=== PATIENT | female | born 1960 | race Caucasian/White ===

== ENCOUNTER 2024-04-30 15:45 | Inpatient (IN) | payer OTHER, SELFPAY ==
[2024-04-30] VITALS (11 sets, daily range): BP systolic 94–118; BP diastolic 60–82; BMI 15.2
[2024-04-30 11:56] LABS: % Basophils 0.5 % (0-2); % Eosinophils 1.1 % (0-6); % Immature Granulocytes 0.2 % (0-0.5); % Lymphocytes 10.7 % (20.5-51.1); % Monocytes 13.5 % (1.7-9.3); Absolute Eosinophils 0.1 10^3/uL (0-0.7); Absolute Lymphocytes 0.6 10^3/uL (1.2-3.4); Absolute Monocytes 0.8 10^3/uL (0.1-0.6); Absolute Neutrophils 4.2 10^3/uL (1.4-6.5); Hematocrit 24.6 % (37.0-47.0); Hemoglobin 8.5 g/dL (12.0-16.0); Mean Corp Hgb Conc. 34.6 g/dL (33.0-37.0); Mean Corpuscular Hgb 33.5 pg (27.0-31.0); Mean Corpuscular Volume 96.9 fL (81.0-99.0); Mean Platelet Volume 11.5 fL (7.4-10.4); Nucleated Red Blood Cells % 0 %; Platelet Count 184 10^3/uL (130-400); Red Blood Cell Count 2.54 10^6/uL (4.20-5.40); Red Cell Dist. Width 17.4 % (11.5-14.5); White Blood Cell Count 5.7 10^3/uL (4.8-10.8)
[2024-04-30 12:03] LABS: ALT (SGPT) 71 U/L (0-35); AST (SGOT) 61 U/L (14-36); Albumin 3.5 g/dl (3.5-5.0); Alkaline Phosphatase 292 U/L (38-126); Blood Urea Nitrogen 25 mg/dl (7-17); Calcium 7.4 mg/dl (8.4-10.2); Carbon Dioxide 10 mmol/L (22-30); Chloride 113 mmol/L (98-107); Glucose 97 mg/dl (70-99); Potassium 2.7 mmol/L (3.5-5.1); Sodium 137 mmol/L (135-145); Total Bilirubin 0.3 mg/dl (0.2-1.3); Total Protein 8.6 g/dl (6.3-8.2); eGFR 16.18
--- NOTE | 2024-04-30 14:40 | ED.GENMED ---
History of Present Illness
General
Chief Complaint: Failure to Thrive
Source: patient
Exam Limitations: none
Time Seen by Provider: 04/30/24 14:16
History of Present Illness
History of Present Illness:
63-year-old female presents with fatigue and decreased appetite. Sent in by family doctor for malnutrition. She smokes a half a pack a day. She states she has a history of abnormal lab values. She was admitted to [facility] 6 months ago
for similar symptoms. She admits to drinking alcohol approximately 3 beers a day but stopped this about a week and a half ago. She denies headache chest pain abdominal pain or shortness of breath. She has been moving her bowels and urinating.
Past History
Past History
ED Past Medical History: HTN and Other
ED Past Surgical History: None
Social History
Tobacco: Smoker
Alcohol: None
Drug: None
Personal:
Living: with family
Employment: Employed
Family History
Family History: Unable to obtain
Phy Exam
Physical Exam
Physical Exam:
General: Cachectic appearing female no acute respiratory distress
HEENT: Normocephalic mucosa dry neck is supple
Heart: Regular rate and rhythm
Lungs: Clear no wheeze
Abdomen is soft nontender nondistended
Skin: Dry patches of skin with overlying scabs over the forehead bilateral neck and arms
Extremities: No cyanosis or edema
Skin: Warm no rash
Neurologic exam: Alert and oriented no facial asymmetry no unilateral weakness
Course
Orders/Labs/Results
Orders:
Orders
04/30/24 11:42
CMP [Comprehensive Metabolic Panel] Urgent
Complete Blood Count/With Diff Urgent
04/30/24 14:31
Add On- LAB Urgent
Tests Added?: lipase, magnesium, B12, Folate
04/30/24 14:32
0.9% Sodium Chloride 1000 ml [Nss] 1,000 ml IV BOLUS
Potassium Chloride [KCl] 40 meq 0.9% Sodium Chloride 250 ml [Nss] 250 ml IV NOW
04/30/24 14:45
Lactic Acid Q4H
Comment: CANCEL 2nd LACTIC ACID IF 1st LACTIC ACID IS LESS THAN 2
04/30/24 18:45
Lactic Acid Q4H
Comment: CANCEL 2nd LACTIC ACID IF 1st LACTIC ACID IS LESS THAN 2
Abnormal Lab Results
04/30/24
11:42
RBC 2.54 L 10^6/uL
(4.20-5.40)
Hgb 8.5 L g/dL
(12.0-16.0)
Hct 24.6 L %
(37.0-47.0)
MCH 33.5 H pg
(27.0-31.0)
RDW 17.4 H %
(11.5-14.5)
MPV 11.5 H fL
(7.4-10.4)
Absolute Lymphs (auto) 0.6 L 10^3/uL
(1.2-3.4)
Absolute Monos (auto) 0.8 H 10^3/uL
(0.1-0.6)
Lymphocytes % 10.7 L %
(20.5-51.1)
Monocytes % 13.5 H %
(1.7-9.3)
Potassium 2.7 L* mmol/L
(3.5-5.1)
Chloride 113 H mmol/L
(98-107)
Carbon Dioxide 10 L* mmol/L
(22-30)
BUN 25 H mg/dl
(7-17)
Creatinine 3.1 H mg/dL
(0.6-1.0)
Calcium 7.4 L mg/dl
(8.4-10.2)
AST 61 H U/L
(14-36)
ALT 71 H U/L
(0-35)
Alkaline Phosphatase 292 H U/L
(38-126)
Total Protein 8.6 H g/dl
(6.3-8.2)
04/30/24 11:42
04/30/24 11:42
Vital Signs
Initial and Last Documented VS:
Initial Vital Signs
Temp Pulse Resp BP Pulse Ox
98.8 F 76 18 94/60 99
04/30/24 11:26 04/30/24 11:26 04/30/24 11:26 04/30/24 11:26 04/30/24 11:26
Last Documented Vital Signs
Temp Pulse Resp BP Pulse Ox
98.8 F 54 17 109/64 100
04/30/24 11:26 04/30/24 14:30 04/30/24 14:30 04/30/24 13:29 04/30/24 14:30
MDM/Problems Addressed
Differential Diagnosis Includes:
Fatigue. Sent in by family doctor for abnormal labs. Patient is cachectic appears malnourished. Potassium is 2.7 bicarb is 10 she has acute kidney injury with a creatinine of 3.1. Multiple lab abnormalities including anemia of 8.6. Looks very
dry. Will hydrate and administer IV potassium. Requires admission for further evaluation.
*Critical Care Note
Total Time (30-74mins, 75-104mins- exclusive of procedures): Not Applicable
ED Attending Note
-
Portions of this chart may have been created with voice recognition software.� Occasional wrong word or��sound alike� substitutions may have occurred due to the inherent limitations of voice recognition software.
Discharge Plan
Departure
Patient Disposition: Admit
Date of Disposition: 04/30/24
Time of Disposition: 14:51
Presentation/result/management discussed w/ accepting MD/DO: Hospitalist
Discharge Problem:
Metabolic acidosis, Acute hypokalemia, JOCELYN (acute kidney injury)
Prescriptions:
No Action
pyridoxine (vitamin B6) 25 mg Tablet
25 mg PO DAILY
cyanocobalamin (vitamin B-12) 1,000 mcg Tablet
1,000 mcg PO DAILY
potassium 99 mg Tablet
99 mg PO DAILY
folic acid 1 mg Tablet
1 mg PO DAILY
magnesium oxide 400 mg magnesium Tablet
400 mg PO DAILY
acetaminophen 325 MG tablet
650 mg PO Q4HPRN PRN (Reason: fever pain) Qty: 0 0RF
metoprolol succinate 12.5 MG tablet extended release 24 hr
12.5 mg PO DAILY Qty: 30 3RF
Referrals:
Dewey Manzo MD [Family Provider] -
Interventions
Interventions:
*Risk Screen - Suicide Last Done: 04/30/24 11:26
*General Assessment Last Done: 04/30/24 11:26
*Neglect/Abuse Screening Last Done: 04/30/24 14:32
ED- Fall Risk Assessment Last Done: 04/30/24 14:32
*ED COVID-19 Vaccine History Last Done: 04/30/24 11:26
Discharge Date and Time
Print Language: SYRIAC
[2024-04-30] MEDS: NSS 1000 IV (14:49)
--- NOTE | 2024-04-30 14:58 | HPS.HSE ---
Addendum entered and electronically signed by Prabhu Fermin MD 04/30/24 15:59:
63-year-old female with a past medical history of hypertension, anxiety, and cigarette nicotine dependency was sent in by her PCP for failure to thrive. Patient reports that she started having weight loss in 2022 with bereavement of her mom.
During the last year, she reports poor appetite, early satiety. She admits to low energy, low interest, eating less. States she is sleeping okay, she is able to focus fine. She used to be on medications for anxiety, but stopped due to cost.
Her creatinine is 3.1, CO2 is 10, potassium 2.7.
Last creatinine in August 2015 was 1.7. Suspect she has a component of stage 3 CKD.
She is getting normal saline and a K rider in the ER.
Will give sodium bicarb IV fluids, give oral potassium chloride, check renal bladder ultrasound, consult nephrology.
As far as her failure to thrive, her albumin is normal at 3.5.
Check prealbumin, TSH/free T4, B12, HIV, CRP, ESR, consult psychiatry.
Patient requesting something for anxiety, will start Ativan.
Await psychiatry input for possibly starting SSRI.
As far as her cigarette nicotine dependency, will order nicotine patch.
She is also complaining of reflux, will order Pepcid.
Patient also has a chronic rash on her right forehead, now developing on the neck.
She was seen by dermatology in the office, and had a biopsy.
She did not follow-up after the biopsy.
I have personally seen and examined the patient, and agree with the plan of care as documented by POONAM Toney.
Advance care planning discussed, patient is a limited DNR. She wants CPR, no intubation.
All other issues as outlined by the advanced care practitioner.
Total time spent to see the patient on the floor, examine the patient, review data and lab results, discuss treatment plan with patient, nursing staff around 76 minutes.
Original Note:
Family Physician
-
Family Physician: Dewey Manzo
Chief Complaint
-
poor appetite
History of Present Illness
63-year-old female past medical history for anxiety, hypertension presents with fatigue and decreased appetite for past few months. Patient was admitted to [place] in September with the same symptoms. Today she had a follow-up appointment with her
PCP. She was noted fatigue, weak and decreased appetite. she is been felling fatigue and weak since her mom passed in 2022. she used to weight 120's now she is only 77 lbs. Patient was also noted to have worsening rash on her neck and face.
Patient was evaluated once by dermatology. Biopsy was done at that time with unknown results. Patient was scheduled for an appointment with dermatology last Sunday. She was too weak to get to that appointment. Patient denies any headache, dizzy
or syncope. 2 days ago she tripped and fell, landed on her side. She is complaining of lower back pain. Denied fever, chills, chest pain, congestion, cough. Patient denied abdominal pain, nausea, vomiting, diarrhea. Patient denied dysuria
hematuria. She smokes a half a pack a day. She admits to drinking alcohol approximately 3 beers a day but stopped this about 2 weeks ago.
She was noted to have JOCELYN, abnormal electrolytes. Patient supplemented with IV KCl, fluids in ER. Admitting for further management
Medical History
Past Medical History
Past Medical History: Reports Other
Additional Past Medical History:
Hypertension, anxiety
Past Surgical History: Reports None
Social History
Tobacco: Smoker (0.5.)
Alcohol: Occasional
Drug: None
Personal:
Living: With Family
Family History
Family History: Not pertinent
Allergies / Home Medications
Allergies reflects when Allergies were last updated in [employer].
Home Medications with original date entered in [employer]
Allergy/Medication List:
Allergies
Allergy/AdvReac Type Severity Reaction Status Date / Time
No Known Allergies Allergy Verified 04/30/24 11:30
Home Medications
acetaminophen 325 mg tablet 650 mg (2 x 325 mg) PO Q4HPRN PRN fever pain ##0 10/16/14
metoprolol succinate 25 mg tablet,extended release 24 hr 12.5 mg (1/2 x 25 mg) PO DAILY ##30 10/16/14
cyanocobalamin (vitamin B-12) 1,000 mcg tablet 1,000 mcg PO DAILY 04/30/24
folic acid 1 mg tablet 1 mg PO DAILY 04/30/24
magnesium oxide 400 mg PO DAILY 04/30/24
potassium 99 mg tablet 99 mg PO DAILY 04/30/24
pyridoxine (vitamin B6) 25 mg tablet 25 mg PO DAILY 04/30/24
Review of Systems
-
Constitutional: Reports Weight Loss and Fatigue
EENT: Reports No Symptoms
Respiratory: Reports No Symptoms
Cardiac: Reports No Symptoms
Abdomen/GI: Reports No Symptoms
: Reports No Symptoms
Musculoskeletal: Reports No Symptoms
Skin: Reports Rash
Neurological: Reports No Symptoms and Weakness
Endocrine: Reports No Symptoms
Hematologic/Lymphatic: Reports No Symptoms
Psych: Reports No Symptoms
Physical Exam
Vital Signs
Vital Signs
Temp Pulse Resp BP Pulse Ox
98.8 F 44 15 113/77 100
04/30/24 11:26 04/30/24 14:49 04/30/24 14:49 04/30/24 14:49 04/30/24 14:49
Physical Exam
General: Well Developed, Well Nourished and No Apparent Distress
HEENT: NormoCephalic, Moist mucous membranes and Atraumatic
Respiratory: Clear
Cardiac: S1/S2 and Regular Rhythm; No Murmur or Rub
GI: Soft, Non Tender, Non Distended and Normal Bowel Sounds; No Organomegaly
Rectal: Deferred by Provider
Musculoskeletal: No Clubbing, No Cyanosis and No Edema
Skin: Rash
Neuro: AO x 3 and Nonfocal/grossly intact
Psych: Calm
Laboratory Results
-
04/30/24 11:42
04/30/24 11:42
Laboratory Results
Total Bilirubin 0.3 mg/dl (0.2-1.3) 04/30/24 11:42
AST 61 U/L (14-36) H 04/30/24 11:42
ALT 71 U/L (0-35) H 04/30/24 11:42
Alkaline Phosphatase 292 U/L (38-126) H 04/30/24 11:42
Data Reviewed
-
Lab Data: Labs Reviewed by me
Impression/Plan
-
# Failure to thrive
# Hypokalemia/metabolic acidosis/acute kidney injury on CKD stage IIIb hypercalcemia likely from dehydration
-K2.7, bicarb 10, creatinine 3.1
-Supplemented with KCl, fluids
-BMP in a.m.
-nephrology consulted
-obtain Renal US
-sodium bicarb continued
# Anemia of chronic disease
-Hemoglobin stable at 8.5
-No active bleeding
-Continue to monitor
# Transaminitis likely from dehydration
-AST 61, ALT 71, ALK 292
-Patient denied any abdominal pain
-Trend LFTs in a.m.
#essential HTN
-metoprolol continued
#DVT prophylaxis
-heparin sq
#CODE status
-DNR
[2024-04-30 15:38] LABS: Lactic Acid 0.8 mmol/L (0.7-2.0)
--- NOTE | 2024-04-30 15:42 | EDRN ---
this EDGE STITCHER obtained a verbal order from Dr Fermin present at the pts bedside to administer 250mls NSS IVF at the same time and at the same rate as the potassium infusion to dilute the potassium infusion for patient comfort.
--- NOTE | 2024-04-30 15:44 | W.CON.NEPH ---
Consultation
-
Date/Time Consultation Requested: 04/30/2024 3 PM
Date/Time Consultation Performed: 04/30/2024 4 PM
Requesting Provider: Dr. Fermin
Performing Provider: Dr. Mike
Reason for Consultation: JOCELYN, hypokalemia
Medical History
-
Chief Complaint: Failure to thrive
History of Present Illness:
This is a 63-year-old female with limited medical history. She has hypertension on metoprolol therapy. She had a history of intracranial hemorrhage about 10 years ago requiring craniectomy and ventriculostomy. Perhaps over the last year she has
begun losing weight progressively, losing weight appears to be 50 pounds. Her appetite has been poor and she eats perhaps 1 meal per day at most typically a waffle or yogurt not much more. She says that she drinks close to 64 ounces of fluid per
day. She is able to handle most of her activities herself but does not drive. Her does help her but she does not require assistance for going to the bathroom or showering or getting dressed. Recently she had developed some skin lesions
and had seen dermatology. She states that a biopsy was done on her legs and the pathology was unremarkable. She was then told by another doctor that she should go to the emergency room because of failure to thrive.. Here she was noted to have a
creatinine of 3.1, potassium 3.7, bicarbonate 10. We are asked to assist in management of the electrolyte and renal abnormalities
Past Medical History
Hypertension, intracranial bleed, craniotomy, ventriculostomy, GERD
Social History
Tobacco: Smoker
Alcohol: Daily (Drinking 4 beers per day quit about 2 weeks ago)
Family History
Family History: Not Pertinent
Allergies / Home Medications
Allergy/AdvReac Type Severity Reaction Status Date / Time
No Known Allergies Allergy Verified 04/30/24 11:30
�Medication �Instructions �Recorded �Confirmed �Type
acetaminophen 325 mg tablet 650 mg (2 x 325 mg) PO Q4HPRN PRN 10/16/14 04/30/24 Rx
fever pain ##0
metoprolol succinate 25 mg 12.5 mg (1/2 x 25 mg) PO DAILY ##30 10/16/14 04/30/24 Rx
tablet,extended release 24 hr
cyanocobalamin (vitamin B-12) 1,000 mcg PO DAILY 04/30/24 04/30/24 History
1,000 mcg tablet
folic acid 1 mg tablet 1 mg PO DAILY 04/30/24 04/30/24 History
magnesium oxide 400 mg PO DAILY 04/30/24 04/30/24 History
potassium 99 mg tablet 99 mg PO DAILY 04/30/24 04/30/24 History
pyridoxine (vitamin B6) 25 mg 25 mg PO DAILY 04/30/24 04/30/24 History
tablet
Review of Systems
-
No chest pain or shortness of breath. Denies any issues with urine output or diarrhea. generalized weakness
All other systems: Negative unless noted
Physical Exam
Vital Signs
Vital Signs
Temp Pulse Resp BP Pulse Ox
98.8 F 44 15 113/77 100
04/30/24 11:26 04/30/24 14:49 04/30/24 14:49 04/30/24 14:49 04/30/24 14:49
Lab Results
WBC 5.7 10^3/uL (4.8-10.8) 04/30/24 11:42
RBC 2.54 10^6/uL (4.20-5.40) L 04/30/24 11:42
Hgb 8.5 g/dL (12.0-16.0) L 04/30/24 11:42
Hct 24.6 % (37.0-47.0) L 04/30/24 11:42
Plt Count 184 10^3/uL (130-400) 04/30/24 11:42
Sodium 137 mmol/L (135-145) 04/30/24 11:42
Potassium 2.7 mmol/L (3.5-5.1) L* 04/30/24 11:42
Chloride 113 mmol/L (98-107) H 04/30/24 11:42
Carbon Dioxide 10 mmol/L (22-30) L* 04/30/24 11:42
BUN 25 mg/dl (7-17) H 04/30/24 11:42
Creatinine 3.1 mg/dL (0.6-1.0) H 04/30/24 11:42
eGFR 16.18 04/30/24 11:42
Glucose 97 mg/dl (70-99) 04/30/24 11:42
Calcium 7.4 mg/dl (8.4-10.2) L 04/30/24 11:42
Albumin 3.5 g/dl (3.5-5.0) 04/30/24 11:42
Physical Exam
Patient is awake alert oriented and in no distress. Mood and affect were pleasant, insight and judgment were good. Pronounced cachexia pupils are equal round and reactive to light, extraocular movements are intact, sclera were anicteric. Hearing
was normal, ears and nose are intact. Oropharynx was clear. Neck was supple with trachea midline and no thyromegaly. Heart was regular rate and rhythm without rubs. Lower extremities without edema. Lungs were clear to auscultation bilaterally and
with normal excursion. Abdomen was soft, nontender, with normal active bowel sounds, and no hepatosplenomegaly. Skin was with exfoliating rash on the forehead and with decreased turgor. Several excoriations noted on the neck. Several scattered
lipomas
Data Reviewed
-
Labs: Labs Reviewed by me
Old Records: Reviewed
Assessment/Plan
-
Assessment
Failure to thrive
Weight loss
JOCELYN
Hypokalemia
Metabolic acidosis
Hypocalcemia
Rash
Elevated LFTs
Plan
IV fluid bicarb based
replete potassium IV n.p.o.
Replete calcium
Check vitamin levels
Psych evaluation
recommend CT abdomen pelvis no IV contrast
Follow BMP
Check phosphate
[2024-04-30 15:50] LABS: Lipase 313 U/L (23-300)
[2024-04-30] MEDS: KCL 40 MEQ PO ×2 (16:02→22:20)
[2024-04-30 16:35] LABS: Total Thyroxine 1.93 ug/dl (5.5-11.0)
[2024-04-30] MEDS: NICODERM TRANSDERMAL 14 MG TRANSDERM (17:07)
[2024-04-30] MEDS: PEPCID 20 MG PO (17:07)
[2024-04-30 17:24] LABS: Folate 7.9 ng/ml (2.76-20); Vitamin B12 954 pg/ml (239-931)
[2024-04-30] MEDS: ATIVAN 0.5 MG PO ×2 (17:27→22:20)
[2024-04-30] MEDS: KCL 270 MEQ IV (17:29)
[2024-04-30] MEDS: NSS 250 IV (17:30)
[2024-04-30 17:45] LABS: Vitamin D, 25-OH*** 19.8 ng/mL (30-80)
[2024-04-30] MEDS: SODIUM BICARBONATE 1150 MEQ IV (17:48)
--- NOTE | 2024-04-30 18:16 | EDRN ---
the pt is refusing oral CT contrast that is ordered for CT abd/pelvis with oral contrast. the pt is stating there is no way she can drink it. the ordering doctor Dr Mike was notified of above. Per Dr Mike instruction, this [employer]RI[employer] told writer technical publications the pt is
to have the ordered CT scan without oral or IV contrast.
[2024-04-30 18:22] LABS: Phosphorus 3.1 mg/dl (2.5-4.5)
[2024-04-30] MEDS: TYLENOL 650 MG PO (22:20)
[2024-04-30] MEDS: HEPARIN SC ×2 (22:20→22:29)
--- NOTE | 2024-04-30 23:15 | PTCARENOTE ---
Pt arrived from ED via stretcher to room 318-2. Pt able to scoot into bed from stretcher with staff assistance. Pt AAOx3 able to make needs known, call cruz within reach, oriented to room. Will continue to monitor pt.
[2024-05-01 03:00] VITALS: BP 93/60
[2024-05-01] MEDS: TYLENOL 650 MG PO ×3 (06:39→22:43)
[2024-05-01 06:51] LABS: % Basophils 0.5 % (0-2); % Eosinophils 0.8 % (0-6); % Immature Granulocytes 0.3 % (0-0.5); % Lymphocytes 11.7 % (20.5-51.1); % Neutrophils 73.7 % (42.2-75.2); Absolute Eosinophils 0.1 10^3/uL (0-0.7); Absolute Lymphocytes 0.7 10^3/uL (1.2-3.4); Absolute Monocytes 0.8 10^3/uL (0.1-0.6); Absolute Neutrophils 4.4 10^3/uL (1.4-6.5); Hematocrit 23.4 % (37.0-47.0); Hemoglobin 7.8 g/dL (12.0-16.0); Mean Corp Hgb Conc. 33.3 g/dL (33.0-37.0); Mean Corpuscular Hgb 32.5 pg (27.0-31.0); Mean Corpuscular Volume 97.5 fL (81.0-99.0); Mean Platelet Volume 11.2 fL (7.4-10.4); Nucleated Red Blood Cells % 0 %; Platelet Count 163 10^3/uL (130-400); Red Cell Dist. Width 17.5 % (11.5-14.5)
[2024-05-01 07:18] LABS: ALT (SGPT) 55 U/L (0-35); AST (SGOT) 45 U/L (14-36); Albumin 2.7 g/dl (3.5-5.0); Alkaline Phosphatase 244 U/L (38-126); Blood Urea Nitrogen 19 mg/dl (7-17); Calcium 6.9 mg/dl (8.4-10.2); Carbon Dioxide 11 mmol/L (22-30); Chloride 120 mmol/L (98-107); Direct Bilirubin 0.2 mg/dl (0.0-0.4); Estimated Creatinine Clearance 13 ml/min; Glucose 86 mg/dl (70-99); Iron 55 ug/dl (37-170); Potassium 3.7 mmol/L (3.5-5.1); Prealbumin (Transthyretin) 13.1 mg/dl (17.6-36.0); Sodium 141 mmol/L (135-145); Total Bilirubin 0.4 mg/dl (0.2-1.3); Total Protein 7.5 g/dl (6.3-8.2)
[2024-05-01 07:19] VITALS: BP 93/58
[2024-05-01 07:20] LABS: Percent Saturation 31 % (20-50); Total Iron Binding Capacity 175 ug/dl (265-497)
[2024-05-01] MEDS: VITAMIN B-6 25 MG PO (07:39)
[2024-05-01] MEDS: MAG-TAB SR 84 MG PO (07:40)
[2024-05-01] MEDS: FOLVITE 1 MG PO (07:40)
[2024-05-01] MEDS: NICODERM TRANSDERMAL 14 MG TRANSDERM (07:40)
[2024-05-01] MEDS: TOPROL XL 12.5 MG PO (07:40)
[2024-05-01] MEDS: HEPARIN SC ×2 (07:40→20:34)
[2024-05-01] MEDS: VITAMIN B-12 1000 MCG PO (07:42)
--- NOTE | 2024-05-01 08:48 | W.PN.HOSP.TC ---
Today's Communication/Plan
-
see bold
Assessment / Plan
Assessment / Plan
#Non-anion gap metabolic acidosis
Nephrology following
Continue sodium bicarb IV fluids, start oral sodium bicarb, trend labs
#Acute kidney injury superimposed on stage III chronic kidney disease
Improving with IV fluids
Creatinine 2.4 today, down from 3.1, appears baseline is 1.7
#Hypokalemia
Repleted and resolved
#Severe hypothyroidism
Give Synthroid 25 mcg IV x 1
Start Synthroid 50 mcg daily
#Anxiety
Appreciate psychiatry input, patient would like to hold off on starting medications
Continue Ativan as needed
#Cachexia
#Severe protein calorie malnutrition
#Failure to thrive
Patient has had a 50-60 pound weight loss, with poor appetite and early satiety
HIV negative, chest x-ray and CT abdomen and pelvis negative for malignancy
Encourage oral intake, will offer protein supplement
#Worsening anemia of chronic kidney disease
Hemoglobin 7.8, transfuse for hemoglobin less than 7.0
#Hypocalcemia
#Vitamin D deficiency
Start vitamin D and calcium supplements
#Essential hypertension
#Nonsustained ventricular tachycardia
Continue Toprol XL, follow-up on echo
#Elevated LFTs
Improving, CT negative for liver pathology
Check hepatitis panel
#Dermatitis on face/neck/legs/hands
Triamcinolone ointment 3 times daily
Outpatient follow-up
#Gastroesophageal reflux disease
Continue Pepcid
#COPD on chest x-ray
Chest x-ray shows hyperinflated lungs, suggestive of COPD
Recommend outpatient PFTs
#Cigarette nicotine dependency
Cigarette cessation counseling has been provided
Continue nicotine patch
DVT prophylaxis�subcu heparin
Wants CPR, no intubation
Updated at bedside 05/01
Discussed with nephrology, endocrinology, psychiatry
Total time spent to see the patient on the floor, examine the patient, review data and lab results, discuss treatment plan with patient, nursing staff around 55 minutes.
Physical Exam
General: Cachectic, no acute distress
HEENT: Normocephalic, Atraumatic, EOMI, MMM
Respiratory: Clear to Auscultation bilaterally
Cardiac: Normal S1/S2, Regular Rate and Rhythm
GI: Soft, Nontender, Nondistended, Normal Bowel Sounds
Extremities: No Clubbing, Cyanosis, or Edema
Neuro: Nonfocal/Grossly Intact
Psych: Calm, Cooperative
Derm:
Scaly skin lesions on right forehead, hands, legs
Scaly skin lesions on neck with scabs
Anticipated Discharge: 24 - 48 hours
Subjective/Interval History
-
Date of Service: May 01, 2024
Patient reports her appetite is much improved. She ate most of her breakfast. She usually only eats 5% of her meals at home. She reports abdominal pain from her anxiety. No chest pain, no shortness of breath, no palpitations. No fever, no
vomiting.
Objective Data
-
Labs:
Laboratory Results
05/01/24
06:25
WBC 6.0
Hgb 7.8 L
Hct 23.4 L
Plt Count 163
Sodium 141
Potassium 3.7 D
Chloride 120 H
Carbon Dioxide 11 L*
BUN 19 H
Creatinine 2.4 H
Glucose 86
Calcium 6.9 L*
Total Bilirubin 0.4
AST 45 H
ALT 55 H
Alkaline Phosphatase 244 H
Vital Signs:
Vital Signs
Temp Pulse Resp BP Pulse Ox
98.8 F 67 16 93/58 100
05/01/24 07:19 05/01/24 07:40 05/01/24 07:19 05/01/24 07:40 05/01/24 07:19
I&O
04/30/24 05/01/24 05/02/24
06:59 06:59 06:59
Intake Total 620 / 620
Balance 620 / 620
[2024-05-01 09:10] LABS: Erythrocyte Sed Rate 136 mm/hour (0-20)
[2024-05-01] MEDS: VITAMIN D3 (cholecalciferol) 25 MCG PO (09:16)
[2024-05-01] MEDS: OSCAL 500 + D 500 MG PO ×3 (09:16→21:51)
[2024-05-01] MEDS: CALCIUM GLUCONATE 100 IV (09:17)
[2024-05-01] MEDS: SODIUM BICARBONATE 1950 MG PO (09:19)
--- NOTE | 2024-05-01 09:32 | W.PN.NEPH.PH ---
Today's Communication / Plan
-
IV fluids
Assessment/Plan
-
Assessment
Failure to thrive
Weight loss
JOCELYN
Hypokalemia
Metabolic acidosis
Hypocalcemia
Rash
Elevated LFTs
Plan
IV fluid bicarb based
P.o. bicarbonate
Replete calcium
Synthroid
Follow BMP
-
-
Date of Service: May 01, 2024
CC / HPI / ROS
-
Chief Complaint:
JOCELYN
History of Present Illness:
Hemoglobin lower at 7.8
JOCELYN/Cr lower at 2.4
Acidosis persists 11
Potassium better
Calcium low 6.9
TSH elevated
Review of Systems:
No chest pain or shortness of breath
Eating well
Labs
-
Labs:
WBC 6.0 10^3/uL (4.8-10.8) 05/01/24 06:25
RBC 2.40 10^6/uL (4.20-5.40) L 05/01/24 06:25
Hgb 7.8 g/dL (12.0-16.0) L 05/01/24 06:25
Hct 23.4 % (37.0-47.0) L 05/01/24 06:25
Plt Count 163 10^3/uL (130-400) 05/01/24 06:25
Sodium 141 mmol/L (135-145) 05/01/24 06:25
Potassium 3.7 mmol/L (3.5-5.1) D 05/01/24 06:25
Chloride 120 mmol/L (98-107) H 05/01/24 06:25
Carbon Dioxide 11 mmol/L (22-30) L* 05/01/24 06:25
BUN 19 mg/dl (7-17) H 05/01/24 06:25
Creatinine 2.4 mg/dL (0.6-1.0) H 05/01/24 06:25
eGFR 22.00 05/01/24 06:25
Glucose 86 mg/dl (70-99) 05/01/24 06:25
Calcium 6.9 mg/dl (8.4-10.2) L* 05/01/24 06:25
Phosphorus 3.1 mg/dl (2.5-4.5) 04/30/24 11:42
Albumin 2.7 g/dl (3.5-5.0) L 05/01/24 06:25
Physical Exam
-
Vital Signs:
Vital Signs
Temp Pulse Resp BP Pulse Ox
98.8 F 67 16 93/58 100
05/01/24 07:19 05/01/24 07:40 05/01/24 07:19 05/01/24 07:40 05/01/24 07:19
Cardiovascular:: Regular rate and rhythm
Respiratory:: Bilateral: Coarse
Lung Excursion:: Normal
Abdomen:: Nontender and Soft
Bowel Sounds:: Normal
Extremity Edema:: None: Bilateral:
[2024-05-01] MEDS: LEVOTHROID 25 MCG IV (09:36)
[2024-05-01] MEDS: SODIUM BICARBONATE 1150 MEQ IV (10:31)
[2024-05-01 10:42] VITALS: BP 92/52
--- NOTE | 2024-05-01 12:41 | CON.MD ---
Consultation - Medical
-
patient seen chart reviewed. discussed w dr mendoza. patient's h at bedside patient is a 63 year old woman admitted w FTT referred by her pcp. she had significant weight loss of 50 lbs . she c/o no energy and is inc withdrawan. she suffered the of
her mom in 2022. she had cared for her mom and when mom she felt her purpose in life w her although at this point her ten year old grandson lives with her. 'it's hard work'. she has no suicidal thoughts. she does admit she is 'somewhat
depressed'. there is nothing to suggest bipolar or psychosis she did take cymbalta years ago but found it sapped her energy and she stopped it. patient suffered a cva in 2014 and felt that there may be some mild cognitive sequelae eg she
cannot follow if there are several conversations going on at once. she did reasonably well w me today. see med hx below as there are a number of confounding medical issues that may play a role in what has been perceived as a mood disorder
past psych hx patient has some hx depression but has never been hospitalized. she has not recently seen a psychiatrist nor has she been in therapy.
medical hx patient suffered a left cerebellar hem in 2014 for which she underwent craniectomy and ventriculostomy. she was placed on keppra after as a precaution but has not taken it in years. noted tsh 68 w low t4 (her presentation not typical as
she has weight loss and loss of appetite although she does have cold intolerance dry skin brittle hair poor energy) low vit d nl b12 and golate liver enzymes elevated as well as lipase elevation. anemia w hgb 7.8 workup in progress. patient has hx
hypertension cig smoker and etoh use see substance abuse below facial rash which has been bx by derm no dx confirmed told it was not cancer renal issues w creatinine of 3 at admit now 2.4 K low at admit 2.7 now 3.7
substance abuse admits to a daily six pack stopped two weeks ago. denies hx wd sx or sz. smokes cigs
fh alcoholism
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
mse alert ox3 cooperative and pleasant. frail appearance. speech and thought process goal oriented no psychosis mood may be dysphoric or just very tired affect ok no si aver intelligence insight judgment appear adequate
dx r/o depression but presentation could be due to underlying medical issues see below
recommendations: many of patient's sx could be accounted for by medical issues and ingestion of etoh. hypothyroid, kidney issues, and severe anemia could be causing many of the sx she is describing and the of her mother may be a red
vegas. i did present patient w the option of zoloft which should not sedate her but she prefers to wait and see how the medical workup proceeds and how she feels after resolution of these issues which in my opinion may be the way to go. she is
NOT suicidal. there does not seem to be an emergent need to treat now. she was counseled that etoh is NOT helping her at this point and may be seriously impairing her. need to watch for etoh wd. she should also quit smoking.would treat vit d
deficiency. thyroid rx already in the works as is anemia workup. psych will sign off.
[2024-05-01 13:11] LABS: HIV Combo Negative (Negative)
[2024-05-01 15:12] VITALS: BP 114/57
[2024-05-01] MEDS: SODIUM BICARBONATE 1300 MG PO ×2 (15:12→21:51)
[2024-05-01] MEDS: TRIAMCINOLONE ACETONIDE 0.1% OINTMENT 1 APPLIC TOPICAL ×2 (15:51→21:51)
[2024-05-01] MEDS: KCL 20 MEQ PO (15:54)
[2024-05-01 15:57] VITALS: BMI 15.2
[2024-05-01 19:29] VITALS: BP 89/52
[2024-05-01 20:47] LABS: Hepatitis B Surface Antigen Negative (Negative)
[2024-05-01 21:04] LABS: Hepatitis B Surface Antibody Negative; Hepatitis C Antibody Negative (Negative)
[2024-05-01 23:30] VITALS: BP 102/65
[2024-05-02 03:48] VITALS: BP 95/68
[2024-05-02] MEDS: SYNTHROID 50 MCG PO (05:08)
[2024-05-02 07:19] LABS: Hematocrit 20.2 % (37.0-47.0); Hemoglobin 6.8 g/dL (12.0-16.0); Mean Corp Hgb Conc. 33.7 g/dL (33.0-37.0); Mean Corpuscular Hgb 32.5 pg (27.0-31.0); Mean Corpuscular Volume 96.7 fL (81.0-99.0); Mean Platelet Volume 11.4 fL (7.4-10.4); Platelet Count 156 10^3/uL (130-400); Red Blood Cell Count 2.09 10^6/uL (4.20-5.40); Red Cell Dist. Width 16.9 % (11.5-14.5); White Blood Cell Count 5.8 10^3/uL (4.8-10.8)
[2024-05-02 07:31] LABS: Blood Urea Nitrogen 17 mg/dl (7-17); Carbon Dioxide 20 mmol/L (22-30); Chloride 111 mmol/L (98-107); Estimated Creatinine Clearance 16 ml/min; Glucose 87 mg/dl (70-99); Potassium 2.6 mmol/L (3.5-5.1); Sodium 139 mmol/L (135-145); eGFR 27.38
[2024-05-02 07:50] VITALS: BP 102/59
--- NOTE | 2024-05-02 08:05 | W.PN.HOSP.TC ---
Today's Communication/Plan
-
see bold
Assessment / Plan
Assessment / Plan
#Non-anion gap metabolic acidosis
Nephrology following
Improving status post sodium bicarb IV fluids, continue oral sodium bicarb, trend labs
#Acute kidney injury superimposed on stage III chronic kidney disease
Improving with IV fluids
Creatinine 2.0 today, was 2.4, down from 3.1, appears baseline is 1.7
#Hypokalemia
#Hypomagnesemia
Replete prn
#Severe hypothyroidism
Give Synthroid 25 mcg IV x 1 on 05/01
Started Synthroid 50 mcg daily 05/02
#Anxiety/depression
Appreciate psychiatry input, patient would like to hold off on starting medications
Continue Ativan as needed, patient agreed to start Zoloft 25 mg daily 05/02
#Cachexia
#Severe protein calorie malnutrition
#Failure to thrive
Patient has had a 50-60 pound weight loss, with poor appetite and early satiety
HIV negative, chest x-ray and CT abdomen and pelvis negative for malignancy
Encourage oral intake, protein supplement
#Worsening anemia of chronic kidney disease
Hemoglobin 7.7, transfuse for hemoglobin less than 7.0
#Hypocalcemia
#Vitamin D deficiency
Started vitamin D and calcium supplements 05/01
Continue IV calcium gluconate as needed
#Essential hypertension
#Nonsustained ventricular tachycardia
Continue Toprol XL, echo unremarkable
#Elevated LFTs
Improving, CT negative for liver pathology
Hepatitis panel negative, monitor
#Dermatitis on face/neck/legs/hands
Triamcinolone ointment 3 times daily
Outpatient follow-up
#Gastroesophageal reflux disease
Continue Pepcid
#COPD on chest x-ray
Chest x-ray shows hyperinflated lungs, suggestive of COPD
Recommend outpatient PFTs
#Cigarette nicotine dependency
Cigarette cessation counseling has been provided
Continue nicotine patch
DVT prophylaxis�subcu heparin
Wants CPR, no intubation
Updated at bedside 05/01
Discussed with nephrology, endocrinology, psychiatry
Total time spent to see the patient on the floor, examine the patient, review data and lab results, discuss treatment plan with patient, nursing staff around 54 minutes.
Physical Exam
General: Cachectic, no acute distress
HEENT: Normocephalic, Atraumatic, EOMI, MMM
Respiratory: Clear to Auscultation bilaterally
Cardiac: Normal S1/S2, Regular Rate and Rhythm
GI: Soft, Nontender, Nondistended, Normal Bowel Sounds
Extremities: No Clubbing, Cyanosis, or Edema
Neuro: Nonfocal/Grossly Intact
Psych: Calm, Cooperative
Derm:
Scaly skin lesions on right forehead, hands, legs
Scaly skin lesions on neck with scabs
Anticipated Discharge: 24 - 48 hours
Subjective/Interval History
-
Date of Service: May 02, 2024
Patient reports feeling 'down in the dumps'. She had a bowel movement. Abdominal pain, nausea, resolved. No fever, no vomiting. No chest pain, no shortness of breath.
Objective Data
-
Labs:
Laboratory Results
05/02/24
06:18
WBC 5.8
Hgb 6.8 L*
Hct 20.2 L*
Plt Count 156
Sodium 139
Potassium 2.6 L* D
Chloride 111 H
Carbon Dioxide 20 L
BUN 17
Creatinine 2.0 H
Glucose 87
Calcium 6.0 L*
Vital Signs:
Vital Signs
Temp Pulse Resp BP Pulse Ox
98 F 87 16 102/59 96
05/02/24 07:50 05/02/24 07:50 05/02/24 07:50 05/02/24 07:50 05/02/24 07:50
I&O
05/01/24 05/02/24 05/03/24
06:59 06:59 06:59
Intake Total 620 / 620 480 / 480
Balance 620 / 620 480 / 480
[2024-05-02] MEDS: KCL 270 MEQ IV (08:15)
[2024-05-02] MEDS: SODIUM BICARBONATE 1300 MG PO ×3 (08:15→21:22)
[2024-05-02] MEDS: VITAMIN B-12 1000 MCG PO (08:16)
[2024-05-02] MEDS: TOPROL XL 12.5 MG PO (08:16)
[2024-05-02] MEDS: VITAMIN B-6 25 MG PO (08:16)
[2024-05-02] MEDS: TYLENOL 650 MG PO ×2 (08:16→17:47)
[2024-05-02] MEDS: OSCAL 500 + D 500 MG PO ×3 (08:17→21:22)
[2024-05-02] MEDS: FOLVITE 1 MG PO (08:17)
[2024-05-02] MEDS: MAG-TAB SR 84 MG PO (08:17)
[2024-05-02] MEDS: NICODERM TRANSDERMAL 14 MG TRANSDERM (08:17)
[2024-05-02] MEDS: VITAMIN D3 (cholecalciferol) 25 MCG PO (08:17)
[2024-05-02] MEDS: HEPARIN 5000 UNITS SC ×2 (08:21→21:22)
[2024-05-02] MEDS: TRIAMCINOLONE ACETONIDE 0.1% OINTMENT 1 APPLIC TOPICAL ×3 (08:22→21:21)
[2024-05-02 08:49] LABS: Magnesium 1.5 mg/dl (1.6-2.3)
[2024-05-02 09:37] LABS: Hemoglobin 7.7 g/dL (12.0-16.0)
[2024-05-02] MEDS: KCL 40 MEQ PO ×2 (10:04→16:02)
[2024-05-02 11:00] VITALS: BP 105/67
[2024-05-02] MEDS: ZOLOFT 25 MG PO (12:00)
[2024-05-02] MEDS: CALCIUM GLUCONATE 100 IV (13:34)
[2024-05-02] MEDS: LIDOCAINE 4% PATCH 1 PATCH TOPICAL (13:34)
--- NOTE | 2024-05-02 14:35 | W.PN.NEPH.PH ---
Today's Communication / Plan
-
replace k , mg
Assessment/Plan
-
Assessment
Failure to thrive
Weight loss
JOCELYN
Hypokalemia
Metabolic acidosis
Hypocalcemia
Rash
Elevated LFTs
Plan
JOCELYN improving cr down to 2
met acidosis is better with bicarb IVF , now off
maintain po bicarb
replace k, recheck later today
Replete calcium and mg , monitor for refeeding
Synthroid
replace vit D
Bp soft echo seem erik;
monitor h/h, prn transfusion
Follow BMP
-
-
Date of Service: May 02, 2024
CC / HPI / ROS
-
Chief Complaint:
JOCELYN
History of Present Illness:
Hemoglobin lower at 7.7
JOCELYN/Cr lower at 2
Acidosis betetr at 2
Potassium low 2.6
Calcium low 6, mg low 1.5
TSH elevated
Review of Systems:
No chest pain or shortness of breath
Eating well
Labs
-
Labs:
WBC 5.8 10^3/uL (4.8-10.8) 05/02/24 06:18
RBC 2.09 10^6/uL (4.20-5.40) L 05/02/24 06:18
Hgb 7.7 g/dL (12.0-16.0) L 05/02/24 09:28
Hct 20.2 % (37.0-47.0) L* 05/02/24 06:18
Plt Count 156 10^3/uL (130-400) 05/02/24 06:18
Sodium 139 mmol/L (135-145) 05/02/24 06:18
Potassium 2.6 mmol/L (3.5-5.1) L* D 01/31/25 06:18
Chloride 111 mmol/L (98-107) H 05/02/24 06:18
Carbon Dioxide 20 mmol/L (22-30) L 05/02/24 06:18
BUN 17 mg/dl (7-17) 05/02/24 06:18
Creatinine 2.0 mg/dL (0.6-1.0) H 05/02/24 06:18
eGFR 27.38 05/02/24 06:18
Glucose 87 mg/dl (70-99) 05/02/24 06:18
Calcium 6.0 mg/dl (8.4-10.2) L* 05/02/24 06:18
Phosphorus 3.1 mg/dl (2.5-4.5) 04/30/24 11:42
Albumin 2.7 g/dl (3.5-5.0) L 05/01/24 06:25
Physical Exam
-
Vital Signs:
Vital Signs
Temp Pulse Resp BP Pulse Ox
98.4 F 88 19 105/67 99
05/02/24 11:00 05/02/24 11:00 05/02/24 11:00 05/02/24 11:00 05/02/24 11:00
Cardiovascular:: Regular rate and rhythm
Respiratory:: Bilateral: CTA
Lung Excursion:: Normal
Abdomen:: Nontender and Soft
Extremity Edema:: None: Bilateral:
Lizarraga Catheter: No
[2024-05-02] MEDS: MAGNESIUM SULFATE 50 IV (15:01)
[2024-05-02 15:07] VITALS: BP 107/72
[2024-05-02] MEDS: PEPCID 20 MG PO (16:02)
[2024-05-02 19:27] VITALS: BP 111/71
[2024-05-02 21:15] LABS: Albumin 2.4 g/dl (3.5-5.0); Blood Urea Nitrogen 15 mg/dl (7-17); Calcium 6.8 mg/dl (8.4-10.2); Carbon Dioxide 16 mmol/L (22-30); Chloride 113 mmol/L (98-107); Estimated Creatinine Clearance 17 ml/min; Glucose 109 mg/dl (70-99); Phosphorus 1.1 mg/dl (2.5-4.5); Potassium 4.2 mmol/L (3.5-5.1); Sodium 137 mmol/L (135-145); eGFR 29.12
--- NOTE | 2024-05-02 22:09 | PTCARENOTE ---
Critical calcium level called, 6.8 this evening, was 6.0 this morning. Received IV repletion today.
Lab drawn late, ordered to be drawn 1700pm, not collected during dayshift. POONAM Kim notified of critical level. Awaiting response. Will monitor.
[2024-05-02 22:41] VITALS: BP 111/74
[2024-05-03] MEDS: TYLENOL 650 MG PO ×3 (00:21→23:42)
[2024-05-03] MEDS: CALCIUM GLUCONATE 100 IV ×3 (00:21→23:31)
--- NOTE | 2024-05-03 00:37 | PTCARENOTE ---
Addendum entered by Delmy Lopez RN 05/03/24 01:57:
Patient states that the Tylenol has helped significantly with the right hip pain at this time. Will continue to monitor.
Original Note:
Patient is c/o right hip pain -- lidocaine patch removed per orders this evening, see MAR. Patient states that the lidocaine patch was helping, but the pain to her right hip continues to worsen. Patient states she had a fall a few days prior to
admission and ever since she hasn't been able to walk on it well. PRN Tylenol provided to patient, see MAR. Patient is insisting to have lidocaine patch reapplied, or to have ointment ordered to assist. Notified POONAM Kim -- Bengay type cream to
be ordered for patient to be applied to right hip. Will monitor.
[2024-05-03 03:00] VITALS: BP 116/66
[2024-05-03] MEDS: SYNTHROID 50 MCG PO (05:49)
[2024-05-03 06:28] LABS: Hematocrit 22.6 % (37.0-47.0); Hemoglobin 7.7 g/dL (12.0-16.0); Mean Corp Hgb Conc. 34.1 g/dL (33.0-37.0); Mean Platelet Volume 11.3 fL (7.4-10.4); Platelet Count 166 10^3/uL (130-400); Red Blood Cell Count 2.33 10^6/uL (4.20-5.40); Red Cell Dist. Width 17.2 % (11.5-14.5); White Blood Cell Count 4.1 10^3/uL (4.8-10.8)
[2024-05-03 07:03] LABS: ALT (SGPT) 55 U/L (0-35); AST (SGOT) 62 U/L (14-36); Albumin 2.8 g/dl (3.5-5.0); Alkaline Phosphatase 220 U/L (38-126); Blood Urea Nitrogen 14 mg/dl (7-17); Calcium 7.3 mg/dl (8.4-10.2); Carbon Dioxide 13 mmol/L (22-30); Chloride 114 mmol/L (98-107); Direct Bilirubin 0.5 mg/dl (0.0-0.4); Estimated Creatinine Clearance 17 ml/min; Glucose 82 mg/dl (70-99); Potassium 4.9 mmol/L (3.5-5.1); Sodium 139 mmol/L (135-145); Total Bilirubin 0.6 mg/dl (0.2-1.3); Total Protein 7.6 g/dl (6.3-8.2); eGFR 29.12
[2024-05-03 08:13] VITALS: BP 110/76
--- NOTE | 2024-05-03 08:20 | W.PN.HOSP.TC ---
Today's Communication/Plan
-
see bold
Assessment / Plan
Assessment / Plan
#Non-anion gap metabolic acidosis
Nephrology following
Continue sodium bicarb IV fluids, continue oral sodium bicarb, trend labs
#Acute kidney injury superimposed on stage III chronic kidney disease
Improving with IV fluids
Creatinine 1.9, was 2.0, was 2.4, down from 3.1, appears baseline is 1.7
#Hypokalemia
#Hypomagnesemia
#Hypophosphatemia
Replete prn
#Severe hypothyroidism
Give Synthroid 25 mcg IV x 1 on 05/01
Started Synthroid 50 mcg daily 05/02
#Anxiety/depression
Appreciate psychiatry input, patient would like to hold off on starting medications
Continue Ativan as needed, patient agreed to start Zoloft 25 mg daily 05/02
#Cachexia
#Severe protein calorie malnutrition
#Failure to thrive
Patient has had a 50-60 pound weight loss, with poor appetite and early satiety
HIV negative, chest x-ray and CT abdomen and pelvis negative for malignancy
Encourage oral intake, protein supplement
#Worsening anemia of chronic kidney disease
Hemoglobin 7.7, transfuse for hemoglobin less than 7.0
#Hypocalcemia
#Vitamin D deficiency
Started vitamin D and calcium supplements 05/01
Continue IV calcium gluconate as needed
#Essential hypertension
#Nonsustained ventricular tachycardia
Continue Toprol XL, echo unremarkable
#Elevated LFTs
Improving, CT negative for liver pathology
Hepatitis panel negative, monitor
#Dermatitis on face/neck/legs/hands
Triamcinolone ointment 3 times daily
Outpatient follow-up
#Gastroesophageal reflux disease
Continue Pepcid
#COPD on chest x-ray
Chest x-ray shows hyperinflated lungs, suggestive of COPD
Recommend outpatient PFTs
#Cigarette nicotine dependency
Cigarette cessation counseling has been provided
Continue nicotine patch
DVT prophylaxis�subcu heparin
Wants CPR, no intubation
Updated at bedside 05/01
Discussed with nephrology, endocrinology, psychiatry
Total time spent to see the patient on the floor, examine the patient, review data and lab results, discuss treatment plan with patient, nursing staff around 51 minutes.
Physical Exam
General: Cachectic, no acute distress
HEENT: Normocephalic, Atraumatic, EOMI, MMM
Respiratory: Clear to Auscultation bilaterally
Cardiac: Normal S1/S2, Regular Rate and Rhythm
GI: Soft, Nontender, Nondistended, Normal Bowel Sounds
Extremities: No Clubbing, Cyanosis, or Edema
Neuro: Nonfocal/Grossly Intact
Psych: Calm, Cooperative
Derm:
Scaly skin lesions on right forehead, hands, legs
Scaly skin lesions on neck with scabs
Anticipated Discharge: 24 - 48 hours
Subjective/Interval History
-
Date of Service: May 03, 2024
Patient's energy and mood are improved today. No abdominal pain. No chest pain, no shortness of breath. No fever, no vomiting.
Objective Data
-
Labs:
Laboratory Results
05/02/24 05/03/24
20:43 06:00
WBC 4.1 L
Hgb 7.7 L
Hct 22.6 L
Plt Count 166
Sodium 137 139
Potassium 4.2 D 4.9
Chloride 113 H 114 H
Carbon Dioxide 16 L 13 L*
BUN 15 14
Creatinine 1.9 H 1.9 H
Glucose 109 H 82
Calcium 6.8 L* 7.3 L
Total Bilirubin 0.6
AST 62 H
ALT 55 H
Alkaline Phosphatase 220 H
Vital Signs:
Vital Signs
Temp Pulse Resp BP Pulse Ox
98.6 F 75 21 110/76 94
05/03/24 08:13 05/03/24 08:13 05/03/24 08:13 05/03/24 08:13 05/03/24 08:13
I&O
05/02/24 05/03/24 05/04/24
06:59 06:59 06:59
Intake Total 480 / 480 600 / 600 600 / 600
Balance 480 / 480 600 / 600 600 / 600
[2024-05-03] MEDS: POTASSIUM PHOSPHATE 259.0909 MEQ IV (09:22)
[2024-05-03] MEDS: SODIUM BICARBONATE 1150 MEQ IV (09:23)
[2024-05-03] MEDS: BenGay-Like 1 APPLIC TOPICAL ×2 (09:23→17:28)
[2024-05-03] MEDS: NICODERM TRANSDERMAL 14 MG TRANSDERM (09:23)
[2024-05-03] MEDS: LIDOCAINE 4% PATCH 1 PATCH TOPICAL (09:23)
[2024-05-03] MEDS: TOPROL XL 12.5 MG PO (09:24)
[2024-05-03] MEDS: MAG-TAB SR 84 MG PO (09:24)
[2024-05-03] MEDS: VITAMIN D3 (cholecalciferol) 25 MCG PO (09:24)
[2024-05-03] MEDS: HEPARIN 5000 UNITS SC ×2 (09:24→21:03)
[2024-05-03] MEDS: FOLVITE 1 MG PO (09:24)
[2024-05-03] MEDS: SODIUM BICARBONATE 1300 MG PO ×3 (09:25→21:03)
[2024-05-03] MEDS: OSCAL 500 + D 500 MG PO ×3 (09:25→21:03)
[2024-05-03] MEDS: VITAMIN B-12 1000 MCG PO (09:25)
[2024-05-03] MEDS: VITAMIN B-6 25 MG PO (09:25)
[2024-05-03] MEDS: ZOLOFT 25 MG PO (09:25)
[2024-05-03] MEDS: TRIAMCINOLONE ACETONIDE 0.1% OINTMENT 1 APPLIC TOPICAL ×2 (09:26→17:28)
[2024-05-03 11:21] VITALS: BP 87/58
[2024-05-03] MEDS: NEUTRA-PHOS POWDER PACKET 500 MG PO ×3 (12:57→21:04)
[2024-05-03] MEDS: NEUTRA-PHOS POWDER PACKET PO (12:57)
[2024-05-03 13:31] LABS: Blood Urea Nitrogen 17 mg/dl (7-17); Calcium 6.8 mg/dl (8.4-10.2); Carbon Dioxide 15 mmol/L (22-30); Chloride 112 mmol/L (98-107); Estimated Creatinine Clearance 17 ml/min; Glucose 150 mg/dl (70-99); Magnesium 2.2 mg/dl (1.6-2.3); Phosphorus 2.7 mg/dl (2.5-4.5); Potassium 4.6 mmol/L (3.5-5.1); Sodium 140 mmol/L (135-145); eGFR 29.12
[2024-05-03 15:21] VITALS: BP 123/81
--- NOTE | 2024-05-03 15:25 | CM ---
Met patient and in room. Patient lives with spouse, dgtr, grandson. she has shower seat and rails. She ambulated independently. She does not drive anymore.
PCP Dr. Dewey Guardado
[facility] of [facility], was at [place] and had [facility] home care in 2014.
She is on Medicare as unable to go back to work after stroke in 2015.
Pharmacy: [facility].
She does not want home care services.
PLAN:home no needs.
--- NOTE | 2024-05-03 17:10 | W.PN.NEPH.PH ---
Today's Communication / Plan
-
follow labs later today and adjut IVF
Assessment/Plan
-
Assessment
Failure to thrive
Weight loss
JOCELYN, CKD4-baseline cr 1.7 in 2015
Hypokalemia
Metabolic acidosis
Hypocalcemia
Rash
Elevated LFTs
Plan
JOCELYN improving cr down to 1.9-possible is baseline
met acidosis worse off bicarb IVF, resume now
maintain high dose po bicarb
replaced deidre and recheck later today
monitor for refeeding
Synthroid
replace vit D
Bp soft echo seem norma1-add prn midodrine
monitor h/h, prn transfusion
Follow BMP
-
-
Date of Service: May 03, 2024
CC / HPI / ROS
-
Chief Complaint:
JOCELYN
History of Present Illness:
Hemoglobin lower at 7.7
JOCELYN/Cr lower at 1.9
Acidosis worse at 15
Potassium normal
Calcium low 6.8, mg better at 2.2, phos replaced 2.7
TSH elevated
Review of Systems:
No chest pain or shortness of breath
Eating well
Labs
-
Labs:
WBC 4.1 10^3/uL (4.8-10.8) L 05/03/24 06:00
RBC 2.33 10^6/uL (4.20-5.40) L 05/03/24 06:00
Hgb 7.7 g/dL (12.0-16.0) L 05/03/24 06:00
Hct 22.6 % (37.0-47.0) L 05/03/24 06:00
Plt Count 166 10^3/uL (130-400) 05/03/24 06:00
Sodium 140 mmol/L (135-145) 05/03/24 12:40
Potassium 4.6 mmol/L (3.5-5.1) 05/03/24 12:40
Chloride 112 mmol/L (98-107) H 05/03/24 12:40
Carbon Dioxide 15 mmol/L (22-30) L 05/03/24 12:40
BUN 17 mg/dl (7-17) 05/03/24 12:40
Creatinine 1.9 mg/dL (0.6-1.0) H 05/03/24 12:40
eGFR 29.12 05/03/24 12:40
Glucose 150 mg/dl (70-99) H 05/03/24 12:40
Calcium 6.8 mg/dl (8.4-10.2) L* 05/03/24 12:40
Phosphorus 2.7 mg/dl (2.5-4.5) 05/03/24 12:40
Albumin 2.8 g/dl (3.5-5.0) L 05/03/24 06:00
Physical Exam
-
Vital Signs:
Vital Signs
Temp Pulse Resp BP Pulse Ox
98.5 F 80 20 87/58 100
05/03/24 11:21 05/03/24 11:21 05/03/24 11:21 05/03/24 11:21 05/03/24 11:21
Cardiovascular:: Regular rate and rhythm
Respiratory:: Bilateral: CTA
Lung Excursion:: Normal
Abdomen:: Nontender and Soft
Extremity Edema:: None: Bilateral:
Lizarraga Catheter: No
[2024-05-03 19:12] VITALS: BP 113/73
[2024-05-03] MEDS: BenGay-Like TOPICAL (21:03)
[2024-05-03] MEDS: TRIAMCINOLONE ACETONIDE 0.1% OINTMENT TOPICAL (21:14)
[2024-05-03 23:09] LABS: Blood Urea Nitrogen 18 mg/dl (7-17); Calcium 6.1 mg/dl (8.4-10.2); Carbon Dioxide 18 mmol/L (22-30); Chloride 110 mmol/L (98-107); Estimated Creatinine Clearance 17 ml/min; Glucose 106 mg/dl (70-99); Potassium 4.5 mmol/L (3.5-5.1); Sodium 140 mmol/L (135-145); eGFR 29.12
[2024-05-03 23:41] VITALS: BP 116/77
[2024-05-04] VITALS (8 sets, daily range): BP systolic 90–111; BP diastolic 55–68
--- NOTE | 2024-05-04 01:27 | PTCARENOTE ---
Repeat BMP drawn, critical calcium called resulting 6.1. POONAM Shah notified, calcium rider ordered and provided to patient. Patient tolerated well.
[2024-05-04] MEDS: SYNTHROID 50 MCG PO (05:37)
[2024-05-04 07:39] LABS: Hematocrit 21.8 % (37.0-47.0); Hemoglobin 7.4 g/dL (12.0-16.0); Ionized Calcium 0.84 mMOL/L (1.15-1.33); Mean Corp Hgb Conc. 33.9 g/dL (33.0-37.0); Mean Corpuscular Volume 97.3 fL (81.0-99.0); Platelet Count 172 10^3/uL (130-400); Red Blood Cell Count 2.24 10^6/uL (4.20-5.40); Red Cell Dist. Width 17.2 % (11.5-14.5); White Blood Cell Count 4.4 10^3/uL (4.8-10.8)
[2024-05-04 08:02] LABS: Blood Urea Nitrogen 17 mg/dl (7-17); Carbon Dioxide 18 mmol/L (22-30); Chloride 111 mmol/L (98-107); Estimated Creatinine Clearance 16 ml/min; Glucose 86 mg/dl (70-99); Magnesium 1.8 mg/dl (1.6-2.3); Phosphorus 3.9 mg/dl (2.5-4.5); Sodium 140 mmol/L (135-145); eGFR 27.38
--- NOTE | 2024-05-04 08:09 | W.PN.HOSP.TC ---
Today's Communication/Plan
-
see bold
Assessment / Plan
Assessment / Plan
#Non-anion gap metabolic acidosis
Nephrology following
Continue sodium bicarb IV fluids, continue oral sodium bicarb, trend labs
#Acute kidney injury superimposed on stage III chronic kidney disease
Improving with IV fluids
Creatinine 2.0, 1.9, was 2.0, was 2.4, down from 3.1, appears baseline is 1.7
#Hypokalemia
#Hypomagnesemia
#Hypophosphatemia
Replete prn
#Severe hypothyroidism
Give Synthroid 25 mcg IV x 1 on 05/01
Started Synthroid 50 mcg daily 05/02
#Anxiety/depression
Appreciate psychiatry input, patient would like to hold off on starting medications
Continue Ativan as needed, patient agreed to start Zoloft 25 mg daily 05/02
#Cachexia
#Severe protein calorie malnutrition
#Failure to thrive
Patient has had a 50-60 pound weight loss, with poor appetite and early satiety
HIV negative, chest x-ray and CT abdomen and pelvis negative for malignancy
Encourage oral intake, protein supplement
#Worsening anemia of chronic kidney disease
Hemoglobin 7.4, transfuse for hemoglobin less than 7.0
#Hypocalcemia
#Vitamin D deficiency
Started vitamin D and calcium supplements 05/01
Continue IV calcium gluconate as needed
#Essential hypertension
#Nonsustained ventricular tachycardia
Continue Toprol XL, echo unremarkable
#Elevated LFTs
Improving, CT negative for liver pathology
Hepatitis panel negative, monitor
#Dermatitis on face/neck/legs/hands
Triamcinolone ointment 3 times daily
Outpatient follow-up
#Gastroesophageal reflux disease
Continue Pepcid
#COPD on chest x-ray
Chest x-ray shows hyperinflated lungs, suggestive of COPD
Recommend outpatient PFTs
#Cigarette nicotine dependency
Cigarette cessation counseling has been provided
Continue nicotine patch
DVT prophylaxis�subcu heparin
Wants CPR, no intubation
Updated at bedside 05/01
Discussed with nephrology, endocrinology, psychiatry
Total time spent to see the patient on the floor, examine the patient, review data and lab results, discuss treatment plan with patient, nursing staff around 50 minutes.
Physical Exam
General: Cachectic, no acute distress
HEENT: Normocephalic, Atraumatic, EOMI, MMM
Respiratory: Clear to Auscultation bilaterally
Cardiac: Normal S1/S2, Regular Rate and Rhythm
GI: Soft, Nontender, Nondistended, Normal Bowel Sounds
Extremities: No Clubbing, Cyanosis, or Edema
Neuro: Nonfocal/Grossly Intact
Psych: Calm, Cooperative
Derm:
Scaly skin lesions on right forehead, hands, legs
Scaly skin lesions on neck with scabs
Anticipated Discharge: 24 - 48 hours
Subjective/Interval History
-
Date of Service: May 04, 2024
Patient reports depressed energy and mood today. Denies chest pain, denies shortness of breath. No fever, no vomiting.
Objective Data
-
Labs:
Laboratory Results
05/03/24 05/04/24
22:23 07:20
WBC 4.4 L
Hgb 7.4 L
Hct 21.8 L
Plt Count 172
Sodium 140 140
Potassium 4.5 4.0
Chloride 110 H 111 H
Carbon Dioxide 18 L 18 L
BUN 18 H 17
Creatinine 1.9 H 2.0 H
Glucose 106 H 86
Calcium 6.1 L* 6.0 L*
Vital Signs:
Vital Signs
Temp Pulse Resp BP Pulse Ox
98.9 F 75 20 100/65 99
05/04/24 08:06 05/04/24 08:06 05/04/24 08:06 05/04/24 08:06 05/04/24 08:06
I&O
05/03/24 05/04/24 05/05/24
06:59 06:59 06:59
Intake Total 600 / 600 3000 / 3000
Balance 600 / 600 3000 / 3000
[2024-05-04] MEDS: SODIUM BICARBONATE 1150 MEQ IV (08:53)
[2024-05-04] MEDS: TYLENOL 650 MG PO ×3 (08:53→22:15)
[2024-05-04] MEDS: SENOKOT-S 1 TABLET PO (08:54)
[2024-05-04] MEDS: VITAMIN D3 (cholecalciferol) 25 MCG PO (08:54)
[2024-05-04] MEDS: ZOLOFT 25 MG PO (08:54)
[2024-05-04] MEDS: ATIVAN 0.5 MG PO (08:54)
[2024-05-04] MEDS: MAG-TAB SR 84 MG PO (08:54)
[2024-05-04] MEDS: SODIUM BICARBONATE 1300 MG PO ×3 (08:54→22:16)
[2024-05-04] MEDS: VITAMIN B-6 25 MG PO (08:54)
[2024-05-04] MEDS: TOPROL XL 12.5 MG PO (08:54)
[2024-05-04] MEDS: HEPARIN 5000 UNITS SC ×2 (08:55→20:27)
[2024-05-04] MEDS: OSCAL 500 + D 500 MG PO ×3 (08:55→22:16)
[2024-05-04] MEDS: NICODERM TRANSDERMAL 14 MG TRANSDERM (08:55)
[2024-05-04] MEDS: FOLVITE 1 MG PO (08:55)
[2024-05-04] MEDS: LIDOCAINE 4% PATCH 1 PATCH TOPICAL (08:55)
[2024-05-04] MEDS: VITAMIN B-12 1000 MCG PO (08:55)
[2024-05-04] MEDS: TRIAMCINOLONE ACETONIDE 0.1% OINTMENT 1 APPLIC TOPICAL ×2 (08:56→16:30)
[2024-05-04] MEDS: BenGay-Like 1 APPLIC TOPICAL (08:56)
[2024-05-04] MEDS: CALCIUM GLUCONATE 130 MG IV (09:01)
[2024-05-04] MEDS: PEPCID 20 MG PO (16:26)
[2024-05-04] MEDS: BenGay-Like TOPICAL ×2 (16:26→22:17)
--- NOTE | 2024-05-04 16:50 | W.PN.NEPH.PH ---
Today's Communication / Plan
-
follow labs
check cortisol
Assessment/Plan
-
Assessment
Failure to thrive
Weight loss
JOCELYN, CKD4-baseline cr 1.7 in 2015
Hypokalemia
Metabolic acidosis
Hypocalcemia
Rash
Elevated LFTs
Plan
JOCELYN improving cr stable at 2-possible is baseline
met acidosis improving, now off bicarb IVF for worsening hypocalcemia
maintain high dose po bicarb
replaced deidre
monitor for refeeding
Synthroid
replace vit D
Bp soft echo seem normaEF-check cortisol,cont prn midodrine
monitor h/h, prn transfusion
Follow BMP
-
-
Date of Service: May 04, 2024
CC / HPI / ROS
-
Chief Complaint:
JOCELYN
History of Present Illness:
Hemoglobin lower at 7.4
JOCELYN/Cr at 2
Acidosis better at 18
Potassium normal
Calcium low 6.0, mg and phos are normal
TSH elevated
Review of Systems:
No chest pain or shortness of breath
Eating well, no n/v
Labs
-
Labs:
WBC 4.4 10^3/uL (4.8-10.8) L 05/04/24 07:20
RBC 2.24 10^6/uL (4.20-5.40) L 05/04/24 07:20
Hgb 7.4 g/dL (12.0-16.0) L 05/04/24 07:20
Hct 21.8 % (37.0-47.0) L 05/04/24 07:20
Plt Count 172 10^3/uL (130-400) 05/04/24 07:20
Sodium 140 mmol/L (135-145) 05/04/24 07:20
Potassium 4.0 mmol/L (3.5-5.1) 05/04/24 07:20
Chloride 111 mmol/L (98-107) H 05/04/24 07:20
Carbon Dioxide 18 mmol/L (22-30) L 05/04/24 07:20
BUN 17 mg/dl (7-17) 05/04/24 07:20
Creatinine 2.0 mg/dL (0.6-1.0) H 05/04/24 07:20
eGFR 27.38 05/04/24 07:20
Glucose 86 mg/dl (70-99) 05/04/24 07:20
Calcium 6.0 mg/dl (8.4-10.2) L* 05/04/24 07:20
Phosphorus 3.9 mg/dl (2.5-4.5) 05/04/24 07:20
Albumin 2.8 g/dl (3.5-5.0) L 05/03/24 06:00
Physical Exam
-
Vital Signs:
Vital Signs
Temp Pulse Resp BP Pulse Ox
99.5 F 85 20 91/55 99
05/04/24 15:04 05/04/24 15:04 05/04/24 15:04 05/04/24 15:04 05/04/24 15:04
Cardiovascular:: Regular rate and rhythm
Respiratory:: Bilateral: CTA
Lung Excursion:: Normal
Abdomen:: Nontender and Soft
Extremity Edema:: None: Bilateral:
Lizarraga Catheter: No
Other Findings::
eczema of scalp, face and neck
[2024-05-04] MEDS: TRIAMCINOLONE ACETONIDE 0.1% OINTMENT TOPICAL (22:17)
[2024-05-05 03:18] VITALS: BP 98/66
[2024-05-05] MEDS: SYNTHROID 50 MCG PO (05:01)
[2024-05-05 07:05] VITALS: BP 110/70
[2024-05-05 07:29] LABS: Hematocrit 25.2 % (37.0-47.0); Hemoglobin 8.4 g/dL (12.0-16.0); Mean Corp Hgb Conc. 33.3 g/dL (33.0-37.0); Mean Corpuscular Hgb 32.7 pg (27.0-31.0); Mean Corpuscular Volume 98.1 fL (81.0-99.0); Mean Platelet Volume 10.9 fL (7.4-10.4); Platelet Count 183 10^3/uL (130-400); Red Blood Cell Count 2.57 10^6/uL (4.20-5.40); Red Cell Dist. Width 16.8 % (11.5-14.5)
[2024-05-05] MEDS: VITAMIN B-12 1000 MCG PO (07:51)
[2024-05-05] MEDS: SODIUM BICARBONATE 1300 MG PO ×3 (07:51→20:04)
[2024-05-05] MEDS: FOLVITE 1 MG PO (07:51)
[2024-05-05] MEDS: TOPROL XL 12.5 MG PO (07:51)
[2024-05-05] MEDS: OSCAL 500 + D 500 MG PO ×3 (07:51→20:04)
[2024-05-05] MEDS: MAG-TAB SR 84 MG PO (07:51)
[2024-05-05] MEDS: NICODERM TRANSDERMAL 14 MG TRANSDERM (07:52)
[2024-05-05] MEDS: VITAMIN B-6 25 MG PO (07:52)
[2024-05-05] MEDS: VITAMIN D3 (cholecalciferol) 25 MCG PO (07:52)
[2024-05-05] MEDS: ZOLOFT 25 MG PO (07:52)
[2024-05-05] MEDS: LIDOCAINE 4% PATCH 1 PATCH TOPICAL (07:53)
[2024-05-05] MEDS: TRIAMCINOLONE ACETONIDE 0.1% OINTMENT 1 APPLIC TOPICAL ×2 (07:53→16:20)
[2024-05-05] MEDS: BenGay-Like 1 APPLIC TOPICAL ×2 (07:53→16:19)
[2024-05-05] MEDS: HEPARIN 5000 UNITS SC ×2 (07:53→20:02)
[2024-05-05 07:57] LABS: ALT (SGPT) 60 U/L (0-35); AST (SGOT) 68 U/L (14-36); Albumin 2.9 g/dl (3.5-5.0); Alkaline Phosphatase 231 U/L (38-126); Blood Urea Nitrogen 19 mg/dl (7-17); Calcium 6.1 mg/dl (8.4-10.2); Carbon Dioxide 20 mmol/L (22-30); Chloride 107 mmol/L (98-107); Estimated Creatinine Clearance 16 ml/min; Glucose 77 mg/dl (70-99); Magnesium 1.6 mg/dl (1.6-2.3); Phosphorus 2.8 mg/dl (2.5-4.5); Potassium 3.8 mmol/L (3.5-5.1); Sodium 138 mmol/L (135-145); Total Bilirubin 0.6 mg/dl (0.2-1.3); Total Protein 7.7 g/dl (6.3-8.2); eGFR 27.38
[2024-05-05 08:18] LABS: Cortisol, Random 18.7 ug/dl
--- NOTE | 2024-05-05 09:53 | W.PN.UPDATE ---
Update Note
Progress Note Update
I saw and evaluated the patient. I reviewed the resident�s note and agree with findings and plan as documented in the resident�s note.
Gen: NAD, awake and alert, appears chronically ill and malnourished
Eyes: EOMI, PERRLA, no scleral icterus.
Neck: supple.
CV: RRR, +S1/S2, no m/r/g.
Resp: CTAB, no rales, wheezes, or rhonchi.
Abd: +BS, soft, NT, ND
Skin: scaly rash on forehead
Neuro: CN 2-12 intact, non-focal.
Psych: Normal mood and affect.
CT A/P: Findings suggesting emphysema within the visualized lower lungs. Question of enteritis. No evidence for bowel obstruction or free intraperitoneal air. Foci of increased density within the lumen of small bowel loops and colon, most likely
related to medication. Calcifications within the head the pancreas, likely representing changes of chronic pancreatitis. No other focal abnormality of the pancreas. Bony changes as described.
Renal U/S: Slight prominence of the right renal pelvis without significant calyceal dilation, suggesting an extrarenal pelvis. Normal appearance of the left kidney. No focal abnormality of the urinary bladder with bilateral ureteral jets
demonstrated.
CXR: Lungs appear hyperinflated, suggestive of COPD. The lungs appear radiographically clear. Cardiac silhouette and vascular markings appear within normal limits.
JOCELYN on CKD4:
-with Non-anion gap metabolic acidosis s/p IVFs with NaHCO3, now on PO bicarb
-JOCELYN resolved with IVFs
-Anemia of chronic kidney disease, Hb stable
Multiple electrolyte abnormalities:
-Hypokalemia, resolved
-Hypomagnesemia, 2g IV Mg today
-Hypocalcemia/Vit D deficiency, 4g IV Ca today
-Hypophosphatemia, resolved
Severe hypothyroidism:
-s/p Synthroid 25 mcg IV x 1 on 05/01
-cont Synthroid 50mcg daily started 05/02
Severe protein calorie malnutrition, cachexia, FTT
-50-60lb wt loss, with poor appetite and early satiety
-HIV negative, chest x-ray and CT abdomen and pelvis negative for malignancy
-Encourage oral intake, protein supplement
Essential hypertension: cont BB
NSVT: cont BB
Anxiety/depression: psych following, Ativan PRN, Zoloft started
Elevated LFTs, minimal, stable. Acute viral hepatitis panel negative, CT A/P with out liver pathology
Dermatitis on face/neck/legs/hands: cont triamcinolone, outpt derm f/u
GERD: start PPI
COPD on chest x-ray: h/o tobacco abuse disorder, outpt PFTs, nicotine patch
DVT prophylaxis�subcu heparin
Wants CPR, no intubation
[2024-05-05] MEDS: MAGNESIUM SULFATE 50 IV (10:17)
[2024-05-05] MEDS: PROTONIX 40 MG PO (10:17)
[2024-05-05 11:05] VITALS: BP 118/72
[2024-05-05] MEDS: CALCIUM GLUCONATE 290 MG IV (12:43)
--- NOTE | 2024-05-05 13:45 | W.PN.NEPH.PH ---
Today's Communication / Plan
-
IV calcium provided by primary team
Creatinine stable at 2
Assessment/Plan
-
Assessment
Failure to thrive
Weight loss
JOCELYN, CKD4-baseline cr 1.7 in 2015
Hypokalemia
Metabolic acidosis
Hypocalcemia
Rash
Elevated LFTs
Plan
JOCELYN improving cr stable at 2-possible is baseline
met acidosis improving, now off bicarb IVF for worsening hypocalcemia
maintain high dose po bicarb
replaced calcium again (4 grams provided)
monitor for refeeding
Synthroid
replace vit D
Bp soft echo seem normaEF-check cortisol,cont prn midodrine
monitor h/h, prn transfusion
Follow BMP
-
-
Date of Service: May 05, 2024
CC / HPI / ROS
-
Chief Complaint:
JOCELYN
History of Present Illness:
Hemoglobin at 8.4
JOCELYN/Cr at 2
Acidosis better at 120
Potassium normal
Calcium low 6.1, mg and phos are normal
TSH elevated
Review of Systems:
No chest pain or shortness of breath
Eating well, no n/v
Labs
-
Labs:
WBC 4.0 10^3/uL (4.8-10.8) L 05/05/24 07:09
RBC 2.57 10^6/uL (4.20-5.40) L 05/05/24 07:09
Hgb 8.4 g/dL (12.0-16.0) L 05/05/24 07:09
Hct 25.2 % (37.0-47.0) L 05/05/24 07:09
Plt Count 183 10^3/uL (130-400) 05/05/24 07:09
Sodium 138 mmol/L (135-145) 05/05/24 07:09
Potassium 3.8 mmol/L (3.5-5.1) 05/05/24 07:09
Chloride 107 mmol/L (98-107) 05/05/24 07:09
Carbon Dioxide 20 mmol/L (22-30) L 05/05/24 07:09
BUN 19 mg/dl (7-17) H 05/05/24 07:09
Creatinine 2.0 mg/dL (0.6-1.0) H 05/05/24 07:09
eGFR 27.38 05/05/24 07:09
Glucose 77 mg/dl (70-99) 05/05/24 07:09
Calcium 6.1 mg/dl (8.4-10.2) L* 05/05/24 07:09
Phosphorus 2.8 mg/dl (2.5-4.5) 05/05/24 07:09
Albumin 2.9 g/dl (3.5-5.0) L 05/05/24 07:09
Physical Exam
-
Vital Signs:
Vital Signs
Temp Pulse Resp BP Pulse Ox
98.2 F 89 17 118/72 99
05/05/24 11:05 05/05/24 11:05 05/05/24 11:05 05/05/24 11:05 05/05/24 11:05
Cardiovascular:: Regular rate and rhythm
--- NOTE | 2024-05-05 15:03 | W.PN.HOSP.TC ---
Today's Communication/Plan
-
.
Assessment / Plan
Assessment / Plan
1. Non-anion gap metabolic acidosis (resolved)
- Nephrology following
- Patient is s/p IVF with NaHCO3 and now on PO bicarb
- Biacrb 20, steadily improving
2. JOCELYN superimposed on stage III CKD
- Improving with IV fluids
- Creatinine steady at 1.9 to 2.0 since 05/02; per nephrology, may be new baseline
3.. Hypokalemia (resolved)
- Continue to monitor BMP
4. Hypomagnesemia
- 1.6 this AM
- 2g IV Mg today
5. Hypophosphatemia (resolved)
- Continue to monitor BMP
6. Severe hypothyroidism
- Started Synthroid 50 mcg daily 05/02
7. Hypocalcemia
- 4g Calcium IV today
- On PO supplementation
8. Anxiety/depression
- Appreciate psychiatry input, patient would like to hold off on starting medications
- Continue Ativan as needed, patient agreed to start Zoloft 25 mg daily 05/02
- Tearful this AM, monitor mood, though SSRI will take time to start showing effects
9. Cachexia/Severe protein calorie malnutrition/Failure to thrive
- Patient has had a 50-60 pound weight loss, with poor appetite and early satiety
- HIV negative, chest x-ray and CT abdomen and pelvis negative for malignancy
- Encourage oral intake, protein supplement
10. Worsening anemia of chronic kidney disease
-Hemoglobin 8.4 this AM
-Transfuse for hemoglobin less than 7.0
#Hypocalcemia
#Vitamin D deficiency
Started vitamin D and calcium supplements 05/01
Continue IV calcium gluconate as needed
#Essential hypertension
#Nonsustained ventricular tachycardia
Continue Toprol XL, echo unremarkable
#Elevated LFTs
Improving, CT negative for liver pathology
Hepatitis panel negative, monitor
#Dermatitis on face/neck/legs/hands
Triamcinolone ointment 3 times daily
Outpatient follow-up
#Gastroesophageal reflux disease
Continue Pepcid
#COPD on chest x-ray
Chest x-ray shows hyperinflated lungs, suggestive of COPD
Recommend outpatient PFTs
#Cigarette nicotine dependency
Cigarette cessation counseling has been provided
Continue nicotine patch
DVT prophylaxis�subcu heparin
Wants CPR, no intubation
Anticipated Discharge: 24 - 48 hours
Subjective/Interval History
-
Date of Service: May 05, 2024
Patient seen and examined while resting comfortably in bed. When asked how she is feeling, becomes tearful and wonders what is wrong with her and when she can go home. When discussing increasing oral intake, states that she is eating fine.
Objective Data
-
Labs:
Laboratory Results
05/05/24
07:09
WBC 4.0 L
Hgb 8.4 L
Hct 25.2 L
Plt Count 183
Sodium 138
Potassium 3.8
Chloride 107
Carbon Dioxide 20 L
BUN 19 H
Creatinine 2.0 H
Glucose 77
Calcium 6.1 L*
Total Bilirubin 0.6
AST 68 H
ALT 60 H
Alkaline Phosphatase 231 H
Vital Signs:
Vital Signs
Temp Pulse Resp BP Pulse Ox
98.2 F 89 17 118/72 99
05/05/24 11:05 05/05/24 11:05 05/05/24 11:05 05/05/24 11:05 05/05/24 11:05
I&O
05/04/24 05/05/24 05/06/24
06:59 06:59 06:59
Intake Total 3000 / 3000 2500 / 2500
Balance 3000 / 3000 2500 / 2500
Review of Systems
-
History Source: Patient
Constitutional: Reports No Symptoms
Respiratory: Reports No Symptoms
Cardiac: Reports No Symptoms
Abdomen/GI: Reports No Symptoms
Psych: Reports Depressed
Physical Exam
-
General: No Apparent Distress, Conversant, Cachectic and Other (tearful)
HEENT: Normocephalic, Atraumatic and Anicteric
Respiratory: Clear to Auscultation; Negative Wheezes, Rales or Rhonchi
Cardiac: Regular Rhythm and S1/S2
GI: Soft, Nontender and Nondistended
Musculoskeletal: No Clubbing and No Cyanosis
Skin: Rash (with scales, on forehead)
Neuro: Awake and Alert
Psych: Depressed (tearful)
Data Reviewed
-
Labs: Labs Reviewed by me and Discussed with Patient
[2024-05-05 15:05] VITALS: BP 116/78
[2024-05-05] MEDS: TYLENOL 650 MG PO ×2 (16:19→22:09)
[2024-05-05 19:39] VITALS: BP 131/80
[2024-05-05] MEDS: BenGay-Like TOPICAL (20:07)
[2024-05-05] MEDS: TRIAMCINOLONE ACETONIDE 0.1% OINTMENT TOPICAL (21:00)
[2024-05-05 23:00] VITALS: BP 97/61
--- NOTE | 2024-05-05 23:41 | PTCARENOTE ---
Pt assessed as per flow sheet. Medicated as ordered. No s/s of distress assessed. Will continue to monitor.
[2024-05-06 03:20] VITALS: BP 106/68
[2024-05-06] MEDS: SYNTHROID 50 MCG PO (05:06)
[2024-05-06 05:13] VITALS: BMI 15.8
[2024-05-06 07:14] LABS: Ionized Calcium 1.02 mMOL/L (1.15-1.33)
[2024-05-06 07:49] VITALS: BP 98/66
[2024-05-06] MEDS: NICODERM TRANSDERMAL 14 MG TRANSDERM (08:03)
[2024-05-06] MEDS: VITAMIN B-6 25 MG PO (08:03)
[2024-05-06] MEDS: PROTONIX 40 MG PO (08:03)
[2024-05-06] MEDS: TOPROL XL 12.5 MG PO (08:03)
[2024-05-06] MEDS: MAG-TAB SR 84 MG PO (08:03)
[2024-05-06] MEDS: LIDOCAINE 4% PATCH 1 PATCH TOPICAL (08:03)
[2024-05-06] MEDS: VITAMIN D3 (cholecalciferol) 25 MCG PO (08:04)
[2024-05-06] MEDS: TRIAMCINOLONE ACETONIDE 0.1% OINTMENT 1 APPLIC TOPICAL (08:04)
[2024-05-06] MEDS: VITAMIN B-12 1000 MCG PO (08:04)
[2024-05-06] MEDS: FOLVITE 1 MG PO (08:04)
[2024-05-06] MEDS: HEPARIN SC (08:04)
[2024-05-06] MEDS: SODIUM BICARBONATE 1300 MG PO (08:04)
[2024-05-06] MEDS: OSCAL 500 + D 500 MG PO (08:04)
[2024-05-06] MEDS: BenGay-Like TOPICAL (08:05)
[2024-05-06] MEDS: ZOLOFT 25 MG PO (08:05)
--- NOTE | 2024-05-06 08:11 | W.PN.UPDATE ---
Addendum entered and electronically signed by Lloyd Lopez MD 05/06/24 13:04:
Total time spent on d/c = 32 min. This included today's physical exam, progress note, review of laboratory and diagnostic data, preparation of discharge documents and prescriptions, and discussions about the pt's hospital course and discharge plan
with the patient and other medical insurance verifier involved in the patient's care.
Original Note:
Update Note
Progress Note Update
I saw and evaluated the patient. I reviewed the resident�s note and agree with findings and plan as documented in the resident�s note.
No new complaints.
Gen: NAD, awake and alert, appears chronically ill and malnourished
Eyes: EOMI, PERRLA, no scleral icterus.
Neck: supple.
CV: remains RRR, +S1/S2, no m/r/g.
Resp: remains CTAB, no rales, wheezes, or rhonchi.
Skin: remains with scaly rash on forehead
Neuro: CN 2-12 intact, non-focal.
Psych: Normal mood and affect.
CT A/P: Findings suggesting emphysema within the visualized lower lungs. Question of enteritis. No evidence for bowel obstruction or free intraperitoneal air. Foci of increased density within the lumen of small bowel loops and colon, most likely
related to medication. Calcifications within the head the pancreas, likely representing changes of chronic pancreatitis. No other focal abnormality of the pancreas. Bony changes as described.
Renal U/S: Slight prominence of the right renal pelvis without significant calyceal dilation, suggesting an extrarenal pelvis. Normal appearance of the left kidney. No focal abnormality of the urinary bladder with bilateral ureteral jets
demonstrated.
CXR: Lungs appear hyperinflated, suggestive of COPD. The lungs appear radiographically clear. Cardiac silhouette and vascular markings appear within normal limits.
JOCELYN on CKD4:
-with Non-anion gap metabolic acidosis s/p IVFs with NaHCO3, now on PO bicarb
-JOCELYN resolved with IVFs
-Anemia of chronic kidney disease, Hb stable
Multiple electrolyte abnormalities:
-Hypokalemia, resolved
-Hypomagnesemia, resolved
-Hypocalcemia/Vit D deficiency, 4g IV Ca today, cont PO Ca.
-Hypophosphatemia, resolved
Severe hypothyroidism:
-s/p Synthroid 25 mcg IV x 1 on 05/01
-cont Synthroid 50mcg daily started 05/02
Severe protein calorie malnutrition, cachexia, FTT
-50-60lb wt loss, with poor appetite and early satiety
-HIV negative, chest x-ray and CT abdomen and pelvis negative for malignancy
-Encourage oral intake, protein supplement
Essential hypertension: cont BB
NSVT: cont BB
Anxiety/depression: psych following, Ativan PRN, Zoloft started
Elevated LFTs, minimal, stable. Acute viral hepatitis panel negative, CT A/P with out liver pathology
Dermatitis on face/neck/legs/hands: cont triamcinolone, outpt derm f/u
GERD: cont PPI
COPD on chest x-ray: h/o tobacco abuse disorder, outpt PFTs, nicotine patch
DVT prophylaxis�subcu heparin
Wants CPR, no intubation
Medically cleared for d/c, case management aware.
[2024-05-06 08:17] LABS: Blood Urea Nitrogen 20 mg/dl (7-17); Calcium 6.9 mg/dl (8.4-10.2); Carbon Dioxide 17 mmol/L (22-30); Chloride 110 mmol/L (98-107); Estimated Creatinine Clearance 15 ml/min; Glucose 76 mg/dl (70-99); Magnesium 2.2 mg/dl (1.6-2.3); Phosphorus 3.2 mg/dl (2.5-4.5); Sodium 138 mmol/L (135-145); eGFR 24.42
[2024-05-06] MEDS: CALCIUM GLUCONATE 290 MG IV (09:53)
--- NOTE | 2024-05-06 10:27 | W.PN.HOSP.TC ---
Today's Communication/Plan
-
.
Assessment / Plan
Assessment / Plan
1. Non-anion gap metabolic acidosis (resolved)
- Nephrology following
- Patient is s/p IVF with NaHCO3 and now on PO bicarb
2. JOCELYN superimposed on stage III CKD
- Improving with IV fluids
- Creatinine steady at 1.9 to 2.0 since 05/02; per nephrology, may be new baseline
3.. Hypokalemia (resolved)
- Continue to monitor BMP
4. Hypomagnesemia
- 2.2 this AM s/p 2g IV Mg yesterday
5. Hypophosphatemia (resolved)
- Continue to monitor BMP
6. Severe hypothyroidism
- Started Synthroid 50 mcg daily 05/02
7. Hypocalcemia
- 4g Calcium IV today
- On PO supplementation
8. Anxiety/depression
- Appreciate psychiatry input
- Continue Ativan as needed, patient agreed to start Zoloft 25 mg daily 05/02
- Tearful this AM, monitor mood, though SSRI will take time to start showing effects
9. Cachexia/Severe protein calorie malnutrition/Failure to thrive
- Patient has had a 50-60 pound weight loss, with poor appetite and early satiety
- HIV negative, chest x-ray and CT abdomen and pelvis negative for malignancy
- Encourage oral intake, protein supplement
10. Worsening anemia of chronic kidney disease
-Hemoglobin stable
#Hypocalcemia
#Vitamin D deficiency
Started vitamin D and calcium supplements 05/01
IV Calcium Gluconate prior to d/c
#Essential hypertension
#Nonsustained ventricular tachycardia
Continue Toprol XL, echo unremarkable
#Elevated LFTs
Improving, CT negative for liver pathology
Hepatitis panel negative, monitor
#Dermatitis on face/neck/legs/hands
Triamcinolone ointment 3 times daily
Outpatient follow-up
#Gastroesophageal reflux disease
Continue Pepcid
#COPD on chest x-ray
Chest x-ray shows hyperinflated lungs, suggestive of COPD
Recommend outpatient PFTs
#Cigarette nicotine dependency
Cigarette cessation counseling has been provided
Continue nicotine patch
DVT prophylaxis�subcu heparin
Wants CPR, no intubation
Anticipated Discharge: Today
Subjective/Interval History
-
Date of Service: May 06, 2024
Patient seen and examined while sitting up comfortably in bed, talking on the phone. No new complaints this AM.
Objective Data
-
Labs:
Laboratory Results
05/06/24
07:00
Sodium 138
Potassium 4.0
Chloride 110 H
Carbon Dioxide 17 L
BUN 20 H
Creatinine 2.2 H
Glucose 76
Calcium 6.9 L*
Vital Signs:
Vital Signs
Temp Pulse Resp BP Pulse Ox
97.8 F 70 16 98/66 98
05/06/24 07:49 05/06/24 07:49 05/06/24 07:49 05/06/24 07:49 05/06/24 07:49
I&O
05/05/24 05/06/24 05/07/24
06:59 06:59 06:59
Intake Total 2500 / 2500 1260 / 1260
Balance 2500 / 2500 1260 / 1260
Review of Systems
-
History Source: Patient
All other systems: Reviewed and negative
Physical Exam
-
General: No Apparent Distress and Appears Chronically Ill
HEENT: Normocephalic, Atraumatic and Anicteric
Respiratory: Clear to Auscultation
Cardiac: Regular Rhythm and S1/S2
GI: Soft
Skin: Other (scaly forehead rash)
Neuro: Awake, Alert and Oriented
Psych: Calm
Data Reviewed
-
Labs: Labs Reviewed by me
[2024-05-06 11:07] VITALS: BP 111/67
== END 2024-05-06 12:30 | disposition home or self-care (01) | DRG 682 ==
LOC: 3 WEST ACU 15:45
PROVIDERS: Emergency Medicine; Family Medicine; Internal Medicine; Physician Assistant; Registered Nurse; Specialist; ADMITTING PHYSICIAN Hospitalist; ATTENDING PHYSICIAN Internal Medicine; CONSULT PHYSICIAN Psychiatry & Neurology Psychiatry; CONSULT PHYSICIAN Specialist; EMERGENCY PHYSICIAN Emergency Medicine; FAMILY PHYSICIAN Family Medicine
DX: N17.9 Acute kidney failure, unspecified (principal); E43 Unspecified severe protein-calorie malnutrition; Z68.1 Body mass index [BMI] 19.9 or less, adult; E87.20 Acidosis, unspecified; R64 Cachexia; R62.7 Adult failure to thrive; E87.6 Hypokalemia; F41.9 Anxiety disorder, unspecified; Z66 Do not resuscitate; E83.51 Hypocalcemia; I12.9 Hypertensive chronic kidney disease with stage 1 through stage 4 chronic kidney disease, or unspecified chronic kidney disease; N18.32 Chronic kidney disease, stage 3b; K21.9 Gastro-esophageal reflux disease without esophagitis; F17.210 Nicotine dependence, cigarettes, uncomplicated
CPT/HCPCS: 71046; 74176; 76770; 80048; 80053; 80069; 82248; 82306; 82330; 82533; 82607; 82728; 82746; 83540; 83550; 83605; 83690; 83735; 84100; 84134; 84436; 84443; 85018; 85025; 85027; 85652; 86140; 86706; 86803; 86850; 86900; 86901; 87340; 87389; 93306; 96361; 96365; 96366; 96375; 99284; 99406

== ENCOUNTER 2024-07-31 02:39 | Inpatient (IN) | payer OTHER, SELFPAY ==
[2024-07-30 21:30] VITALS: BP 103/60
--- NOTE | 2024-07-30 22:46 | ED.GENMED ---
History of Present Illness
General
Chief Complaint: Weakness
Source: patient and family
Exam Limitations: none
Time Seen by Provider: 07/30/24 22:25
History of Present Illness
History of Present Illness:
63yoF with a history of hypothyroidism, depression, and GERD presenting with her and daughter for evaluation of weakness. Patient has been increasingly weak and fatigued over the past several days. She has been sleeping throughout the day
and has been complaining of low back pain. Family reports 2 similar episodes in the past. Patient was hospitalized in May 2024 for JOCELYN and metabolic acidosis. Family admits that she has been gradually declining over the past year which they
believe is due to depression as her mother about 2 years ago. Patient has been losing weight and only eats about 1 meal per day. She denies any vomiting, diarrhea, fevers, shortness of breath, chest pain. is concerned that
patient has not been taking her medications.
Past History
Past History
ED Past Medical History: HTN and Other
ED Past Surgical History: None
Social History
Tobacco: Smoker
Alcohol: None
Drug: None
Personal:
Living: with family
Employment: Employed
Family History
Family History: Unable to obtain
Phy Exam
Physical Exam
Physical Exam:
Chronically ill-appearing, cachectic, dry mucous membranes
General Physical Exam
General age: appears older than age
General Skin: dry
General Habitus: cachetic and debilitated
General Mental: alert
General Hydration: dry mucous membranes
ENT Exam
ENT Exam: normocephalic
Cardiovascular Exam
Cardiovascular Exam: regular rate/rhythm
Pulmonary Exam
Pulmonary Exam: lungs clear, no respiratory distress, no rales, no crackles and no rhonchi
Neurological Exam
Neurological Exam: alert
Pierce Coma Scale
Eye Opening: Spontaneous
Verbal Response: Oriented
Motor Response: Obeys Commands
GCS Total Score: 15
Skin Exam
Skin Exam: warm/dry and other (Erythematous patchy scaly rash noted to bilateral legs)
Course
Orders/Labs/Results
Orders:
Orders
07/30/24 22:43
Electrocardiogram (*1) Urgent
Reason for Study: Fatigue / Weakness
EKG- Treatment ONCE
0.9% Sodium Chloride 500 ml [Nss] 500 ml IV BOLUS
CR Lumbar Spine Comp Min 4 Vw* Urgent
Comment:
Reason For Exam: atraumatic pain
07/30/24 22:44
Urinalysis Reflex To Culture Urgent
07/30/24 23:03
Complete Blood Count/With Diff Urgent
Comprehensive Metabolic Panel Urgent
Free T4 Urgent
Magnesium Urgent
Manual Differential Urgent
Phosphorus Urgent
TSH Reflex To Free T4 Urgent
Troponin I Urgent
07/30/24 23:52
0.9% Sodium Chloride 500 ml [Nss] 500 ml IV BOLUS
07/30/24 23:53
Lactate Level [Lactic Acid] Urgent
Venous Blood Gas Urgent
%Oxygen/Room Air: room air
07/31/[address] Abd/pel Without Iv Or Oral Urgent
Reason For Exam: JOCELYN, evaluate for hydronephrosis
07/31/24 01:35
Calcium Gluconate 2 gram/100mL [Calcium Gluconate] 2 gram in 100 ml IV ONCE
07/31/24 01:48
Thiamine Injection 200 mg IV NOW STA
07/31/24 01:49
Add On- LAB Stat
Tests Added?: phosphorous level, vitamin d
07/31/24 01:50
Add On- LAB Stat
Tests Added?: prealbumin
07/31/24 02:00
Dextrose 5%/Water 1000 ml [D5w] 1,000 ml Sodium Bicarbonate 150 meq IV 100 mls/hr
Flush (0.9% Sodium Chloride) [Flush (Nss)] See Dose Instructions IV PER PROTOCOL
07/31/24 02:05
Admit/Transfer Patient As Directed
Co-Sign Provider:
Level of Care: Inpatient admission
Assign to:: Telemetry
Physician / Group: Coty
Diagnosis: Acute kidney injury
Reason for Telemetry: Other
Other Reason for Telemetry: electrolyte derangement
Date to Stop Telemetry: 08/02/24
Time to Stop Telemetry: 11:00
Reason for Hospitalization: failure to thrive
Expected length of stay greater than two midnights?: Yes
ELOS- Estimated Length of Stay in days: 2
I certify the patient meets the requirements for IP care: Yes
PRN Pain Medication Management As Directed
May give lesser potent ordered pain med per pt: Yes
preference::
Protocol:: Medication orders for pain may be administered in a
manner that supports deferring to patient preference
when the pt is:
- Requesting an ordered lesser potent pain medication.
Least to most potent pain medications are defined
as: acetaminophen < NSAID < tramadol < opioids
(morphine, oxycodone, hydromorphone).
- Requesting a lesser dose of the same medication IF
ORDERED.
- Requesting a less intrusive route of administration
if both routes are prescribed by the provider (PO <
IV).
07/31/24 02:06
Code Status As Directed
Resuscitation Status: Limited DNR
Limited DNR: -No intubation
07/31/24 02:18
Prealbumin (Transthyretin) Routine
Vitamin D, 25-Oh Routine
08/02/24 11:00
DC Protocol for Telemetry ONCE
Abnormal Lab Results
07/30/24 07/31/24
23:03 00:09
WBC 3.8 L 10^3/uL
(4.8-10.8)
RBC 2.30 L 10^6/uL
(4.20-5.40)
Hgb 7.5 L g/dL
(12.0-16.0)
Hct 23.1 L %
(37.0-47.0)
MCV 100.4 H fL
(81.0-99.0)
MCH 32.6 H pg
(27.0-31.0)
MCHC 32.5 L g/dL
(33.0-37.0)
RDW 16.0 H %
(11.5-14.5)
MPV 10.5 H fL
(7.4-10.4)
Monocytes (Manual) 21 H %
(2-9)
VBG pH 7.06 L*
(7.32-7.43)
VBG pCO2 22 L mmHg
(35-48)
VBG pO2 101 H mmHg
(30-50)
VBG HCO3 6.2 L mmol/L
(22-27)
Chloride 121 H mmol/L
(98-107)
Carbon Dioxide < 5 L* mmol/L
(22-30)
BUN 55 H mg/dl
(7-17)
Creatinine 4.8 H* mg/dL
(0.6-1.0)
Calcium 7.0 L mg/dl
(8.4-10.2)
Phosphorus 5.9 H mg/dl
(2.5-4.5)
AST 45 H U/L
(14-36)
ALT 49 H U/L
(0-35)
Alkaline Phosphatase 212 H U/L
(38-126)
Total Protein 8.3 H g/dl
(6.3-8.2)
Albumin 3.4 L g/dl
(3.5-5.0)
TSH (Reflex) 48.30 H uIU/ml
(0.47-4.68)
Free T4 0.32 L ng/dl
(0.78-2.19)
07/30/24 23:03
07/30/24 23:03
Vital Signs
Initial and Last Documented VS:
Initial Vital Signs
Temp Pulse Resp BP Pulse Ox
98.2 F 78 20 103/60 99
07/30/24 21:30 07/30/24 21:30 07/30/24 21:30 07/30/24 21:30 07/30/24 21:30
Last Documented Vital Signs
Temp Pulse Resp BP Pulse Ox
98.2 F 81 18 89/60 100
07/30/24 21:30 07/31/24 02:15 07/31/24 02:15 07/31/24 02:09 07/31/24 02:15
MDM/Problems Addressed
Differential Diagnosis Includes:
63yoF here with generalized weakness. Admitted earlier this year for JOCELYN. Vitals are stable. She is ill-appearing, cachectic, and appears older than stated age. Mucous membranes are dry. Differential diagnosis includes but is not limited to:
Failure to thrive, dehydration, electrolyte abnormality, renal failure
Initial ED plan: Check cardiac labs, magnesium, TSH, UA, EKG, and lumbar spine x-rays. IV fluid bolus.
*EKG
Interpreted by ED Provider?: Yes
EKG Intrepretation Date: 07/30/24
Heart Rate: 74
Rate: normal
Rhythm: sinus
[place]: normal axis
Interval: normal interval
QRS Pattern: normal QRS
Ischemia: no ischemia
*Critical Care Note
Total Time (30-74mins, 75-104mins- exclusive of procedures): Not Applicable
Update Note
Update Note:
Labs reveal a creatinine of 4.8, up from 2.2 at time of discharge in May of this year. Bicarb is less than 5. VBG and lactate added. Venous pH is 7.06. Lactate WNL. Patient denies any alcohol use. CT abdomen also added which is negative
for hydronephrosis. TSH also significantly elevated at 48, likely secondary to medication noncompliance. Additional IV fluid bolus ordered and patient admitted for further management.
ED Attending Note
-
Portions of this chart may have been created with voice recognition software.� Occasional wrong word or��sound alike� substitutions may have occurred due to the inherent limitations of voice recognition software.
Discharge Plan
Departure
Patient Disposition: Admit
Date of Disposition: 07/31/24
Time of Disposition: 01:04
Presentation/result/management discussed w/ accepting MD/DO: Hospitalist
Discharge Problem:
High anion gap metabolic acidosis, Hypothyroidism, Acute kidney injury
Interventions
Interventions:
*Risk Screen - Suicide Last Done: 07/31/24 00:26
*General Assessment Last Done: 07/30/24 21:30
*Neglect/Abuse Screening Last Done: 07/30/24 23:21
*ED- Fall Risk Assessment Last Done: 07/30/24 23:21
*ED COVID-19 Vaccine History Last Done: 07/30/24 23:21
ED- Cardiac Assessment Last Done: 07/30/24 23:34
ED- Neurological Assessment Last Done: 07/30/24 23:34
ED- Pulmonary Assessment Last Done: 07/30/24 23:34
[2024-07-30 23:26] LABS: Hematocrit 23.1 % (37.0-47.0); Hemoglobin 7.5 g/dL (12.0-16.0); Mean Corp Hgb Conc. 32.5 g/dL (33.0-37.0); Mean Corpuscular Hgb 32.6 pg (27.0-31.0); Mean Corpuscular Volume 100.4 fL (81.0-99.0); Mean Platelet Volume 10.5 fL (7.4-10.4); Platelet Count 170 10^3/uL (130-400); White Blood Cell Count 3.8 10^3/uL (4.8-10.8)
[2024-07-30 23:27] VITALS: BP 99/67
[2024-07-30 23:29] VITALS: BP 99/67; BMI 14.9
[2024-07-30] MEDS: NSS 500 IV (23:33)
[2024-07-30 23:49] LABS: ALT (SGPT) 49 U/L (0-35); AST (SGOT) 45 U/L (14-36); Albumin 3.4 g/dl (3.5-5.0); Alkaline Phosphatase 212 U/L (38-126); Blood Urea Nitrogen 55 mg/dl (7-17); Carbon Dioxide < 5 mmol/L (22-30); Chloride 121 mmol/L (98-107); Estimated Creatinine Clearance 6 ml/min; Glucose 85 mg/dl (70-99); Potassium 4.1 mmol/L (3.5-5.1); Sodium 143 mmol/L (135-145); Total Bilirubin 0.5 mg/dl (0.2-1.3); Total Protein 8.3 g/dl (6.3-8.2); eGFR 9.58
[2024-07-30 23:57] LABS: Troponin I < 0.012 ng/ml
[2024-07-31] VITALS (20 sets, daily range): BP systolic 86–126; BP diastolic 58–98; BMI 15.2
[2024-07-31] MEDS: NSS 500 IV (00:19)
[2024-07-31 00:20] LABS: Absolute Neutrophils -Man Diff 2.2 10^3/uL (1.4-6.5); Band Neutrophils 0 % (0-3); Eosinophils 1 % (0-6); Lymphocytes 20 % (20-51); Monocytes 21 % (2-9); Normal RBC Morphology No; Nucleated Red Blood Cells 1 (-); Platelets Checked Yes; Segmented Neutrophils 58 % (42-75); Total Cells Counted 100
[2024-07-31 00:24] LABS: Venous Blood Gas B.E. -22.3 mmol/L (-4 to +4); Venous Blood Gas HCO3 6.2 mmol/L (22-27); Venous Blood Gas O2 Sat % 97.1 %; Venous Blood Gas pCO2 22 mmHg (35-48); Venous Blood Gas pO2 101 mmHg (30-50)
[2024-07-31 00:27] LABS: Venous Blood Gas pH 7.06 (7.32-7.43)
[2024-07-31 00:28] LABS: Anisocytosis 1+; Ovalocytes 1+; Target Cells Occasional
[2024-07-31 00:30] LABS: Polychromasia Occasional
[2024-07-31 00:45] LABS: Free T4 0.32 ng/dl (0.78-2.19)
[2024-07-31 01:01] LABS: Lactic Acid 0.7 mmol/L (0.7-2.0)
--- NOTE | 2024-07-31 01:50 | HPS.HSE ---
Family Physician
-
Family Physician: Dewey Manzo
Chief Complaint
-
Weakness
History of Present Illness
This is a 63-year-old with past medical history of depression, hypothyroidism, CKD who presents to the emergency department with weakness and fatigue.
Patient was admitted to the hospital in April for similar symptoms. At that time she had severe JOCELYN on CKD with metabolic acidosis and electrolyte disturbances. She had significant weight loss, poor p.o. intake and sent to the emergency
department for failure to thrive. This time, she has been having increasing fatigue and weakness over several days. Somnolence throughout the day. Flattening of chronic low back pain. Patient fairly poor historian and unwilling or unable to
provide additional history. Family stated to the ED that she has been losing weight again and only eats about 1 meal a day. She denies any vomiting or diarrhea. She denies any urinary symptom. She denies fevers or chills. She reports that he
has been compliant with the medications that she was discharged on for supplementation but family does not think she has been compliant.
The emergency department blood pressure was 86/58, pulse 81 she was satting 99% on room air. Temp was 98.2. Respiratory was 16. ECG with normal sinus rhythm at a rate of 74.
CBC shows chronic anemia with a hemoglobin 7.5 similar to prior MCV 100. Electrolytes were notable for a bicarb of 5, BUN and creatinine were 51 and 4.8 respectively. Calcium was 7.0. ABG 7.2 . Non-anion gap metabolic acidosis. TSH 48,
free T40.3.
Medical History
Past Medical History
Past Medical History: Reports Other
Additional Past Medical History:
Hypertension, anxiety
Past Surgical History: Reports None
Social History
Tobacco: Smoker (0.5.)
Alcohol: Occasional
Drug: None
Personal:
Living: With Family
Family History
Family History: Not pertinent
Allergies / Home Medications
Allergies reflects when Allergies were last updated in [facility].
Home Medications with original date entered in [facility]
Allergy/Medication List:
Allergies
Allergy/AdvReac Type Severity Reaction Status Date / Time
No Known Allergies Allergy Verified 04/30/24 11:30
Home Medications
acetaminophen 325 mg tablet 650 mg (2 x 325 mg) PO Q4HPRN PRN fever pain ##0 10/16/14
metoprolol succinate 25 mg tablet,extended release 24 hr 12.5 mg (1/2 x 25 mg) PO DAILY ##30 10/16/14
cyanocobalamin (vitamin B-12) 1,000 mcg tablet 1,000 mcg PO DAILY 04/30/24
folic acid 1 mg tablet 1 mg PO DAILY 04/30/24
magnesium oxide 400 mg PO DAILY 04/30/24
potassium 99 mg tablet 99 mg PO DAILY 04/30/24
pyridoxine (vitamin B6) 25 mg tablet 25 mg PO DAILY 04/30/24
Review of Systems
-
History Source: Patient
Constitutional: Reports Fatigue
EENT: Reports No Symptoms
Respiratory: Reports No Symptoms
Cardiac: Reports No Symptoms
Abdomen/GI: Reports No Symptoms
: Reports No Symptoms
Musculoskeletal: Reports No Symptoms
Skin: Reports No Symptoms
Neurological: Reports No Symptoms
Endocrine: Reports No Symptoms
Hematologic/Lymphatic: Reports No Symptoms
Psych: Reports No Symptoms
Physical Exam
Vital Signs
Vital Signs
Temp Pulse Resp BP Pulse Ox
98.2 F 81 16 86/58 99
07/30/24 21:30 07/31/24 01:00 07/31/24 01:00 07/31/24 01:00 07/31/24 01:00
Physical Exam
General: Well Nourished, Poor Appetite and Cachectic
HEENT: NormoCephalic, Anicteric, Atraumatic and PERRLA
Respiratory: Clear
Cardiac: S1/S2 and Regular Rhythm
Breast: Deferred by me
GI: Soft, Non Tender and Non Distended
Rectal: Deferred by Provider
Genito-urinary: Deferred by me
Musculoskeletal: No Clubbing, No Cyanosis and No Edema
Skin: Rash
Neuro: AO x 3
Hematologic/Lymphatic: No Lymphadenopathy
Psych: Calm
Laboratory Results
-
07/30/24 23:03
07/30/24 23:03
Laboratory Results
Lactic Acid 0.7 mmol/L (0.7-2.0) 07/31/24 00:09
Total Bilirubin 0.5 mg/dl (0.2-1.3) 07/30/24 23:03
AST 45 U/L (14-36) H 07/30/24 23:03
ALT 49 U/L (0-35) H 07/30/24 23:03
Alkaline Phosphatase 212 U/L (38-126) H 07/30/24 23:03
Troponin I < 0.012 ng/ml 07/30/24 23:03
Data Reviewed
-
Medical Tests (Nuc Med, Echo, EKG etc): Image Personally Visualized and interpreted
Lab Data: Labs Reviewed by me
Old Records: Reviewed
Impression/Plan
-
IMPRESSION:
63 y.o with hypertension, hypothyroid, CKD, likely malnutrition secondary to some form of anorexia presenting from home with failure to thrive. Low PO intake. She is dry looking. Non compliance with medications previously prescribed per family
members. Not very cooperative or forthcoming on history. Suspect ongoing depression. Denies any ETOH. No smoking. T
PLAN:
1. JOCELYN - JOCELYN on CKD. Hypovolemic. Suspect pre-renal azotemia.
- admit to telemetry for electrolyte anomalies
- IV NS given in ED
- will continue with IV 150meq bicarb for now
- follow labs q 12 then daily
- avoiding nephrotoxins
- nephrology consultation
2. Non AG metabolic acidosis- Most likely from JOCELYN with poor nutrition resulting in no significant titratable acids. Cannot rule out adrenal insufficiency
- IV bicarb as above
- check am cortisol
- thyroid supplementation
3. Hypothyroid - non-compliance with levothyroxine
- restart levothyrxoine 50mcg daily
- am cortisol as above
4. Hypocalcemia - likely due to poor intake and vitamin d deficiency
- check phos level, vit d 25 oh
- IV calcium 4 g over the next 12 hours
- restart oral calcium and vitamin d supplementation
5. Nutrition
- regular diet
- iv thiamine now, then daily
- folate and b12 supplementation
6. Anemia - Macrocytic anemia suggestive of poor production. Hypothyroid. No evidence of blood loss
- trend h&h
- type and screen
- check retic, iron indices, b12, folate
- tranfuse for Hgb < 7
DVT PPX - heparin sq
Code status - limited DNR, do not intubate
[2024-07-31] MEDS: CALCIUM GLUCONATE 100 IV ×2 (02:09→19:44)
[2024-07-31] MEDS: SODIUM BICARBONATE 1150 MEQ IV ×2 (02:16→13:12)
[2024-07-31] MEDS: THIAMINE INJECTION 200 MG IV (02:17)
[2024-07-31 02:50] LABS: Phosphorus 5.9 mg/dl (2.5-4.5)
--- NOTE | 2024-07-31 03:42 | PTCARENOTE ---
Patient arrived into room 3341. Pt is alert and withdrawn. Resistant to staff, unwilling to answer admission questions. Pt able to state . Pt laying in position in bed. Generalized red, dry dermatitis rash present. CHG done. Pt does not
answer when asked if the rash is itchy. Labs & urine sent. NSR on tele. when asked if pt is ok pt says 'mm hmm'.
bed alarm set for safety. call cruz within reach. IVF continue.
[2024-07-31 04:00] LABS: Hematocrit 20.6 % (37.0-47.0); Hemoglobin 6.7 g/dL (12.0-16.0); Mean Corp Hgb Conc. 32.5 g/dL (33.0-37.0); Mean Corpuscular Hgb 32.8 pg (27.0-31.0); Mean Platelet Volume 10.9 fL (7.4-10.4); Platelet Count 162 10^3/uL (130-400); Red Blood Cell Count 2.04 10^6/uL (4.20-5.40); Red Cell Dist. Width 15.9 % (11.5-14.5); White Blood Cell Count 4.2 10^3/uL (4.8-10.8)
--- NOTE | 2024-07-31 04:03 | PTCARENOTE ---
Critical H/H 6.7/20.6 reported to POONAM Carter.
[2024-07-31 04:16] LABS: Blood Urea Nitrogen 54 mg/dl (7-17); Calcium 7.8 mg/dl (8.4-10.2); Carbon Dioxide < 5 mmol/L (22-30); Chloride 123 mmol/L (98-107); Estimated Creatinine Clearance 7 ml/min; Glucose 89 mg/dl (70-99); Iron 95 ug/dl (37-170); Magnesium 1.9 mg/dl (1.6-2.3); Potassium 4.1 mmol/L (3.5-5.1); Sodium 142 mmol/L (135-145); eGFR 10.63
[2024-07-31 04:18] LABS: Urine Albumin 3+ (Neg - Trace); Urine Bilirubin Negative (Negative); Urine Color Yellow; Urine Glucose 2+ (Negative); Urine Ketone Negative (Negative); Urine Leukocyte 3+ (Negative); Urine Nitrite Negative (Negative); Urine Occult Blood 4+ (Negative); Urine Specific Gravity 1.015 (<1.030); Urine Urobilinogen Negative (Neg - 1+)
[2024-07-31 04:19] LABS: Prealbumin (Transthyretin) 17.1 mg/dl (17.6-36.0)
[2024-07-31 04:23] LABS: Percent Saturation 40 % (20-50); Total Iron Binding Capacity 234 ug/dl (265-497)
[2024-07-31 04:28] LABS: Urine Character Slightly Cloudy (Clear)
[2024-07-31 04:33] LABS: Vitamin D, 25-OH*** 25.8 ng/mL (30-80)
[2024-07-31 04:47] LABS: Cortisol, Random 34.6 ug/dl
[2024-07-31 05:13] LABS: Urine Amorphous Seen; Urine Bacteria Many (Negative); Urine Mucus Moderate; Urine Squamous Cell >30 /LPF (Few); Urine Urothelial Cell >30 /LPF (FEW)
[2024-07-31 05:15] LABS: Urine White Cell >100 /HPF (0-5)
[2024-07-31 05:30] LABS: Folate 9.4 ng/ml (2.76-20); Vitamin B12 813 pg/ml (239-931)
[2024-07-31] MEDS: SYNTHROID 50 MCG PO (06:08)
--- NOTE | 2024-07-31 06:17 | PTCARENOTE ---
Addendum entered by Melissa Breaux RN 07/31/24 06:19:
Plan to repeat CBC at 0700 and draw type + screen.
Original Note:
After much encouragement, pt sat up in bed and swallowed her Synthroid whole with applesauce. Pt took a sip of water from her Fadi cup. no s/s of aspiration. pt went back into a position immediately. when asked if she was ok she mumbled
'mmhmm'. call cruz within reach. bed alarm set for safety.
[2024-07-31 07:21] LABS: Hemoglobin 6.8 g/dL (12.0-16.0); Mean Corpuscular Hgb 33.3 pg (27.0-31.0); Mean Platelet Volume 11.4 fL (7.4-10.4); Platelet Count 152 10^3/uL (130-400); Red Blood Cell Count 2.04 10^6/uL (4.20-5.40); Red Cell Dist. Width 15.1 % (11.5-14.5); Reticulocyte Count 2.7 % (0.4-2.8); White Blood Cell Count 3.7 10^3/uL (4.8-10.8)
--- NOTE | 2024-07-31 08:10 | W.CON.NEPH ---
Consultation
-
Date/Time Consultation Requested: 07/31/2024 7:00 AM
Date/Time Consultation Performed: 07/31/2024 811 AM
Requesting Provider: Dr. Brown
Performing Provider: Dr. Quinn
Reason for Consultation: Acute kidney injury/metabolic acidosis
Medical History
-
Chief Complaint: Acute kidney injury/metabolic acidosis
History of Present Illness:
This is a 63-year-old female with limited medical history of HTN previously on metoprolol therapy. She had a history of intracranial hemorrhage about 10 years ago requiring craniectomy and ventriculostomy. She has a history of hypothyroidism
maintained on Synthroid therapy . She has a history of CKD stage IV with baseline creatinine 2.2 as of May 2024 .over the last year she has begun losing weight progressively, losing weight . She was seen by our practice in April 2024 when
she presented with acute renal failure and metabolic acidosis. She escaped dialysis and was discharged with a creatinine of 2. 2 on 05/06/24. She presented to the emergency room last evening with weakness and fatigue. She also noted associated
chronic lower back pain. She has been losing weight again and only eats about 1 meal per day. She denied any GI symptomatology or urinary symptoms. In the emergency room, she was notably hypotensive with a systolic blood pressure of 86. She was
in acute renal failure with a creatinine of 4.8 and was profoundly acidotic with a bicarb of less than 5. We were then asked to see this critically ill patient for her JOCELYN and gapped metabolic acidosis.
Past Medical History
Hypertension, intracranial bleed, craniotomy, ventriculostomy, GERD, CKD 4
Social History
Tobacco: Smoker
Alcohol: Occasional (Drinking 4 beers per day quit about 2 weeks ago)
Family History
Family History: Not Pertinent
Allergies / Home Medications
Allergy/AdvReac Type Severity Reaction Status Date / Time
No Known Allergies Allergy Verified 07/30/24 21:30
�Medication �Instructions �Recorded �Confirmed �Type
acetaminophen 325 mg tablet 650 mg (2 x 325 mg) PO Q4HPRN PRN 10/16/14 07/30/24 Rx
fever pain ##0
metoprolol succinate 25 mg 12.5 mg (1/2 x 25 mg) PO DAILY ##30 10/16/14 07/30/24 Rx
tablet,extended release 24 hr
cyanocobalamin (vitamin B-12) 1,000 mcg PO DAILY Supplement 04/30/24 07/30/24 History
1,000 mcg tablet
folic acid 1 mg tablet 1 mg PO DAILY Supplement 04/30/24 07/30/24 History
magnesium oxide 400 mg PO DAILY Supplement 04/30/24 07/30/24 History
potassium 99 mg tablet 99 mg PO DAILY Electrolyte 04/30/24 07/30/24 History
Repletion
pyridoxine (vitamin B6) 25 mg 25 mg PO DAILY Supplement 04/30/24 07/30/24 History
tablet
calcium 500 mg (as 1 tab PO TID 30 days #30 tabs 05/06/24 07/30/24 Rx
carbonate)-vitamin D3 5 mcg (200
unit) tablet (Oyster Shell
Calcium-Vitamin D3)
cholecalciferol (vitamin D3) 25 25 mcg PO DAILY Vitamin D 05/06/24 07/30/24 Rx
mcg (1,000 unit) tablet Deficiency #30 tabs
levothyroxine 50 mcg tablet 50 mcg PO DAILY @ 0600 05/06/24 07/30/24 Rx
Hypothyroidism #14 tabs
pantoprazole 40 mg tablet,delayed 40 mg PO DAILY #14 tabs 05/06/24 07/30/24 Rx
release
sertraline 25 mg tablet 25 mg PO DAILY Depression #30 tabs 05/06/24 07/30/24 Rx
triamcinolone acetonide 0.1 % 1 applic topical TID Rash #1 tube 05/06/24 07/30/24 Rx
topical ointment
Review of Systems
-
No chest pain or shortness of breath. Denies any issues with urine output or diarrhea. generalized weakness
History Source: Patient
All other systems: Negative unless noted
Constitutional: Weight Loss
Respiratory: Other (High respiratory rate and)
Cardiac: No Symptoms
Abdomen/GI: No Symptoms
: No Symptoms
Skin: Other (Rash)
Physical Exam
Vital Signs
Vital Signs
Temp Pulse Resp BP Pulse Ox
97.2 F 78 18 124/70 95
07/31/24 03:42 07/31/24 06:15 07/31/24 06:15 07/31/24 06:00 07/31/24 06:15
Lab Results
WBC 3.7 10^3/uL (4.8-10.8) L 07/31/24 06:50
RBC 2.04 10^6/uL (4.20-5.40) L 07/31/24 06:50
Hgb 6.8 g/dL (12.0-16.0) L* 07/31/24 06:50
Hct 20.0 % (37.0-47.0) L* 07/31/24 06:50
Plt Count 152 10^3/uL (130-400) 07/31/24 06:50
Sodium 142 mmol/L (135-145) 07/31/24 03:35
Potassium 4.1 mmol/L (3.5-5.1) 07/31/24 03:35
Chloride 123 mmol/L (98-107) H 07/31/24 03:35
Carbon Dioxide < 5 mmol/L (22-30) L* 07/31/24 03:35
BUN 54 mg/dl (7-17) H 07/31/24 03:35
Creatinine 4.4 mg/dL (0.6-1.0) H* 07/31/24 03:35
eGFR 10.63 07/31/24 03:35
Glucose 89 mg/dl (70-99) 07/31/24 03:35
Calcium 7.8 mg/dl (8.4-10.2) L 07/31/24 03:35
Phosphorus 5.9 mg/dl (2.5-4.5) H 07/30/24 23:03
Albumin 3.4 g/dl (3.5-5.0) L 07/30/24 23:03
Physical Exam
Awake and alert, answers few questions, chronically ill-appearing, pronounced cachexia pupils are equal round and reactive to light, conjunctive up extraocular movements are intact, sclera were anicteric. Hearing was normal, ears and nose are
intact. Oropharynx was clear. Neck was supple with trachea midline and no thyromegaly. Heart was regular rate and rhythm without rubs. Lower extremities without edema. Lungs were coarse to auscultation bilaterally and with normal excursion.
Abdomen was soft, nontender, with normal active bowel sounds, and no hepatosplenomegaly. Skin was with exfoliating rash on the forehead and with decreased turgor. Several excoriations noted on the neck. Several scattered lipomas. Neuro exam
without asterixis, musculoskeletal strength 5 out of 5 in both upper and lower extremity
Data Reviewed
-
Medical Tests (Nuc Med, Echo etc): Other (EKG personally reviewed notes normal sinus rhythm)
Labs: Labs Reviewed by me ([facility] CBC urinalysis)
Old Records: Reviewed (Previous nephrology consult from April 2024 for acute kidney, reviewed previous creatinine level of 2.2 on May 06, 2024)
Assessment/Plan
-
Assessment
Failure to thrive
Weight loss
JOCELYN, CKD4-baseline cr 2.2 (05/27)
Metabolic acidosis
Hypocalcemia
Hypothyroidism (under treated)
Elevated LFTs
Anemia
Plan
JOCELYN/metabolic acidosis
- Need accurate I's and O's and place Lizarraga catheter if unable to obtain
- Urinalysis notes blood and protein
- Strong suspicion of progression of chronic kidney disease which may require dialysis
- Continue aggressive alkalized IV fluids in setting of profound metabolic acidosis (sodium bicarbonate 150meq/ liter to 150cc/hr)
- recheck labs at noon
- Treatment of hypothyroidism
- Electrolyte repletion
- Cortisol levels not consistent with adrenal insufficiency
- Maintain MAP greater than 65, currently hemodynamically more stable
- Patient is critically ill with profound renal failure and life threatening acidemia
-Recheck BMP later this afternoon and if patient remains profoundly acidotic and/or anuric she will require urgent dialysis
- 45 minutes critical care time spent with patient
Total Time Spent with Patient (in minutes): 45
--- NOTE | 2024-07-31 08:13 | VATNOTE ---
Attempted dressing change on pt's L wrist IV site related to looking like it had bled. While attempting to remove the old dressing pt was agitated and yelling at this RN. Ingetrity of the dressing in tact so this RN and PCN decided to not proceed
with dressing change at this time. Will re-evaluate tomorrow or as needed.
[2024-07-31] MEDS: THIAMINE INJECTION 100 MG IV (08:20)
--- NOTE | 2024-07-31 08:28 | PTCARENOTE ---
Patient received from production supervisor off shift. Patient resting comfortably in bed. AAOx1, mostly to self at this time. VSS. No events noted overnight. No complaints of pain at this time. Hgb 6.9 this AM on lab work, hospitalist made aware as well that
there is not consent for blood signed. D5W with bicarb through IV. No testing scheduled at this time. Call cruz in reach.
[2024-07-31] MEDS: ZOLOFT 25 MG PO (08:42)
[2024-07-31] MEDS: VITAMIN B-6 25 MG PO (08:42)
[2024-07-31] MEDS: VITAMIN B-12 1000 MCG PO (08:42)
[2024-07-31] MEDS: TOPROL XL 12.5 MG PO (08:42)
[2024-07-31] MEDS: VITAMIN D3 (cholecalciferol) 25 MCG PO (08:42)
[2024-07-31] MEDS: PROTONIX 40 MG PO (08:42)
[2024-07-31] MEDS: OSCAL 500 + D 500 MG PO ×3 (08:42→19:37)
[2024-07-31] MEDS: FOLVITE 1 MG PO (08:43)
[2024-07-31] MEDS: HEPARIN 5000 UNITS SC ×2 (08:43→19:53)
--- NOTE | 2024-07-31 11:48 | W.PN.UPDATE ---
Update Note
Progress Note Update
Nonbillable note
1. CKD stage V, anion gap metabolic acidosis -patient worsening renal function reaching up to point for need of hemodialysis. No significant volume overload. Patient does significant acidosis currently getting D5 bicarb. Nephrology has evaluated
patient and plan to get repeat blood work in the afternoon, likely will require urgent initiation of hemodialysis based on blood work.
2. Normocytic anemia -suspected of chronic renal disease. Ferritin of 624, TSAT of 40%. Check stool for Hemoccult blood. Patient current hemoglobin 6.9 and would require 1 unit of blood transfusion, patient minimally communicative and cannot
confirm if have decision-making capacity. I have called for spouse to provide consent, no response yet
3. Hypothyroidism -suspect medication noncompliance as free T4 of 0.32 and TSH 48.3. Resumed last known levothyroxine dose
4. Metabolic encephalopathy -baseline unknown and no family to provide history regarding if patient have encephalopathy. Although in light of metabolic derangements of renal failure/acidosis/uncontrolled hypothyroidism suspecting may have
component of encephalopathy. No signs of myxedema coma.
5. r/o UTI -UA showing WBC 1800/many bacteria. More than 30 squamous cells and likely a poor sample. If any signs of fever/leukocytosis will need to start empiric Rocephin. Patient not providing any clear history of his having dysuria/abdominal
discomfort/urinary symptom.
6. Mild transaminitis -ALT/AT in 40-50 range ALP 212. Total bili been normal. No abdominal symptoms monitor. Will consider liver abdominal ultrasound if clinically warranted. Avoid hepatotoxic medication
[2024-07-31 13:56] LABS: Blood Urea Nitrogen 53 mg/dl (7-17); Calcium 6.7 mg/dl (8.4-10.2); Carbon Dioxide 8 mmol/L (22-30); Chloride 118 mmol/L (98-107); Estimated Creatinine Clearance 8 ml/min; Glucose 108 mg/dl (70-99); Potassium 3.1 mmol/L (3.5-5.1); Sodium 141 mmol/L (135-145); eGFR 11.24
[2024-07-31] MEDS: SODIUM BICARBONATE 1300 MG PO ×2 (15:36→23:12)
[2024-07-31 18:40] LABS: Blood Urea Nitrogen 49 mg/dl (7-17); Calcium 5.5 mg/dl (8.4-10.2); Carbon Dioxide 11 mmol/L (22-30); Chloride 117 mmol/L (98-107); Estimated Creatinine Clearance 9 ml/min; Glucose 130 mg/dl (70-99); Potassium 2.4 mmol/L (3.5-5.1); Sodium 141 mmol/L (135-145); eGFR 13.09
[2024-07-31] MEDS: KCL 40 MEQ PO ×2 (19:37→23:12)
--- NOTE | 2024-07-31 20:29 | PTCARENOTE ---
Received patient with blood infusing. VSS. IVF w/ bicarb on hold. 1800 lab work with critical results. Orders received for 2g IV Kingsley gluconate / PO K+; refer to MAR. Pt able to swallow pills crushed in applesauce. Pt resistant to care; refused oral
care. Laying in position in bed. Skin with generalized red dermatitis looking rash. Denies any pain. Able to state she is in [facility] and the year. Pt did not eat much of her dinner tray. NSR on tele. Bed alarm set for safety. Call
cruz is within reach; encouraged to use for staff assistance.
[2024-08-01] VITALS (14 sets, daily range): BP systolic 94–110; BP diastolic 62–81; PULSE 62; O2SAT 94
[2024-08-01] MEDS: TYLENOL 650 MG PO ×3 (01:59→22:00)
[2024-08-01] MEDS: SODIUM BICARBONATE 1150 MEQ IV ×2 (01:59→15:45)
[2024-08-01] MEDS: SYNTHROID 50 MCG PO (05:05)
[2024-08-01 06:12] LABS: Blood Urea Nitrogen 52 mg/dl (7-17); Calcium 6.2 mg/dl (8.4-10.2); Carbon Dioxide 15 mmol/L (22-30); Chloride 116 mmol/L (98-107); Estimated Creatinine Clearance 8 ml/min; Glucose 113 mg/dl (70-99); Phosphorus 3.7 mg/dl (2.5-4.5); Potassium 3.3 mmol/L (3.5-5.1); Sodium 143 mmol/L (135-145); eGFR 12.29
--- NOTE | 2024-08-01 06:26 | PTCARENOTE ---
Critical calcium of 6.2 reported to POONAM Villagran.
[2024-08-01 07:15] LABS: Hematocrit 22.6 % (37.0-47.0); Mean Corp Hgb Conc. 35.4 g/dL (33.0-37.0); Mean Corpuscular Hgb 32.5 pg (27.0-31.0); Mean Corpuscular Volume 91.9 fL (81.0-99.0); Mean Platelet Volume 11.4 fL (7.4-10.4); Platelet Count 148 10^3/uL (130-400); Red Blood Cell Count 2.46 10^6/uL (4.20-5.40); White Blood Cell Count 3.5 10^3/uL (4.8-10.8)
[2024-08-01] MEDS: CALCIUM GLUCONATE 100 IV (08:41)
[2024-08-01] MEDS: FOLVITE 1 MG PO (08:46)
[2024-08-01] MEDS: PROTONIX 40 MG PO (08:47)
[2024-08-01] MEDS: OSCAL 500 + D 500 MG PO ×3 (08:47→19:26)
[2024-08-01] MEDS: THIAMINE INJECTION 100 MG IV (08:47)
[2024-08-01] MEDS: SODIUM BICARBONATE 1300 MG PO ×3 (08:47→19:26)
[2024-08-01] MEDS: VITAMIN D3 (cholecalciferol) 25 MCG PO (08:51)
[2024-08-01] MEDS: TOPROL XL 12.5 MG PO (08:51)
[2024-08-01] MEDS: VITAMIN B-6 25 MG PO (08:51)
[2024-08-01] MEDS: ZOLOFT 25 MG PO (08:52)
[2024-08-01] MEDS: HEPARIN 5000 UNITS SC ×2 (08:55→19:27)
--- NOTE | 2024-08-01 10:32 | W.PN.NEPH.PH ---
Today's Communication / Plan
-
Continue bicarbonate drip at 80 cc/h
Lizarraga catheter
Assessment/Plan
-
Assessment
Failure to thrive
Weight loss
JOCELYN, CKD4-baseline cr 2.2 (05/27)
Metabolic acidosis
Hypocalcemia
Hypothyroidism (under treated)
Elevated LFTs
Anemia
Plan
JOCELYN/metabolic acidosis
- Need accurate I's and O's and place Lizarraga catheter if unable to obtain
- Urinalysis notes blood and protein
- Strong suspicion of progression of chronic kidney disease which may require dialysis
-
- recheck labs at noon
- Treatment of hypothyroidism
- Electrolyte repletion
- Cortisol levels not consistent with adrenal insufficiency
- Maintain MAP greater than 65, currently hemodynamically more stable
-
Sodium bicarbonate drip continue/urine output improved
Maintain Lizarraga
-
-
Date of Service: August 01, 2024
CC / HPI / ROS
-
Chief Complaint:
JOCELYN on chronic kidney disease
History of Present Illness:
Acute kidney injury severe metabolic acidosis hyperkalemia failure to thrive
Review of Systems:
Lizarraga catheter nonoliguric
Labs
-
Labs:
WBC 3.5 10^3/uL (4.8-10.8) L 08/01/24 06:56
RBC 2.46 10^6/uL (4.20-5.40) L 08/01/24 06:56
Hgb 8.0 g/dL (12.0-16.0) L 08/01/24 06:56
Hct 22.6 % (37.0-47.0) L 08/01/24 06:56
Plt Count 148 10^3/uL (130-400) 08/01/24 06:56
Sodium 143 mmol/L (135-145) 08/01/24 04:59
Potassium 3.3 mmol/L (3.5-5.1) L D 08/01/24 04:59
Chloride 116 mmol/L (98-107) H 08/01/24 04:59
Carbon Dioxide 15 mmol/L (22-30) L 08/01/24 04:59
BUN 52 mg/dl (7-17) H 08/01/24 04:59
Creatinine 3.9 mg/dL (0.6-1.0) H 08/01/24 04:59
eGFR 12.29 08/01/24 04:59
Glucose 113 mg/dl (70-99) H 08/01/24 04:59
Calcium 6.2 mg/dl (8.4-10.2) L* 08/01/24 04:59
Phosphorus 3.7 mg/dl (2.5-4.5) 08/01/24 04:59
Albumin 3.4 g/dl (3.5-5.0) L 07/30/24 23:03
Physical Exam
-
Vital Signs:
Vital Signs
Temp Pulse Resp BP Pulse Ox
97.8 F 67 20 108/72 94
08/01/24 07:19 08/01/24 08:51 08/01/24 06:00 08/01/24 08:51 08/01/24 06:00
Cardiovascular:: Regular rate and rhythm
Respiratory:: Bilateral: CTA
Lung Excursion:: Normal
Abdomen:: Soft
Bowel Sounds:: Normal
Extremity Edema:: None: Bilateral:
Lizarraga Catheter: Yes
--- NOTE | 2024-08-01 11:37 | CM ---
Patien with Dx JOCELYN/metabolic acidosis, anemia s/p transfusion, possible UTI, failure to thrive. Per nephrology may require dialysis. Room air. Receiving IVF w bicarb gtt. seen by marine services technician. PT/OT Evals pending.
Met with patient, Dewey and sister Enma;
patient resting with eyes open curled up/ position and did not participate in the conversation.
The patient resides with her , daughter Clarisa and grandson in a split level house with 2 MEDHAT.
She has been assisted with ADLs and ambulates independently short distances without an assistive device, and is able to do stairs.
For the past few weeks the patient has complained of being tired, weak and having whole body pain.
She developed a shuffling gait, and has been staying on the couch all day.
The patient recently had dental implants that do not fit well, and has only been eating an omelette for breakfast, otherwise not eating.
works at night, however daughter and grandson are there with the patient at night.
DME - RW, w/c
No prior VN or SNF
Prior [facility] acute [facility].
PCP - Jovany
Pharmacy - [facility]
Message to Dr Brown; concerned about patient not eating, may benefit from PT/OT Evals.
Plan follow up after seen by PT/OT.
[2024-08-01] MEDS: VITAMIN B-12 1000 MCG PO (11:57)
--- NOTE | 2024-08-01 12:01 | PN.CDI ---
CDI
- -
CDI:
Physician Documentation Request
Admit Date: 07/31/24 02:39
Dear Doctor Kevin,
Please review the following and provide your response in the progress notes.
Clinical Indicators:
- 08/01 Nephrology 'JOCELYN, CKD 4-baseline cr 2.2 (05/27)
- 07/31 PN 'CKD 5'
Laboratory Tests
07/30/24 07/31/24 08/01/24
23:03 12:30 04:59
Creatinine 4.8 H* 4.2 H* 3.9 H
eGFR 9.58 11.24 12.29
In an attempt to clarify potentially conflicting documentation, please clarify the renal status
JOCELYN on CKD 4
CKD 5
Other (please specify)
Criteria for JOCELYN*
1 Increase in serum creatinine by > or = to 0.3 mg/dL (> or = to 26.5 micromol/L) within 48 hours, OR
2 Increase in serum creatinine to > or = to 1.5 times baseline, which is known or presumed to have occurred within 7 days, OR
3 Urine volume < 0.5 nL/kg/hour for six hours
Stages of Chronic Kidney Disease*
Level Description GFR
G1 Normal or High >90
G2 Mildly decreased 60-89
G3a Mildly to moderately decreased 45-59
G3b Moderately to severely decreased 30-44
G4 Severely decreased 15-29
G5 Kidney failure <15
Use of terms such as suspected, likely, concern for, or probable (associated with a specific diagnosis that is being evaluated, monitored, or treated as if it exists) are acceptable and can be coded in the inpatient setting, when documented at the
time of discharge.
Thank you,
Derick Balderrama RN
CDI Specialist
Please use your independent medical judgment in providing your response.
*Source: Kidney Disease: Improving Global Outcomes (KDIGO) 2012
--- NOTE | 2024-08-01 12:04 | PN.CDI ---
CDI
- -
CDI:
Physician Documentation Request
Admit Date: 07/31/24 02:39
Dear Doctor Kevin,
Please review the following and provide your response in the progress notes.
Clinical Indicators:
- School Based Therapist note indicates severe protein calorie malnutrition
- Nutrient intake </= 75% estimated energy needs, >/= 1 month
- Severe subcutaneous loss over tricep, orbital
- Severe muscle loss over buccal, temporal
Based on the above information and your assessment, which of the following most accurately represents the patient's nutritional status?
Severe protein calorie malnutrition
Other (please specify)
Hayden Criteria ([facility] 2017)
2 or more criteria must be present for either
non severe or severe malnutrition
Note that the criteria differs related to the
presence of an acute or chronic illness
Acute Illness Chronic Illness
Energy Intake Non Severe: <75% for >7 days Non Severe: <75% for >1 month
Severe: <50% for >5 days Severe: <75% for >1 month
Weight Loss Non Severe: 1-2% over 1 week Non Severe: 5% over 1 month
5% over 1 month 7.5% over 3 months
7.5% over 3 months 10% over 6 months
1 year N/A 20% over 1 year
Severe: >2% over 1 week Severe: >5% over 1 month
>5% over 1 month >7.5% over 3 months
>7.5% over 3 months >10% over 6 months
1 year N/A >20% over 1 year
Body Fat Non Severe: Mild Decrease Non Severe: Mild Loss
Severe: Moderate Decrease Severe: Severe Loss
Muscle Mass Non Severe: Mild Decrease Non Severe: Mild Loss
Severe: Moderate Decrease Severe: Severe Loss
Fluid Accumulation Non Severe: Mild Accumulation Non Severe: Mild Accumulation
Severe: Moderate to severe Severe: Moderate to severe
accumulation accumulation
Reduced Computing Systems Mechanic Strength Non Severe: N/A Non Severe: N/A
Severe: Measurably reduced Severe: Measurably reduced
Additional criteria that can be used to Determine if Mild or Moderate Malnutrition (Merck Manual 2018)
Mild Moderate Severe
Albumin gm/dl <3.0 gm/dl <2.5 gm/dl <2.0 gm/dl
Pre Albumin mg/dl <15 gm/dl <10 mg/dl <5.0 mg/dl
BMI <18.5 <17 <16
Use of terms such as suspected, likely, concern for, or probable (associated with a specific diagnosis that is being evaluated, monitored, or treated as if it exists) are acceptable and can be coded in the inpatient setting, when documented at the
time of discharge.
Thank you,
Derick Balderrama RN
CDI Specialist
Please use your independent medical judgment in providing your response.
[2024-08-01] MEDS: KCL 40 MEQ PO (13:58)
--- NOTE | 2024-08-01 15:36 | PTCARENOTE ---
Patient out of bed to chair. Was in bed most of the day laying in a position with flat affect. Very poor PO intake this shift. Patient only ate 2 yogurts, a few bites of cake. Discussed poor PO intake and behavior with Dr. Brown.
--- NOTE | 2024-08-01 16:23 | W.PN.HOSP.TC ---
Today's Communication/Plan
-
see note
Assessment / Plan
Assessment / Plan
1. JOCELYN on CKDIV , anion gap metabolic acidosis -patient worsening renal function reaching up to point for need of hemodialysis. No significant volume overload. Patient does significant acidosis currently getting D5 bicarb. Continue oral bicarb
therapy. Renal function is slowly improving with IV hydration. Continue monitoring.
2. Normocytic anemia -suspected of chronic renal disease. Ferritin of 624, TSAT of 40%. Check stool for Hemoccult blood. Patient hemoglobin 8.5 after 1 unit of blood transfusion yesterday
3. Hypothyroidism -suspect medication noncompliance as free T4 of 0.32 and TSH 48.3. Resumed last known levothyroxine dose
4. Metabolic encephalopathy -baseline unknown and no family to provide history regarding if patient have encephalopathy. Although in light of metabolic derangements of renal failure/acidosis/uncontrolled hypothyroidism suspecting may have
component of encephalopathy. No signs of myxedema coma.
5. r/o UTI -UA showing WBC 1800/many bacteria. More than 30 squamous cells and likely a poor sample. If any signs of fever/leukocytosis will need to start empiric Rocephin. Patient not providing any clear history of his having dysuria/abdominal
discomfort/urinary symptom.
6. Mild transaminitis -ALT/AT in 40-50 range ALP 212. Total bili been normal. No abdominal symptoms monitor. Will consider liver abdominal ultrasound if clinically warranted. Avoid hepatotoxic medication
7. Severe protein calorie malnutrition -patient is malnourished and have poor oral intake
8. History of right-sided hemorrhagic CVA/craniotomy -patient have chronic behavioral changes after that. Although definitely noted new worsening encephalopathy features in 20 for 48 hours.
9. Essential hypertension -hold metoprolol as patient blood pressure soft. Will add midodrine if required
10. Hypokalemia -transcellular shift with correction of acidosis. Repleted slowly as needed.
11. Hypocalcemia -replacement�as needed
Total time spent : 53 mins
Care plan discussed with patient's spouse at bedside .
Anticipated Discharge: > 48 hours
Subjective/Interval History
-
Date of Service: August 01, 2024
Patient mentation bit better
Remains withdrawn
at bedside
Denies any dyspnea/abdominal pain/nausea/vomiting
Objective Data
-
Labs:
Laboratory Results
08/01/24 08/01/24
04:59 06:56
WBC 3.5 L
Hgb 8.0 L
Hct 22.6 L
Plt Count 148
Sodium 143
Potassium 3.3 L D
Chloride 116 H
Carbon Dioxide 15 L
BUN 52 H
Creatinine 3.9 H
Glucose 113 H
Calcium 6.2 L*
Vital Signs:
Vital Signs
Temp Pulse Resp BP Pulse Ox
98.4 F 61 18 105/68 97
08/01/24 15:00 08/01/24 15:00 08/01/24 15:00 08/01/24 15:00 08/01/24 15:04
I&O
07/31/24 08/01/24 08/02/24
06:59 06:59 06:59
Intake Total 1000 / 1000 1400 / 1400 1180 / 1180
Output Total 925 / 925 300 / 300
Balance 1000 / 1000 475 / 475 880 / 880
Review of Systems
-
Respiratory: Reports No Symptoms
Cardiac: Reports No Symptoms
Abdomen/GI: Reports No Symptoms
Physical Exam
-
General: No Apparent Distress and Cachectic
HEENT: Negative Oxygen
Respiratory: Clear to Auscultation
Cardiac: Regular Rhythm and S1/S2; Negative Murmur
GI: Soft, Nontender and Nondistended
Skin: Other (scaly forehead rash)
Neuro: Awake, Alert and Oriented
Psych: Calm
--- NOTE | 2024-08-01 19:59 | W.PN.UPDATE ---
Update Note
Progress Note Update
Patient is complaining of cough with phlegm that difficult to bring it up. afebrile, bp 104/73, SPO2 95% RA, hr 62.
-On exam,
Patient looks dyspneic but denying sob. Coarse lung sound noted.
Chest x-ray, covid, flu and cough med. O2, duo nebs as needed for sob
-Covid and flu are (neg)
Chest x-ray shows Left basilar opacification suspicious for pneumonia.
-Will start the patient on ceftriaxone q 24hrs
--- NOTE | 2024-08-01 20:21 | PTCARENOTE ---
RN noted patient has a non-prod cough that is more frequent but pt says the cough/ phlegm is an ongoing issue. Pt smokes at home, offered nicotine patch but denied. Lungs sound more coarse with rhonchi compared to admission. Sp02 is stable 95% on
RA. POONAM Villagran made aware. Ordered received: STAT CXR, COVID-19/Flu test, PRN Robitussin. Daughter with grand kids and family present in the room. Made aware of covid/flu test and the age limit on visitation. Family also made aware pt is still very
sick. family receptive to education.
[2024-08-01 20:43] LABS: COVID-19 Antigen Negative (Negative)
[2024-08-01] MEDS: ROBITUSSIN DM 5 ML PO (21:54)
--- NOTE | 2024-08-01 22:44 | PTCARENOTE ---
CXR suspicious for PNA; POONAM Villagran at bedside to update patient. Orders for PRN nebs / 2L NC 02 as patient's breathing appears slightly dyspneic; although pt denies SOB. Sp02 WNL. NSR/SB on tele. PRN tylenol/robitussin administered per the MAY. Call
cruz and tray table left within reach.
[2024-08-01] MEDS: STERILE WATER FOR INJECTION 10 ML IV (23:36)
[2024-08-01] MEDS: ROCEPHIN 1000 MG IV (23:36)
[2024-08-02] VITALS (10 sets, daily range): BP systolic 94–122; BP diastolic 61–80; PULSE 64; O2SAT 89; BMI 16.6
--- NOTE | 2024-08-02 00:26 | PTCARENOTE ---
Report given to KARTHIK Rhodes.
--- NOTE | 2024-08-02 00:27 | PTCARENOTE ---
Assuming care of Pt from RN leaving at 0000. Pt introduction done, Pt has no complaints at this time.
[2024-08-02] MEDS: SYNTHROID 50 MCG PO (03:50)
[2024-08-02 04:20] LABS: Hematocrit 22.2 % (37.0-47.0); Hemoglobin 7.8 g/dL (12.0-16.0); Mean Corp Hgb Conc. 35.1 g/dL (33.0-37.0); Mean Corpuscular Hgb 33.1 pg (27.0-31.0); Mean Corpuscular Volume 94.1 fL (81.0-99.0); Mean Platelet Volume 11.9 fL (7.4-10.4); Platelet Count 144 10^3/uL (130-400); Red Blood Cell Count 2.36 10^6/uL (4.20-5.40); Red Cell Dist. Width 14.6 % (11.5-14.5)
[2024-08-02 04:47] LABS: Blood Urea Nitrogen 47 mg/dl (7-17); Calcium 5.6 mg/dl (8.4-10.2); Carbon Dioxide 23 mmol/L (22-30); Chloride 110 mmol/L (98-107); Estimated Creatinine Clearance 9 ml/min; Glucose 94 mg/dl (70-99); Sodium 144 mmol/L (135-145); eGFR 12.68
[2024-08-02 05:22] LABS: Albumin 2.6 g/dl (3.5-5.0); Magnesium 1.5 mg/dl (1.6-2.3)
[2024-08-02] MEDS: KCL 40 MEQ PO (05:29)
[2024-08-02] MEDS: TYLENOL 650 MG PO ×3 (05:30→17:33)
--- NOTE | 2024-08-02 05:41 | PTCARENOTE ---
Pt morning labs showing Ca 5.6, K 3. Requesting add on for mag and alb. Resulting mag 1.5 alb 2.6 true Ca 6.7. STRIPPER MACHINE OPERATOR made aware, medications ordered see MAR.
[2024-08-02] MEDS: CALCIUM GLUCONATE 100 IV (05:55)
[2024-08-02] MEDS: MAGNESIUM SULFATE 100 IV (05:55)
[2024-08-02] MEDS: SODIUM BICARBONATE 1150 MEQ IV (08:52)
[2024-08-02] MEDS: FOLVITE 1 MG PO (08:53)
[2024-08-02] MEDS: SODIUM BICARBONATE 1300 MG PO ×3 (08:53→21:06)
[2024-08-02] MEDS: VITAMIN B-6 25 MG PO (08:53)
[2024-08-02] MEDS: VITAMIN B-12 1000 MCG PO (08:54)
[2024-08-02] MEDS: HEPARIN 5000 UNITS SC ×2 (08:54→21:06)
[2024-08-02] MEDS: VITAMIN D3 (cholecalciferol) 25 MCG PO (08:54)
[2024-08-02] MEDS: ZOLOFT 25 MG PO (08:54)
[2024-08-02] MEDS: THIAMINE INJECTION 100 MG IV (08:54)
[2024-08-02] MEDS: PROTONIX 40 MG PO (08:54)
[2024-08-02] MEDS: OSCAL 500 + D 500 MG PO ×3 (08:54→21:06)
[2024-08-02] MEDS: ROBITUSSIN DM 5 ML PO (09:05)
--- NOTE | 2024-08-02 10:13 | PTCARENOTE ---
Patient AAOx3, flat, tearful, stating 'I want to go home.' Comfort provided. VSS. Weaned to RA. Sats currently 94%. Wet cough, PRN cough meds given. Patient awaiting medsurg bed. Patient making needs known, bed alarm on. Will closely monitor.
[2024-08-02] MEDS: UNASYN IV (10:55)
--- NOTE | 2024-08-02 12:39 | W.PN.HOSP.TC ---
Today's Communication/Plan
-
see note
Assessment / Plan
Assessment / Plan
1. JOCELYN on CKDIV , anion gap metabolic acidosis -patient worsening renal function reaching up to point for need of hemodialysis. No significant volume overload. Patient does significant acidosis currently getting D5 bicarb. Continue oral bicarb
therapy. Renal function is slowly improving with IV hydration. Stopped further IVF with pulm issues
2. Normocytic anemia -suspected of chronic renal disease. Ferritin of 624, TSAT of 40%. Check stool for Hemoccult blood. Hbg 6.8 > 1 u prbc > 8.5 > 7.8 today, appropriate correction.
3. Hypothyroidism/sinus bradycardia-suspect medication noncompliance as free T4 of 0.32 and TSH 48.3. Resumed last known levothyroxine dose. Patient not on a beta-sangita. Uncontrolled hypothyroidism likely explanation for patient bradycardia.
4. Metabolic encephalopathy -baseline unknown and no family to provide history regarding if patient have encephalopathy. Although in light of metabolic derangements of renal failure/acidosis/uncontrolled hypothyroidism suspecting may have
component of encephalopathy. No signs of myxedema coma.
5. Abnormal UA -UA showing WBC 1800/many bacteria. More than 30 squamous cells and likely a poor sample. If any signs of fever/leukocytosis will need to start empiric Rocephin. Patient not providing any clear history of his having
dysuria/abdominal discomfort/urinary symptom.
6. Mild transaminitis -ALT/AT in 40-50 range ALP 212. Total bili been normal. No abdominal symptoms monitor. Will consider liver abdominal ultrasound if clinically warranted. Avoid hepatotoxic medication
7. Severe protein calorie malnutrition -patient is malnourished and have poor oral intake
8. History of right-sided hemorrhagic CVA/craniotomy -patient have chronic behavioral changes after that. Although definitely noted new worsening encephalopathy features in 20 for 48 hours.
9. Essential hypertension -hold metoprolol as patient blood pressure soft. Will add midodrine if required
10. Hypokalemia -transcellular shift with correction of acidosis and poor oral intake related. replaced with 40meq again today.
11. Hypocalcemia/Hypomagnesemia -replaced again today, on calcium bicarbonate now instead of sodium bicarb.
12. Acute hypoxic respite insufficiency -patient may have developed some pulmonary congestion as getting IV fluid for last 48 hours for renal dysfunction.
13. Left lower lobe pneumonia -question of possible aspiration pneumonia versus community-acquired pneumonia based on chest x-ray in the morning today. Starting empiric antibiotic Unasyn. Sputum culture ordered. Monitor for any fever.
Care remains complex, total time spent 54 mins
Transfer to med/surg
continue pt/ot
Anticipated Discharge: > 48 hours
Subjective/Interval History
-
Date of Service: August 02, 2024
Patient resting comfortably in bed
Continues to be minimally communicative although answering appropriately when asked direct question
Not very forthcoming with any other symptoms
Reportedly some hypoxia developed overnight required x-ray/oxygen support
Objective Data
-
Labs:
Laboratory Results
08/02/24
03:42
WBC 3.0 L
Hgb 7.8 L
Hct 22.2 L
Plt Count 144
Sodium 144
Potassium 3.0 L
Chloride 110 H
Carbon Dioxide 23
BUN 47 H
Creatinine 3.8 H
Glucose 94
Calcium 5.6 L*
Vital Signs:
Vital Signs
Temp Pulse Resp BP Pulse Ox
98.4 F 65 16 121/71 92
08/02/24 12:08 08/02/24 12:08 08/02/24 12:08 08/02/24 12:08 08/02/24 12:08
I&O
08/01/24 08/02/24 08/03/24
06:59 06:59 06:59
Intake Total 1400 / 1400 2450 / 2450
Output Total 925 / 925 850 / 850 450 / 450
Balance 475 / 475 1600 / 1600 -450 / -450
Review of Systems
-
Respiratory: Reports Cough
Cardiac: Reports No Symptoms
Abdomen/GI: Reports No Symptoms
Physical Exam
-
General: No Apparent Distress and Cachectic
HEENT: Oxygen (2L NC)
Respiratory: Rhonchi
Cardiac: Regular Rhythm and S1/S2; Negative Murmur
GI: Soft, Nontender and Nondistended
Skin: Other (scaly forehead rash)
Neuro: Awake, Alert and Oriented
Psych: Calm
[2024-08-02] MEDS: DUONEB 3 ML INH (22:41)
--- NOTE | 2024-08-03 03:54 | PTCARENOTE ---
heme test stool was negative
[2024-08-03] MEDS: SYNTHROID 50 MCG PO (06:12)
[2024-08-03 06:38] LABS: Hematocrit 23.2 % (37.0-47.0); Mean Corp Hgb Conc. 34.5 g/dL (33.0-37.0); Mean Corpuscular Hgb 32.3 pg (27.0-31.0); Mean Corpuscular Volume 93.5 fL (81.0-99.0); Mean Platelet Volume 11.6 fL (7.4-10.4); Platelet Count 136 10^3/uL (130-400); Red Blood Cell Count 2.48 10^6/uL (4.20-5.40); Red Cell Dist. Width 14.5 % (11.5-14.5); White Blood Cell Count 4.2 10^3/uL (4.8-10.8)
[2024-08-03 06:39] LABS: ALT (SGPT) 49 U/L (0-35); AST (SGOT) 52 U/L (14-36); Albumin 2.5 g/dl (3.5-5.0); Alkaline Phosphatase 150 U/L (38-126); Blood Urea Nitrogen 43 mg/dl (7-17); Calcium 5.3 mg/dl (8.4-10.2); Carbon Dioxide 23 mmol/L (22-30); Chloride 113 mmol/L (98-107); Estimated Creatinine Clearance 9 ml/min; Glucose 84 mg/dl (70-99); Potassium 3.3 mmol/L (3.5-5.1); Sodium 145 mmol/L (135-145); Total Bilirubin 0.5 mg/dl (0.2-1.3); Total Protein 6.1 g/dl (6.3-8.2); eGFR 11.92
[2024-08-03 07:10] VITALS: BP 103/65
[2024-08-03] MEDS: CALCIUM GLUCONATE 130 MG IV (08:07)
[2024-08-03] MEDS: THIAMINE INJECTION 100 MG IV (08:08)
[2024-08-03] MEDS: VITAMIN B-6 25 MG PO (08:10)
[2024-08-03] MEDS: SODIUM BICARBONATE 1300 MG PO (08:10)
[2024-08-03] MEDS: VITAMIN D3 (cholecalciferol) 25 MCG PO (08:11)
[2024-08-03] MEDS: HEPARIN 5000 UNITS SC ×2 (08:11→21:27)
[2024-08-03] MEDS: FOLVITE 1 MG PO (08:11)
[2024-08-03] MEDS: OSCAL 500 + D 500 MG PO (08:11)
[2024-08-03] MEDS: VITAMIN B-12 1000 MCG PO (08:11)
[2024-08-03] MEDS: PROTONIX 40 MG PO (08:11)
[2024-08-03] MEDS: ZOLOFT 25 MG PO (08:11)
[2024-08-03] MEDS: TYLENOL 650 MG PO ×3 (08:21→21:29)
[2024-08-03] MEDS: UNASYN IV (09:50)
[2024-08-03 09:53] LABS: Ionized Calcium 0.99 mMOL/L (1.15-1.33)
--- NOTE | 2024-08-03 11:19 | W.PN.NEPH.PH ---
Today's Communication / Plan
-
Check PTH
Added calcitriol
Will need to discuss dialysis in the coming days as I attempted to discuss with the patient today but not much success in her response
Assessment/Plan
-
Assessment
Failure to thrive
Weight loss
JOCELYN, CKD4-baseline cr 2.2 (05/27)
Metabolic acidosis
Hypocalcemia
Hypothyroidism (under treated)
Elevated LFTs
Anemia
Plan
JOCELYN/metabolic acidosis
- Maintain Lizarraga catheter
- Cortisol levels not consistent with adrenal insufficiency
IV fluids discontinued
Bicarbonate has improved with bicarbonate drip discontinued.
Hypocalcemia= check PTH, vitamin D levels (25), will add calcitriol with assumption she has secondary hyperparathyroidism in the setting of kidney disease
Overall patient remains lethargic creatinine has not improved much since admission and peaked at 4.8 and is currently at 4
Minimal renal reserve with a estimated creatinine clearance of 9 mL/min
I suspect she will need dialysis and that discussion will need to be had this week as for goals of care as I attempted to discuss with the patient today but not much success in her response. Will need to discuss this with her I did mention
to on Sunday
-
-
Date of Service: August 03, 2024
CC / HPI / ROS
-
Chief Complaint:
JOCELYN on chronic kidney disease
History of Present Illness:
Acute kidney injury severe metabolic acidosis hyperkalemia failure to thrive
Review of Systems:
Lizarraga catheter nonoliguric
Labs
-
Labs:
WBC 4.2 10^3/uL (4.8-10.8) L 08/03/24 05:17
RBC 2.48 10^6/uL (4.20-5.40) L 08/03/24 05:17
Hgb 8.0 g/dL (12.0-16.0) L 08/03/24 05:17
Hct 23.2 % (37.0-47.0) L 08/03/24 05:17
Plt Count 136 10^3/uL (130-400) 08/03/24 05:17
Sodium 145 mmol/L (135-145) 08/03/24 05:17
Potassium 3.3 mmol/L (3.5-5.1) L 08/03/24 05:17
Chloride 113 mmol/L (98-107) H 08/03/24 05:17
Carbon Dioxide 23 mmol/L (22-30) 08/03/24 05:17
BUN 43 mg/dl (7-17) H 08/03/24 05:17
Creatinine 4.0 mg/dL (0.6-1.0) H 08/03/24 05:17
eGFR 11.92 08/03/24 05:17
Glucose 84 mg/dl (70-99) 08/03/24 05:17
Calcium 5.3 mg/dl (8.4-10.2) L* 08/03/24 05:17
Phosphorus 3.7 mg/dl (2.5-4.5) 08/01/24 04:59
Albumin 2.5 g/dl (3.5-5.0) L 08/03/24 05:17
Physical Exam
-
Vital Signs:
Vital Signs
Temp Pulse Resp BP Pulse Ox
98.9 F 72 16 103/65 94
08/03/24 07:10 08/03/24 07:10 08/03/24 07:10 08/03/24 07:10 08/03/24 07:10
Cardiovascular:: Regular rate and rhythm
Respiratory:: Bilateral: CTA
Lung Excursion:: Normal
Abdomen:: Soft
Bowel Sounds:: Normal
Extremity Edema:: None: Bilateral:
Lizarraga Catheter: Yes
--- NOTE | 2024-08-03 12:05 | W.PN.HOSP.TC ---
Today's Communication/Plan
-
Renal function not improving
continue abx
increase deidre bicarb, needing IV replacement daily
add remeron HS
encourage oral intake
Assessment / Plan
Assessment / Plan
1. JOCELYN on CKDIV , anion gap metabolic acidosis -patient worsening renal function reaching up to point for need of hemodialysis. No significant volume overload. Patient does significant acidosis currently getting D5 bicarb. Continue oral bicarb
therapy. Renal function is slowly improving with IV hydration. Stopped further IVF with pulm issues
2. Normocytic anemia -suspected of chronic renal disease. Ferritin of 624, TSAT of 40%. Check stool for Hemoccult blood. Hbg 6.8 > 1 u prbc > 8.5 > 7.8 > 8 today, appropriate correction.
3. Hypothyroidism/sinus bradycardia-suspect medication noncompliance as free T4 of 0.32 and TSH 48.3. Resumed last known levothyroxine dose. Patient not on a beta-sangita. Uncontrolled hypothyroidism likely explanation for patient bradycardia.
4. Metabolic encephalopathy -baseline unknown and no family to provide history regarding if patient have encephalopathy. Although in light of metabolic derangements of renal failure/acidosis/uncontrolled hypothyroidism suspecting may have
component of encephalopathy. No signs of myxedema coma.
5. Abnormal UA -UA showing WBC 1800/many bacteria. More than 30 squamous cells and likely a poor sample. If any signs of fever/leukocytosis will need to start empiric Rocephin. Patient not providing any clear history of his having
dysuria/abdominal discomfort/urinary symptom.
6. Mild transaminitis -ALT/AT in 40-50 range ALP 212. Total bili been normal. No abdominal symptoms monitor. Will consider liver abdominal ultrasound if clinically warranted. Avoid hepatotoxic medication
7. Severe protein calorie malnutrition -patient is malnourished and have poor oral intake. Adding Remeron to help mood and appetite. Remeron is anticholinergic and with decreased renal clearance , if have any signs of confusion, will need to stop.
8. History of right-sided hemorrhagic CVA/craniotomy -patient have chronic behavioral changes after that. Although definitely noted new worsening encephalopathy features in 20 for 48 hours.
9. Essential hypertension -hold metoprolol as patient blood pressure soft. Will add midodrine if required
10. Hypokalemia -transcellular shift with correction of acidosis and poor oral intake related. replace as needed
11. Hypocalcemia/Hypomagnesemia -increase oral calcium bicarb replacement, decrease sodium bicarb dose. Vitd 25 OH ~ 25, getting replacement. Got IV deidre again today.
12. Acute hypoxic respite insufficiency -patient may have developed some pulmonary congestion as getting IV fluid for last 48 hours for renal dysfunction.
13. Left lower lobe pneumonia -question of possible aspiration pneumonia versus community-acquired pneumonia based on chest x-ray on sat morning. Starting empiric antibiotic Unasyn. Sputum culture ordered. Monitor for any fever.
Anticipated Discharge: > 48 hours
Subjective/Interval History
-
Date of Service: August 03, 2024
Patient remains hypoxic with increased secretion
Remains on oxygen through nasal cannula
Afebrile overnight
Objective Data
-
Labs:
Laboratory Results
08/03/24
05:17
WBC 4.2 L
Hgb 8.0 L
Hct 23.2 L
Plt Count 136
Sodium 145
Potassium 3.3 L
Chloride 113 H
Carbon Dioxide 23
BUN 43 H
Creatinine 4.0 H
Glucose 84
Calcium 5.3 L*
Total Bilirubin 0.5
AST 52 H
ALT 49 H
Alkaline Phosphatase 150 H
Vital Signs:
Vital Signs
Temp Pulse Resp BP Pulse Ox
98.9 F 72 16 103/65 94
08/03/24 07:10 08/03/24 07:10 08/03/24 07:10 08/03/24 07:10 08/03/24 07:10
I&O
08/02/24 08/03/24 08/04/24
06:59 06:59 06:59
Intake Total 2450 / 2450 340 / 340
Output Total 850 / 850 1615 / 1615
Balance 1600 / 1600 -1275 / -1275
Review of Systems
-
Respiratory: Reports No Symptoms
Cardiac: Reports No Symptoms
Abdomen/GI: Reports No Symptoms
Physical Exam
-
General: No Apparent Distress and Cachectic
HEENT: Oxygen (2L NC)
Respiratory: Rhonchi
Cardiac: Regular Rhythm and S1/S2; Negative Murmur
GI: Soft, Nontender and Nondistended
Skin: Other (scaly forehead rash)
Neuro: Awake, Alert and Oriented
Psych: Calm
[2024-08-03 15:15] VITALS: BP 115/62
[2024-08-03] MEDS: SODIUM BICARBONATE 650 MG PO ×2 (16:27→21:27)
[2024-08-03] MEDS: OSCAL 500 + D 1000 MG PO ×2 (16:27→21:27)
[2024-08-03] MEDS: ZOFRAN 4 MG IV (19:46)
[2024-08-03] MEDS: REMERON 15 MG PO (21:27)
[2024-08-03 23:10] VITALS: BP 133/71
[2024-08-04] MEDS: SYNTHROID 50 MCG PO (05:31)
[2024-08-04] MEDS: TYLENOL 650 MG PO ×4 (05:31→21:11)
[2024-08-04] MEDS: DUONEB 3 ML INH ×2 (05:56→15:56)
[2024-08-04 07:00] VITALS: BP 107/59
[2024-08-04 07:39] LABS: Hematocrit 26.3 % (37.0-47.0); Hemoglobin 8.7 g/dL (12.0-16.0); Mean Corp Hgb Conc. 33.1 g/dL (33.0-37.0); Mean Corpuscular Hgb 32.7 pg (27.0-31.0); Mean Corpuscular Volume 98.9 fL (81.0-99.0); Platelet Count 138 10^3/uL (130-400); Red Blood Cell Count 2.66 10^6/uL (4.20-5.40); Red Cell Dist. Width 15.6 % (11.5-14.5); White Blood Cell Count 4.7 10^3/uL (4.8-10.8)
[2024-08-04 08:12] LABS: ALT (SGPT) 49 U/L (0-35); AST (SGOT) 54 U/L (14-36); Albumin 2.8 g/dl (3.5-5.0); Alkaline Phosphatase 159 U/L (38-126); Blood Urea Nitrogen 41 mg/dl (7-17); Calcium 5.6 mg/dl (8.4-10.2); Carbon Dioxide 20 mmol/L (22-30); Chloride 113 mmol/L (98-107); Estimated Creatinine Clearance 9 ml/min; Glucose 75 mg/dl (70-99); Potassium 3.4 mmol/L (3.5-5.1); Sodium 145 mmol/L (135-145); Total Bilirubin 0.7 mg/dl (0.2-1.3); Total Protein 6.8 g/dl (6.3-8.2); eGFR 11.92
[2024-08-04] MEDS: UNASYN IV (09:26)
[2024-08-04] MEDS: THIAMINE INJECTION 100 MG IV (09:27)
[2024-08-04] MEDS: VITAMIN B-6 25 MG PO (09:28)
[2024-08-04] MEDS: ZOLOFT 25 MG PO (09:28)
[2024-08-04] MEDS: PROTONIX 40 MG PO (09:28)
[2024-08-04] MEDS: ROCALTROL 0.25 MCG PO (09:28)
[2024-08-04] MEDS: SODIUM BICARBONATE 650 MG PO ×3 (09:29→21:12)
[2024-08-04] MEDS: VITAMIN D3 (cholecalciferol) 25 MCG PO (09:29)
[2024-08-04] MEDS: OSCAL 500 + D 1000 MG PO ×3 (09:29→21:12)
[2024-08-04] MEDS: FOLVITE 1 MG PO (09:29)
[2024-08-04] MEDS: VITAMIN B-12 1000 MCG PO (09:30)
[2024-08-04] MEDS: HEPARIN 5000 UNITS SC ×2 (09:30→21:12)
--- NOTE | 2024-08-04 11:08 | W.PN.NEPH.PH ---
Today's Communication / Plan
-
serologies
Assessment/Plan
-
Assessment
Failure to thrive
Weight loss
JOCELYN, CKD4-baseline cr 2.2 (05/27)
Metabolic acidosis
Hypocalcemia
Hypothyroidism (under treated)
Elevated LFTs chronic
Anemia
Plan
follow BMP
check serologies
IVF hypotonic
replete K
replete calcium
d/w patient and dialysis. she would accept if needed
also d/w them renal biopsy
high risk situation
total time 40 minutes
-
-
Date of Service: August 04, 2024
CC / HPI / ROS
-
Chief Complaint:
JOCELYN on chronic kidney disease
History of Present Illness:
JOCELYN/Cr unchanged at 4
K low 3.4
acidosis returned 20
po intake poor
nonoliguric
calcium remains low
Review of Systems:
Lizarraga catheter nonoliguric
on supplemental O2
no CP/SOB
rash returned
Labs
-
Labs:
WBC 4.7 10^3/uL (4.8-10.8) L 08/04/24 06:59
RBC 2.66 10^6/uL (4.20-5.40) L 08/04/24 06:59
Hgb 8.7 g/dL (12.0-16.0) L 08/04/24 06:59
Hct 26.3 % (37.0-47.0) L 08/04/24 06:59
Plt Count 138 10^3/uL (130-400) 08/04/24 06:59
Sodium 145 mmol/L (135-145) 08/04/24 06:59
Potassium 3.4 mmol/L (3.5-5.1) L 08/04/24 06:59
Chloride 113 mmol/L (98-107) H 08/04/24 06:59
Carbon Dioxide 20 mmol/L (22-30) L 08/04/24 06:59
BUN 41 mg/dl (7-17) H 08/04/24 06:59
Creatinine 4.0 mg/dL (0.6-1.0) H 08/04/24 06:59
eGFR 11.92 08/04/24 06:59
Glucose 75 mg/dl (70-99) 08/04/24 06:59
Calcium 5.6 mg/dl (8.4-10.2) L* 08/04/24 06:59
Calcium TNP 08/04/24 06:59
Phosphorus 3.7 mg/dl (2.5-4.5) 08/01/24 04:59
Albumin 2.8 g/dl (3.5-5.0) L 08/04/24 06:59
Physical Exam
-
Vital Signs:
Vital Signs
Temp Pulse Resp BP Pulse Ox
97.8 F 76 16 107/59 96
08/04/24 07:00 08/04/24 07:00 08/04/24 07:00 08/04/24 07:00 08/04/24 07:00
Cardiovascular:: Regular rate and rhythm
Respiratory:: Bilateral: Coarse
Lung Excursion:: Normal
Abdomen:: Nontender and Soft
Bowel Sounds:: Normal
Extremity Edema:: None: Bilateral:
Other Findings::
blanching macular rash on trunk/abdomen/arms/legs
[2024-08-04] MEDS: 0.45%NACL 1000 IV (11:24)
[2024-08-04] MEDS: KCL 20 MEQ PO (11:24)
[2024-08-04 12:05] LABS: Complement C3 65 mg/dl (88-165)
[2024-08-04] MEDS: CALCIUM GLUCONATE 290 MG IV (12:29)
[2024-08-04 13:13] LABS: Anti Streptolysin Negative (Negative)
--- NOTE | 2024-08-04 13:48 | CM ---
CM following re: discharge planning.
Reviewed pt's chart, met with pt and pt's at bedside.
PT and OT evaluations noted - SNF level of care recommended. Both pt and her are aware, expressed their agreement. A list of SNFs provided. Both [pt and her preferred [facility] or [facility]. A referral to
above SNFs made.
D/C archer: preferred SNF: [facility] or [facility].
CM will follow to assist pt with discharge to a preferred SNF.
[2024-08-04 15:00] VITALS: BP 123/77
--- NOTE | 2024-08-04 15:30 | PTOTSP ---
Speech Language Pathology
Pt seen for clinical bedside swallow evaluation. Lower dentures present, but upper dentures are at home. Pt reported daughter is to bring them in tonight. Set pt up to brush teeth. Oral suctioning completed with thick secretions removed from
oral cavity.
Pt with varying reports of function. Initially stated she has no trouble swallowing. As evaluation progressed, she stated sometimes food/liquid will 'go down the wrong way.' She also endorsed globus sensation mid-chest at times, but denied seeing
GI in the past.
P.O. trials of thin liquids and puree provided. Regular solids deferred given SOB as session progressed. Adequate oral phase for limited consistencies trialed. No overt coughing with P.O. intake, but increased SOB reported. Sp02 at that time
87%. Notified RN who requested increase in 02 to 3LPM. Slow recovery to 90% noted. RT contacted for breathing treatment. Held regular solid trials given SOB as well as dentures not being present in hospital.
Recommend:
(1) Continue regular solids/thin liquids for now
(2) Will consider VSE vs consideration for GI upon further CONTRACTS OFFICER follow up
(3) Aspiration precautions: sit upright, slow rate
(4) Meds as tolerated
(5) CONTRACTS OFFICER to continue to follow
--- NOTE | 2024-08-04 15:47 | W.PN.HOSP.TC ---
Today's Communication/Plan
-
Monitor renal function
Continue IV fluids and oral bicarb.
Follow serology.
Speech and swallow evaluation
Empiric antibiotics covering aspiration.
Oxygen supplementation
Physical therapy evaluation
Assessment / Plan
Assessment / Plan
Impression:
Presented with failure to thrive.
Acute kidney injury on CKD stage IV with baseline creatinine of 2.2
Acute metabolic acidosis
Hypocalcemia
Hypoalbuminemia
Elevated LFT
Chronic anemia with decreasing hemoglobin requiring transfusions
Left lower lobe infiltrate
Acute hypoxic respiratory insufficiency
Hypothyroidism, undertreated
Severe protein calorie malnutrition
Alopecia/rash
Metabolic encephalopathy
Essential hypertension
History of hemorrhagic CVA
Plan:
Acute kidney injury on CKD stage IV with baseline creatinine of 2.2.
Presented with acute on chronic metabolic acidosis
Creatinine plateaued at 4.0 with IV hydration and bicarbonate support.
Ongoing workup with serology pending.
Noted decreased C3 with normal C4
UA noted with excessive WBC and microhematuria.
add anti-GBM a/b , Anti-ds DNA
If progressive renal failure may require hemodialysis
Monitor volume status closely
Hypocalcemia/hypoalbuminemia
Monitor and replete
Anemia with microcytosis, chronic with no evidence of acute blood loss baseline
Transfused 1 unit of packed red blood cells with appropriate pickup and hemoglobin level
Check hemolytic panel
Monitor hemoglobin
Acute hypoxic respiratory insufficiency
Chest x-ray with left lower lobe infiltrate.
Concern for aspiration
Speech and swallow evaluation
Initiated empirically on Unasyn
Metabolic encephalopathy. Prior history of intracranial hemorrhage.
Hypothyroidism, undertreated. Presented with sinus bradycardia. Suspect medication noncompliance.
TSH 48.3.
Resumed last known levothyroxine dose.
Monitor for recurrent bradycardia.
Abnormal urinalysis.
Urine culture consistent with contaminant
Abnormal LFTs with mild elevation of ALT/AST. Normal bilirubin. Monitor closely. Consider additional imaging.
Severe protein calorie malnutrition patient is malnourished and have poor oral intake
Initiated on Remeron for appetite stimulation.
Essential hypertension.
Hold metoprolol with bradycardia and marginal BP
History of right-sided hemorrhagic CVA/craniotomy.
Patient with chronic behavioral changes/dementia.
Anticipated Discharge: > 48 hours
Subjective/Interval History
-
Date of Service: August 04, 2024
Objective Data
-
Labs:
Laboratory Results
08/04/24 08/04/24
06:59 06:59
WBC 4.7 L
Hgb 8.7 L
Hct 26.3 L
Plt Count 138
Sodium 145
Potassium 3.4 L
Chloride 113 H
Carbon Dioxide 20 L
BUN 41 H
Creatinine 4.0 H
Glucose 75
Calcium 5.6 L* TNP
Total Bilirubin 0.7
AST 54 H
ALT 49 H
Alkaline Phosphatase 159 H
Vital Signs:
Vital Signs
Temp Pulse Resp BP Pulse Ox
97.8 F 76 16 107/59 99
08/04/24 07:00 08/04/24 07:00 08/04/24 07:00 08/04/24 07:00 08/04/24 08:04
I&O
08/03/24 08/04/24 08/05/24
06:59 06:59 06:59
Intake Total 340 / 340 480 / 480
Output Total 1615 / 1615 1280 / 1280
Balance -1275 / -1275 -800 / -800
Physical Exam
-
General: Well Developed, No Apparent Distress and Appears Chronically Ill
HEENT: Normocephalic, Atraumatic and Moist Mucous Membranes
Respiratory: Clear to Auscultation
Cardiac: Regular Rhythm and S1/S2; Negative Murmur, Rub or Gallop
GI: Soft, Nontender, Nondistended and Normal Bowel Sounds; Negative Organomegaly
Rectal: Deferred by Provider
Musculoskeletal: No Clubbing, No Cyanosis and No Edema
Skin: Negative Rash
Neuro: Nonfocal/Grossly Intact
[2024-08-04 19:38] LABS: Reticulocyte Count 1.5 % (0.4-2.8)
[2024-08-04 19:48] LABS: LDH 319 U/L (120-246)
[2024-08-04] MEDS: REMERON 15 MG PO (21:12)
[2024-08-04 22:04] LABS: Protein/creatinine Ratio 3.8; Urine Protein 108 mg/dl
[2024-08-04 23:26] VITALS: BP 139/70
[2024-08-05] MEDS: SYNTHROID 50 MCG PO (05:45)
[2024-08-05 07:11] VITALS: BP 111/62
[2024-08-05 07:45] LABS: Hematocrit 25.7 % (37.0-47.0); Mean Corp Hgb Conc. 31.1 g/dL (33.0-37.0); Mean Corpuscular Hgb 31.9 pg (27.0-31.0); Mean Corpuscular Volume 102.4 fL (81.0-99.0); Mean Platelet Volume 12.5 fL (7.4-10.4); Platelet Count 128 10^3/uL (130-400); Red Blood Cell Count 2.51 10^6/uL (4.20-5.40); Red Cell Dist. Width 16.1 % (11.5-14.5); White Blood Cell Count 5.9 10^3/uL (4.8-10.8)
[2024-08-05 08:08] LABS: ALT (SGPT) 45 U/L (0-35); AST (SGOT) 48 U/L (14-36); Albumin 2.7 g/dl (3.5-5.0); Alkaline Phosphatase 146 U/L (38-126); Blood Urea Nitrogen 36 mg/dl (7-17); Calcium 6.1 mg/dl (8.4-10.2); Carbon Dioxide 18 mmol/L (22-30); Chloride 114 mmol/L (98-107); Estimated Creatinine Clearance 9 ml/min; Glucose 65 mg/dl (70-99); Magnesium 1.7 mg/dl (1.6-2.3); Potassium 3.7 mmol/L (3.5-5.1); Sodium 145 mmol/L (135-145); Total Bilirubin 0.6 mg/dl (0.2-1.3); Total Protein 6.6 g/dl (6.3-8.2); eGFR 11.92
[2024-08-05] MEDS: VITAMIN B-6 25 MG PO (08:51)
[2024-08-05] MEDS: OSCAL 500 + D 1000 MG PO ×3 (08:51→21:33)
[2024-08-05] MEDS: FOLVITE 1 MG PO (08:51)
[2024-08-05] MEDS: ZOLOFT 25 MG PO (08:51)
[2024-08-05] MEDS: SODIUM BICARBONATE 650 MG PO ×3 (08:51→21:33)
[2024-08-05] MEDS: PROTONIX 40 MG PO (08:51)
[2024-08-05] MEDS: ROCALTROL 0.25 MCG PO (08:51)
[2024-08-05] MEDS: VITAMIN B-12 1000 MCG PO (08:51)
[2024-08-05] MEDS: VITAMIN D3 (cholecalciferol) 25 MCG PO (08:51)
[2024-08-05] MEDS: THIAMINE INJECTION 100 MG IV (08:51)
[2024-08-05] MEDS: HEPARIN 5000 UNITS SC (08:52)
[2024-08-05] MEDS: UNASYN IV (08:56)
[2024-08-05] MEDS: TYLENOL 650 MG PO ×2 (09:07→21:36)
[2024-08-05] MEDS: 0.45%NACL 1000 IV (09:53)
--- NOTE | 2024-08-05 11:31 | W.PN.NEPH.PH ---
Today's Communication / Plan
-
[place]
Assessment/Plan
-
Assessment
Failure to thrive
Weight loss
JOCELYN, CKD4-baseline cr 2.2 (05/27)
Metabolic acidosis
Hypocalcemia
Hypothyroidism (under treated)
Elevated LFTs chronic
Anemia
Thrombocytopenia
Plan
follow BMP
Await serologies
IVF hypotonic continues
replete K as needed
replete calcium today
d/w patient and dialysis. she would accept if needed, no urgent need today
also d/w them renal biopsy, but will need improved platelet count
Hold heparin
Increase mobility, PT OT
-
-
Date of Service: August 05, 2024
CC / HPI / ROS
-
Chief Complaint:
JOCELYN on chronic kidney disease
History of Present Illness:
JOCELYN/Cr unchanged at 4
K up to 3.7
acidosis stable 18
po intake poor
nonoliguric
calcium remains low 6.1
Platelets lower
Review of Systems:
Lizarraga catheter nonoliguric
on supplemental O2
no CP/SOB
Labs
-
Labs:
WBC 5.9 10^3/uL (4.8-10.8) 08/05/24 06:34
RBC 2.51 10^6/uL (4.20-5.40) L 08/05/24 06:34
Hgb 8.0 g/dL (12.0-16.0) L 08/05/24 06:34
Hct 25.7 % (37.0-47.0) L 08/05/24 06:34
Plt Count 128 10^3/uL (130-400) L 08/05/24 06:34
Sodium 145 mmol/L (135-145) 08/05/24 06:34
Potassium 3.7 mmol/L (3.5-5.1) 08/05/24 06:34
Chloride 114 mmol/L (98-107) H 08/05/24 06:34
Carbon Dioxide 18 mmol/L (22-30) L 08/05/24 06:34
BUN 36 mg/dl (7-17) H 08/05/24 06:34
Creatinine 4.0 mg/dL (0.6-1.0) H 08/05/24 06:34
eGFR 11.92 08/05/24 06:34
Glucose 65 mg/dl (70-99) L 08/05/24 06:34
Calcium 6.1 mg/dl (8.4-10.2) L* 08/05/24 06:34
Phosphorus 3.7 mg/dl (2.5-4.5) 08/01/24 04:59
Albumin 2.7 g/dl (3.5-5.0) L 08/05/24 06:34
Physical Exam
-
Vital Signs:
Vital Signs
Temp Pulse Resp BP Pulse Ox
98.8 F 89 16 111/62 100
08/05/24 07:11 08/05/24 07:11 08/05/24 07:11 08/05/24 07:11 08/05/24 07:11
Cardiovascular:: Regular rate and rhythm
Respiratory:: Bilateral: Coarse
Lung Excursion:: Normal
Abdomen:: Nontender and Soft
Bowel Sounds:: Normal
Extremity Edema:: None: Bilateral:
[2024-08-05] MEDS: CALCIUM GLUCONATE 290 MG IV (12:19)
--- NOTE | 2024-08-05 14:47 | CM ---
CM following re: discharge planning.
Reviewed pt's chart, met with pt and pt's at bedside.
PT and OT continue recommending SNF level of care. Both pt and her are aware that both [facility] and [facility] SNF offered a bed. [facility] SNF is chosen.
D/C archer: [facility] SNF when medically stable.
CM will follow to assist pt with discharge to [facility]
[2024-08-05 15:10] VITALS: BP 119/73; PULSE 67; O2SAT 94
[2024-08-05 15:13] VITALS: BP 119/73
[2024-08-05 15:21] VITALS: BP 119/73; PULSE 66; O2SAT 94
--- NOTE | 2024-08-05 15:59 | W.PN.HOSP.TC ---
Today's Communication/Plan
-
Ongoing nephrology workup.
Pending serology
Monitor renal function
Continue antibiotics
Assessment / Plan
Assessment / Plan
Impression:
Presented with failure to thrive.
Acute kidney injury on CKD stage IV with baseline creatinine of 2.2
Acute metabolic acidosis
Hypocalcemia
Hypoalbuminemia
Elevated LFT
Chronic anemia with decreasing hemoglobin requiring transfusions
Left lower lobe infiltrate
Acute hypoxic respiratory insufficiency
Hypothyroidism, undertreated
Severe protein calorie malnutrition
Alopecia/rash
Metabolic encephalopathy
Essential hypertension
History of hemorrhagic CVA
Plan:
Acute kidney injury on CKD stage IV with baseline creatinine of 2.2.
Presented with acute on chronic metabolic acidosis
Creatinine plateaued at 4.0 with IV hydration and bicarbonate support.
Ongoing workup with serology pending.
Noted decreased C3 with normal C4
UA noted with excessive WBC and microhematuria.
add anti-GBM a/b , Anti-ds DNA
If progressive renal failure may require hemodialysis
Monitor volume status closely
Hypocalcemia/hypoalbuminemia
Monitor and replete
Anemia with microcytosis, chronic with no evidence of acute blood loss baseline
Transfused 1 unit of packed red blood cells with appropriate pickup and hemoglobin level
Check hemolytic panel
Monitor hemoglobin
Acute hypoxic respiratory insufficiency
Chest x-ray with left lower lobe infiltrate.
Repeat chest x-ray 08/05 with improved left lower lobe
Concern for aspiration
Speech and swallow evaluation, ongoing
Initiated empirically on Unasyn. Plan is to complete antibiotic therapy through 08/09
Metabolic encephalopathy. Prior history of intracranial hemorrhage.
Hypothyroidism, undertreated. Presented with sinus bradycardia. Suspect medication noncompliance.
TSH 48.3.
Resumed last known levothyroxine dose.
Monitor for recurrent bradycardia.
Abnormal urinalysis.
Urine culture consistent with contaminant
Abnormal LFTs with mild elevation of ALT/AST. Normal bilirubin. Monitor closely. Consider additional imaging.
Severe protein calorie malnutrition patient is malnourished and have poor oral intake
Initiated on Remeron for appetite stimulation.
Essential hypertension.
Hold metoprolol with bradycardia and marginal BP
History of right-sided hemorrhagic CVA/craniotomy.
Patient with chronic behavioral changes/dementia.
Anticipated Discharge: > 48 hours
Subjective/Interval History
-
Date of Service: August 05, 2024
Objective Data
-
Labs:
Laboratory Results
08/05/24
06:34
WBC 5.9
Hgb 8.0 L
Hct 25.7 L
Plt Count 128 L
Sodium 145
Potassium 3.7
Chloride 114 H
Carbon Dioxide 18 L
BUN 36 H
Creatinine 4.0 H
Glucose 65 L
Calcium 6.1 L*
Total Bilirubin 0.6
AST 48 H
ALT 45 H
Alkaline Phosphatase 146 H
Vital Signs:
Vital Signs
Temp Pulse Resp BP Pulse Ox
98.8 F 89 16 111/62 100
08/05/24 07:11 08/05/24 07:11 08/05/24 07:11 08/05/24 07:11 08/05/24 07:11
I&O
08/04/24 08/05/24 08/06/24
06:59 06:59 06:59
Intake Total 480 / 480 2230 / 2230
Output Total 1280 / 1280 1200 / 1200
Balance -800 / -800 1030 / 1030
Physical Exam
-
General: Well Developed, No Apparent Distress and Appears Chronically Ill
HEENT: Normocephalic, Atraumatic and Moist Mucous Membranes
Respiratory: Clear to Auscultation
Cardiac: Regular Rhythm and S1/S2; Negative Murmur, Rub or Gallop
GI: Soft, Nontender, Nondistended and Normal Bowel Sounds; Negative Organomegaly
Rectal: Deferred by Provider
Musculoskeletal: No Clubbing, No Cyanosis and No Edema
Skin: Negative Rash
Neuro: Nonfocal/Grossly Intact
[2024-08-05] MEDS: REMERON 15 MG PO (21:33)
[2024-08-05 23:15] VITALS: BP 118/71
[2024-08-05 23:18] VITALS: BP 118/71
[2024-08-06] MEDS: 0.45%NACL 1000 IV (05:29)
[2024-08-06] MEDS: SYNTHROID 50 MCG PO (05:29)
[2024-08-06 07:20] LABS: Myeloperoxidase Antibody 4 AU/mL (0-19); Serine Protease-3, IgG 1 AU/mL (0-19)
[2024-08-06 07:23] VITALS: BP 123/75
[2024-08-06 08:00] LABS: Hematocrit 25.1 % (37.0-47.0); Hemoglobin 7.9 g/dL (12.0-16.0); Mean Corp Hgb Conc. 31.5 g/dL (33.0-37.0); Mean Corpuscular Volume 101.6 fL (81.0-99.0); Mean Platelet Volume 12.7 fL (7.4-10.4); Platelet Count 115 10^3/uL (130-400); Red Blood Cell Count 2.47 10^6/uL (4.20-5.40); Red Cell Dist. Width 16.2 % (11.5-14.5); White Blood Cell Count 5.3 10^3/uL (4.8-10.8)
[2024-08-06 08:53] LABS: Blood Urea Nitrogen 34 mg/dl (7-17); Calcium 6.5 mg/dl (8.4-10.2); Carbon Dioxide 16 mmol/L (22-30); Chloride 116 mmol/L (98-107); Estimated Creatinine Clearance 9 ml/min; Glucose 68 mg/dl (70-99); Potassium 3.8 mmol/L (3.5-5.1); Sodium 142 mmol/L (135-145); eGFR 12.29
[2024-08-06] MEDS: VITAMIN B-12 1000 MCG PO (10:01)
[2024-08-06] MEDS: PROTONIX 40 MG PO (10:01)
[2024-08-06] MEDS: OSCAL 500 + D 1000 MG PO ×3 (10:01→20:19)
[2024-08-06] MEDS: FOLVITE 1 MG PO (10:01)
[2024-08-06] MEDS: ROCALTROL 0.25 MCG PO (10:01)
[2024-08-06] MEDS: SODIUM BICARBONATE 650 MG PO ×3 (10:01→20:19)
[2024-08-06] MEDS: VITAMIN B-6 25 MG PO (10:01)
[2024-08-06] MEDS: VITAMIN D3 (cholecalciferol) 25 MCG PO (10:01)
[2024-08-06] MEDS: TYLENOL 650 MG PO ×2 (10:02→18:24)
[2024-08-06] MEDS: THIAMINE INJECTION 100 MG IV (10:02)
[2024-08-06] MEDS: ZOLOFT 25 MG PO (10:02)
[2024-08-06] MEDS: UNASYN IV (10:23)
--- NOTE | 2024-08-06 11:55 | CM ---
CM following re: discharge planning.
Reviewed pt's chart, met with pt and pt's at bedside.
PT and OT continue recommending SNF level of care. [facility] preferred.
CM spoke to [facility] utilization review coordinator Chelsea and she confirmed that pt is accepted when medically stable.
D/C archer: [facility] SNF when medically stable. An auth from [employer] required.
CM will follow to assist pt with discharge to [facility]
[2024-08-06 12:14] LABS: Intact PTH 367.7 pg/ml (13.6-85.8)
--- NOTE | 2024-08-06 13:00 | W.PN.NEPH.PH ---
Today's Communication / Plan
-
Continue
Assessment/Plan
-
Assessment
Failure to thrive
Weight loss
JOCELYN, CKD4-baseline cr 2.2 (05/27)/creatinine 1.7 as far back as 2015
Metabolic acidosis
Hypocalcemia
Hypothyroidism (under treated)
Elevated LFTs chronic
Anemia
Thrombocytopenia
Plan
follow BMP
Protein to creatinine ratio 3.8 with hematuria =await serologies= to low C4
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
d/w patient and dialysis. she would accept if needed, no urgent need today
also d/w them renal biopsy, but will need improved platelet count
Hold heparin
Continues to have poor appetite
-
-
Date of Service: August 06, 2024
CC / HPI / ROS
-
Chief Complaint:
JOCELYN on chronic kidney disease
History of Present Illness:
JOCELYN/Cr unchanged at 4
acidosis stable 18> 16
po intake poor
nonoliguric
calcium remains low 6.1> 6.5
Review of Systems:
Lizarraga catheter nonoliguric
on supplemental O2
no CP/SOB
Poor appetite
Labs
-
Labs:
WBC 5.3 10^3/uL (4.8-10.8) 08/06/24 06:55
RBC 2.47 10^6/uL (4.20-5.40) L 08/06/24 06:55
Hgb 7.9 g/dL (12.0-16.0) L 08/06/24 06:55
Hct 25.1 % (37.0-47.0) L 08/06/24 06:55
Plt Count 115 10^3/uL (130-400) L 08/06/24 06:55
Sodium 142 mmol/L (135-145) 08/06/24 06:55
Potassium 3.8 mmol/L (3.5-5.1) 08/06/24 06:55
Chloride 116 mmol/L (98-107) H 08/06/24 06:55
Carbon Dioxide 16 mmol/L (22-30) L 08/06/24 06:55
BUN 34 mg/dl (7-17) H 08/06/24 06:55
Creatinine 3.9 mg/dL (0.6-1.0) H 08/06/24 06:55
eGFR 12.29 08/06/24 06:55
Glucose 68 mg/dl (70-99) L 08/06/24 06:55
Calcium 6.5 mg/dl (8.4-10.2) L* 08/06/24 06:55
Phosphorus 3.7 mg/dl (2.5-4.5) 08/01/24 04:59
Albumin 2.7 g/dl (3.5-5.0) L 08/05/24 06:34
Physical Exam
-
Vital Signs:
Vital Signs
Temp Pulse Resp BP Pulse Ox
99.0 F 91 18 123/75 94
08/06/24 07:23 08/06/24 07:23 08/06/24 07:23 08/06/24 07:23 08/06/24 07:23
Respiratory:: Bilateral: CTA
Lung Excursion:: Normal
Abdomen:: Soft
Bowel Sounds:: Normal
Extremity Edema:: None: Bilateral:
Lizarraga Catheter: Yes
--- NOTE | 2024-08-06 14:56 | W.PN.HOSP.TC ---
Today's Communication/Plan
-
Monitor renal function follow serologies
complete course of antibiotics for aspiration.
Assessment / Plan
Assessment / Plan
Impression:
Presented with failure to thrive.
Acute kidney injury on CKD stage IV with baseline creatinine of 2.2
Acute metabolic acidosis
Hypocalcemia
Hypoalbuminemia
Elevated LFT
Chronic anemia with decreasing hemoglobin requiring transfusions
Left lower lobe infiltrate
Acute hypoxic respiratory insufficiency
Hypothyroidism, undertreated
Severe protein calorie malnutrition
Alopecia/rash
Metabolic encephalopathy
Essential hypertension
History of hemorrhagic CVA
Plan:
Acute kidney injury on CKD stage IV with baseline creatinine of 2.2.
Presented with acute on chronic metabolic acidosis
Creatinine plateaued at 4.0 with IV hydration and bicarbonate support.
Ongoing workup with serology pending.
Noted decreased C3 with normal C4
Urine protein creatinine ratio 3.8 consistent with nephrotic range proteinuria
UA noted with excessive WBC and microhematuria.
add anti-GBM a/b , Anti-ds DNA, antiphospholipid A2 IgG pending
If progressive renal failure may require hemodialysis
Monitor volume status closely
Hypocalcemia/hypoalbuminemia
Monitor and replete
Anemia with microcytosis, chronic with no evidence of acute blood loss baseline
Transfused 1 unit of packed red blood cells with appropriate pickup and hemoglobin level
Check hemolytic panel
Monitor hemoglobin
Acute hypoxic respiratory insufficiency
Chest x-ray with left lower lobe infiltrate.
Repeat chest x-ray 08/05 with improved left lower lobe
Concern for aspiration
Speech and swallow evaluation, ongoing. Patient declined to be asleep
Initiated empirically on Unasyn. Plan is to complete antibiotic therapy through 08/09
Metabolic encephalopathy. Prior history of intracranial hemorrhage.
Hypothyroidism, undertreated. Presented with sinus bradycardia. Suspect medication noncompliance.
TSH 48.3.
Resumed last known levothyroxine dose.
Monitor for recurrent bradycardia.
Abnormal urinalysis.
Urine culture consistent with contaminant
Abnormal LFTs with mild elevation of ALT/AST. Normal bilirubin. Monitor closely. Consider additional imaging.
Severe protein calorie malnutrition patient is malnourished and have poor oral intake
Initiated on Remeron for appetite stimulation.
Essential hypertension.
Hold metoprolol with bradycardia and marginal BP
History of right-sided hemorrhagic CVA/craniotomy.
Patient with chronic behavioral changes/dementia.
Anticipated Discharge: 24 - 48 hours
Subjective/Interval History
-
Date of Service: August 06, 2024
Objective Data
-
Labs:
Laboratory Results
08/06/24
06:55
WBC 5.3
Hgb 7.9 L
Hct 25.1 L
Plt Count 115 L
Sodium 142
Potassium 3.8
Chloride 116 H
Carbon Dioxide 16 L
BUN 34 H
Creatinine 3.9 H
Glucose 68 L
Calcium 6.5 L*
Vital Signs:
Vital Signs
Temp Pulse Resp BP Pulse Ox
99.0 F 91 18 123/75 94
08/06/24 07:23 08/06/24 07:23 08/06/24 07:23 08/06/24 07:23 08/06/24 07:23
I&O
08/05/24 08/06/24 08/07/24
06:59 06:59 06:59
Intake Total 2230 / 2230 420 / 420 120 / 120
Output Total 1200 / 1200 650 / 650 550 / 550
Balance 1030 / 1030 -230 / -230 -430 / -430
Physical Exam
-
General: Well Developed, No Apparent Distress and Appears Chronically Ill
HEENT: Normocephalic, Atraumatic and Moist Mucous Membranes
Respiratory: Clear to Auscultation
Cardiac: Regular Rhythm and S1/S2; Negative Murmur, Rub or Gallop
GI: Soft, Nontender, Nondistended and Normal Bowel Sounds; Negative Organomegaly
Rectal: Deferred by Provider
Musculoskeletal: No Clubbing, No Cyanosis and No Edema
Skin: Negative Rash
Neuro: Nonfocal/Grossly Intact
[2024-08-06 15:02] VITALS: BP 106/67; PULSE 76; O2SAT 99
[2024-08-06 15:04] VITALS: BP 108/66
--- NOTE | 2024-08-06 15:42 | W.PN.UPDATE ---
Update Note
Progress Note Update
harrison jackson
[2024-08-06 19:33] LABS: ANA, IgG Reflex to HEp-2 Detected (None Detected)
[2024-08-06] MEDS: REMERON 15 MG PO (20:18)
[2024-08-06 23:10] VITALS: BP 110/70
[2024-08-07] MEDS: SYNTHROID 50 MCG PO (05:47)
[2024-08-07] MEDS: TYLENOL 650 MG PO ×3 (05:50→21:23)
[2024-08-07 07:15] VITALS: BP 94/55
[2024-08-07 08:12] LABS: Blood Urea Nitrogen 32 mg/dl (7-17); Carbon Dioxide 15 mmol/L (22-30); Chloride 115 mmol/L (98-107); Estimated Creatinine Clearance 9 ml/min; Glucose 73 mg/dl (70-99); Potassium 3.8 mmol/L (3.5-5.1); Sodium 142 mmol/L (135-145); eGFR 12.29
[2024-08-07] MEDS: OSCAL 500 + D 1000 MG PO ×3 (09:00→21:23)
[2024-08-07] MEDS: VITAMIN B-12 1000 MCG PO (09:00)
[2024-08-07] MEDS: VITAMIN B-6 25 MG PO (09:00)
[2024-08-07] MEDS: SODIUM BICARBONATE 650 MG PO ×3 (09:01→21:23)
[2024-08-07] MEDS: THIAMINE INJECTION 100 MG IV (09:01)
[2024-08-07] MEDS: ROCALTROL 0.25 MCG PO (09:01)
[2024-08-07] MEDS: FOLVITE 1 MG PO (09:01)
[2024-08-07] MEDS: VITAMIN D3 (cholecalciferol) 25 MCG PO (09:01)
[2024-08-07] MEDS: PROTONIX 40 MG PO (09:01)
[2024-08-07] MEDS: ZOLOFT 25 MG PO (09:01)
[2024-08-07] MEDS: UNASYN IV (09:03)
--- NOTE | 2024-08-07 11:19 | W.PN.NEPH.PH ---
Today's Communication / Plan
-
Pending discussion with her about a permacath placed
Assessment/Plan
-
Assessment
Failure to thrive
Weight loss
JOCELYN, CKD4-baseline cr 2.2 (05/27)/creatinine 1.7 as far back as 2015
Metabolic acidosis
Hypocalcemia
Hypothyroidism (under treated)
Elevated LFTs chronic
Anemia
Thrombocytopenia
Plan
follow BMP
Protein to creatinine ratio 3.8 with hematuria =await serologies= to low C4
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
she would accept if needed, no urgent need today
also d/w them renal biopsy, but will need improved platelet count
Hold heparin
Continues to have poor appetite
Discussed the dialysis with the patient again today she will discuss with her
Would like to start her this week decision
-
-
Date of Service: August 07, 2024
CC / HPI / ROS
-
Chief Complaint:
JOCELYN on chronic kidney disease
History of Present Illness:
JOCELYN/Cr minimal improvement
acidosis stable 18> 16
po intake poor
nonoliguric
Review of Systems:
no CP/SOB
Poor appetite
Labs
-
Labs:
WBC 5.3 10^3/uL (4.8-10.8) 08/06/24 06:55
RBC 2.47 10^6/uL (4.20-5.40) L 08/06/24 06:55
Hgb 7.9 g/dL (12.0-16.0) L 08/06/24 06:55
Hct 25.1 % (37.0-47.0) L 08/06/24 06:55
Plt Count 115 10^3/uL (130-400) L 08/06/24 06:55
Sodium 142 mmol/L (135-145) 08/07/24 06:07
Potassium 3.8 mmol/L (3.5-5.1) 08/07/24 06:07
Chloride 115 mmol/L (98-107) H 08/07/24 06:07
Carbon Dioxide 15 mmol/L (22-30) L 08/07/24 06:07
BUN 32 mg/dl (7-17) H 08/07/24 06:07
Creatinine 3.9 mg/dL (0.6-1.0) H 08/07/24 06:07
eGFR 12.29 08/07/24 06:07
Glucose 73 mg/dl (70-99) 08/07/24 06:07
Calcium 6.0 mg/dl (8.4-10.2) L* 08/07/24 06:07
Phosphorus 3.7 mg/dl (2.5-4.5) 08/01/24 04:59
Albumin 2.7 g/dl (3.5-5.0) L 08/05/24 06:34
Physical Exam
-
Vital Signs:
Vital Signs
Temp Pulse Resp BP Pulse Ox
99.4 F 90 20 94/55 96
08/07/24 07:15 08/07/24 07:15 08/07/24 07:15 08/07/24 07:15 08/07/24 07:15
Respiratory:: Bilateral: CTA
Lung Excursion:: Normal
Abdomen:: Soft
Bowel Sounds:: Normal
Extremity Edema:: None: Bilateral:
Lizarraga Catheter: Yes
[2024-08-07 12:41] LABS: Haptoglobin 241 mg/dL (30-200)
--- NOTE | 2024-08-07 13:08 | CM ---
Chart reviewed and patient may need HD, ongoing discussion with patient and spouse. Plan is for skilled placement at [facility], per Rachel in admissions at [facility] they can still accept patient on HD, they do not have HD on site but will
provide transport to HD, will await update from nephrology on final decision on HD.
Plan; Skilled placement with possible HD.
[2024-08-07 14:52] VITALS: BP 114/70; PULSE 88; O2SAT 98
[2024-08-07 15:08] LABS: Phospholipase A2 Receptor, IgG <1:10 (<1:10)
--- NOTE | 2024-08-07 15:13 | W.PN.HOSP.TC ---
Today's Communication/Plan
-
With nephrotic range proteinuria so far unrevealing serology workup
Ongoing discussions to initiate renal replacement therapy
Continue oxygen supplementation
Continue antibiotics to complete course for possible aspiration event/pneumonia
Assessment / Plan
Assessment / Plan
Impression:
Presented with failure to thrive.
Acute kidney injury on CKD stage IV with baseline creatinine of 2.2
Acute metabolic acidosis
Hypocalcemia
Hypoalbuminemia
Elevated LFT
Chronic anemia with decreasing hemoglobin requiring transfusions
Left lower lobe infiltrate
Acute hypoxic respiratory insufficiency
Hypothyroidism, undertreated
Severe protein calorie malnutrition
Alopecia/rash
Metabolic encephalopathy
Essential hypertension
History of hemorrhagic CVA
Plan:
Acute kidney injury on CKD stage IV with baseline creatinine of 2.2.
Presented with acute on chronic metabolic acidosis
Creatinine plateaued at 4.0 with IV hydration and bicarbonate support.
Ongoing workup with serology pending.
Noted decreased C3 with normal C4
Urine protein creatinine ratio 3.8 consistent with nephrotic range proteinuria
UA noted with excessive WBC and microhematuria.
add anti-GBM a/b pending,
Anti-ds DNA pending
antiphospholipid A2 IgG negative
If progressive renal failure may require hemodialysis
Monitor volume status closely
Hypocalcemia/hypoalbuminemia
Monitor and replete
Anemia with microcytosis, chronic with no evidence of acute blood loss baseline
Transfused 1 unit of packed red blood cells with appropriate pickup and hemoglobin level
Check hemolytic panel
Monitor hemoglobin
Acute hypoxic respiratory insufficiency
Chest x-ray with left lower lobe infiltrate.
Repeat chest x-ray 08/05 with improved left lower lobe
Concern for aspiration
Speech and swallow evaluation, ongoing. Patient declined to be asleep
Initiated empirically on Unasyn. Plan is to complete antibiotic therapy through 08/09
Metabolic encephalopathy. Prior history of intracranial hemorrhage.
Hypothyroidism, undertreated. Presented with sinus bradycardia. Suspect medication noncompliance.
TSH 48.3.
Resumed last known levothyroxine dose.
Monitor for recurrent bradycardia.
Abnormal urinalysis.
Urine culture consistent with contaminant
Abnormal LFTs with mild elevation of ALT/AST. Normal bilirubin. Monitor closely. Consider additional imaging.
Severe protein calorie malnutrition patient is malnourished and have poor oral intake
Initiated on Remeron for appetite stimulation.
Essential hypertension.
Hold metoprolol with bradycardia and marginal BP
History of right-sided hemorrhagic CVA/craniotomy.
Patient with chronic behavioral changes/dementia.
Anticipated Discharge: > 48 hours
Subjective/Interval History
-
Date of Service: August 07, 2024
Objective Data
-
Labs:
Laboratory Results
08/07/24
06:07
Sodium 142
Potassium 3.8
Chloride 115 H
Carbon Dioxide 15 L
BUN 32 H
Creatinine 3.9 H
Glucose 73
Calcium 6.0 L*
Vital Signs:
Vital Signs
Temp Pulse Resp BP Pulse Ox
99.4 F 90 20 94/55 96
08/07/24 07:15 08/07/24 07:15 08/07/24 07:15 08/07/24 07:15 08/07/24 07:15
I&O
08/06/24 08/07/24 08/08/24
06:59 06:59 06:59
Intake Total 420 / 420 1200 / 1200
Output Total 650 / 650 650 / 650
Balance -230 / -230 550 / 550
Physical Exam
-
General: Well Developed, No Apparent Distress and Appears Chronically Ill
HEENT: Normocephalic, Atraumatic and Moist Mucous Membranes
Respiratory: Clear to Auscultation
Cardiac: Regular Rhythm and S1/S2; Negative Murmur, Rub or Gallop
GI: Soft, Nontender, Nondistended and Normal Bowel Sounds; Negative Organomegaly
Rectal: Deferred by Provider
Musculoskeletal: No Clubbing, No Cyanosis and No Edema
Skin: Negative Rash
Neuro: Nonfocal/Grossly Intact
[2024-08-07 15:15] VITALS: BP 114/70
[2024-08-07 17:40] LABS: ds-DNA Ab, IgG Reflex To Titer 19 IU (0-24)
[2024-08-07] MEDS: REMERON 15 MG PO (21:23)
[2024-08-07 23:15] VITALS: BP 115/66
[2024-08-08] MEDS: SYNTHROID 50 MCG PO (05:44)
[2024-08-08 07:17] VITALS: BP 113/72
[2024-08-08 09:02] LABS: Hematocrit 24.8 % (37.0-47.0); Hemoglobin 8.1 g/dL (12.0-16.0); Mean Corp Hgb Conc. 32.7 g/dL (33.0-37.0); Mean Corpuscular Hgb 32.5 pg (27.0-31.0); Mean Corpuscular Volume 99.6 fL (81.0-99.0); Mean Platelet Volume 12.2 fL (7.4-10.4); Red Blood Cell Count 2.49 10^6/uL (4.20-5.40); Red Cell Dist. Width 15.9 % (11.5-14.5); White Blood Cell Count 5.8 10^3/uL (4.8-10.8)
[2024-08-08] MEDS: VITAMIN B-6 25 MG PO (09:28)
[2024-08-08] MEDS: FOLVITE 1 MG PO (09:29)
[2024-08-08] MEDS: ROCALTROL 0.25 MCG PO (09:29)
[2024-08-08] MEDS: VITAMIN B-12 1000 MCG PO (09:29)
[2024-08-08] MEDS: THIAMINE INJECTION 100 MG IV (09:29)
[2024-08-08] MEDS: OSCAL 500 + D 1000 MG PO ×3 (09:29→21:49)
[2024-08-08] MEDS: SODIUM BICARBONATE 650 MG PO ×3 (09:29→21:49)
[2024-08-08] MEDS: VITAMIN D3 (cholecalciferol) 25 MCG PO (09:29)
[2024-08-08] MEDS: ZOLOFT 25 MG PO (09:29)
[2024-08-08] MEDS: PROTONIX 40 MG PO (09:29)
[2024-08-08] MEDS: TYLENOL 650 MG PO ×3 (09:51→22:44)
[2024-08-08] MEDS: UNASYN IV (09:51)
[2024-08-08 09:55] LABS: Blood Urea Nitrogen 30 mg/dl (7-17); Calcium 6.1 mg/dl (8.4-10.2); Carbon Dioxide 16 mmol/L (22-30); Chloride 118 mmol/L (98-107); Estimated Creatinine Clearance 9 ml/min; Glucose 77 mg/dl (70-99); Potassium 3.9 mmol/L (3.5-5.1); Sodium 142 mmol/L (135-145); eGFR 12.29
[2024-08-08 11:01] LABS: Absolute Neutrophils -Man Diff 3.9 10^3/uL (1.4-6.5); Band Neutrophils 0 % (0-3); Lymphocytes 8 % (20-51); Monocytes 21 % (2-9); Platelet Count 92 10^3/uL (130-400); Segmented Neutrophils 68 % (42-75)
[2024-08-08 11:02] LABS: Eosinophils 3 % (0-6); Normal RBC Morphology Yes; Platelets Checked Yes; Total Cells Counted 100
[2024-08-08 11:17] VITALS: BP 97/57; PULSE 101; O2SAT 94
--- NOTE | 2024-08-08 12:34 | W.PN.NEPH.PH ---
Today's Communication / Plan
-
Permacath for initiation of dialysis
Assessment/Plan
-
Assessment
Failure to thrive
Weight loss
JOCELYN, CKD4-baseline cr 2.2 (05/27)/creatinine 1.7 as far back as 2015
Metabolic acidosis
Hypocalcemia
Hypothyroidism (under treated)
Elevated LFTs chronic
Anemia
Thrombocytopenia
Plan
follow BMP
Protein to creatinine ratio 3.8 with hematuria =await serologies= to low C4
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
Hold heparin
Continues to have poor appetite
Discussed with her Dewey via telephone as well as the patient who agrees to initiate hemodialysis.
Permacath ordered
Serologies showing a low C4 and positive HONORIO IgG with nephrotic range proteinuria therefore will need renal biopsy next week as well
-
-
Date of Service: August 08, 2024
CC / HPI / ROS
-
Chief Complaint:
JOCELYN on chronic kidney disease
History of Present Illness:
JOCELYN/Cr minimal improvement
acidosis stable 18> 16
po intake poor
nonoliguric
Review of Systems:
no CP/SOB
Poor appetite
Labs
-
Labs:
WBC 5.8 10^3/uL (4.8-10.8) 08/08/24 08:19
RBC 2.49 10^6/uL (4.20-5.40) L 08/08/24 08:19
Hgb 8.1 g/dL (12.0-16.0) L 08/08/24 08:19
Hct 24.8 % (37.0-47.0) L 08/08/24 08:19
Plt Count 92 10^3/uL (130-400) L 08/08/24 08:19
Sodium 142 mmol/L (135-145) 08/08/24 08:19
Potassium 3.9 mmol/L (3.5-5.1) 08/08/24 08:19
Chloride 118 mmol/L (98-107) H 08/08/24 08:19
Carbon Dioxide 16 mmol/L (22-30) L 08/08/24 08:19
BUN 30 mg/dl (7-17) H 08/08/24 08:19
Creatinine 3.9 mg/dL (0.6-1.0) H 08/08/24 08:19
eGFR 12.29 08/08/24 08:19
Glucose 77 mg/dl (70-99) 08/08/24 08:19
Calcium 6.1 mg/dl (8.4-10.2) L* 08/08/24 08:19
Phosphorus 3.7 mg/dl (2.5-4.5) 08/01/24 04:59
Albumin 2.7 g/dl (3.5-5.0) L 08/05/24 06:34
Physical Exam
-
Vital Signs:
Vital Signs
Temp Pulse Resp BP Pulse Ox
99.1 F 98 16 113/72 93
08/08/24 07:17 08/08/24 07:17 08/08/24 07:17 08/08/24 07:17 08/08/24 08:00
Respiratory:: Bilateral: CTA
Lung Excursion:: Normal
Abdomen:: Soft
Bowel Sounds:: Normal
Extremity Edema:: None: Bilateral:
L[place]aga Catheter: Yes
[2024-08-08 14:49] LABS: Glomerular Base Membrane Ab 0 AU/mL (0-19)
--- NOTE | 2024-08-08 14:56 | CM ---
CM following re: discharge planning.
Reviewed pt's chart, met with pt and pt's at bedside.
Per nephrology, both pt and her agree with HD treatment. Plan for Permacath for initiation of dialysis and will need renal biopsy next week as well.
CM will set up outpatient HD treatment at preferred HD outpatient center if pt's requires.
PT and OT continue recommending SNF level of care. [facility] preferred.
D/C archer: [facility] when medically stable. An auth from [employer] required. [facility] will transport the pt to outpatient HD treatment if pt requires
CM will follow to assist pt with discharge to [facility].
[2024-08-08 15:14] VITALS: BP 111/65
--- NOTE | 2024-08-08 15:37 | W.PN.HOSP.TC ---
Today's Communication/Plan
-
Discussed with nephrology.
So far unrevealing workup for nephrotic range proteinuria) if CKD
Plan is for initiation of renal replacement therapy.
Discussed with patient's at the bedside
Assessment / Plan
Assessment / Plan
Impression:
Presented with failure to thrive.
Acute kidney injury on CKD stage IV with baseline creatinine of 2.2
Acute metabolic acidosis
Hypocalcemia
Hypoalbuminemia
Elevated LFT
Chronic anemia with decreasing hemoglobin requiring transfusions
Left lower lobe infiltrate
Acute hypoxic respiratory insufficiency
Hypothyroidism, undertreated
Severe protein calorie malnutrition
Alopecia/rash
Metabolic encephalopathy
Essential hypertension
History of hemorrhagic CVA
Plan:
Acute kidney injury on CKD stage IV with baseline creatinine of 2.2.
Presented with acute on chronic metabolic acidosis
Creatinine plateaued at 4.0 with IV hydration and bicarbonate support.
Ongoing workup with serology pending.
Noted decreased C3 with normal C4
Urine protein creatinine ratio 3.8 consistent with nephrotic range proteinuria
UA noted with excessive WBC and microhematuria.
add anti-GBM a/b pending,
Anti-ds DNA pending
antiphospholipid A2 IgG negative
If progressive renal failure may require hemodialysis
Monitor volume status closely
Hypocalcemia/hypoalbuminemia
Monitor and replete
Anemia with microcytosis, chronic with no evidence of acute blood loss baseline
Transfused 1 unit of packed red blood cells with appropriate pickup and hemoglobin level
Check hemolytic panel
Monitor hemoglobin
Acute hypoxic respiratory insufficiency
Chest x-ray with left lower lobe infiltrate.
Repeat chest x-ray 08/05 with improved left lower lobe
Concern for aspiration
Speech and swallow evaluation, ongoing. Patient declined to be asleep
Initiated empirically on Unasyn. Plan is to complete antibiotic therapy through 08/09
Metabolic encephalopathy. Prior history of intracranial hemorrhage.
Hypothyroidism, undertreated. Presented with sinus bradycardia. Suspect medication noncompliance.
TSH 48.3.
Resumed last known levothyroxine dose.
Monitor for recurrent bradycardia.
Abnormal urinalysis.
Urine culture consistent with contaminant
Abnormal LFTs with mild elevation of ALT/AST. Normal bilirubin. Monitor closely. Consider additional imaging.
Severe protein calorie malnutrition patient is malnourished and have poor oral intake
Initiated on Remeron for appetite stimulation.
Essential hypertension.
Hold metoprolol with bradycardia and marginal BP
History of right-sided hemorrhagic CVA/craniotomy.
Patient with chronic behavioral changes/dementia.
Anticipated Discharge: > 48 hours
Subjective/Interval History
-
Date of Service: August 08, 2024
Objective Data
-
Labs:
Laboratory Results
08/08/24
08:19
WBC 5.8
Hgb 8.1 L
Hct 24.8 L
Plt Count 92 L
Sodium 142
Potassium 3.9
Chloride 118 H
Carbon Dioxide 16 L
BUN 30 H
Creatinine 3.9 H
Glucose 77
Calcium 6.1 L*
Vital Signs:
Vital Signs
Temp Pulse Resp BP Pulse Ox
99.1 F 98 16 113/72 93
08/08/24 07:17 08/08/24 07:17 08/08/24 07:17 08/08/24 07:17 08/08/24 08:00
I&O
08/07/24 08/08/24 08/09/24
06:59 06:59 06:59
Intake Total 1200 / 1200 1200 / 1200
Output Total 650 / 650
Balance 550 / 550 1200 / 1200
Physical Exam
-
General: Well Developed, No Apparent Distress and Appears Chronically Ill
HEENT: Normocephalic, Atraumatic and Moist Mucous Membranes
Respiratory: Clear to Auscultation
Cardiac: Regular Rhythm and S1/S2; Negative Murmur, Rub or Gallop
GI: Soft, Nontender, Nondistended and Normal Bowel Sounds; Negative Organomegaly
Rectal: Deferred by Provider
Musculoskeletal: No Clubbing, No Cyanosis and No Edema
Skin: Negative Rash
Neuro: Nonfocal/Grossly Intact
[2024-08-08 17:44] LABS: Hepatitis B Core Ab, Total Negative (Negative); Hepatitis B Surface Antibody Negative; Hepatitis C Antibody Negative (Negative)
[2024-08-08 17:52] LABS: Hepatitis B Surface Antigen Negative (Negative)
[2024-08-08] MEDS: REMERON 15 MG PO (21:49)
[2024-08-08 23:10] VITALS: BP 117/77
[2024-08-09] MEDS: SYNTHROID 50 MCG PO (06:08)
[2024-08-09 07:10] VITALS: BP 118/74
--- NOTE | 2024-08-09 09:02 | W.PN.HOSP.TC ---
Today's Communication/Plan
-
Plan for initiation of HD on Sunday
Assessment / Plan
Assessment / Plan
Physical exam:
General: Well Developed, Well Nourished and No Apparent Distress
HEENT: Normocephalic, Atraumatic and Moist Mucous Membranes
Respiratory: Clear to Auscultation; Negative Wheezes, Rales or Rhonchi
Cardiac: Regular Rhythm and S1/S2
GI: Soft, Nontender and Nondistended
Musculoskeletal: No Clubbing, No Cyanosis and No Edema
Neuro: Awake, Alert and Oriented
Psych: Calm
A/P:
Impression:
Presented with failure to thrive.
Acute kidney injury on CKD stage IV with baseline creatinine of 2.2
Acute metabolic acidosis
Hypocalcemia
Hypoalbuminemia
Elevated LFT
Chronic anemia with decreasing hemoglobin requiring transfusions
Left lower lobe infiltrate
Acute hypoxic respiratory insufficiency
Hypothyroidism, undertreated
Severe protein calorie malnutrition
Alopecia/rash
Metabolic encephalopathy
Essential hypertension
History of hemorrhagic CVA
Plan:
Acute kidney injury on CKD stage IV with baseline creatinine of 2.2.
Presented with acute on chronic metabolic acidosis
Creatinine plateaued at 4.0 with IV hydration and bicarbonate support.
Ongoing workup with serology pending.
Noted decreased C3 with normal C4
Urine protein creatinine ratio 3.8 consistent with nephrotic range proteinuria
UA noted with excessive WBC and microhematuria.
add anti-GBM a/b pending,
Anti-ds DNA pending
antiphospholipid A2 IgG negative
If progressive renal failure may require hemodialysis
Monitor volume status closely
Hypocalcemia/hypoalbuminemia
Monitor and replete
Anemia with microcytosis, chronic with no evidence of acute blood loss baseline
Transfused 1 unit of packed red blood cells with appropriate pickup and hemoglobin level
Check hemolytic panel
Monitor hemoglobin
Acute hypoxic respiratory insufficiency
Chest x-ray with left lower lobe infiltrate.
Repeat chest x-ray 08/05 with improved left lower lobe
Concern for aspiration
Speech and swallow evaluation, ongoing. Patient declined to be asleep
Initiated empirically on Unasyn. Plan is to complete antibiotic therapy through 08/09
Metabolic encephalopathy. Prior history of intracranial hemorrhage.
Hypothyroidism, undertreated. Presented with sinus bradycardia. Suspect medication noncompliance.
TSH 48.3.
Resumed last known levothyroxine dose.
Monitor for recurrent bradycardia.
Abnormal urinalysis.
Urine culture consistent with contaminant
Abnormal LFTs with mild elevation of ALT/AST. Normal bilirubin. Monitor closely. Consider additional imaging.
Severe protein calorie malnutrition patient is malnourished and have poor oral intake
Initiated on Remeron for appetite stimulation.
Essential hypertension.
Hold metoprolol with bradycardia and marginal BP
History of right-sided hemorrhagic CVA/craniotomy.
Patient with chronic behavioral changes/dementia.
Anticipated Discharge: > 48 hours
Subjective/Interval History
-
Date of Service: August 09, 2024
Patient denies any nausea vomiting or shortness of breath. Poor oral intake. Mild urinary discomfort
Objective Data
-
Labs:
Laboratory Results
08/09/24
08:33
Sodium Pending
Potassium Pending
Chloride Pending
Carbon Dioxide Pending
BUN Pending
Creatinine Pending
Glucose Pending
Calcium Pending
Vital Signs:
Vital Signs
Temp Pulse Resp BP Pulse Ox
98.2 F 91 16 118/74 96
08/09/24 07:10 08/09/24 07:10 08/09/24 07:10 08/09/24 07:10 08/09/24 07:10
I&O
08/08/24 08/09/24 08/10/24
06:59 06:59 06:59
Intake Total 1200 / 1200 840 / 840
Balance 1200 / 1200 840 / 840
[2024-08-09] MEDS: ROBITUSSIN DM 5 ML PO (09:18)
[2024-08-09] MEDS: TYLENOL 650 MG PO ×2 (09:18→15:00)
[2024-08-09] MEDS: ROCALTROL 0.25 MCG PO (09:19)
[2024-08-09] MEDS: SODIUM BICARBONATE 650 MG PO ×3 (09:19→21:29)
[2024-08-09] MEDS: VITAMIN D3 (cholecalciferol) 25 MCG PO (09:19)
[2024-08-09] MEDS: PROTONIX 40 MG PO (09:19)
[2024-08-09] MEDS: VITAMIN B-6 25 MG PO (09:19)
[2024-08-09] MEDS: FOLVITE 1 MG PO (09:19)
[2024-08-09] MEDS: ZOLOFT 25 MG PO (09:19)
[2024-08-09] MEDS: THIAMINE INJECTION 100 MG IV (09:20)
[2024-08-09] MEDS: VITAMIN B-12 1000 MCG PO (09:20)
[2024-08-09] MEDS: OSCAL 500 + D 1000 MG PO ×3 (09:20→21:29)
[2024-08-09] MEDS: UNASYN IV (09:25)
--- NOTE | 2024-08-09 10:38 | W.PN.NEPH.PH ---
Today's Communication / Plan
-
Follow BMP
Assessment/Plan
-
Assessment
Failure to thrive
Weight loss
JOCELYN, CKD4-baseline cr 2.2 (05/27)/creatinine 1.7 as far back as 2015
Metabolic acidosis
Hypocalcemia
Hypothyroidism (under treated)
Elevated LFTs chronic
Anemia
Thrombocytopenia
Nephrotic range proteinuria
Plan
follow BMP
Follow CBC May need hematology evaluation
Biopsy is indicated but platelet count is dropping
Holding heparin, check HIT
Continues to have poor appetite
Patient has excepted dialysis according to prior discussion with
No emergent need for dialysis over weekend
-
-
Date of Service: August 09, 2024
CC / HPI / ROS
-
Chief Complaint:
JOCELYN on chronic kidney disease
History of Present Illness:
JOCELYN/Cr minimal improvement
acidosis stable 18> 16
po intake poor
nonoliguric
Review of Systems:
no CP/SOB
Poor appetite
Labs
-
Labs:
WBC 5.8 10^3/uL (4.8-10.8) 08/08/24 08:19
RBC 2.49 10^6/uL (4.20-5.40) L 08/08/24 08:19
Hgb 8.1 g/dL (12.0-16.0) L 08/08/24 08:19
Hct 24.8 % (37.0-47.0) L 08/08/24 08:19
Plt Count 92 10^3/uL (130-400) L 08/08/24 08:19
eGFR 12.29 08/08/24 08:19
Phosphorus 3.7 mg/dl (2.5-4.5) 08/01/24 04:59
Albumin 2.7 g/dl (3.5-5.0) L 08/05/24 06:34
Physical Exam
-
Vital Signs:
Vital Signs
Temp Pulse Resp BP Pulse Ox
98.2 F 91 16 118/74 96
08/09/24 07:10 08/09/24 07:10 08/09/24 07:10 08/09/24 07:10 08/09/24 07:10
Cardiovascular:: Regular rate and rhythm
Respiratory:: Bilateral: Coarse
Lung Excursion:: Normal
Abdomen:: Nontender and Soft
Bowel Sounds:: Normal
Extremity Edema:: None: Bilateral:
Other Findings::
Blanching macular rash
[2024-08-09 11:05] LABS: Blood Urea Nitrogen 29 mg/dl (7-17); Carbon Dioxide 15 mmol/L (22-30); Chloride 116 mmol/L (98-107); Estimated Creatinine Clearance 9 ml/min; Glucose 94 mg/dl (70-99); Potassium 3.8 mmol/L (3.5-5.1); Sodium 141 mmol/L (135-145); eGFR 12.68
[2024-08-09] MEDS: CALCIUM GLUCONATE 290 MG IV (14:30)
[2024-08-09 15:10] VITALS: BP 116/81
[2024-08-09] MEDS: REMERON 15 MG PO (21:29)
[2024-08-09] MEDS: FLUSH (NSS) 1 FLUSH IV (21:46)
[2024-08-09 23:10] VITALS: BP 137/85
[2024-08-10] MEDS: TYLENOL 650 MG PO ×3 (01:01→18:02)
[2024-08-10 01:47] LABS: ANA, HEp-2, IgG Detected (<1:80)
[2024-08-10] MEDS: SYNTHROID 50 MCG PO (05:16)
[2024-08-10 06:14] LABS: Hematocrit 22.2 % (37.0-47.0); Hemoglobin 7.2 g/dL (12.0-16.0); Mean Corp Hgb Conc. 32.4 g/dL (33.0-37.0); Mean Corpuscular Volume 98.7 fL (81.0-99.0); Platelet Count 96 10^3/uL (130-400); Red Blood Cell Count 2.25 10^6/uL (4.20-5.40); Red Cell Dist. Width 15.8 % (11.5-14.5); White Blood Cell Count 6.6 10^3/uL (4.8-10.8)
[2024-08-10 06:43] LABS: Blood Urea Nitrogen 28 mg/dl (7-17); Carbon Dioxide 13 mmol/L (22-30); Chloride 117 mmol/L (98-107); Estimated Creatinine Clearance 9 ml/min; Glucose 66 mg/dl (70-99); Phosphorus 3.4 mg/dl (2.5-4.5); Potassium 3.8 mmol/L (3.5-5.1); Sodium 141 mmol/L (135-145); eGFR 12.29
[2024-08-10 07:15] VITALS: BP 150/77
[2024-08-10] MEDS: PROTONIX 40 MG PO (08:29)
[2024-08-10] MEDS: VITAMIN D3 (cholecalciferol) 25 MCG PO (08:29)
[2024-08-10] MEDS: ZOLOFT 25 MG PO (08:29)
[2024-08-10] MEDS: ROCALTROL 0.5 MCG PO (08:29)
[2024-08-10] MEDS: OSCAL 500 + D 1000 MG PO ×3 (08:29→22:09)
[2024-08-10] MEDS: VITAMIN B-12 1000 MCG PO (08:29)
[2024-08-10] MEDS: VITAMIN B-6 25 MG PO (08:30)
[2024-08-10] MEDS: THIAMINE INJECTION 100 MG IV (08:31)
[2024-08-10] MEDS: FOLVITE 1 MG PO (08:31)
[2024-08-10] MEDS: SODIUM BICARBONATE 650 MG PO ×3 (08:32→22:09)
--- NOTE | 2024-08-10 09:26 | W.PN.HOSP.TC ---
Today's Communication/Plan
-
IV bicarb bolus today. Plan for hemodialysis tomorrow.
Assessment / Plan
Assessment / Plan
Physical exam:
General: Well Developed, Well Nourished and No Apparent Distress
HEENT: Normocephalic, Atraumatic and Moist Mucous Membranes
Respiratory: Clear to Auscultation; Negative Wheezes, Rales or Rhonchi
Cardiac: Regular Rhythm and S1/S2
GI: Soft, Nontender and Nondistended
Musculoskeletal: No Clubbing, No Cyanosis and No Edema
Neuro: Awake, Alert and Oriented
Psych: Calm
A/P:
Impression:
Presented with failure to thrive.
Acute kidney injury on CKD stage IV with baseline creatinine of 2.2, now creatinine 3.9
Acute metabolic acidosis
Hypocalcemia
Hypoalbuminemia
Elevated LFT
Chronic anemia with decreasing hemoglobin requiring transfusions
Left lower lobe infiltrate
Acute hypoxic respiratory insufficiency
Hypothyroidism, undertreated
Severe protein calorie malnutrition
Alopecia/rash
Metabolic encephalopathy
Essential hypertension
History of hemorrhagic CVA
Metabolic acidosis
Anemia
Thrombocytopenia
Plan:
Acute kidney injury on CKD stage IV with baseline creatinine of 2.2, now creatinine 3.9.
Presented with acute on chronic metabolic acidosis
Creatinine plateaued at 4.0 with IV hydration and bicarbonate support.
Ongoing workup with serology pending.
Noted decreased C3 with normal C4
Urine protein creatinine ratio 3.8 consistent with nephrotic range proteinuria
UA noted with excessive WBC and microhematuria.
add anti-GBM a/b pending,
Anti-ds DNA pending
antiphospholipid A2 IgG negative
If progressive renal failure may require hemodialysis--> likely hemodialysis tomorrow
Monitor volume status closely
Hypocalcemia/hypoalbuminemia
Monitor and replete
Anemia with microcytosis, chronic with no evidence of acute blood loss baseline
Transfused 1 unit of packed red blood cells with appropriate pickup and hemoglobin level
Check hemolytic panel
Monitor hemoglobin
Acute hypoxic respiratory insufficiency
Chest x-ray with left lower lobe infiltrate.
Repeat chest x-ray 08/05 with improved left lower lobe
Concern for aspiration
Speech and swallow evaluation, ongoing. Patient declined to be asleep
Initiated empirically on Unasyn. Plan is to complete antibiotic therapy through 08/09
Metabolic encephalopathy. Prior history of intracranial hemorrhage.
Hypothyroidism, undertreated. Presented with sinus bradycardia. Suspect medication noncompliance.
TSH 48.3.
Resumed last known levothyroxine dose.
Monitor for recurrent bradycardia.
Abnormal urinalysis.
Urine culture consistent with contaminant
Abnormal LFTs with mild elevation of ALT/AST. Normal bilirubin. Monitor closely. Consider additional imaging.
Severe protein calorie malnutrition patient is malnourished and have poor oral intake
Initiated on Remeron for appetite stimulation.
Essential hypertension.
Hold metoprolol with bradycardia and marginal BP
History of right-sided hemorrhagic CVA/craniotomy.
Patient with chronic behavioral changes/dementia.
Anticipated Discharge: > 48 hours
Subjective/Interval History
-
Date of Service: August 10, 2024
Remains with poor appetite. Denies shortness of breath, nausea or vomiting. No active bleeding.
Objective Data
-
Labs:
Laboratory Results
08/10/24
05:13
WBC 6.6
Hgb 7.2 L
Hct 22.2 L
Plt Count 96 L
Sodium 141
Potassium 3.8
Chloride 117 H
Carbon Dioxide 13 L*
BUN 28 H
Creatinine 3.9 H
Glucose 66 L
Calcium 7.0 L
Vital Signs:
Vital Signs
Temp Pulse Resp BP Pulse Ox
98.2 F 105 16 150/77 93
08/10/24 07:15 08/10/24 07:15 08/10/24 07:15 08/10/24 07:15 08/10/24 07:15
I&O
08/09/24 08/10/24 08/11/24
06:59 06:59 06:59
Intake Total 840 / 840 760 / 760
Output Total
Balance 840 / 840 759 / 759
[2024-08-10] MEDS: SODIUM BICARBONATE 50 MEQ IV (09:52)
[2024-08-10 11:05] VITALS: BP 105/65
--- NOTE | 2024-08-10 11:05 | W.PN.NEPH.PH ---
Today's Communication / Plan
-
HD
Assessment/Plan
-
Assessment
Failure to thrive
Weight loss
JOCELYN, CKD4-baseline cr 2.2 (05/27)/creatinine 1.7 as far back as 2015
Metabolic acidosis
Hypocalcemia
Hypothyroidism (under treated)
Elevated LFTs chronic
Anemia
Thrombocytopenia
Nephrotic range proteinuria
Plan
follow BMP
Follow CBC May need hematology evaluation
Biopsy is indicated but platelet count is dropping
Holding heparin, await HIT
Continues to have poor appetite
Patient has accepted dialysis according to prior discussion with
No emergent need for dialysis over weekend, plan for tomorrow
-
-
Date of Service: August 10, 2024
CC / HPI / ROS
-
Chief Complaint:
JOCELYN on chronic kidney disease
History of Present Illness:
JOCELYN/Cr minimal improvement 3.9
Hgb low 7.2
acidosis lower 13
po intake poor
nonoliguric
Calcium up to 7
Review of Systems:
no CP/SOB
Poor appetite
Labs
-
Labs:
WBC 6.6 10^3/uL (4.8-10.8) 08/10/24 05:13
RBC 2.25 10^6/uL (4.20-5.40) L 08/10/24 05:13
Hgb 7.2 g/dL (12.0-16.0) L 08/10/24 05:13
Hct 22.2 % (37.0-47.0) L 08/10/24 05:13
Plt Count 96 10^3/uL (130-400) L 08/10/24 05:13
Sodium 141 mmol/L (135-145) 08/10/24 05:13
Potassium 3.8 mmol/L (3.5-5.1) 08/10/24 05:13
Chloride 117 mmol/L (98-107) H 08/10/24 05:13
Carbon Dioxide 13 mmol/L (22-30) L* 08/10/24 05:13
BUN 28 mg/dl (7-17) H 08/10/24 05:13
Creatinine 3.9 mg/dL (0.6-1.0) H 08/10/24 05:13
eGFR 12.29 08/10/24 05:13
Glucose 66 mg/dl (70-99) L 08/10/24 05:13
Calcium 7.0 mg/dl (8.4-10.2) L 08/10/24 05:13
Phosphorus 3.4 mg/dl (2.5-4.5) 08/10/24 05:13
Albumin 2.7 g/dl (3.5-5.0) L 08/05/24 06:34
Physical Exam
-
Vital Signs:
Vital Signs
Temp Pulse Resp BP Pulse Ox
98.2 F 105 16 150/77 93
08/10/24 07:15 08/10/24 07:15 08/10/24 07:15 08/10/24 07:15 08/10/24 07:15
Cardiovascular:: Regular rate and rhythm
Respiratory:: Bilateral: Coarse
Lung Excursion:: Normal
Abdomen:: Nontender and Soft
Bowel Sounds:: Normal
Extremity Edema:: None: Bilateral:
[2024-08-10 15:15] VITALS: BP 107/62
[2024-08-10] MEDS: ROBITUSSIN DM 5 ML PO (18:12)
--- NOTE | 2024-08-10 18:21 | PTCARENOTE ---
Patient reports feeling depressed and anxious with everything going on (and starting HD tomorrow). Patient is requesting to speak with someone. Dr. Ignacio notified. Emotional support provided.
[2024-08-10 19:05] VITALS: BP 118/58
[2024-08-10] MEDS: REMERON 15 MG PO (22:10)
[2024-08-10 22:15] VITALS: BP 160/96
[2024-08-11] VITALS (8 sets, daily range): BP systolic 88–145; BP diastolic 57–88; BMI 16.1
[2024-08-11] MEDS: SYNTHROID 50 MCG PO (05:57)
[2024-08-11 06:55] LABS: ANA Pattern Speckled; ANA Titer >1:2560; Cytoplasmic Pattern AMA; Cytoplasmic Pattern Titer >1:2560
[2024-08-11 07:25] LABS: Hematocrit 23.5 % (37.0-47.0); Hemoglobin 7.7 g/dL (12.0-16.0); Mean Corp Hgb Conc. 32.8 g/dL (33.0-37.0); Mean Corpuscular Hgb 32.6 pg (27.0-31.0); Mean Corpuscular Volume 99.6 fL (81.0-99.0); Mean Platelet Volume 12.1 fL (7.4-10.4); Platelet Count 116 10^3/uL (130-400); Red Blood Cell Count 2.36 10^6/uL (4.20-5.40); White Blood Cell Count 6.9 10^3/uL (4.8-10.8)
[2024-08-11 08:26] LABS: Blood Urea Nitrogen 28 mg/dl (7-17); Calcium 6.8 mg/dl (8.4-10.2); Carbon Dioxide 16 mmol/L (22-30); Chloride 118 mmol/L (98-107); Estimated Creatinine Clearance 9 ml/min; Glucose 72 mg/dl (70-99); Potassium 3.9 mmol/L (3.5-5.1); Sodium 144 mmol/L (135-145); eGFR 13.09
[2024-08-11] MEDS: VITAMIN B-12 1000 MCG PO (08:45)
[2024-08-11] MEDS: VITAMIN D3 (cholecalciferol) 25 MCG PO (08:45)
[2024-08-11] MEDS: VITAMIN B-6 25 MG PO (08:45)
[2024-08-11] MEDS: ROCALTROL 0.5 MCG PO (08:45)
[2024-08-11] MEDS: SODIUM BICARBONATE 650 MG PO ×3 (08:46→21:37)
[2024-08-11] MEDS: FOLVITE 1 MG PO (08:46)
[2024-08-11] MEDS: OSCAL 500 + D 1000 MG PO ×3 (08:46→21:37)
[2024-08-11] MEDS: THIAMINE INJECTION 100 MG IV (08:46)
[2024-08-11] MEDS: PROTONIX 40 MG PO (08:46)
[2024-08-11] MEDS: ZOLOFT 25 MG PO (08:49)
[2024-08-11] MEDS: TYLENOL 650 MG PO ×3 (08:50→21:37)
--- NOTE | 2024-08-11 15:36 | CM ---
CM following re: discharge planning.
Reviewed pt's chart, met with pt and pt's at bedside.
Per nephrology, both pt and her agree with HD treatment. Per nephrology no emergent for HD today, HD will start tomorrow.
CM will set up outpatient HD treatment at preferred HD outpatient center if pt's requires.
PT and OT continue recommending SNF level of care. [facility] preferred.
D/C archer: [facility] when medically stable. An auth from [employer] required. [facility] will transport the pt to outpatient HD treatment if pt requires
CM will follow to assist pt with discharge to [facility].
--- NOTE | 2024-08-11 15:59 | W.PN.HOSP.TC ---
Today's Communication/Plan
-
For HD initiation after catheter placement
Has been off heparin
Monitor platelets
Follow-up HIT antibodies
Assessment / Plan
Assessment / Plan
Impression:
Presented with failure to thrive.
Acute kidney injury on CKD stage IV with baseline creatinine of 2.2, now creatinine 3.9
Acute metabolic acidosis
Hypocalcemia
Hypoalbuminemia
Elevated LFT
Chronic anemia with decreasing hemoglobin requiring transfusions
Left lower lobe infiltrate
Acute hypoxic respiratory insufficiency
Hypothyroidism, undertreated
Severe protein calorie malnutrition
Alopecia/rash
Metabolic encephalopathy
Essential hypertension
History of hemorrhagic CVA
Metabolic acidosis
Anemia
Thrombocytopenia
Plan:
Acute kidney injury on CKD stage IV with baseline creatinine of 2.2, now creatinine 3.9.
Presented with acute on chronic metabolic acidosis
Creatinine plateaued at 4.0 with IV hydration and bicarbonate support.
Ongoing workup with serology pending.
Noted decreased C3 with normal C4
Urine protein creatinine ratio 3.8 consistent with nephrotic range proteinuria
UA noted with excessive WBC and microhematuria.
add anti-GBM a/b pending,
Anti-ds DNA pending
antiphospholipid A2 IgG negative
For HD catheter placement and HD initiation on 08/11
Thrombocytopenia
Heparin stopped
HIT antibody pending
Platelet count recovering
Monitor close
Hypocalcemia/hypoalbuminemia
Monitor and replete
Anemia with microcytosis, chronic with no evidence of acute blood loss baseline
Transfused 1 unit of packed red blood cells with appropriate pickup and hemoglobin level
Check hemolytic panel
Monitor hemoglobin
Acute hypoxic respiratory insufficiency
Chest x-ray with left lower lobe infiltrate.
Repeat chest x-ray 08/05 with improved left lower lobe
Concern for aspiration
Speech and swallow evaluation, ongoing. Patient declined to be asleep
Initiated empirically on Unasyn. Plan is to complete antibiotic therapy through 08/09
Metabolic encephalopathy. Prior history of intracranial hemorrhage.
Hypothyroidism, undertreated. Presented with sinus bradycardia. Suspect medication noncompliance.
TSH 48.3.
Resumed last known levothyroxine dose.
Monitor for recurrent bradycardia.
Abnormal urinalysis.
Urine culture consistent with contaminant
Abnormal LFTs with mild elevation of ALT/AST. Normal bilirubin. Monitor closely. Consider additional imaging.
Severe protein calorie malnutrition patient is malnourished and have poor oral intake
Initiated on Remeron for appetite stimulation.
Essential hypertension.
Hold metoprolol with bradycardia and marginal BP
History of right-sided hemorrhagic CVA/craniotomy.
Patient with chronic behavioral changes/dementia.
Anticipated Discharge: > 48 hours
Subjective/Interval History
-
Date of Service: August 11, 2024
Objective Data
-
Labs:
Laboratory Results
08/11/24
06:43
WBC 6.9
Hgb 7.7 L
Hct 23.5 L
Plt Count 116 L D
Sodium 144
Potassium 3.9
Chloride 118 H
Carbon Dioxide 16 L
BUN 28 H
Creatinine 3.7 H
Glucose 72
Calcium 6.8 L*
Vital Signs:
Vital Signs
Temp Pulse Resp BP Pulse Ox
98.2 F 81 15 117/68 98
08/11/24 15:15 08/11/24 15:15 08/11/24 15:15 08/11/24 15:15 08/11/24 15:15
I&O
08/10/24 08/11/24 08/12/24
06:59 06:59 06:59
Intake Total 760 / 760 660 / 660
Output Total
Balance 759 / 759 660 / 660
Physical Exam
-
General: Well Developed, No Apparent Distress and Appears Chronically Ill
HEENT: Normocephalic, Atraumatic and Moist Mucous Membranes
Respiratory: Clear to Auscultation
Cardiac: Regular Rhythm and S1/S2; Negative Murmur, Rub or Gallop
GI: Soft, Nontender, Nondistended and Normal Bowel Sounds; Negative Organomegaly
Rectal: Deferred by Provider
Musculoskeletal: No Clubbing, No Cyanosis and No Edema
Skin: Negative Rash
Neuro: Nonfocal/Grossly Intact
[2024-08-11] MEDS: MANNITOL 25% 12.5 GRAMS IV ×2 (16:22→17:29)
--- NOTE | 2024-08-11 16:42 | W.PN.NEPH.HD ---
Assessment
-
Patient seen on HD
first HD today via catheter
next HD tomorrow
sbp stable at 134 with even u/f
mannitol times two
Progress Note - Hemodialysis
-
Date of Service: August 11, 2024
Duration: 30 minutes and 2 hours
Potassium Bath: 3
Calcium Bath: 2.5
Opti-Dialyzer: 160
Ultrafiltration: Other (even)
Blood Flow: 200
Dialysate Flow: 600
Heparin: none
EPO: none
[2024-08-11] MEDS: REMERON 15 MG PO (21:37)
[2024-08-12] VITALS (8 sets, daily range): BP systolic 102–140; BP diastolic 62–77; PULSE 93–101; O2SAT 91; BMI 15.9
[2024-08-12] MEDS: TYLENOL 650 MG PO ×4 (03:58→20:44)
[2024-08-12] MEDS: SYNTHROID 50 MCG PO (06:13)
[2024-08-12 08:02] LABS: Blood Urea Nitrogen 15 mg/dl (7-17); Calcium 6.6 mg/dl (8.4-10.2); Carbon Dioxide 23 mmol/L (22-30); Chloride 112 mmol/L (98-107); Estimated Creatinine Clearance 17 ml/min; Glucose 84 mg/dl (70-99); Potassium 3.4 mmol/L (3.5-5.1); Sodium 141 mmol/L (135-145); eGFR 27.38
[2024-08-12 08:22] LABS: Hematocrit 22.1 % (37.0-47.0); Hemoglobin 7.3 g/dL (12.0-16.0); Mean Corpuscular Hgb 32.3 pg (27.0-31.0); Mean Corpuscular Volume 97.8 fL (81.0-99.0); Mean Platelet Volume 12.6 fL (7.4-10.4); Platelet Count 115 10^3/uL (130-400); Red Blood Cell Count 2.26 10^6/uL (4.20-5.40); Red Cell Dist. Width 15.6 % (11.5-14.5); White Blood Cell Count 6.2 10^3/uL (4.8-10.8)
[2024-08-12] MEDS: MANNITOL 25% 12.5 GRAMS IV ×2 (08:29→09:34)
[2024-08-12] MEDS: RETACRIT 6000 UNITS IV (08:29)
--- NOTE | 2024-08-12 09:57 | W.PN.NEPH.HD ---
Assessment
-
Patient seen on dialysis
HD via tunneled catheter
Systolic blood pressure stable at even UF
Next dialysis will be performed tomorrow for third treatment
Mannitol x 2 given with dialysis for disequilibrium prevention
Progress Note - Hemodialysis
-
Date of Service: August 12, 2024
Duration: 45 minutes and 2 hours
Potassium Bath: 4
Calcium Bath: 3
Opti-Dialyzer: 160
Ultrafiltration: Other (Even)
Blood Flow: 300
Dialysate Flow: 600
Heparin: None
EPO: Given
[2024-08-12] MEDS: HEPARIN 3900 UNITS INTRACATH (10:38)
[2024-08-12] MEDS: VITAMIN B-12 1000 MCG PO (11:11)
[2024-08-12] MEDS: PROTONIX 40 MG PO (11:11)
[2024-08-12] MEDS: SODIUM BICARBONATE 650 MG PO ×3 (11:11→21:58)
[2024-08-12 11:13] LABS: % Basophils 0.6 % (0-2); % Eosinophils 3.7 % (0-6); % Immature Granulocytes 0.5 % (0-0.5); % Lymphocytes 14.1 % (20.5-51.1); % Monocytes 22.9 % (1.7-9.3); % Neutrophils 58.2 % (42.2-75.2); Absolute Eosinophils 0.2 10^3/uL (0-0.7); Absolute Lymphocytes 0.9 10^3/uL (1.2-3.4); Absolute Monocytes 1.4 10^3/uL (0.1-0.6); Absolute Neutrophils 3.6 10^3/uL (1.4-6.5); Nucleated Red Blood Cells % 0 %
[2024-08-12] MEDS: VITAMIN B-6 25 MG PO (11:14)
[2024-08-12] MEDS: ZOLOFT 25 MG PO (11:14)
[2024-08-12] MEDS: VITAMIN D3 (cholecalciferol) 25 MCG PO (11:14)
[2024-08-12] MEDS: OSCAL 500 + D 1000 MG PO ×3 (11:14→21:58)
[2024-08-12 11:15] LABS: Absolute Neutrophils -Man Diff 4.7 10^3/uL (1.4-6.5); Band Neutrophils 3 % (0-3); Eosinophils 1 % (0-6); Lymphocytes 2 % (20-51); Monocytes 20 % (2-9); Normal RBC Morphology Yes; Platelets Checked Yes; Segmented Neutrophils 74 % (42-75)
[2024-08-12] MEDS: ROCALTROL 0.5 MCG PO (11:15)
[2024-08-12] MEDS: FOLVITE 1 MG PO (11:15)
[2024-08-12] MEDS: THIAMINE INJECTION 100 MG IV (11:15)
[2024-08-12 11:16] LABS: Total Cells Counted 100
--- NOTE | 2024-08-12 13:17 | CM ---
Addendum entered by Obinna You 08/12/24 14:55:
CM received a phone call from [facility] vice president corporate communications Flower [phone] x [phone] and she assigned to mpt's case and she is working on setting up outpatient HD treatment at [facility] on [facility].
Original Note:
CM following re: discharge planning.
Reviewed pt's chart, met with pt and pt's at bedside.
Per nephrology, pt probably will need outpatient HD treatment. CM discussed with pt and her and they preferred [facility] [place] on [facility].
CM made a referral to [facility] [employer] for setting up outpatient HD treatment at [facility] on [facility]. Pt's clinical with flow sheets and hepatitis panel faxed to [facility] [phone] for a review.
PT and OT continue recommending SNF level of care. [facility] SNF preferred.
D/C archer: [facility] SNF when medically stable. An auth from [employer] required. [facility] SNF will transport the pt to outpatient HD treatment if pt requires
CM will follow to assist pt with discharge to [facility].
--- NOTE | 2024-08-12 14:42 | W.PN.HOSP.TC ---
Today's Communication/Plan
-
Hemodialysis
Assessment / Plan
Assessment / Plan
Impression:
Presented with failure to thrive.
Acute kidney injury on CKD stage IV with baseline creatinine of 2.2, now creatinine 3.9
Acute metabolic acidosis
Hypocalcemia
Hypoalbuminemia
Elevated LFT
Chronic anemia with decreasing hemoglobin requiring transfusions
Left lower lobe infiltrate
Acute hypoxic respiratory insufficiency
Hypothyroidism, undertreated
Severe protein calorie malnutrition
Alopecia/rash
Metabolic encephalopathy
Essential hypertension
History of hemorrhagic CVA
Metabolic acidosis
Anemia
Thrombocytopenia
Plan:
Acute kidney injury on CKD stage IV with baseline creatinine of 2.2, now creatinine 3.9.
Presented with acute on chronic metabolic acidosis
Creatinine plateaued at 4.0 with IV hydration and bicarbonate support.
Ongoing workup with serology pending.
Noted decreased C3 with normal C4
Urine protein creatinine ratio 3.8 consistent with nephrotic range proteinuria
UA noted with excessive WBC and microhematuria.
add anti-GBM a/b pending,
Anti-ds DNA pending
antiphospholipid A2 IgG negative
For HD catheter placement and HD initiation on 08/11
Thrombocytopenia
Heparin stopped
HIT antibody pending
Platelet count recovering
Monitor close
Hypocalcemia/hypoalbuminemia
Monitor and replete
Anemia with microcytosis, chronic with no evidence of acute blood loss baseline
Transfused 1 unit of packed red blood cells with appropriate pickup and hemoglobin level
Check hemolytic panel
Monitor hemoglobin
Acute hypoxic respiratory insufficiency
Chest x-ray with left lower lobe infiltrate.
Repeat chest x-ray 08/05 with improved left lower lobe
Concern for aspiration
Speech and swallow evaluation, ongoing. Patient declined to be asleep
Initiated empirically on Unasyn. Completed course of antibiotics through 08/09
Metabolic encephalopathy. Prior history of intracranial hemorrhage.
Hypothyroidism, undertreated. Presented with sinus bradycardia. Suspect medication noncompliance.
TSH 48.3.
Resumed last known levothyroxine dose.
Monitor for recurrent bradycardia.
Abnormal urinalysis.
Urine culture consistent with contaminant
Abnormal LFTs with mild elevation of ALT/AST. Normal bilirubin. Monitor closely. Consider additional imaging.
Severe protein calorie malnutrition patient is malnourished and have poor oral intake
Initiated on Remeron for appetite stimulation.
Essential hypertension.
Hold metoprolol with bradycardia and marginal BP
History of right-sided hemorrhagic CVA/craniotomy.
Patient with chronic behavioral changes/dementia.
Anticipated Discharge: 24 - 48 hours
Subjective/Interval History
-
Date of Service: August 12, 2024
Objective Data
-
Labs:
Laboratory Results
08/12/24
06:42
WBC 6.2
Hgb 7.3 L
Hct 22.1 L
Plt Count 115 L
Sodium 141
Potassium 3.4 L
Chloride 112 H
Carbon Dioxide 23
BUN 15
Creatinine 2.0 H
Glucose 84
Calcium 6.6 L*
Vital Signs:
Vital Signs
Temp Pulse Resp BP Pulse Ox
98.5 F 80 16 120/62 96
08/12/24 11:00 08/12/24 11:00 08/12/24 11:00 08/12/24 11:00 08/12/24 11:00
I&O
08/11/24 08/12/24 08/13/24
06:59 06:59 06:59
Intake Total 660 / 660 1680 / 1680
Balance 660 / 660 1680 / 1680
Physical Exam
-
General: Well Developed, No Apparent Distress and Appears Chronically Ill
HEENT: Normocephalic, Atraumatic and Moist Mucous Membranes
Respiratory: Clear to Auscultation
Cardiac: Regular Rhythm and S1/S2; Negative Murmur, Rub or Gallop
GI: Soft, Nontender, Nondistended and Normal Bowel Sounds; Negative Organomegaly
Rectal: Deferred by Provider
Musculoskeletal: No Clubbing, No Cyanosis and No Edema
Skin: Negative Rash
Neuro: Nonfocal/Grossly Intact
[2024-08-12] MEDS: REMERON 15 MG PO (21:58)
--- NOTE | 2024-08-13 00:06 | W.PN.UPDATE ---
Update Note
Progress Note Update
Patient is febrile with a temp 100.8, bp 102/76, hr 100, RR 16, SPO2 95%. Noted with cough. Denies sob or chest pain.
Chest x-ray ordered, cbc, lactic, covid, flu, and blood cultures.
Covid and flu (Neg )
Chest x-ray and blood cultures are pending
[2024-08-13] MEDS: TYLENOL 650 MG PO ×4 (00:47→20:11)
[2024-08-13 01:37] LABS: COVID-19 Antigen Negative (Negative)
[2024-08-13 03:15] VITALS: BP 106/56
[2024-08-13 04:07] LABS: Hematocrit 21.3 % (37.0-47.0); Mean Corp Hgb Conc. 32.9 g/dL (33.0-37.0); Mean Corpuscular Hgb 32.3 pg (27.0-31.0); Mean Corpuscular Volume 98.2 fL (81.0-99.0); Platelet Count 107 10^3/uL (130-400); Red Blood Cell Count 2.17 10^6/uL (4.20-5.40); Red Cell Dist. Width 15.5 % (11.5-14.5); White Blood Cell Count 5.9 10^3/uL (4.8-10.8)
[2024-08-13 05:09] LABS: Absolute Neutrophils -Man Diff 3.2 10^3/uL (1.4-6.5); Band Neutrophils 0 % (0-3); Eosinophils 4 % (0-6); Lymphocytes 21 % (20-51); Monocytes 20 % (2-9); Segmented Neutrophils 55 % (42-75)
[2024-08-13 05:10] LABS: Normal RBC Morphology Yes; Platelets Checked Yes; Total Cells Counted 100
[2024-08-13 06:00] VITALS: BMI 16.3
[2024-08-13] MEDS: SYNTHROID 50 MCG PO (06:03)
--- NOTE | 2024-08-13 06:16 | PTCARENOTE ---
Around 0000 pt had a temperature of 100.8 and no complaints of any symptoms; HOUSEKEEPING DEPARTMENT WORKER propulsion engineer notified and said to give Tylenol as ordered and ordered a chest X-Ray, lactic acid, CBC, and a COVID swab. This RN administered the Tylenol and rechecked
temperature 99.3 and pt states no new symptoms. Pt lying in bed comfortably with call cruz within reach.
[2024-08-13 07:10] VITALS: BP 123/74
[2024-08-13] MEDS: VITAMIN B-12 1000 MCG PO (07:16)
[2024-08-13] MEDS: SODIUM BICARBONATE 650 MG PO ×3 (07:16→22:31)
[2024-08-13] MEDS: ROCALTROL 0.5 MCG PO (07:16)
[2024-08-13] MEDS: OSCAL 500 + D 1000 MG PO ×3 (07:16→22:31)
[2024-08-13] MEDS: THIAMINE INJECTION 100 MG IV (07:16)
[2024-08-13] MEDS: VITAMIN B-6 25 MG PO (07:16)
[2024-08-13] MEDS: ZOLOFT 25 MG PO (07:16)
[2024-08-13] MEDS: VITAMIN D3 (cholecalciferol) 25 MCG PO (07:16)
[2024-08-13] MEDS: FOLVITE 1 MG PO (07:16)
[2024-08-13] MEDS: PROTONIX 40 MG PO (07:17)
[2024-08-13 08:34] LABS: Hematocrit 21.8 % (37.0-47.0); Mean Corp Hgb Conc. 32.1 g/dL (33.0-37.0); Mean Corpuscular Hgb 31.5 pg (27.0-31.0); Mean Corpuscular Volume 98.2 fL (81.0-99.0); Mean Platelet Volume 12.4 fL (7.4-10.4); Platelet Count 106 10^3/uL (130-400); Red Blood Cell Count 2.22 10^6/uL (4.20-5.40); Red Cell Dist. Width 15.6 % (11.5-14.5); White Blood Cell Count 5.5 10^3/uL (4.8-10.8)
[2024-08-13 08:57] LABS: Blood Urea Nitrogen 9 mg/dl (7-17); Calcium 7.3 mg/dl (8.4-10.2); Carbon Dioxide 26 mmol/L (22-30); Chloride 109 mmol/L (98-107); Estimated Creatinine Clearance 20 ml/min; Glucose 81 mg/dl (70-99); Potassium 3.6 mmol/L (3.5-5.1); Sodium 139 mmol/L (135-145); eGFR 33.28
[2024-08-13 10:15] LABS: Absolute Neutrophils -Man Diff 3.5 10^3/uL (1.4-6.5); Band Neutrophils 0 % (0-3); Lymphocytes 13 % (20-51); Monocytes 18 % (2-9); Segmented Neutrophils 64 % (42-75)
[2024-08-13 10:16] LABS: Eosinophils 3 % (0-6); Normal RBC Morphology Yes; Platelets Checked Yes; Total Cells Counted 100
[2024-08-13 11:05] VITALS: BP 101/59
--- NOTE | 2024-08-13 12:21 | CM ---
Addendum entered by Obinna You 08/13/24 15:05:
CM received invitation letter from [facility] with confirmation of setting up outpatient HD treatment at [facility] on [facility] for MWF with chair time 12:15 p.m. Invitation letter given to the pt. Pt is aware to report for her first
outpatient HD treatment to [facility] on [facility] on Sunday08/18/24 30 minutes earlier her regular scheduled time.
Addendum entered by Obinna You 08/13/24 14:26:
Updated PT and OT evaluations noted - home PT/OT recommended.
Pt is aware, expressed her great appreciation and motivation to return back home. VN choices list provided. Pt preferred [facility]. A referral to VN made.
Awaiting for invitation letter for outpatient HD treatment from [facility].
D/C plan: Home with [facility], outpatient HD treatment at [facility] on [facility] and support.
Original Note:
CM following re: discharge planning.
Reviewed pt's chart, met with pt and pt's at bedside.
PT and OT continue recommending SNF level of care. [facility] is a preferred SNF.
CM spoke to [facility] SN[facility] liaison, requested updated clinical faxed for a review.
CM made a referral to [facility] yesterday for setting up outpatient HD treatment at [facility] on [facility]. CM spoke to corporate sales representative Flower [phone] and she confirmed she is securing a chair time
for outpatient HD treatment at [facility] on [facility] for MWF with first HD treatment on Sunday08/18/24. Per Flower, when everything is confirmed she will fax an invitation letter.
CM will coordinate pt's outpatient HD treatment with [facility] SNF liaison and she will schedule a transport to get the pt from [facility] to and from [facility] outpatient HD treatment center on [facility] for MWF.
D/C archer: [facility] SNF when medically stable. An auth from [employer] required. [facility] SNF will transport the pt to outpatient HD treatment
CM will follow to assist pt with discharge to [facility] with outpatient HD treatment at [facility] center on [facility]. .
[2024-08-13] MEDS: MANNITOL 25% 12.5 GRAMS IV ×2 (12:40→13:53)
--- NOTE | 2024-08-13 13:19 | W.PN.NEPH.HD ---
Assessment
-
Seen on HD. VSS, access ok
pt refusing rehab.
will need rheum eval for HONORIO
Progress Note - Hemodialysis
-
Date of Service: August 13, 2024
Duration: 3 hours
Potassium Bath: 4
Calcium Bath: 2.5
Opti-Dialyzer: 160
Ultrafiltration: Other (0)
Blood Flow: 400
Dialysate Flow: 600
Heparin: no
EPO: no
[2024-08-13 15:05] VITALS: BP 129/63
--- NOTE | 2024-08-13 15:26 | W.PN.HOSP.TC ---
Today's Communication/Plan
-
Elevated HONORIO with mildly depressed C3 along with nephrotic range proteinuria and microhematuria could be indicative of lupus nephritis
Initiated on HD.
Follow-up with rheumatology and possibly outpatient renal biopsy for final diagnosis and treatment
Episode of fever overnight 08/12 - 08/13
No specific complaints.
Just completed course of antibiotics for left lower lobe pneumonia
Follow-up chest x-ray with no focal infiltrates
Blood cultures pending
Monitor closely, low threshold for antibiotic reinstatement if recurrent fever.
PT assessment
Given complexity and overall deconditioning will likely require SNF discharge with HD
Assessment / Plan
Assessment / Plan
Impression:
Presented with failure to thrive.
Acute kidney injury on CKD stage IV with baseline creatinine of 2.2, now creatinine 3.9
Acute metabolic acidosis
Hypocalcemia
Hypoalbuminemia
Elevated LFT
Chronic anemia with decreasing hemoglobin requiring transfusions
Left lower lobe infiltrate
Acute hypoxic respiratory insufficiency
Hypothyroidism, undertreated
Severe protein calorie malnutrition
Alopecia/rash
Metabolic encephalopathy
Essential hypertension
History of hemorrhagic CVA
Metabolic acidosis
Anemia
Thrombocytopenia
Plan:
Acute kidney injury on CKD stage IV with baseline creatinine of 2.2, now creatinine 3.9.
Presented with acute on chronic metabolic acidosis
Creatinine plateaued at 4.0 with IV hydration and bicarbonate support.
Ongoing workup with serology pending.
Noted decreased C3 with normal C4
Urine protein creatinine ratio 3.8 consistent with nephrotic range proteinuria
UA noted with excessive WBC and microhematuria.
Serology relevant for significant elevation of HONOIRO/AMA with mildly depressed C3.
Interestingly enough with negative emqf-vrknnz-augryvoa DNA antibodies although with clinical presentation of rash and alopecia above could be related to lupus nephritis.
Initiated on renal replacement therapy
Will need outpatient rheumatology follow-up as well as renal biopsy for establishing diagnosis and treatment.
Thrombocytopenia
Heparin stopped
HIT antibody pending
Platelet count recovering
Monitor close
Episode of fever overnight 08/12 - 08/13
No specific complaints.
Just completed course of antibiotics for left lower lobe pneumonia
Follow-up chest x-ray with no focal infiltrates
Blood cultures pending
Monitor closely, low threshold for antibiotic reinstatement if recurrent fever.
Hypocalcemia/hypoalbuminemia
Monitor and replete
Anemia with microcytosis, chronic with no evidence of acute blood loss baseline
Transfused 1 unit of packed red blood cells with appropriate pickup and hemoglobin level
Check hemolytic panel
Monitor hemoglobin
Acute hypoxic respiratory insufficiency
Chest x-ray with left lower lobe infiltrate.
Repeat chest x-ray 08/05 with improved left lower lobe
Concern for aspiration
Speech and swallow evaluation, ongoing. Patient declined to be asleep
Initiated empirically on Unasyn. Completed course of antibiotics through 08/09
Metabolic encephalopathy. Prior history of intracranial hemorrhage.
Hypothyroidism, undertreated. Presented with sinus bradycardia. Suspect medication noncompliance.
TSH 48.3.
Resumed last known levothyroxine dose.
Monitor for recurrent bradycardia.
Abnormal urinalysis.
Urine culture consistent with contaminant
Abnormal LFTs with mild elevation of ALT/AST. Normal bilirubin. Monitor closely. Consider additional imaging.
Severe protein calorie malnutrition patient is malnourished and have poor oral intake
Initiated on Remeron for appetite stimulation.
Essential hypertension.
Hold metoprolol with bradycardia and marginal BP
History of right-sided hemorrhagic CVA/craniotomy.
Patient with chronic behavioral changes/dementia.
Anticipated Discharge: > 48 hours
Subjective/Interval History
-
Date of Service: August 13, 2024
Objective Data
-
Labs:
Laboratory Results
08/13/24 08/13/24
03:28 07:30
WBC 5.9 5.5
Hgb 7.0 L 7.0 L
Hct 21.3 L 21.8 L
Plt Count 107 L 106 L
Sodium 139
Potassium 3.6
Chloride 109 H
Carbon Dioxide 26
BUN 9
Creatinine 1.7 H
Glucose 81
Calcium 7.3 L
Vital Signs:
Vital Signs
Temp Pulse Resp BP Pulse Ox
98.4 F 87 18 129/63 93
08/13/24 15:05 08/13/24 15:05 08/13/24 15:05 08/13/24 15:05 08/13/24 15:05
I&O
08/12/24 08/13/24 08/14/24
06:59 06:59 06:59
Intake Total 1680 / 1680 600 / 600
Balance 1680 / 1680 600 / 600
Physical Exam
-
General: Well Developed, No Apparent Distress and Appears Chronically Ill
HEENT: Normocephalic, Atraumatic and Moist Mucous Membranes
Respiratory: Clear to Auscultation
Cardiac: Regular Rhythm and S1/S2; Negative Murmur, Rub or Gallop
GI: Soft, Nontender, Nondistended and Normal Bowel Sounds; Negative Organomegaly
Rectal: Deferred by Provider
Musculoskeletal: No Clubbing, No Cyanosis and No Edema
Skin: Negative Rash
Neuro: Nonfocal/Grossly Intact
[2024-08-13 19:00] VITALS: BP 121/74
[2024-08-13] MEDS: REMERON 15 MG PO (22:31)
[2024-08-13 23:15] VITALS: BP 96/55
[2024-08-14] VITALS (8 sets, daily range): BP systolic 108–152; BP diastolic 58–85; PULSE 83–86; O2SAT 98; BMI 15.4
[2024-08-14] MEDS: TYLENOL 650 MG PO ×4 (04:21→16:59)
[2024-08-14] MEDS: SYNTHROID 50 MCG PO (06:05)
[2024-08-14] MEDS: VITAMIN B-6 25 MG PO (08:39)
[2024-08-14] MEDS: ROCALTROL 0.5 MCG PO (08:39)
[2024-08-14] MEDS: SODIUM BICARBONATE 650 MG PO ×3 (08:39→22:06)
[2024-08-14] MEDS: PROTONIX 40 MG PO (08:39)
[2024-08-14] MEDS: ZOLOFT 25 MG PO (08:40)
[2024-08-14] MEDS: VITAMIN D3 (cholecalciferol) 25 MCG PO (08:40)
[2024-08-14] MEDS: OSCAL 500 + D 1000 MG PO ×3 (08:40→22:06)
[2024-08-14] MEDS: FOLVITE 1 MG PO (08:40)
[2024-08-14] MEDS: VITAMIN B-12 1000 MCG PO (08:40)
[2024-08-14] MEDS: THIAMINE INJECTION 100 MG IV (08:40)
--- NOTE | 2024-08-14 09:38 | PTCARENOTE ---
Patient with documented 103.2F fever overnight by [facility] shift lead tech, patient unaware of overnight temp reading and this RN clarified with [facility] shift lead RN Lorena that patient did not have fever overnight, 103.2F temp documented in patient chart in
error. MD aware.
[2024-08-14 09:41] LABS: Hematocrit 23.6 % (37.0-47.0); Hemoglobin 7.5 g/dL (12.0-16.0); Mean Corp Hgb Conc. 31.8 g/dL (33.0-37.0); Mean Corpuscular Hgb 32.1 pg (27.0-31.0); Mean Corpuscular Volume 100.9 fL (81.0-99.0); Mean Platelet Volume 12.3 fL (7.4-10.4); Platelet Count 119 10^3/uL (130-400); Red Blood Cell Count 2.34 10^6/uL (4.20-5.40); Red Cell Dist. Width 16.1 % (11.5-14.5); White Blood Cell Count 5.7 10^3/uL (4.8-10.8)
[2024-08-14 10:13] LABS: Absolute Neutrophils -Man Diff 3.3 10^3/uL (1.4-6.5); Band Neutrophils 1 % (0-3); Eosinophils 2 % (0-6); Lymphocytes 11 % (20-51); Monocytes 27 % (2-9); Segmented Neutrophils 58 % (42-75)
[2024-08-14 10:14] LABS: Anisocytosis 1+; Hypochromasia 1+; Metamyelocytes 1 % (-); Normal RBC Morphology No; Platelets Checked Yes; Polychromasia 1+
--- NOTE | 2024-08-14 10:14 | VNURNOTE ---
Home Health Liaison met with patient at bedside to discuss [facility] nurse/therapy, visits, schedule and homebound status. Patient is agreeable and understands that visits at home will be 2-3 x per week to assess and teach medical management. Patient is
aware that [facility] will contact them for start of care in 1-2 days after discharge from .
[facility] referral completed in [facility].
[2024-08-14 10:15] LABS: Ovalocytes 1+; Total Cells Counted 100
--- NOTE | 2024-08-14 10:17 | W.PN.HOSP.TC ---
Today's Communication/Plan
-
trend labs
HD tomm
SNF vs. home VN
trend fever curve
Assessment / Plan
Assessment / Plan
Impression:
Presented with failure to thrive.
Acute kidney injury on CKD stage IV with baseline creatinine of 2.2, now creatinine 3.9
Acute metabolic acidosis
Hypocalcemia
Hypoalbuminemia
Elevated LFT
Chronic anemia with decreasing hemoglobin requiring transfusions
Left lower lobe infiltrate
Acute hypoxic respiratory insufficiency
Hypothyroidism, undertreated
Severe protein calorie malnutrition
Alopecia/rash
Metabolic encephalopathy
Essential hypertension
History of hemorrhagic CVA
Metabolic acidosis
Anemia
Thrombocytopenia
Plan:
Acute kidney injury on CKD stage IV with baseline creatinine of 2.2, now creatinine 3.9.
Presented with acute on chronic metabolic acidosis
Creatinine plateaued at 4.0 with IV hydration and bicarbonate support.
Ongoing workup with serology pending.
Noted decreased C3 with normal C4
Urine protein creatinine ratio 3.8 consistent with nephrotic range proteinuria
UA noted with excessive WBC and microhematuria.
Serology relevant for significant elevation of HONORIO/AMA with mildly depressed C3.
Interestingly enough with negative oagz-csqvot-vhibqrff DNA antibodies although with clinical presentation of rash and alopecia above could be related to lupus nephritis.
Initiated on renal replacement therapy
Will need outpatient rheumatology follow-up as well as renal biopsy (as delayed due to severe thrombocytopenia w/risk of bleeding) for establishing diagnosis and treatment.
Thrombocytopenia
Heparin stopped
HIT antibody negative
Platelet count recovering
Monitor close
Episode of fever overnight 08/12 - 08/13
No specific complaints.
Just completed course of antibiotics for left lower lobe pneumonia
Follow-up chest x-ray with no focal infiltrates
Blood cultures pending
Monitor closely, low threshold for antibiotic reinstatement if recurrent fever.
d/w with RN-Fever was documented accidentally (pt did not have temp overnight).
Hypocalcemia/hypoalbuminemia
Monitor and replete
Anemia with microcytosis, chronic with no evidence of acute blood loss baseline
Transfused 1 unit of packed red blood cells with appropriate pickup and hemoglobin level
Monitor hemoglobin at 7.5. Repeat labs in am
Acute hypoxic respiratory insufficiency
Chest x-ray with left lower lobe infiltrate.
Repeat chest x-ray 08/05 with improved left lower lobe
Concern for aspiration
Speech and swallow evaluation, ongoing. Patient declined to be asleep
Initiated empirically on Unasyn. Completed course of antibiotics through 08/09
Metabolic encephalopathy. Prior history of intracranial hemorrhage.
Hypothyroidism, undertreated. Presented with sinus bradycardia. Suspect medication noncompliance.
TSH 48.3.
Resumed last known levothyroxine dose.
Monitor for recurrent bradycardia.
Abnormal urinalysis.
Urine culture consistent with contaminant
Abnormal LFTs with mild elevation of ALT/AST. Normal bilirubin. Monitor closely. Consider additional imaging.
Severe protein calorie malnutrition patient is malnourished and have poor oral intake
Initiated on Remeron for appetite stimulation.
Essential hypertension.
Hold metoprolol with bradycardia and marginal BP
History of right-sided hemorrhagic CVA/craniotomy.
Patient with chronic behavioral changes/dementia.
DVT ppx-scds in setting of anemia/right-sided hemorrhagic CVA/craniotomy/thrombocytopenia
Anticipated Discharge: 24 - 48 hours
Subjective/Interval History
-
Date of Service: August 14, 2024
Denies any cough diarrhea or dysuria
Objective Data
-
Labs:
Laboratory Results
08/14/24
09:16
WBC 5.7
Hgb 7.5 L
Hct 23.6 L
Plt Count 119 L
Vital Signs:
Vital Signs
Temp Pulse Resp BP Pulse Ox
98.1 F 78 16 128/65 96
08/14/24 07:10 08/14/24 07:10 08/14/24 07:10 08/14/24 07:10 08/14/24 09:51
I&O
08/13/24 08/14/24 08/15/24
06:59 06:59 06:59
Intake Total 600 / 600 600 / 600
Balance 600 / 600 600 / 600
Physical Exam
-
General: No Apparent Distress, Appears Chronically Ill and Other (looks older than stated age)
HEENT: Normocephalic, Atraumatic and Moist Mucous Membranes
Respiratory: Clear to Auscultation
Cardiac: Regular Rhythm and S1/S2; Negative Murmur, Rub or Gallop
GI: Soft, Nontender, Nondistended and Normal Bowel Sounds; Negative Organomegaly
Rectal: Deferred by Provider
Musculoskeletal: No Clubbing, No Cyanosis and No Edema
Skin: Negative Rash
Neuro: Awake and Nonfocal/Grossly Intact
Psych: Calm
Data Reviewed
-
Total Time Spent with Patient (in minutes): 55
--- NOTE | 2024-08-14 12:30 | W.PN.NEPH.PH ---
Today's Communication / Plan
-
HD tomorrow
Assessment/Plan
-
Assessment
Failure to thrive
Weight loss
JOCELYN, CKD4-baseline cr 2.2 (05/27)/creatinine 1.7 as far back as 2015
Metabolic acidosis
Hypocalcemia
Hypothyroidism (under treated)
Elevated LFTs chronic
Anemia
Thrombocytopenia, negative HIT
Nephrotic range proteinuria
Plan
follow BMP
Continues to have poor appetite
HD tomorrow
We will plan for biopsy Sunday for now. This may be canceled if she is to be discharged over the weekend
-
-
Date of Service: August 14, 2024
CC / HPI / ROS
-
Chief Complaint:
JOCELYN on chronic kidney disease
History of Present Illness:
JOCELYN/Cr now on dialysis, creatinine 1 point 3:07 treatments
Hgb low 7.5 but stable
Platelet count in creased to 119
po intake poor
nonoliguric
Calcium up to 7.3
Review of Systems:
no CP/SOB
Poor appetite
Labs
-
Labs:
WBC 5.7 10^3/uL (4.8-10.8) 08/14/24 09:16
RBC 2.34 10^6/uL (4.20-5.40) L 08/14/24 09:16
Hgb 7.5 g/dL (12.0-16.0) L 08/14/24 09:16
Hct 23.6 % (37.0-47.0) L 08/14/24 09:16
Plt Count 119 10^3/uL (130-400) L 08/14/24 09:16
Sodium 139 mmol/L (135-145) 08/13/24 07:30
Potassium 3.6 mmol/L (3.5-5.1) 08/13/24 07:30
Chloride 109 mmol/L (98-107) H 08/13/24 07:30
Carbon Dioxide 26 mmol/L (22-30) 08/13/24 07:30
BUN 9 mg/dl (7-17) 08/13/24 07:30
Creatinine 1.7 mg/dL (0.6-1.0) H 08/13/24 07:30
eGFR 33.28 08/13/24 07:30
Glucose 81 mg/dl (70-99) 08/13/24 07:30
Calcium 7.3 mg/dl (8.4-10.2) L 08/13/24 07:30
Phosphorus 3.4 mg/dl (2.5-4.5) 08/10/24 05:13
Albumin 2.7 g/dl (3.5-5.0) L 08/05/24 06:34
Physical Exam
-
Vital Signs:
Vital Signs
Temp Pulse Resp BP Pulse Ox
98.1 F 78 16 128/65 96
08/14/24 07:10 08/14/24 07:10 08/14/24 07:10 08/14/24 07:10 08/14/24 09:51
Cardiovascular:: Regular rate and rhythm
Respiratory:: Bilateral: CTA
Lung Excursion:: Normal
Abdomen:: Nontender and Soft
Bowel Sounds:: Normal
Extremity Edema:: None: Bilateral:
[2024-08-14] MEDS: HYDROPHOR 1 APPLIC TOPICAL (12:43)
--- NOTE | 2024-08-14 15:30 | CM ---
Patient seen at bedside in [address] [place] [address]. Patient with questions about biopsy and scheduling as well as medical concerns. CM updated physician and he will review recommendations with patient. CM will continue to follow for discharge planning needs.
Plan; home with [facility] to follow
[2024-08-14] MEDS: REMERON 15 MG PO (22:06)
[2024-08-15] VITALS (7 sets, daily range): BP systolic 112–158; BP diastolic 53–82; BMI 15.5
[2024-08-15] MEDS: TYLENOL 650 MG PO ×2 (06:30→18:27)
[2024-08-15] MEDS: SYNTHROID 50 MCG PO (06:31)
[2024-08-15 08:24] LABS: INR 1.09; PT 14.5 Sec (11.4-14.6)
[2024-08-15 08:27] LABS: Blood Urea Nitrogen 18 mg/dl (7-17); Calcium 7.3 mg/dl (8.4-10.2); Carbon Dioxide 25 mmol/L (22-30); Chloride 113 mmol/L (98-107); Estimated Creatinine Clearance 14 ml/min; Glucose 99 mg/dl (70-99); Potassium 3.6 mmol/L (3.5-5.1); Sodium 143 mmol/L (135-145); eGFR 23.16
[2024-08-15 08:34] LABS: Hematocrit 23.7 % (37.0-47.0); Hemoglobin 7.5 g/dL (12.0-16.0); Mean Corp Hgb Conc. 31.6 g/dL (33.0-37.0); Mean Corpuscular Hgb 32.9 pg (27.0-31.0); Mean Corpuscular Volume 103.9 fL (81.0-99.0); Mean Platelet Volume 12.4 fL (7.4-10.4); Platelet Count 117 10^3/uL (130-400); Red Blood Cell Count 2.28 10^6/uL (4.20-5.40); Red Cell Dist. Width 16.5 % (11.5-14.5); White Blood Cell Count 5.8 10^3/uL (4.8-10.8)
[2024-08-15] MEDS: RETACRIT 10000 UNITS IV (09:12)
--- NOTE | 2024-08-15 09:18 | W.PN.NEPH.HD ---
Assessment
-
Patient seen on dialysis
Systolic blood pressure stable with current UF
Tunneled catheter with good function
Creatinine continues to rise between treatments as last creatinine was 1.7 on now up to 2.3 on 08/15/2024
Renal biopsy to be scheduled on Sunday
Progress Note - Hemodialysis
-
Date of Service: August 15, 2024
Duration: 30 minutes and 3 hours
Potassium Bath: 4
Calcium Bath: 2.5
Opti-Dialyzer: 160
Ultrafiltration: Other (Even)
Dialysate Flow: 600
Heparin: None
EPO: 10,000
[2024-08-15 10:08] LABS: Segmented Neutrophils 48 % (42-75)
[2024-08-15 10:09] LABS: Absolute Neutrophils -Man Diff 2.7 10^3/uL (1.4-6.5); Atypical Lymphocytes 1 %; Band Neutrophils 0 % (0-3); Eosinophils 5 % (0-6); Lymphocytes 20 % (20-51); Monocytes 26 % (2-9)
[2024-08-15 10:10] LABS: Normal RBC Morphology No; Platelets Checked YES
[2024-08-15 10:11] LABS: Anisocytosis Slight
[2024-08-15 10:12] LABS: Stomatocytes FEW; Target Cells Slight
[2024-08-15 10:13] LABS: Ovalocytes FEW
[2024-08-15 10:14] LABS: Total Cells Counted 100
[2024-08-15] MEDS: HEPARIN 3900 UNITS INTRACATH (10:39)
[2024-08-15] MEDS: OSCAL 500 + D 1000 MG PO ×3 (10:41→22:59)
[2024-08-15] MEDS: ROCALTROL 0.5 MCG PO (10:41)
[2024-08-15] MEDS: VITAMIN B-6 25 MG PO (10:42)
[2024-08-15] MEDS: VITAMIN B-12 1000 MCG PO (10:42)
[2024-08-15] MEDS: PROTONIX 40 MG PO (10:42)
[2024-08-15] MEDS: FOLVITE 1 MG PO (10:43)
[2024-08-15] MEDS: THIAMINE INJECTION 100 MG IV (10:43)
[2024-08-15] MEDS: ZOLOFT 25 MG PO (10:43)
[2024-08-15] MEDS: SODIUM BICARBONATE 650 MG PO ×3 (10:43→22:59)
[2024-08-15] MEDS: VITAMIN D3 (cholecalciferol) 25 MCG PO (10:43)
[2024-08-15] MEDS: HYDROPHOR 1 APPLIC TOPICAL (10:44)
--- NOTE | 2024-08-15 12:18 | W.PN.HOSP.TC ---
Today's Communication/Plan
-
s/p HD today
Renal bx sunday
monitor closely post op
Assessment / Plan
Assessment / Plan
Impression:
Presented with failure to thrive.
Acute kidney injury on CKD stage IV with baseline creatinine of 2.2, now creatinine 3.9
Acute metabolic acidosis
Hypocalcemia
Hypoalbuminemia
Elevated LFT
Chronic anemia with decreasing hemoglobin requiring transfusions
Left lower lobe infiltrate
Acute hypoxic respiratory insufficiency
Hypothyroidism, undertreated
Severe protein calorie malnutrition
Alopecia/rash
Metabolic encephalopathy
Essential hypertension
History of hemorrhagic CVA
Metabolic acidosis
Anemia
Thrombocytopenia
Plan:
Acute kidney injury on CKD stage IV with baseline creatinine of 2.2, now creatinine 3.9.
Presented with acute on chronic metabolic acidosis
Creatinine plateaued at 4.0 with IV hydration and bicarbonate support.
Ongoing workup with serology pending.
Noted decreased C3 with normal C4
Urine protein creatinine ratio 3.8 consistent with nephrotic range proteinuria
UA noted with excessive WBC and microhematuria.
Serology relevant for significant elevation of HONORIO/AMA with mildly depressed C3.
Interestingly enough with negative bcmw-lcnzsd-mswezsxd DNA antibodies although with clinical presentation of rash and alopecia above could be related to lupus nephritis.
Initiated on renal replacement therapy
Will need outpatient rheumatology follow-up
Patient agreed for renal biopsy sunday. Monitor closely post op as w/thrombocytopenia for bleeding.
Thrombocytopenia
Heparin stopped
HIT antibody negative
Platelet count recovering
Monitor close
Episode of fever overnight 08/12 - 08/13
No specific complaints.
Just completed course of antibiotics for left lower lobe pneumonia
Follow-up chest x-ray with no focal infiltrates
Blood cultures pending
Monitor closely, low threshold for antibiotic reinstatement if recurrent fever.
Hypocalcemia/hypoalbuminemia
Monitor and replete
Anemia with microcytosis, chronic with no evidence of acute blood loss baseline
Transfused 1 unit of packed red blood cells with appropriate pickup and hemoglobin level
Monitor hemoglobin at 7.5.
Acute hypoxic respiratory insufficiency
Chest x-ray with left lower lobe infiltrate.
Repeat chest x-ray 08/05 with improved left lower lobe
Concern for aspiration
Speech and swallow evaluation, ongoing. Patient declined to be asleep
Initiated empirically on Unasyn. Completed course of antibiotics through 08/09
Metabolic encephalopathy. Prior history of intracranial hemorrhage.
Hypothyroidism, undertreated. Presented with sinus bradycardia. Suspect medication noncompliance.
TSH 48.3.
Resumed last known levothyroxine dose.
Monitor for recurrent bradycardia.
Abnormal urinalysis.
Urine culture consistent with contaminant
Abnormal LFTs with mild elevation of ALT/AST. Normal bilirubin. Monitor closely. Consider additional imaging.
Severe protein calorie malnutrition patient is malnourished and have poor oral intake
Initiated on Remeron for appetite stimulation.
Essential hypertension.
Hold metoprolol with bradycardia and marginal BP
History of right-sided hemorrhagic CVA/craniotomy.
Patient with chronic behavioral changes/dementia.
DVT ppx-scds in setting of anemia/right-sided hemorrhagic CVA/craniotomy/thrombocytopenia
PT/OT-home health on dc
d/w with spouse at bedside in details
Anticipated Discharge: > 48 hours
Subjective/Interval History
-
Date of Service: August 15, 2024
seen on HD and again post HD w/ spouse at bedside
pt has agreed for bx renal
Objective Data
-
Labs:
Laboratory Results
08/15/24
08:00
WBC 5.8
Hgb 7.5 L
Hct 23.7 L
Plt Count 117 L
PT 14.5
INR 1.09
Sodium 143
Potassium 3.6
Chloride 113 H
Carbon Dioxide 25
BUN 18 H
Creatinine 2.3 H
Glucose 99
Calcium 7.3 L
Vital Signs:
Vital Signs
Temp Pulse Resp BP Pulse Ox
98.0 F 91 19 130/74 94
08/15/24 07:30 08/15/24 07:30 08/15/24 07:30 08/15/24 07:30 08/15/24 07:30
I&O
08/14/24 08/15/24 08/16/24
06:59 06:59 06:59
Intake Total 600 / 600 1320 / 1320
Balance 600 / 600 1320 / 1320
Physical Exam
-
General: No Apparent Distress, Appears Chronically Ill and Other (looks older than stated age)
HEENT: Normocephalic, Atraumatic and Moist Mucous Membranes
Respiratory: Clear to Auscultation
Cardiac: Regular Rhythm and S1/S2; Negative Murmur, Rub or Gallop
GI: Soft, Nontender, Nondistended and Normal Bowel Sounds; Negative Organomegaly
Rectal: Deferred by Provider
Musculoskeletal: No Clubbing, No Cyanosis and No Edema
Skin: Negative Rash
Neuro: Awake and Nonfocal/Grossly Intact
Psych: Calm
Data Reviewed
-
Total Time Spent with Patient (in minutes): 55
--- NOTE | 2024-08-15 14:30 | WOUNDNOTE ---
[facility] RN note: Patient seen for HAPI report for stage 2 sacral pressure injury. Patient with chronic overall body red, very dry flaky skin. Sacrum with stage 1 redness. L posterior hip with area of denuded skin suspect r/t her dry skin condition and
friction. She has a small scabbed abrasion on L shoulder. Protective sacral shaped silicone border foam applied to L hip and sacral shaped silicone border foam changed on sacrum. Silicone border foam applied to bilateral posterior shoulders.
+Cachexia. Po intake fair as per nursing. Patient stated she's been going to [employer] for a couple years for her skin condition and she stated it hasn't improved. She has scattered dry scabs on her hands. She has Aquaphor ointment and moisture
lotion. KARTHIK Roche obtained a [employer] air bed from [employer] and will coordinate switching her bed. Air chair cushion given. Patient moves self in bed. Pillow off loading heels. Patient instructed pressure injury prevention measures and to
take the air chair cushion when discharged. Patient is at risk for pressure injuries despite preventative measures d/t her cachexia and dry skin condition. Care plan updated.
--- NOTE | 2024-08-15 14:49 | CM ---
CM following re: discharge planning.
Reviewed pt's chart, met with pt.
Pt is aware she will not be discharged today, stated: 'i am not happy about that', expressed her understanding and she is aware she is scheduled for Biopsy on Sunday.
CM called [facility] corporate and they changed pt's first outpatient HD treatment from Sunday08/18/24 to Sunday08/20/24.
[facility] liaison following.
D/C plan: Home with [facility], outpatient HD treatment at [facility] and support.
CM will follow with discharge plan updates as hospitalization progresses
--- NOTE | 2024-08-15 14:52 | WOUNDNOTE ---
BACK/FLANK (R SIDE)
--- NOTE | 2024-08-15 14:53 | WOUNDNOTE ---
FEET (R LATERAL;L MEDIAL)
[2024-08-15] MEDS: REMERON 15 MG PO (22:59)
[2024-08-16] MEDS: SYNTHROID 50 MCG PO (05:06)
[2024-08-16 07:08] LABS: Hematocrit 23.8 % (37.0-47.0); Hemoglobin 7.5 g/dL (12.0-16.0); Mean Corp Hgb Conc. 31.5 g/dL (33.0-37.0); Mean Corpuscular Hgb 32.1 pg (27.0-31.0); Mean Corpuscular Volume 101.7 fL (81.0-99.0); Mean Platelet Volume 12.1 fL (7.4-10.4); Platelet Count 120 10^3/uL (130-400); Red Blood Cell Count 2.34 10^6/uL (4.20-5.40); Red Cell Dist. Width 16.5 % (11.5-14.5); White Blood Cell Count 5.5 10^3/uL (4.8-10.8)
[2024-08-16 07:20] LABS: INR 1.09; PT 14.4 Sec (11.4-14.6)
[2024-08-16 07:29] VITALS: BP 131/72
[2024-08-16] MEDS: THIAMINE INJECTION 100 MG IV (07:56)
[2024-08-16] MEDS: TYLENOL 650 MG PO ×3 (07:57→21:01)
[2024-08-16] MEDS: OSCAL 500 + D 1000 MG PO ×3 (07:57→21:00)
[2024-08-16] MEDS: VITAMIN B-12 1000 MCG PO (07:57)
[2024-08-16] MEDS: VITAMIN B-6 25 MG PO (07:57)
[2024-08-16] MEDS: PROTONIX 40 MG PO (07:57)
[2024-08-16] MEDS: VITAMIN D3 (cholecalciferol) 25 MCG PO (07:57)
[2024-08-16] MEDS: FOLVITE 1 MG PO (07:58)
[2024-08-16] MEDS: ROCALTROL 0.5 MCG PO (07:58)
[2024-08-16] MEDS: ZOLOFT 25 MG PO (07:58)
[2024-08-16] MEDS: SODIUM BICARBONATE 650 MG PO ×3 (07:58→21:00)
[2024-08-16] MEDS: HYDROPHOR 1 APPLIC TOPICAL (07:59)
[2024-08-16 08:01] LABS: Absolute Neutrophils -Man Diff 3.3 10^3/uL (1.4-6.5); Anisocytosis Slight; Band Neutrophils 0 % (0-3); Hypochromasia Slight; Lymphocytes 19 % (20-51); Monocytes 21 % (2-9); Normal RBC Morphology No; Platelets Checked Yes; Polychromasia Slight; Segmented Neutrophils 60 % (42-75)
[2024-08-16 08:02] LABS: Total Cells Counted 100
[2024-08-16 08:08] VITALS: BMI 15.4
--- NOTE | 2024-08-16 11:16 | W.PN.NEPH.PH ---
Today's Communication / Plan
-
Renal biopsy and dialysis on Sunday
Assessment/Plan
-
Assessment
Failure to thrive
Weight loss
JOCELYN, CKD4-baseline cr 2.2 (05/27)/creatinine 1.7 as far back as 2015
Metabolic acidosis
Hypocalcemia
Hypothyroidism (under treated)
Elevated LFTs chronic
Anemia
Thrombocytopenia, negative HIT
Nephrotic range proteinuria
Plan
follow BMP
Continues to have poor appetite
HD Sunday after renal biopsy
We will plan for biopsy Sunday for now.
-
-
Date of Service: August 16, 2024
CC / HPI / ROS
-
Chief Complaint:
JOCELYN on chronic kidney disease
History of Present Illness:
JOCELYN/Cr now on dialysis, creatinine 1 point 3:07 treatments
Hgb low 7.5 but stable
Platelet count in creased to 119
po intake poor
nonoliguric
Calcium up to 7.3
Review of Systems:
no CP/SOB
Poor appetite
Labs
-
Labs:
WBC 5.5 10^3/uL (4.8-10.8) 08/16/24 06:44
RBC 2.34 10^6/uL (4.20-5.40) L 08/16/24 06:44
Hgb 7.5 g/dL (12.0-16.0) L 08/16/24 06:44
Hct 23.8 % (37.0-47.0) L 08/16/24 06:44
Plt Count 120 10^3/uL (130-400) L 08/16/24 06:44
Sodium 143 mmol/L (135-145) 08/15/24 08:00
Potassium 3.6 mmol/L (3.5-5.1) 08/15/24 08:00
Chloride 113 mmol/L (98-107) H 08/15/24 08:00
Carbon Dioxide 25 mmol/L (22-30) 08/15/24 08:00
BUN 18 mg/dl (7-17) H 08/15/24 08:00
Creatinine 2.3 mg/dL (0.6-1.0) H 08/15/24 08:00
eGFR 23.16 08/15/24 08:00
Glucose 99 mg/dl (70-99) 08/15/24 08:00
Calcium 7.3 mg/dl (8.4-10.2) L 08/15/24 08:00
Phosphorus 3.4 mg/dl (2.5-4.5) 08/10/24 05:13
Albumin 2.7 g/dl (3.5-5.0) L 08/05/24 06:34
Physical Exam
-
Vital Signs:
Vital Signs
Temp Pulse Resp BP Pulse Ox
98.9 F 93 16 131/72 96
08/16/24 07:29 08/16/24 07:29 08/16/24 07:29 08/16/24 07:29 08/16/24 08:00
Cardiovascular:: Regular rate and rhythm
Respiratory:: Bilateral: CTA
Lung Excursion:: Normal
Abdomen:: Nontender and Soft
Bowel Sounds:: Normal
Extremity Edema:: None: Bilateral:
[2024-08-16 11:36] VITALS: BP 116/69
--- NOTE | 2024-08-16 14:13 | W.PN.HOSP.TC ---
Today's Communication/Plan
-
cont HD as per nephro
renal bx Sunday
Assessment / Plan
Assessment / Plan
Physical Exam
General: No Apparent Distress, Appears Chronically Ill, looks older than stated age, Cachectic
HEENT: Normocephalic, Atraumatic and Moist Mucous Membranes
Respiratory: Clear to Auscultation
Cardiac: Regular Rhythm and S1/S2; Negative Murmur, Rub or Gallop
GI: Soft, Nontender, Nondistended and Normal Bowel Sounds; Negative Organomegaly
Musculoskeletal: No Clubbing, No Cyanosis and No Edema
Skin: Negative Rash
Neuro: Alert Awake Conversant Coherent
Psych: Calm
Impression:
Presented with failure to thrive.
Acute kidney injury on CKD stage IV with baseline creatinine of 2.2
Acute metabolic acidosis
Hypocalcemia
Hypoalbuminemia
Elevated LFT
Chronic anemia with decreasing hemoglobin requiring transfusions
Left lower lobe infiltrate
Acute hypoxic respiratory insufficiency
Hypothyroidism, undertreated
Severe protein calorie malnutrition
Alopecia/rash
Metabolic encephalopathy
Essential hypertension
History of hemorrhagic CVA
Metabolic acidosis
Anemia
Thrombocytopenia
Plan:
Acute kidney injury on CKD stage IV with baseline creatinine of 2.2
Presented with acute on chronic metabolic acidosis
Creatinine plateaued at 4.0 with IV hydration and bicarbonate support.
Ongoing workup with serology pending.
Noted decreased C3 with normal C4
Urine protein creatinine ratio 3.8 consistent with nephrotic range proteinuria
UA noted with excessive WBC and microhematuria.
Serology relevant for significant elevation of HONORIO/AMA with mildly depressed C3.
Interestingly enough with negative pyog-lebsxd-nifyrwnt DNA antibodies although with clinical presentation of rash and alopecia above could be related to lupus nephritis.
Initiated on renal replacement therapy
Will need outpatient rheumatology follow-up
Patient agreed for renal biopsy sunday. Monitor closely post op as w/thrombocytopenia for bleeding.
Thrombocytopenia
Heparin stopped
HIT antibody negative
Platelet count recovering
Monitor close
Episode of fever overnight 08/12 - 08/13
No specific complaints.
Just completed course of antibiotics for left lower lobe pneumonia
Follow-up chest x-ray with no focal infiltrates
Blood cultures pending
Monitor closely, low threshold for antibiotic reinstatement if recurrent fever.
Hypocalcemia/hypoalbuminemia
Monitor and replete
Anemia with microcytosis, chronic with no evidence of acute blood loss baseline
Transfused 1 unit of packed red blood cells with appropriate pickup and hemoglobin level
Monitor hemoglobin at 7.5.
Acute hypoxic respiratory insufficiency
Chest x-ray with left lower lobe infiltrate.
Repeat chest x-ray 08/05 with improved left lower lobe
Concern for aspiration
Speech and swallow evaluation, ongoing. Patient declined to be asleep
Initiated empirically on Unasyn. Completed course of antibiotics through 08/09
Metabolic encephalopathy. Prior history of intracranial hemorrhage.
Hypothyroidism, undertreated. Presented with sinus bradycardia. Suspect medication noncompliance.
TSH 48.3.
Resumed last known levothyroxine dose.
Monitor for recurrent bradycardia.
Abnormal urinalysis.
Urine culture consistent with contaminant
Abnormal LFTs with mild elevation of ALT/AST. Normal bilirubin. Monitor closely. Consider additional imaging.
Severe protein calorie malnutrition patient is malnourished and have poor oral intake
Initiated on Remeron for appetite stimulation.
Essential hypertension.
Hold metoprolol with bradycardia and marginal BP
History of right-sided hemorrhagic CVA/craniotomy.
Patient with chronic behavioral changes/dementia.
DVT ppx-scds in setting of anemia/right-sided hemorrhagic CVA/craniotomy/thrombocytopenia
PT/OT-home health on dc
d/w with patient and patient's Dewey
I spent a total of 37 minutes with the patient or on the floor. More than 50% of this time involved counseling and coordination of care.
Anticipated Discharge: 24 - 48 hours
Subjective/Interval History
-
Date of Service: August 16, 2024
no acute distress, appears comfortable at this time.
Objective Data
-
Labs:
Laboratory Results
08/16/24
06:44
WBC 5.5
Hgb 7.5 L
Hct 23.8 L
Plt Count 120 L
PT 14.4
INR 1.09
Vital Signs:
Vital Signs
Temp Pulse Resp BP Pulse Ox
98.7 F 95 16 116/69 95
08/16/24 11:36 08/16/24 11:36 08/16/24 11:36 08/16/24 11:36 08/16/24 11:36
I&O
08/15/24 08/16/24 08/17/24
06:59 06:59 06:59
Intake Total 1320 / 1320 840 / 840
Balance 1320 / 1320 840 / 840
[2024-08-16 15:12] VITALS: BP 126/75
[2024-08-16 19:05] VITALS: BP 160/89
[2024-08-16 19:10] VITALS: BP 160/89
[2024-08-16] MEDS: REMERON 15 MG PO (21:00)
[2024-08-16 23:09] VITALS: BP 137/68
[2024-08-17 03:05] VITALS: BP 153/79
[2024-08-17 05:06] VITALS: BMI 15.3
[2024-08-17] MEDS: SYNTHROID 50 MCG PO (06:11)
[2024-08-17 07:10] VITALS: BP 135/79
--- NOTE | 2024-08-17 07:31 | W.PN.HOSP.TC ---
Today's Communication/Plan
-
NPO after midnight for Renal bx
cont HD as per Nephro
discharge planning home with home services after Biopsy and HD
Assessment / Plan
Assessment / Plan
Physical Exam
General: No Apparent Distress, Appears Chronically Ill, looks older than stated age, Cachectic
HEENT: Normocephalic, Atraumatic and Moist Mucous Membranes
Respiratory: Clear to Auscultation
Cardiac: Regular Rhythm and S1/S2; Negative Murmur, Rub or Gallop
GI: Soft, Nontender, Nondistended and Normal Bowel Sounds; Negative Organomegaly
Musculoskeletal: No Clubbing, No Cyanosis and No Edema
Skin: Negative Rash
Neuro: Alert Awake Conversant Coherent
Psych: Calm
Impression:
Presented with failure to thrive.
Acute kidney injury on CKD stage IV with baseline creatinine of 2.2
Acute metabolic acidosis
Hypocalcemia
Hypoalbuminemia
Elevated LFT
Chronic anemia with decreasing hemoglobin requiring transfusions
Left lower lobe infiltrate
Acute hypoxic respiratory insufficiency
Hypothyroidism, undertreated
Severe protein calorie malnutrition
Alopecia/rash
Metabolic encephalopathy
Essential hypertension
History of hemorrhagic CVA
Metabolic acidosis
Anemia
Thrombocytopenia
Plan:
Acute kidney injury on CKD stage IV with baseline creatinine of 2.2
Presented with acute on chronic metabolic acidosis
Creatinine plateaued at 4.0 with IV hydration and bicarbonate support.
Ongoing workup with serology pending.
Noted decreased C3 with normal C4
Urine protein creatinine ratio 3.8 consistent with nephrotic range proteinuria
UA noted with excessive WBC and microhematuria.
Serology relevant for significant elevation of HONORIO/AMA with mildly depressed C3.
Interestingly enough with negative nhei-yihbcp-ammhxudh DNA antibodies although with clinical presentation of rash and alopecia above could be related to lupus nephritis.
Initiated on renal replacement therapy
Will need outpatient rheumatology follow-up
Patient agreed for renal biopsy sunday. Monitor closely post op as w/thrombocytopenia for bleeding.
Thrombocytopenia
Heparin stopped
HIT antibody negative
Platelet count recovering
Monitor close
Episode of fever overnight 08/12 - 08/13
No specific complaints.
Just completed course of antibiotics for left lower lobe pneumonia
Follow-up chest x-ray with no focal infiltrates
Blood cultures pending
Monitor closely, low threshold for antibiotic reinstatement if recurrent fever.
Hypocalcemia/hypoalbuminemia
Monitor and replete
Anemia with microcytosis, chronic with no evidence of acute blood loss baseline
Transfused 1 unit of packed red blood cells with appropriate pickup and hemoglobin level
Monitor hemoglobin at 7.5.
Acute hypoxic respiratory insufficiency
Chest x-ray with left lower lobe infiltrate.
Repeat chest x-ray 08/05 with improved left lower lobe
Concern for aspiration
Speech and swallow evaluation, ongoing. Patient declined to be asleep
Initiated empirically on Unasyn. Completed course of antibiotics through 08/09
Metabolic encephalopathy. Prior history of intracranial hemorrhage.
Hypothyroidism, undertreated. Presented with sinus bradycardia. Suspect medication noncompliance.
TSH 48.3.
Resumed last known levothyroxine dose.
Monitor for recurrent bradycardia.
Abnormal urinalysis.
Urine culture consistent with contaminant
Abnormal LFTs with mild elevation of ALT/AST. Normal bilirubin. Monitor closely. Consider additional imaging.
Severe protein calorie malnutrition patient is malnourished and have poor oral intake
Initiated on Remeron for appetite stimulation.
Essential hypertension.
Hold metoprolol with bradycardia and marginal BP
History of right-sided hemorrhagic CVA/craniotomy.
Patient with chronic behavioral changes/dementia.
DVT ppx-scds in setting of anemia/right-sided hemorrhagic CVA/craniotomy/thrombocytopenia
PT/OT-home health on dc
d/w with patient and patient's Dewey
I spent a total of 37 minutes with the patient or on the floor. More than 50% of this time involved counseling and coordination of care.
Anticipated Discharge: Within 24 hours
Subjective/Interval History
-
Date of Service: August 17, 2024
No acute distress, reports overall feeling well. Looking forward to going home tomorrow after renal biopsy. Dewey present during evaluation.
Objective Data
-
Labs:
Laboratory Results
08/17/24
06:14
PT Pending
INR Pending
Vital Signs:
Vital Signs
Temp Pulse Resp BP Pulse Ox
98.3 F 89 18 153/79 90
08/17/24 03:05 08/17/24 03:05 08/17/24 03:05 08/17/24 03:05 08/17/24 03:05
I&O
08/16/24 08/17/24 08/18/24
06:59 06:59 06:59
Intake Total 840 / 840 1919
Balance 840 / 840 1919
[2024-08-17 07:49] LABS: INR 1.07; PT 14.2 Sec (11.4-14.6)
[2024-08-17] MEDS: TYLENOL 650 MG PO ×2 (09:05→17:09)
[2024-08-17] MEDS: OSCAL 500 + D 1000 MG PO ×3 (09:05→22:53)
[2024-08-17] MEDS: ROCALTROL 0.5 MCG PO (09:05)
[2024-08-17] MEDS: FOLVITE 1 MG PO (09:06)
[2024-08-17] MEDS: SODIUM BICARBONATE 650 MG PO ×3 (09:06→22:53)
[2024-08-17] MEDS: PROTONIX 40 MG PO (09:06)
[2024-08-17] MEDS: THIAMINE INJECTION 100 MG IV (09:06)
[2024-08-17] MEDS: ZOLOFT 25 MG PO (09:06)
[2024-08-17] MEDS: VITAMIN B-12 1000 MCG PO (09:06)
[2024-08-17] MEDS: VITAMIN D3 (cholecalciferol) 25 MCG PO (09:06)
[2024-08-17] MEDS: VITAMIN B-6 25 MG PO (09:06)
[2024-08-17] MEDS: HYDROPHOR 1 APPLIC TOPICAL (09:08)
--- NOTE | 2024-08-17 10:30 | W.PN.NEPH.PH ---
Today's Communication / Plan
-
HD and renal biopsy tomorrow
Assessment/Plan
-
Assessment
Failure to thrive
Weight loss
JOCELYN, CKD4-baseline cr 2.2 (05/27)/creatinine 1.7 as far back as 2015
Metabolic acidosis
Hypocalcemia
Hypothyroidism (under treated)
Elevated LFTs chronic
Anemia
Thrombocytopenia, negative HIT
Nephrotic range proteinuria
Plan
HD tomorrow
Continues to have poor appetite
HD Sunday after renal biopsy
-
-
Date of Service: August 17, 2024
CC / HPI / ROS
-
Chief Complaint:
JOCELYN on chronic kidney disease
History of Present Illness:
JOCELYN/Cr now on dialysis,
Hgb low 7.5 but stable
Platelet count in creased to 120
po intake poor
nonoliguric
Calcium up to 7.3
Review of Systems:
no CP/SOB
Poor appetite
Labs
-
Labs:
WBC 5.5 10^3/uL (4.8-10.8) 08/16/24 06:44
RBC 2.34 10^6/uL (4.20-5.40) L 08/16/24 06:44
Hgb 7.5 g/dL (12.0-16.0) L 08/16/24 06:44
Hct 23.8 % (37.0-47.0) L 08/16/24 06:44
Plt Count 120 10^3/uL (130-400) L 08/16/24 06:44
Sodium 143 mmol/L (135-145) 08/15/24 08:00
Potassium 3.6 mmol/L (3.5-5.1) 08/15/24 08:00
Chloride 113 mmol/L (98-107) H 08/15/24 08:00
Carbon Dioxide 25 mmol/L (22-30) 08/15/24 08:00
BUN 18 mg/dl (7-17) H 08/15/24 08:00
Creatinine 2.3 mg/dL (0.6-1.0) H 08/15/24 08:00
eGFR 23.16 08/15/24 08:00
Glucose 99 mg/dl (70-99) 08/15/24 08:00
Calcium 7.3 mg/dl (8.4-10.2) L 08/15/24 08:00
Phosphorus 3.4 mg/dl (2.5-4.5) 08/10/24 05:13
Albumin 2.7 g/dl (3.5-5.0) L 08/05/24 06:34
Physical Exam
-
Vital Signs:
Vital Signs
Temp Pulse Resp BP Pulse Ox
98 F 91 18 135/79 95
08/17/24 07:10 08/17/24 07:10 08/17/24 07:10 08/17/24 07:10 08/17/24 09:00
Cardiovascular:: Regular rate and rhythm
Respiratory:: Bilateral: CTA
Lung Excursion:: Normal
Abdomen:: Nontender and Soft
Bowel Sounds:: Normal
Extremity Edema:: None: Bilateral:
[2024-08-17 11:00] VITALS: BP 143/78
--- NOTE | 2024-08-17 14:13 | CHAP ---
Johanne welcomed the visit and prayer. Emotional and spiritual support provided.
[2024-08-17 15:10] VITALS: BP 140/74
[2024-08-17] MEDS: REMERON 15 MG PO (22:53)
[2024-08-17] MEDS: ROBITUSSIN DM 5 ML PO (23:05)
[2024-08-17 23:10] VITALS: BP 145/75
[2024-08-18] VITALS (11 sets, daily range): BP systolic 73–169; BP diastolic 67–97; BMI 14.9
[2024-08-18] MEDS: SYNTHROID 50 MCG PO (05:32)
[2024-08-18 08:10] LABS: Hematocrit 25.5 % (37.0-47.0); Hemoglobin 7.9 g/dL (12.0-16.0)
[2024-08-18 08:19] LABS: INR 1.16; PT 15.3 Sec (11.4-14.6)
[2024-08-18] MEDS: ROCALTROL 0.5 MCG PO (08:20)
[2024-08-18] MEDS: HYDROPHOR 1 APPLIC TOPICAL (08:21)
[2024-08-18] MEDS: OSCAL 500 + D 1000 MG PO ×3 (08:21→22:51)
[2024-08-18] MEDS: VITAMIN B-6 25 MG PO (08:22)
[2024-08-18 08:23] LABS: Blood Urea Nitrogen 22 mg/dl (7-17); Calcium 7.3 mg/dl (8.4-10.2); Carbon Dioxide 19 mmol/L (22-30); Chloride 116 mmol/L (98-107); Estimated Creatinine Clearance 12 ml/min; Glucose 79 mg/dl (70-99); Potassium 3.7 mmol/L (3.5-5.1); Sodium 143 mmol/L (135-145)
[2024-08-18] MEDS: THIAMINE INJECTION 100 MG IV (08:23)
[2024-08-18] MEDS: PROTONIX 40 MG PO (08:23)
[2024-08-18] MEDS: FOLVITE 1 MG PO (08:23)
[2024-08-18] MEDS: SODIUM BICARBONATE 650 MG PO ×3 (08:24→22:51)
[2024-08-18] MEDS: VITAMIN B-12 1000 MCG PO (08:24)
[2024-08-18] MEDS: ZOLOFT 25 MG PO (08:24)
[2024-08-18] MEDS: VITAMIN D3 (cholecalciferol) 25 MCG PO (08:24)
[2024-08-18] MEDS: RETACRIT 10000 UNITS IV (09:19)
--- NOTE | 2024-08-18 10:30 | W.PN.NEPH.HD ---
Assessment
-
pt seen during HD
vitals stable
high k and deidre bath
no UF as seem to be non oliguric subjectively
no renal recovery since cr cont to rise pre HD
CVC functions well
for K biopsy today
Progress Note - Hemodialysis
-
Date of Service: August 18, 2024
Duration: 3 hours
Potassium Bath: 4
Calcium Bath: 3
Opti-Dialyzer: 160
Ultrafiltration: Other (0)
Blood Flow: 350
Dialysate Flow: 600
Heparin: no
EPO: [id number]
[2024-08-18] MEDS: HEPARIN 4000 UNITS INTRACATH (10:39)
--- NOTE | 2024-08-18 10:39 | CM ---
Patient progressing well in PT. Will continue to watch for needs.
Plan: Case management will continue to follow and assist with discharge planning.
--- NOTE | 2024-08-18 10:41 | CM ---
Patient progressing well in therapy. Appears close to her baseline.
Plan: Case management will continue to follow and assist with discharge planning. Should be home no needs.
--- NOTE | 2024-08-18 12:34 | W.PN.HOSP.TC ---
Today's Communication/Plan
-
Kidney biopsy
HD as per renal
Assessment / Plan
Assessment / Plan
Physical Exam
General: No Apparent Distress, Appears Chronically Ill, looks older than stated age, Cachectic
HEENT: Normocephalic, Atraumatic and Moist Mucous Membranes
Respiratory: Clear to Auscultation
Cardiac: Regular Rhythm and S1/S2; Negative Murmur, Rub or Gallop
GI: Soft, Nontender, Nondistended and Normal Bowel Sounds; Negative Organomegaly
Musculoskeletal: No Clubbing, No Cyanosis and No Edema
Skin: Negative Rash
Neuro: Alert Awake Conversant Coherent
Psych: Calm
Impression:
Presented with failure to thrive.
Acute kidney injury on CKD stage IV with baseline creatinine of 2.2
Acute metabolic acidosis
Hypocalcemia
Hypoalbuminemia
Elevated LFT
Chronic anemia with decreasing hemoglobin requiring transfusions
Left lower lobe infiltrate
Acute hypoxic respiratory insufficiency
Hypothyroidism, undertreated
Severe protein calorie malnutrition
Alopecia/rash
Metabolic encephalopathy
Essential hypertension
History of hemorrhagic CVA
Metabolic acidosis
Anemia
Thrombocytopenia
Plan:
Acute kidney injury on CKD stage IV with baseline creatinine of 2.2
Presented with acute on chronic metabolic acidosis
Creatinine plateaued at 4.0 with IV hydration and bicarbonate support.
Ongoing workup with serology pending.
Noted decreased C3 with normal C4
Urine protein creatinine ratio 3.8 consistent with nephrotic range proteinuria
UA noted with excessive WBC and microhematuria.
Serology relevant for significant elevation of HONORIO/AMA with mildly depressed C3.
Interestingly enough with negative msyf-vwlylw-mceudxon DNA antibodies although with clinical presentation of rash and alopecia above could be related to lupus nephritis.
Initiated on renal replacement therapy
Will need outpatient rheumatology follow-up
Patient agreed for renal biopsy sunday. Monitor closely post op as w/thrombocytopenia for bleeding.
Thrombocytopenia
Heparin stopped
HIT antibody negative
Platelet count recovering
Monitor close
Episode of fever overnight 08/12 - 08/13
No specific complaints.
Just completed course of antibiotics for left lower lobe pneumonia
Follow-up chest x-ray with no focal infiltrates
Blood cultures pending
Monitor closely, low threshold for antibiotic reinstatement if recurrent fever.
Hypocalcemia/hypoalbuminemia
Monitor and replete
Anemia with microcytosis, chronic with no evidence of acute blood loss baseline
Transfused 1 unit of packed red blood cells with appropriate pickup and hemoglobin level
Monitor hemoglobin at 7.5.
Acute hypoxic respiratory insufficiency
Chest x-ray with left lower lobe infiltrate.
Repeat chest x-ray 08/05 with improved left lower lobe
Concern for aspiration
Speech and swallow evaluation, ongoing. Patient declined to be asleep
Initiated empirically on Unasyn. Completed course of antibiotics through 08/09
Metabolic encephalopathy. Prior history of intracranial hemorrhage.
Hypothyroidism, undertreated. Presented with sinus bradycardia. Suspect medication noncompliance.
TSH 48.3.
Resumed last known levothyroxine dose.
Monitor for recurrent bradycardia.
Abnormal urinalysis.
Urine culture consistent with contaminant
Abnormal LFTs with mild elevation of ALT/AST. Normal bilirubin. Monitor closely. Consider additional imaging.
Severe protein calorie malnutrition patient is malnourished and have poor oral intake
Initiated on Remeron for appetite stimulation.
Essential hypertension.
Hold metoprolol with bradycardia and marginal BP
History of right-sided hemorrhagic CVA/craniotomy.
Patient with chronic behavioral changes/dementia.
DVT ppx-scds in setting of anemia/right-sided hemorrhagic CVA/craniotomy/thrombocytopenia
PT/OT-home health on dc
d/w with patient and patient's Dewey
I spent a total of 37 minutes with the patient or on the floor. More than 50% of this time involved counseling and coordination of care.
Anticipated Discharge: 24 - 48 hours
Subjective/Interval History
-
Date of Service: August 18, 2024
Objective Data
-
Labs:
Laboratory Results
08/18/24
07:42
Hgb 7.9 L
Hct 25.5 L
PT 15.3 H
INR 1.16
Sodium 143
Potassium 3.7
Chloride 116 H
Carbon Dioxide 19 L
BUN 22 H
Creatinine 2.7 H
Glucose 79
Calcium 7.3 L
Vital Signs:
Vital Signs
Temp Pulse Resp BP Pulse Ox
98.4 F 81 25 133/77 93
08/18/24 12:00 08/18/24 12:15 08/18/24 12:15 08/18/24 12:15 08/18/24 12:15
I&O
08/17/24 08/18/24 08/19/24
06:59 06:59 06:59
Intake Total 1919 1140 / 1140
Balance 1919 1140 / 1140
Physical Exam
-
General: No Apparent Distress, Appears Chronically Ill and Other (looks older than stated age)
HEENT: Normocephalic, Atraumatic and Moist Mucous Membranes
Respiratory: Clear to Auscultation
Cardiac: Regular Rhythm and S1/S2; Negative Murmur, Rub or Gallop
GI: Soft, Nontender, Nondistended and Normal Bowel Sounds; Negative Organomegaly
Rectal: Deferred by Provider
Musculoskeletal: No Clubbing, No Cyanosis and No Edema
Skin: Negative Rash
Neuro: Awake and Nonfocal/Grossly Intact
Psych: Calm
[2024-08-18 19:55] LABS: Hematocrit 23.9 % (37.0-47.0); Hemoglobin 7.7 g/dL (12.0-16.0)
[2024-08-18] MEDS: REMERON 15 MG PO (22:51)
[2024-08-19 06:00] VITALS: BMI 14.9
[2024-08-19] MEDS: SYNTHROID 50 MCG PO (06:15)
[2024-08-19] MEDS: TYLENOL 650 MG PO ×2 (06:19→16:30)
[2024-08-19 07:30] VITALS: BP 105/68
[2024-08-19] MEDS: VITAMIN B-12 1000 MCG PO (09:06)
[2024-08-19] MEDS: ROCALTROL 0.5 MCG PO (09:06)
[2024-08-19] MEDS: SODIUM BICARBONATE 650 MG PO ×2 (09:07→16:30)
[2024-08-19] MEDS: VITAMIN D3 (cholecalciferol) 25 MCG PO (09:07)
[2024-08-19] MEDS: FOLVITE 1 MG PO (09:07)
[2024-08-19] MEDS: VITAMIN B-6 25 MG PO (09:07)
[2024-08-19] MEDS: PROTONIX 40 MG PO (09:07)
[2024-08-19] MEDS: ZOLOFT 25 MG PO (09:07)
[2024-08-19] MEDS: OSCAL 500 + D 1000 MG PO ×2 (09:07→16:30)
[2024-08-19] MEDS: THIAMINE INJECTION 100 MG IV (09:08)
[2024-08-19] MEDS: HYDROPHOR 1 APPLIC TOPICAL (09:09)
--- NOTE | 2024-08-19 14:30 | CM ---
Addendum entered by Obinna You 08/19/24 15:15:
CM spoke to corporate relations manager Imelda [phone] x [phone] and she is aware that pt will be discharged today and tomorrow pt will report to [facility] on [facility] for her first outpatient HD treatment.
Addendum entered by Obinna You 08/19/24 15:00:
Per PT and RN pt will be discharged home today.
PT to issue a walker.
Pt is aware, expressed her agreement. IMM reviewed, placed on chart, pt has a copy.
Pt stated her took already all her belongings home and he will come to transport her home.
Pt is aware she will start an outpatient HD treatment at [facility] on [facility] tomorrow Sunday05/23/24 and she is aware to come to out[patient HD treatment center 30 minutes earlier. Dialysis days: MWF, chair time 12:15
p.m. to transport. [place] [facility] [place]
Please fax discharge instructions to [facility] at [phone]
D/C plan: Home with [facility], outpatient HD treatment at [facility] on [facility] and support. to transport.
Original Note:
CM following re: discharge planning.
Reviewed pt's chart, met with pt.
[facility] liaison following.
Pt will start an outpatient HD treatment at [facility] when discharged. Dialysis days: MWF, chair time 12:15 p.m. to transport.
D/C plan: Home with [facility], outpatient HD treatment at [facility] on [facility] and support.
CM will follow with discharge plan updates as hospitalization progresses
[2024-08-19 15:10] VITALS: BP 126/69
--- NOTE | 2024-08-19 15:32 | W.PN.NEPH.PH ---
Today's Communication / Plan
-
d/c plan
Assessment/Plan
-
Assessment
Failure to thrive
Weight loss
JOCELYN, CKD4-baseline cr 2.2 (05/27)/creatinine 1.7 as far back as 2015
Metabolic acidosis
Hypocalcemia
Hypothyroidism (under treated)
Elevated LFTs chronic
Anemia
Thrombocytopenia, negative HIT
Nephrotic range proteinuria
Plan
HD tomorrow
s/p K biopsy on 08/18
hb stable
Continues to have poor appetite
Accepted to [facility]
she is adamant to be discharged, no objection from renal stand point
-
-
Date of Service: August 19, 2024
CC / HPI / ROS
-
Chief Complaint:
JOCELYN on chronic kidney disease
History of Present Illness:
JOCELYN/Cr now on dialysis,
Hgb low 7.7 but stable
Platelet count in creased to 120
po intake poor
nonoliguric
Review of Systems:
no CP/SOB
wants go home
Labs
-
Labs:
WBC 5.5 10^3/uL (4.8-10.8) 08/16/24 06:44
RBC 2.34 10^6/uL (4.20-5.40) L 08/16/24 06:44
Hgb 7.7 g/dL (12.0-16.0) L 08/18/24 18:37
Hct 23.9 % (37.0-47.0) L 08/18/24 18:37
Plt Count 120 10^3/uL (130-400) L 08/16/24 06:44
Sodium 143 mmol/L (135-145) 08/18/24 07:42
Potassium 3.7 mmol/L (3.5-5.1) 08/18/24 07:42
Chloride 116 mmol/L (98-107) H 08/18/24 07:42
Carbon Dioxide 19 mmol/L (22-30) L 08/18/24 07:42
BUN 22 mg/dl (7-17) H 08/18/24 07:42
Creatinine 2.7 mg/dL (0.6-1.0) H 08/18/24 07:42
eGFR 19.10 08/18/24 07:42
Glucose 79 mg/dl (70-99) 08/18/24 07:42
Calcium 7.3 mg/dl (8.4-10.2) L 08/18/24 07:42
Phosphorus 3.4 mg/dl (2.5-4.5) 08/10/24 05:13
Albumin 2.7 g/dl (3.5-5.0) L 08/05/24 06:34
Physical Exam
-
Vital Signs:
Vital Signs
Temp Pulse Resp BP Pulse Ox
99.0 F 93 16 105/68 93
08/19/24 07:30 08/19/24 07:30 08/19/24 07:30 08/19/24 07:30 08/19/24 07:30
Lung Excursion:: Normal
[place] Catheter: No
Other Findings::
no distress
noo edema
neuro-alert Ox4
not cooperative to be examined today
--- NOTE | 2024-08-19 15:58 | W.DS.TRANS ---
DC Summary - Comptroller
-
Discharge Instructions:
Discharge Diagnosis/Procedures JOCELYN/CKD requiring HD initiation and pending
renal biopsy report
Diet Regular
Instructions:
Stand-Alone Forms:
Changes to Home Medications: Yes
Discharge Medications:
DC Medications w/original date entered in [employer]
acetaminophen 325 mg tablet 650 mg (2 x 325 mg) PO Q4HPRN PRN fever pain ##0 10/16/14
metoprolol succinate 25 mg tablet,extended release 24 hr 12.5 mg (1/2 x 25 mg) PO DAILY ##30 10/16/14
cyanocobalamin (vitamin B-12) 1,000 mcg tablet 1,000 mcg PO DAILY Supplement 04/30/24
folic acid 1 mg tablet 1 mg PO DAILY Supplement 04/30/24
magnesium oxide 400 mg PO DAILY Supplement 04/30/24
potassium 99 mg tablet 99 mg PO DAILY Electrolyte Repletion 04/30/24
pyridoxine (vitamin B6) 25 mg tablet 25 mg PO DAILY Supplement 04/30/24
calcium 500 mg (as carbonate)-vitamin D3 5 mcg (200 unit) tablet (Oyster Shell Calcium-Vitamin D3) 1 tab PO TID 30 days #30 tabs 05/06/24
cholecalciferol (vitamin D3) 25 mcg (1,000 unit) tablet 25 mcg PO DAILY Vitamin D Deficiency #30 tabs 05/06/24
levothyroxine 50 mcg tablet 50 mcg PO DAILY @ 0600 Hypothyroidism #14 tabs 05/06/24
pantoprazole 40 mg tablet,delayed release 40 mg PO DAILY #14 tabs 05/06/24
sertraline 25 mg tablet 25 mg PO DAILY Depression #30 tabs 05/06/24
triamcinolone acetonide 0.1 % topical ointment 1 applic topical TID Rash #1 tube 05/06/24
hydrocortisone 2.5 % topical cream 1 applic topical BID 08/06/24
calcitriol 0.25 mcg capsule 0.5 mcg (2 x 0.25 mcg) PO DAILY #30 caps 08/19/24
mirtazapine 15 mg tablet 15 mg PO HS #30 tabs 08/19/24
sodium bicarbonate 650 mg tablet 650 mg PO TID #90 tabs 08/19/24
Home Medication Changes
Calcitriol, Remeron, sodium bicarbonate.
Pending Results: Yes
Additional Pending Results:
renal biopsy path
== END 2024-08-19 17:37 | disposition home health service (06) | DRG 673 ==
LOC: 2 NORTH 02:39
PROVIDERS: Hospitalist; Internal Medicine; Internal Medicine Nephrology; Nurse Practitioner Family; Physician Assistant; Radiology Diagnostic Radiology; Radiology Vascular & Interventional Radiology; Specialist; ADMITTING PHYSICIAN Internal Medicine; ATTENDING PHYSICIAN Internal Medicine; CONSULT PHYSICIAN Specialist; EMERGENCY PHYSICIAN Student in an Organized Health Care Education/Training Program; FAMILY PHYSICIAN Family Medicine
PROC: 30233N1 Transfusion of Nonautologous Red Blood Cells into Peripheral Vein, Percutaneous Approach (ICD-10-PCS; 2024-07-31)
PROC: 02H633Z Insertion of Infusion Device into Right Atrium, Percutaneous Approach (ICD-10-PCS; 2024-08-11)
PROC: 0JH60XZ Insertion of Tunneled Vascular Access Device into Chest Subcutaneous Tissue and Fascia, Open Approach (ICD-10-PCS; 2024-08-11)
PROC: 5A1D70Z Performance of Urinary Filtration, Intermittent, Less than 6 Hours Per Day (ICD-10-PCS; 2024-08-11)
PROC: 0TB03ZX Excision of Right Kidney, Percutaneous Approach, Diagnostic (ICD-10-PCS; 2024-08-18)
DX: N17.9 Acute kidney failure, unspecified (principal); E43 Unspecified severe protein-calorie malnutrition; J69.0 Pneumonitis due to inhalation of food and vomit; G93.41 Metabolic encephalopathy; E87.20 Acidosis, unspecified; Z68.1 Body mass index [BMI] 19.9 or less, adult; N18.4 Chronic kidney disease, stage 4 (severe); D63.1 Anemia in chronic kidney disease; I12.9 Hypertensive chronic kidney disease with stage 1 through stage 4 chronic kidney disease, or unspecified chronic kidney disease; R09.02 Hypoxemia; E03.9 Hypothyroidism, unspecified; D69.6 Thrombocytopenia, unspecified; R62.7 Adult failure to thrive; M32.14 Glomerular disease in systemic lupus erythematosus; F32.A Depression, unspecified; F41.9 Anxiety disorder, unspecified; E86.1 Hypovolemia; E83.51 Hypocalcemia; D53.9 Nutritional anemia, unspecified; Z66 Do not resuscitate; I95.9 Hypotension, unspecified; L65.9 Nonscarring hair loss, unspecified; R74.01 Elevation of levels of liver transaminase levels; K21.9 Gastro-esophageal reflux disease without esophagitis; R79.89 Other specified abnormal findings of blood chemistry; R82.998 Other abnormal findings in urine; G89.29 Other chronic pain; M54.50 Low back pain, unspecified; F17.200 Nicotine dependence, unspecified, uncomplicated; Z11.52 Encounter for screening for COVID-19; Z91.148 Patient's other noncompliance with medication regimen for other reason; Z86.73 Personal history of transient ischemic attack (TIA), and cerebral infarction without residual deficits
CPT/HCPCS: 36558; 50200; 71045; 71046; 72110; 74176; 76937; 76942; 77001; 80048; 80053; 81003; 81015; 82040; 82306; 82330; 82533; 82570; 82607; 82728; 82746; 82805; 83010; 83516; 83540; 83550; 83605; 83615; 83735; 83970; 84100; 84134; 84156; 84439; 84443; 84484; 85014; 85018; 85025; 85027; 85045; 85610; 86022; 86038; 86039; 86063; 86160; 86225; 86255; 86704; 86706; 86803; 86850; 86900; 86901; 86920; 87040; 87086; 87340; 87502; 87811; 88305; 92526; 92610; 93005; 94640; 96361; 96365; 96375; 97116; 97163; 97167; 97530; 97535; 99152; 99153; 99285; C1750; G0257; P9016; P9047; Q5106

== ENCOUNTER 2024-10-30 06:05 | Inpatient (IN) | payer OTHER, SELFPAY ==
[2024-10-30] VITALS (27 sets, daily range): BP systolic 84–141; BP diastolic 47–91; BMI 15.3
[2024-10-30] MEDS: TYLENOL 650 MG PO ×3 (03:16→18:18)
--- NOTE | 2024-10-30 03:28 | ED.GENMED ---
History of Present Illness
General
Chief Complaint: Fever
Source: patient, spouse and previous hospital records (Previous hospitalization May as well as July of this year.)
Exam Limitations: none
Time Seen by Provider: 10/30/24 03:15
History of Present Illness
History of Present Illness:
The patient is a 63-year-old female with history of chronic kidney disease, now dialysis dependent for the past month. She has history of severe protein calorie malnutrition, hypertension, metabolic acidosis, anemia of chronic disease,
hypothyroidism, depression who has been hospitalized here May as well as July of this year for progressive generalized weakness, progressive kidney disease, progressive weight loss/protein calorie malnutrition, metabolic acidosis.
She presents tonight with a fever that began this evening, T max 103, along with a cough. She notes somewhat chronic cough which she relates to smoking. Nonproductive. She denies experiencing shortness of breath, nausea, or any recent episodes of
diarrhea. She reports starting dialysis approximately one month ago on a Sunday, Sunday, Sunday schedule, after a kidney biopsy during hospitalization in July raised suspicion for lupus nephritis, though conclusive results have not been obtained
as per . The patient continues to produce urine without dysuria or history of urinary tract infections. She has a persistent generalized rash for nearly two years, which has not been diagnosed despite dermatological consultations and
biopsies. Additionally, the patient has experienced significant hair loss on her head.
Past History
Past History
ED Past Medical History: CVA (Remote history of hemorrhagic CVA), HTN, Renal failure (Dialysis dependent), Hypothyroidism, Psychiatric and Other (Severe protein calorie malnutrition)
ED Past Surgical History: Brain (Craniotomy/ventriculostomy 2015), and Other (Dialysis catheter right chest)
Social History
Tobacco: Smoker
Alcohol: Occasional
Drug: None
Personal:
Living: with family
Employment: Not employed
Family History
Family History: Unable to obtain
Phy Exam
Physical Exam
Physical Exam:
GENERAL: 63-year-old woman chronically ill and appearing, cachectic, dry mucous membranes. is accompanying.
EYE: pupils equal and reactive. anicteric
NECK: Supple, nontender, no meningismus, no significant adenopathy.
ENT: posterior pharynx is clear, oral mucosa is dry. No rhinorrhea.
CARDIAC: Regular rhythm. Tachycardic, no murmur. Dialysis catheter right chest wall.
LUNGS: Mild resting tachypnea, intermittent moist nonproductive cough is noted, decreased breath sounds left base.
ABDOMEN: Soft, nondistended, without focal tenderness, no r/g, no cvat. normoactive BS.
NEUROLOGICAL: Alert and oriented x3, no focal neuro deficits.
SKIN: Hot to touch and dry, normal color, diffuse/generalized scaly erythematous plaques.
MUSCULOSKELETAL: No C/C/E. peripheral pulses are full and equal b/l. No palpable tenderness.
PSYCH: Normal and appropriate interaction.
Sepsis
Sepsis Screening
Sepsis Assessment: Sepsis
Sepsis Screening: Lactate >2mmol/L and Hypotension
Sepsis Screen
Sepsis Screen: Sepsis
Date: 10/30/24
Time: 04:34
Course
Orders/Labs/Results
Orders:
Orders
10/30/24 03:14
Acetaminophen [Tylenol] 650 mg .ROUTE .STK-MED ONE
10/30/24 03:15
Acetaminophen [Tylenol] 650 mg PO NOW STA
10/30/24 03:21
Electrocardiogram (*1) Urgent
Reason for Study: Other
Other Reason for Exam: Possible Sepsis
Cardiac Monitoring- Treatment ONCE
EKG- Treatment ONCE
IV Insert/Care/Rem.- Treatment PRN
Urinalysis Reflex To Culture Urgent
Date Specimen was Collected: 10/30/24
Time Specimen was Collected: 03:21
10/30/24 03:29
0.9% Sodium Chloride 500 ml [Nss] 500 ml IV BOLUS
CR Chest Portable - 1 View Urgent
Comment:
Reason For Exam: COUGH, FEVER
Reason Study Needs to be Portable: Patient Unstable
10/30/24 03:30
Vancomycin 1 Gram/200 ml [Vancocin] 1 gram in 200 ml IV NOW
10/30/24 03:34
COVID-19 Antigen Urgent
Source: Nasal Swab
Complete Blood Count/With Diff Urgent
Comprehensive Metabolic Panel Urgent
Lactic Acid Q4H
Comment: ON ICE, CANCEL 2ND ORDER IF FIRST LACTIC ACID LEVEL <2
Blood Culture Q20M
NEETU Source: Blood/Venous
Specimen Description:
Comment: Urgent from separate sites. If patient screens positive for possible sepsis
Influenza A+B Rapid Molecular Urgent
NEETU Source: Nasal Swab
Specimen Description:
10/30/24 03:57
Blood Culture Q20M
NEETU Source: Blood/Venous
Specimen Description:
Comment: Urgent from separate sites. If patient screens positive for possible sepsis
10/30/24 04:19
Piperacillin/Tazo 2.25 Gram [Zosyn] 2.25 grams in 50 ml IV NOW
10/30/24 04:22
0.9% Sodium Chloride 500 ml [Nss] 500 ml IV BOLUS
10/30/24 07:30
Lactic Acid Q4H
Comment: ON ICE, CANCEL 2ND ORDER IF FIRST LACTIC ACID LEVEL <2
Abnormal Lab Results
10/30/24
03:34
WBC 14.6 H 10^3/uL
(4.8-10.8)
RBC 4.11 L 10^6/uL
(4.20-5.40)
MCV 102.2 H fL
(81.0-99.0)
MCH 32.8 H pg
(27.0-31.0)
MCHC 32.1 L g/dL
(33.0-37.0)
Plt Count 110 L 10^3/uL
(130-400)
MPV 11.8 H fL
(7.4-10.4)
Abs Immat Gran (auto) 0.1 H 10^3/uL
(0-0.05)
Absolute Neuts (auto) 12.4 H 10^3/uL
(1.4-6.5)
Absolute Lymphs (auto) 0.4 L 10^3/uL
(1.2-3.4)
Absolute Monos (auto) 1.6 H 10^3/uL
(0.1-0.6)
Immature Gran % 1.0 H %
(0-0.5)
Neutrophils % 84.9 H %
(42.2-75.2)
Lymphocytes % 2.7 L %
(20.5-51.1)
Monocytes % 11.2 H %
(1.7-9.3)
Creatinine 2.0 H mg/dL
(0.6-1.0)
Lactic Acid 2.8 H mmol/L
(0.7-2.0)
Calcium 7.7 L mg/dl
(8.4-10.2)
AST 50 H U/L
(14-36)
ALT 76 H U/L
(0-35)
Alkaline Phosphatase 276 H U/L
(38-126)
10/30/24 03:34
10/30/24 03:34
Vital Signs
Initial and Last Documented VS:
Initial Vital Signs
Temp Pulse Resp BP Pulse Ox
100.4 F H 164 20 108/70 94
10/30/24 02:41 10/30/24 02:41 10/30/24 02:41 10/30/24 02:41 10/30/24 02:41
Last Documented Vital Signs
Temp Pulse Resp BP Pulse Ox
104.0 F H 145 30 98/62 95
10/30/24 03:09 10/30/24 03:21 10/30/24 03:21 10/30/24 03:21 10/30/24 03:29
MDM/Problems Addressed
Differential Diagnosis Includes:
The Differential Diagnosis includes, in no particular order and is not limited to:
1. Infection (e.g., pneumonia, urinary tract infection)
2. Lupus nephritis exacerbation
3. Medication-induced fever
4. Viral infection
5. Hemodynamic instability secondary to dialysis
6. Autoimmune disorders other than lupus
7. Dermatological conditions (e.g., drug reaction, dermatitis)
8. Sepsis
9. Connective tissue disease.
Chronic conditions affecting care: Kidney disease
*Radiology
Radiology exam reviewed: preliminary read by ED provider (Chest x-ray shows chronic hyperinflation, I suspect a bit of chronic scarring left lower lobe. No definitive infiltrate. No CHF.)
*Pulse Oximetry
SaO2: 95
Oxygen Mode of Delivery: Room air
Patient hypoxic: no
*EKG
Interpreted by ED Provider?: Yes
Interpretation: abnormal
Rate: tachycardiac
Rhythm: sinus
[place]: normal axis
Interval: normal interval
QRS Pattern: normal QRS
Ischemia: no ischemia
*Patrol Lady Interpretation
Rate: tachycardiac
Interpretation: abnormal
Rhythm: sinus
*Critical Care Note
Total Time (30-74mins, 75-104mins- exclusive of procedures): 40
comment:
Critical care statement: A total of 40 minutes of critical care time was provided for this patient. This includes management of unstable vital signs, evaluation of the patient at bedside, reviewing the patient's pertinent medical records, discussion
with consultants, review of old EKGs and review of pertinent medical records. This time with separate from time utilized to perform the aforementioned documented procedures
Update Note
Update Note:
04:30
Blood pressure responding well to IV fluids.
She remains somewhat tachycardic but blood pressure has improved.
Chest x-ray shows hyperinflation but no definitive infiltrate. COVID and flu testing are negative.
White blood cell count elevated at 14.6.
Hemoglobin 13.5 for appears patient's baseline is in the sevens. I suspect a significant element of hemoconcentration/dehydration.
Creatinine of 2.0, at her baseline. Normal electrolytes.
Lactic acid elevated at 2.8.
Mildly elevated LFTs, similar to previous. Patient continues to have no abdominal pain and abdomen is soft without appreciable tenderness.
Mild hypokalemia at 7.7, improved from previous.
Awaiting urinalysis.
Due to significant concern for sepsis, bacteremia patient has been empirically started on broad-spectrum antibiotics with Zosyn and vancomycin.
Thus far has not required pressor support but will monitor closely.
Will admit to hospitalist service.
ED Attending Note
-
Portions of this chart may have been created with voice recognition software.� Occasional wrong word or��sound alike� substitutions may have occurred due to the inherent limitations of voice recognition software.
Discharge Plan
Departure
Patient Disposition: Admit
Date of Disposition: 10/30/24
Time of Disposition: 04:37
Admit to: IMU
Admit to doctor: Ari
Presentation/result/management discussed w/ accepting MD/DO: Hospitalist
Condition: Serious
Discharge Problem:
Sepsis, End-stage renal disease, dialysis depend
Prescriptions:
No Action
pyridoxine (vitamin B6) 25 mg Tablet
25 mg PO DAILY
cyanocobalamin (vitamin B-12) 1,000 mcg Tablet
1,000 mcg PO DAILY
potassium 99 mg Tablet
99 mg PO DAILY
folic acid 1 mg Tablet
1 mg PO DAILY
magnesium oxide 400 mg magnesium Tablet
400 mg PO DAILY
pantoprazole 40 mg Tablet,Delayed Release (Dr/Ec)
40 mg PO DAILY Qty: 14 0RF
triamcinolone acetonide 0.1 % Ointment
1 applic topical TID Qty: 1 0RF
sertraline 25 mg Tablet
25 mg PO DAILY Qty: 30 0RF
cholecalciferol (vitamin D3) 25 mcg (1,000 unit) Tablet
25 mcg PO DAILY Qty: 30 0RF
levothyroxine 50 mcg Tablet
50 mcg PO DAILY @ 0600 Qty: 14 0RF
calcium carbonate-vitamin D3 [Oyster Shell Calcium-Vit D3] 500 mg-5 mcg (200 unit) Tablet
1 tab PO TID 30 Days Qty: 30 0RF
hydrocortisone 2.5 % Cream
1 applic TOPICAL BID
sodium bicarbonate 650 mg Tablet
650 mg PO TID Qty: 90 0RF
mirtazapine 15 mg Tablet
15 mg PO HS Qty: 30 0RF
calcitriol 0.25 mcg Capsule
0.5 mcg PO DAILY Qty: 30 0RF
acetaminophen 325 MG tablet
650 mg PO Q4HPRN PRN (Reason: fever pain) Qty: 0 0RF
metoprolol succinate 12.5 MG tablet extended release 24 hr
12.5 mg PO DAILY Qty: 30 3RF
Referrals:
Dewey Manzo MD [Family Provider, Family Practice]
Interventions
Interventions:
*Risk Screen - Suicide Last Done: 10/30/24 03:27
*General Assessment Last Done: 10/30/24 03:22
*ED- Fall Risk Assessment Last Done: 10/30/24 03:22
*ED COVID-19 Vaccine History Last Done: 10/30/24 03:22
ED- Neurological Assessment Last Done: 10/30/24 03:05
ED-Skin Assessment Last Done: 10/30/24 03:05
Discharge Date and Time
Print Language: KHMER
[2024-10-30] MEDS: NSS 500 IV ×2 (03:40→04:35)
[2024-10-30 04:00] LABS: Hematocrit 42.0 % (37.0-47.0); Hemoglobin 13.5 g/dL (12.0-16.0); Mean Corp Hgb Conc. 32.1 g/dL (33.0-37.0); Mean Corpuscular Volume 102.2 fL (81.0-99.0); Nucleated Red Blood Cells % 0 %; Platelet Count 110 10^3/uL (130-400); Red Cell Dist. Width 14.4 % (11.5-14.5)
[2024-10-30 04:02] LABS: ALT (SGPT) 76 U/L (0-35); AST (SGOT) 50 U/L (14-36); Albumin 3.8 g/dl (3.5-5.0); Alkaline Phosphatase 276 U/L (38-126); Blood Urea Nitrogen 16 mg/dl (7-17); COVID-19 Antigen Negative (Negative); Calcium 7.7 mg/dl (8.4-10.2); Carbon Dioxide 23 mmol/L (22-30); Chloride 102 mmol/L (98-107); Glucose 89 mg/dl (70-99); Potassium 3.8 mmol/L (3.5-5.1); Sodium 135 mmol/L (135-145); Total Protein 7.4 g/dl (6.3-8.2); eGFR 27.38
[2024-10-30] MEDS: VANCOCIN 200 IV (04:04)
--- NOTE | 2024-10-30 05:41 | HPS.HSE ---
Family Physician
-
Family Physician: Dewey Manzo
Chief Complaint
-
Fever
History of Present Illness
Patient is a 63y F with PMH significant for alopecia, chronic rash / skin changes and recent ESRD on HD who presents to ED complaining of fever. Patient states that she was sleeping this evening when her woke her and stated that she felt
very warm. She had a fever at home and was brought to the ED for further evaluation. Tmax here so far is 104. Patient reports chronic cough that is occasionally productive - no recent / significant changes. She denies any abdominal pain, N/V/D.
She produces urine and denies any dysuria, flank pain, etc.
She has chronic skin changes / rash and alopecia. She denies any new / open wounds, evident infection, etc.
Patient was last admitted to in July of this year with JOCELYN and metabolic acidosis. She required initiation of dialysis at that time.
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
Patient states that she still has no formal unifying diagnosis for her symptoms, but she was started on prednisone since her last admission here. She is not certain of the dose and has not noted any effects thus far.
Medical History
Past Medical History
Past Medical History: Reports Other
Additional Past Medical History:
ESRD on HD
Metabolic Acidosis
Hypothyroidism
Chronic Skin Changes / Alopecia
Malnutrition / Weight Loss
Anemia of Chronic Disease
Hypertension
Intracranial Hemorrhage (2014)
Past Surgical History: Reports Other
Additional Past Surgical History:
Renal Biopsy
R IJ Tunneled HD Catheter
Craniectomy / Ventriculostomy
Social History
Tobacco: Non-smoker
Alcohol: None
Drug: None
Family History
Family History: Not pertinent
Allergies / Home Medications
Allergies reflects when Allergies were last updated in [employer].
Home Medications with original date entered in [employer]
Allergy/Medication List:
Allergies
Allergy/AdvReac Type Severity Reaction Status Date / Time
No Known Allergies Allergy Verified 10/30/24 02:44
Home Medications
acetaminophen 325 mg tablet 650 mg (2 x 325 mg) PO Q4HPRN PRN fever pain ##0 10/16/14
metoprolol succinate 25 mg tablet,extended release 24 hr 12.5 mg (1/2 x 25 mg) PO DAILY ##30 10/16/14
cyanocobalamin (vitamin B-12) 1,000 mcg tablet 1,000 mcg PO DAILY Supplement 04/30/24
folic acid 1 mg tablet 1 mg PO DAILY Supplement 04/30/24
magnesium oxide 400 mg PO DAILY Supplement 04/30/24
potassium 99 mg tablet 99 mg PO DAILY Electrolyte Repletion 04/30/24
pyridoxine (vitamin B6) 25 mg tablet 25 mg PO DAILY Supplement 04/30/24
calcium 500 mg (as carbonate)-vitamin D3 5 mcg (200 unit) tablet (Oyster Shell Calcium-Vitamin D3) 1 tab PO TID 30 days #30 tabs 05/06/24
cholecalciferol (vitamin D3) 25 mcg (1,000 unit) tablet 25 mcg PO DAILY Vitamin D Deficiency #30 tabs 05/06/24
levothyroxine 50 mcg tablet 50 mcg PO DAILY @ 0600 Hypothyroidism #14 tabs 05/06/24
pantoprazole 40 mg tablet,delayed release 40 mg PO DAILY #14 tabs 05/06/24
sertraline 25 mg tablet 25 mg PO DAILY Depression #30 tabs 05/06/24
triamcinolone acetonide 0.1 % topical ointment 1 applic topical TID Rash #1 tube 05/06/24
hydrocortisone 2.5 % topical cream 1 applic topical BID 08/06/24
calcitriol 0.25 mcg capsule 0.5 mcg (2 x 0.25 mcg) PO DAILY #30 caps 08/19/24
mirtazapine 15 mg tablet 15 mg PO HS #30 tabs 08/19/24
sodium bicarbonate 650 mg tablet 650 mg PO TID #90 tabs 08/19/24
Review of Systems
-
History Source: Patient
A 12 point ROS was completed and negative except as noted: Yes
Constitutional: Reports Fever, Weight Loss and Fatigue; Denies Chills
EENT: Denies Sore Throat
Respiratory: Reports Cough; Denies Trouble Breathing
Cardiac: Denies Chest Pain or Palpitations
Abdomen/GI: Denies Abdominal Pain, Nausea, Vomiting or Diarrhea
: Denies Dysuria, Frequency or Flank Pain
Musculoskeletal: Denies Joint Pain or Edema
Skin: Reports Itching, Rash and Other (hair loss)
Neurological: Denies Dizzy or Headache
Psych: Reports Depression
Physical Exam
Vital Signs
Vital Signs
Temp Pulse Resp BP Pulse Ox
104.0 F H 124 23 96/61 98
10/30/24 03:09 10/30/24 05:15 10/30/24 05:15 10/30/24 05:15 10/30/24 05:15
Physical Exam
General: Other (Chronically ill-appearing 63y F in no acute distress. Depressed / obviously frustrated with her situation.)
HEENT: Other (Dry MM. Neck supple.)
Respiratory: Clear; No Wheezes, Rales or Rhonchi
Cardiac: S1/S2 and Tachycardia; No Murmur
GI: Soft, Non Tender, Non Distended and Normal Bowel Sounds
Musculoskeletal: No Clubbing, No Cyanosis and No Edema
Skin: Other (Diffuse erythema, dry skin with few areas of superficial breakdown / excoriation. No gross wound / abscess / etc.)
Neuro: AO x 3 and Nonfocal/grossly intact
Hematologic/Lymphatic: Other (R IJ HD cath site OK.)
Psych: Depressed
Laboratory Results
-
10/30/24 03:34
10/30/24 03:34
Laboratory Results
Lactic Acid 2.8 mmol/L (0.7-2.0) H 10/30/24 03:34
Total Bilirubin 0.7 mg/dl (0.2-1.3) 10/30/24 03:34
AST 50 U/L (14-36) H 10/30/24 03:34
ALT 76 U/L (0-35) H 10/30/24 03:34
Alkaline Phosphatase 276 U/L (38-126) H 10/30/24 03:34
Impression/Plan
-
A/P: Patient is a 63y F with PMH significant for new ESRD on HD, chronic skin changes / weight loss and hypothyroidism who presents to ED for evaluation of fever at home.
Fever / Sepsis
LLL Pneumonia
Acute Hypoxemic Respiratory Failure secondary to the above
- Admit for further evaluation and treatment.
- ? L base infiltrate on CXR and cough noted during exam (though patient states this is chronic).
- SpO2 in the ED as low as 83% on room air. Acceptable at present on supplemental O2.
- Patient presents with fever to 104, leukocytosis, tachycardia and tachypnea.
- Continue Zosyn - renally dosed.
- Follow fever curve, follow-up culture data.
- IVF support overnight as patient appears volume depleted.
- Follow for new symptoms /clinical improvement.
ESRD on HD
- Stable. Renal function better than prior baseline and acidosis improved on HD.
- Receiving HD -.
- Nephrology evaluation for HD needs during acute stay.
- Biopsy results from prior admission reviewed.
Rash / Skin Changes / Alopecia
- Seems clear there is some unifying syndrome / autoimmune process / etc underlying her many issues.
- Extensive evaluation thus far has apparently been unsuccessful.
- Patient started on prednisone since her prior visit here - no clinical effects as of yet.
- Will hold this for now given A) acute infection / sepsis and B) pending dose clarification from pharmacy.
- Follow-up with Rheumatology, etc following discharge.
Severe Protein Calorie Malnutrition
- Weight fairly stable from prior admission.
- Dietary evaluation / input.
Hypothyroidism
- Previously under-treated. Suspected non-compliance during prior visit.
- Update TFTs. Adjust dose if needed.
History of Hemorrhagic CVA / Craniectomy / Ventriculostomy
- Stable. No new focal deficits.
DVT Prophylaxis: Subcut Heparin
Code Status: No intubation. CPR OK.
[2024-10-30] MEDS: ZOSYN 50 IV (05:48)
[2024-10-30 05:55] LABS: Urine Character Clear (Clear)
[2024-10-30] MEDS: SYNTHROID 50 MCG PO (06:31)
[2024-10-30] MEDS: NSS 1000 IV ×2 (06:31→15:52)
[2024-10-30] MEDS: FLUSH (NSS) 1 FLUSH IV (06:32)
[2024-10-30 06:45] LABS: Urine Squamous Cell >30 /LPF (Few)
[2024-10-30 06:46] LABS: Urine Red Blood Cell None Seen /HPF (0-2)
[2024-10-30] MEDS: TOPROL XL PO (08:29)
[2024-10-30] MEDS: HEPARIN 5000 UNITS SC ×2 (09:30→20:58)
[2024-10-30] MEDS: ZOLOFT 25 MG PO (09:37)
--- NOTE | 2024-10-30 10:27 | CON.ID ---
Consultation
-
Date/Time Consultation Requested: October 30, 2024 0615
Date/Time Consultation Performed: October 30, 2024 1030
Requesting Provider: Dr. Enrrique Chapman
Performing Provider: Dr. Anne Rawls
Reason for Consultation: Fever
Chief Complaint / Past History
Chief Complaint
Fever
History of Present Illness
63 year old female with hypothyroidism, failure to thrive, weight loss, diffuse pruritic rash since April 2024 of unclear etiology, JOCELYN requiring dialysis since July 2024, who presented to the hospital due to fever. Patient is a very poor
historian. . Her felt she was warm and took her temperature, noted to be febrile. He therefore brought her to the hospital early this morning. In the ER temperature went up to 104, white count of 14.1. O2 sat 88% room air. She received
vancomycin and started on Zosyn. She denies chills. Patient reports chronic cough which is nonproductive. She denies shortness of breath. Has headache this morning. No sinus congestion. No sore throat. No nausea, vomiting, abdominal pain or
diarrhea. She still makes urine without dysuria. No flank pain. She continues to have diffuse pruritic rash. Rash was biopsied in the past without a clear diagnosis. She was recently started on prednisone. Appetite remains poor.
Past History
Additional Past Medical History:
JOCELYN on HD via tunneled HD catheter since 07/2024
Hypothyroidism
Hypertension
Chronic diffuse pruritic rash since 04/2024
Alopecia
Chronic thrombocytopenia
Depression
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
Allergy History:
No Known Allergies Allergy (Verified 10/30/24 02:44)
Medications Reviewed: Yes
Current Antibiotics:
Vancomycin x 1
Zosyn
Social History
Tobacco: Former Smoker
Alcohol: None
Drug: None
Personal:
Living: With Family
Family History
Family History: Not Pertinent
Review of Systems
Review of Systems
General: Change in Appetite; Negative Chills
HEENT: Negative Sinus Problems or Pharyngitis
Cardiovascular: Negative Chest Pain or Dyspnea
Respiratory: Cough (Chronic); Negative Sputum Production
Gasteroenterology: Weight Loss; Negative Nausea, Vomiting or Diarrhea
Genital / Urological: Negative Dysuria or Flank Pain
Endocrine: Weakness
Musculoskeletal: Negative Joint Pain or Joint Swelling
Skin / Hair / Nails: Rash
Neurological: Negative Dizziness
All systems: All other systems were reviewed and were negative
Vital Signs
Temp Pulse Resp BP Pulse Ox
99.9 F 120 23 84/60 93
10/30/24 07:13 10/30/24 08:31 10/30/24 08:31 10/30/24 08:29 10/30/24 08:31
Selected Entries
10/30/24
03:09
Temp 104.0 F H
Physical Exam
Physical Exam
Constitutional: Chronically Ill and Cachetic
Head: Other (No frontal or max or sinus tenderness. )
Eyes: No Conjunctival Hemorrhage and Sclera Anicteric
Oral: No Ulcers
Cardiovascular: Regular Rate and S1/S2
Pulmonary: Clear and Non Labored
Gastrointestinal: Soft, Non Tender, Non Distended and Normal Bowel Sounds
Genito-Urinary: Negative CVA Tenderness
Skin: Rash (Diffuse rash from chest to feet with erythroderma, macularpapular erythema, dry plaques.)
Neurological: AO x 3
Psychological: Other (Flat affect)
Lines: HD Cath (Right chest wall no erythema)
Lab / Diagnostic Study Results
10/30/24 03:34
10/30/24 03:34
Abs Immat Gran (auto) 0.1 10^3/uL (0-0.05) H 10/30/24 03:34
Absolute Neuts (auto) 12.4 10^3/uL (1.4-6.5) H 10/30/24 03:34
Absolute Lymphs (auto) 0.4 10^3/uL (1.2-3.4) L 10/30/24 03:34
Absolute Monos (auto) 1.6 10^3/uL (0.1-0.6) H 10/30/24 03:34
Absolute Basos (auto) 0.0 10^3/uL (0-0.2) 10/30/24 03:34
Immature Gran % 1.0 % (0-0.5) H 10/30/24 03:34
Neutrophils % 84.9 % (42.2-75.2) H 10/30/24 03:34
Lymphocytes % 2.7 % (20.5-51.1) L 10/30/24 03:34
Monocytes % 11.2 % (1.7-9.3) H 10/30/24 03:34
Eosinophils % 0.0 % (0-6) 10/30/24 03:34
Basophils % 0.2 % (0-2) 10/30/24 03:34
Lactic Acid 1.3 mmol/L (0.7-2.0) 10/30/24 07:07
Ur Squamous Epith Cells >30 /LPF (Few) 10/30/24 05:41
Microbiology Results
Micro:
10/30/24 05:41 Urine Culture - Pending
Urine
10/30/24 03:57 Blood Culture - Pending
Blood/Venous
10/30/24 03:34 Influenza Types A & B (ELIZABETH) - Final
Nasal Swab Negative for Influenza A & B, NAAT
Negative results must be combined with clinical observations
and patient history.
Nucleic Acid Amplification test (NAAT)performed on the
[employer] platform.
10/30/24 03:34 Blood Culture - Pending
Blood/Venous
10/30/24 CXR: No radiographic evidence of acute cardiopulmonary abnormality.
Assessment / Plan
# GPC clusters bacteremia x 2 sets drawn at the same time.
# Fever
# Leukocytosis
# JOCELYN on HD via tunneled catheter since 07/2024
# Protein-calorie malnutrition
# chronic puritic diffuse rash
-CXR negative
- Await identification of GPC.
If staph aurues, dc HD catheter.
- Repeat blood cx's in am
- Continue Vancomycin.
- DC Zosyn
- Trend temps/wbc.
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
JOCELYN on HD via tunneled HD catheter since 07/2024
Hypothyroidism
Hypertension
Chronic diffuse pruritic rash since 04/2024
Alopecia
Chronic thrombocytopenia
Depression
hx Intracranial hemorrhage status post craniectomy and ventriculostomy (2015)
[2024-10-30] MEDS: SODIUM BICARBONATE 650 MG PO ×3 (10:39→20:58)
--- NOTE | 2024-10-30 12:33 | W.PN.HOSP.TC ---
Today's Communication/Plan
-
Antibiotics. ID consult. Nephrology eval
Assessment / Plan
Assessment / Plan
Physical exam:
General: Acutely ill
HEENT: Normocephalic, Atraumatic and Moist Mucous Membranes
Respiratory: Clear to Auscultation; Negative Wheezes, Rales or Rhonchi
Cardiac: Regular Rhythm and S1/S2
GI: Soft, Nontender and Nondistended
Musculoskeletal: No Clubbing, No Cyanosis and No Edema
Neuro: Awake, Alert and Oriented, no neurological deficit
Psych: Calm
A/P:
Febrile illness/ Sepsis of unclear source:
-Empiric broad-spectrum antibiotics of Zosyn (given vancomycin in the ED x 1)
-Chest x-ray clear
-Follow-up blood cultures
-ID consult pending
Hypotension:
-On IV fluid
-Monitor volume status closely
- Pressors if needed
ESRD on HD:
- Stable. Renal function better than prior baseline and acidosis improved on HD.
- Receiving HD --.
- Nephrology evaluation for HD needs during acute stay.
- Biopsy results from prior admission reviewed.
Elevated LFTs:
- Continue to trend
Rash:
- Unclear etiology
- Follow-up with dermatology as outpatient
Severe Protein Calorie Malnutrition:
- Weight fairly stable from prior admission.
- Dietary evaluation / input.
Hypothyroidism:
- Previously under-treated. Suspected non-compliance during prior visit.
- Update TFTs. Adjust dose if needed.
History of Hemorrhagic CVA / Craniectomy / Ventriculostomy
- Stable. No new focal deficits.
DVT Prophylaxis: Subcut Heparin
Code Status: No intubation. CPR OK.
Anticipated Discharge: > 48 hours
Subjective/Interval History
-
Date of Service: October 30, 2024
Patient feels tired overall. Blood pressure borderline low. Tmax 104 Fahrenheit today
Objective Data
-
Labs:
Laboratory Results
10/30/24
03:34
WBC 14.6 H
Hgb 13.5
Hct 42.0
Plt Count 110 L
Sodium 135
Potassium 3.8
Chloride 102
Carbon Dioxide 23
BUN 16
Creatinine 2.0 H
Glucose 89
Calcium 7.7 L
Total Bilirubin 0.7
AST 50 H
ALT 76 H
Alkaline Phosphatase 276 H
Vital Signs:
Vital Signs
Temp Pulse Resp BP Pulse Ox
98.6 F 108 24 104/64 92
10/30/24 11:26 10/30/24 10:30 10/30/24 10:30 10/30/24 10:00 10/30/24 12:22
I&O
10/29/24 10/30/24 10/31/24
06:59 06:59 06:59
Intake Total 120 / 120
Balance 120 / 120
--- NOTE | 2024-10-30 12:35 | PTCARENOTE ---
Pt was rec'd into room 3362 as IMU overflow at approx 08:30. Pt able to walk to bed with standby assistance. Pt settled in room, orders reviewed, plan of care discussed. Admission and assessment as documented. Pt tachycardic in 130s upon arrival to
room, bps soft, IVF infusing as ordered. Pt aox3, c/o feeling tired and weak. Headache of 4/10 treated with PRN Tylenol with +result. Pt assisted into bathroom for mod amount urine. Pt endorses poor appetite, declined breakfast tray, reports last BM
was yesterday. Call cruz and phone in reach, care ongoing.
--- NOTE | 2024-10-30 12:55 | PTCARENOTE ---
Pt initally arrived on room air, however sa02 dipped and sustained in high 80s, pt was refusing oxygen at first but now is agreeable to wear 2L. Sat now 95%.
--- NOTE | 2024-10-30 15:22 | W.CON.NEPH ---
Consultation
-
Date/Time Consultation Requested: October 30, 2024 at 5 AM
Date/Time Consultation Performed: October 30, 2024 at 10 AM
Requesting Provider: Dr. Chapman
Performing Provider: Dr. Segal
Reason for Consultation: ESRD
Medical History
-
Chief Complaint: Acute kidney injury/metabolic acidosis
History of Present Illness:
This is a 63-year-old female with limited medical history of HTN intracranial hemorrhage about 10 years ago requiring craniectomy and ventriculostomy. She has a history of hypothyroidism maintained on Synthroid therapy acute kidney injury
requiring hemodialysis last admission status post renal biopsy which showed interstitial nephritis with IgG4 features who presents with fevers and chills
Renal consultation for end-stage renal disease
Past Medical History
Hypertension, intracranial bleed, craniotomy, ventriculostomy, GERD, ESRD
Social History
Tobacco: Smoker
Alcohol: Occasional (Drinking 4 beers per day quit about 2 weeks ago)
Family History
Family History: Not Pertinent
Allergies / Home Medications
Allergy/AdvReac Type Severity Reaction Status Date / Time
No Known Allergies Allergy Verified 10/30/24 02:44
�Medication �Instructions �Recorded �Confirmed �Type
acetaminophen 325 mg tablet 650 mg (2 x 325 mg) PO Q4HPRN PRN 10/16/14 07/30/24 Rx
fever pain ##0
metoprolol succinate 25 mg 12.5 mg (1/2 x 25 mg) PO DAILY ##30 10/16/14 10/30/24 Rx
tablet,extended release 24 hr
cyanocobalamin (vitamin B-12) 1,000 mcg PO DAILY Supplement 04/30/24 07/30/24 History
1,000 mcg tablet
folic acid 1 mg tablet 1 mg PO DAILY Supplement 04/30/24 07/30/24 History
magnesium oxide 400 mg PO DAILY Supplement 04/30/24 07/30/24 History
potassium 99 mg tablet 99 mg PO DAILY Electrolyte 04/30/24 07/30/24 History
Repletion
pyridoxine (vitamin B6) 25 mg 25 mg PO DAILY Supplement 04/30/24 07/30/24 History
tablet
calcium 500 mg (as 1 tab PO TID 30 days #30 tabs 05/06/24 07/30/24 Rx
carbonate)-vitamin D3 5 mcg (200
unit) tablet (Oyster Shell
Calcium-Vitamin D3)
cholecalciferol (vitamin D3) 25 25 mcg PO DAILY Vitamin D 05/06/24 07/30/24 Rx
mcg (1,000 unit) tablet Deficiency #30 tabs
levothyroxine 50 mcg tablet 50 mcg PO DAILY @ 0600 05/06/24 07/30/24 Rx
Hypothyroidism #14 tabs
pantoprazole 40 mg tablet,delayed 40 mg PO DAILY #14 tabs 05/06/24 07/30/24 Rx
release
sertraline 25 mg tablet 25 mg PO DAILY Depression #30 tabs 05/06/24 07/30/24 Rx
triamcinolone acetonide 0.1 % 1 applic topical TID Rash #1 tube 05/06/24 07/30/24 Rx
topical ointment
hydrocortisone 2.5 % topical cream 1 applic topical BID 08/06/24 08/06/24 History
calcitriol 0.25 mcg capsule 0.5 mcg (2 x 0.25 mcg) PO DAILY 08/19/24 Rx
#30 caps
mirtazapine 15 mg tablet 15 mg PO HS #30 tabs 08/19/24 Rx
sodium bicarbonate 650 mg tablet 650 mg PO TID #90 tabs 08/19/24 Rx
Review of Systems
-
Generalized weakness with cough
All other systems: Negative unless noted
Physical Exam
Vital Signs
Vital Signs
Temp Pulse Resp BP Pulse Ox
98.6 F 88 19 97/60 93
10/30/24 11:26 10/30/24 14:00 10/30/24 14:00 10/30/24 14:00 10/30/24 14:00
Lab Results
WBC 14.6 10^3/uL (4.8-10.8) H 10/30/24 03:34
RBC 4.11 10^6/uL (4.20-5.40) L 10/30/24 03:34
Hgb 13.5 g/dL (12.0-16.0) 10/30/24 03:34
Hct 42.0 % (37.0-47.0) 10/30/24 03:34
Plt Count 110 10^3/uL (130-400) L 10/30/24 03:34
Sodium 135 mmol/L (135-145) 10/30/24 03:34
Potassium 3.8 mmol/L (3.5-5.1) 10/30/24 03:34
Chloride 102 mmol/L (98-107) 10/30/24 03:34
Carbon Dioxide 23 mmol/L (22-30) 10/30/24 03:34
BUN 16 mg/dl (7-17) 10/30/24 03:34
Creatinine 2.0 mg/dL (0.6-1.0) H 10/30/24 03:34
eGFR 27.38 10/30/24 03:34
Glucose 89 mg/dl (70-99) 10/30/24 03:34
Calcium 7.7 mg/dl (8.4-10.2) L 10/30/24 03:34
Albumin 3.8 g/dl (3.5-5.0) 10/30/24 03:34
Physical Exam
General no acute distress
HEENT no cephalic atraumatic extraocular muscle intact no scleral icterus no JVD neck supple
lungs coarse breath sounds
heart regular S1-S2 positive
abdomen soft nontender positive bowel sounds
extremities no edema pulses present bilateral
Neurologically nonfocal alert and oriented x 3
Skin no lesions no abrasions no petechiae
Psych normal affect no bizarre behavior
Data Reviewed
-
Radiology: Image Personally Visualized and interpreted
Labs: Labs Reviewed by me and Discussed with Nurse
Assessment/Plan
-
Assessment
Acute kidney injury on hemodialysis on CKD 4
Dialysis schedule MWF
Sepsis
Failure to thrive
Weight loss
Hypothyroidism
Anemia
Nephrotic range proteinuria
Plan
[facility] [email or web address]
Panculture
Antibiotics
No acute need for dialysis today
Dialysis ordered for tomorrow
Epogen for anemia as indicated
--- NOTE | 2024-10-30 15:51 | PTCARENOTE ---
Addendum entered by Carlos Lu RN 10/30/24 16:38:
Orders rec'd for HD in am. scheduled for 0700. Repeat bcx ordered per ID for 10/31 0600 and 06:30.
Original Note:
pt reassessed, no pain, just feeling 'blah', resting when undisturbed. brought cell phone and glasses in. Care ongoing.
--- NOTE | 2024-10-30 16:40 | PHA.VAN.IN ---
Assessment
- Assessment
Renal Function: Patient has ESRD, on chronic Hemodialysis
Hemodialysis Schedule: MWF
Maximum Temperature: 104 F rectal 10/30 0309
Plan
- Plan
Initial / Loading Dose: vanc 1000mg administered 10/30 @ 0404
Maintenance Regimen: dosing by level
Monitoring: pre-HD level 10/31
Pharmacokinetics Vancomycin I
- -
Patient Age: 63
Patient Sex: Female
Vancomycin Day #: 1
Indication: Bacteremia
Requesting Provider: Dr. Rawls
Pertinent Antimicrobial Allergies:
no pertinent antimicrobial allergies
Height / Weight:
Actual Weight 35.5 kg
Pertinent Past Medical History: ESRD-HD, BMI ~15
- Vital Signs / Lab Results
Temp Pulse Resp BP Pulse Ox
99.1 F 96 22 123/80 96
10/30/24 15:41 10/30/24 16:00 10/30/24 16:00 10/30/24 16:00 10/30/24 16:00
Lab Results - Hematology
10/30/24
03:34
WBC 14.6 H
Lab Results - Chemistry
10/30/24
03:34
BUN 16
Creatinine 2.0 H
Albumin 3.8
10/30/24 10/30/24
03:34 07:07
Lactic Acid 2.8 H 1.3
Lab Results - Urine
10/30/24
05:41
Urine Nitrite (Reflex) Negative
Leukocyte Esterase Rfl 1+ A
Urine WBC (Reflex) 11-15 A
Ur Squamous Epith Cells >30
Urine Bacteria (Reflex) Few A
Microbiology Results
10/30/24 03:34 Blood Culture - Preliminary
Blood/Venous Positive culture in progress
Gram Stain - Preliminary
10/30/24 03:57 Blood Culture - Preliminary
Blood/Venous Positive culture in progress
Gram Stain - Preliminary
10/30/24 03:34 Influenza Types A & B (ELIZABETH) - Final
Nasal Swab Negative for Influenza A & B, NAAT
Negative results must be combined with clinical observations
and patient history.
Nucleic Acid Amplification test (NAAT)performed on the
[employer] platform.
--- NOTE | 2024-10-30 21:36 | PTCARENOTE ---
Received pt resting in bed, AAOx3. Flat affect. DAY. Ambulated with standby assist to bathroom. SR/ST on tele, HR 80-100s. BP 130s/80s. Weak DPs. Afebrile. No edema. On 2L NC. Intermittent weak cough. + bowel sounds. Did not want any of dinner tray.
Scattered rash present with scattered scabbed areas. No open areas noted. NS @ 100ml/hr infusing as ordered. Call cruz in reach.
[2024-10-31] VITALS (21 sets, daily range): BP systolic 102–159; BP diastolic 67–106; BMI 16.1
[2024-10-31] MEDS: NSS 1000 IV (01:58)
[2024-10-31 03:57] LABS: Hematocrit 38.0 % (37.0-47.0); Hemoglobin 12.4 g/dL (12.0-16.0); Mean Corp Hgb Conc. 32.6 g/dL (33.0-37.0); Mean Corpuscular Volume 102.4 fL (81.0-99.0); Platelet Count 85 10^3/uL (130-400); Red Cell Dist. Width 14.9 % (11.5-14.5)
[2024-10-31 04:17] LABS: ALT (SGPT) 73 U/L (0-35); AST (SGOT) 67 U/L (14-36); Albumin 2.9 g/dl (3.5-5.0); Alkaline Phosphatase 222 U/L (38-126); Blood Urea Nitrogen 22 mg/dl (7-17); Calcium 7.6 mg/dl (8.4-10.2); Carbon Dioxide 15 mmol/L (22-30); Chloride 111 mmol/L (98-107); Estimated Creatinine Clearance 14 ml/min; Glucose 49 mg/dl (70-99); Magnesium 1.8 mg/dl (1.6-2.3); Potassium 4.1 mmol/L (3.5-5.1); Sodium 136 mmol/L (135-145); Total Protein 6.0 g/dl (6.3-8.2); eGFR 23.16
[2024-10-31 04:30] LABS: Glucose - Point of Care 47 mg/dl (70-99)
[2024-10-31] MEDS: DEXTROSE 50% SYRINGE 12.5 GRAMS IV (04:46)
[2024-10-31 04:47] LABS: Glucose - Point of Care 64 mg/dl (70-99)
[2024-10-31 05:14] LABS: Glucose - Point of Care 175 mg/dl (70-99)
--- NOTE | 2024-10-31 05:47 | PTCARENOTE ---
Lab called critical value of glucose of 49. Accucheck = 47. 4oz juice given. Repeat = 64. Pt. refused more apple juice so 1/2 amp D50 given. Repeat = 175. POONAM Shah aware.
[2024-10-31] MEDS: SYNTHROID 50 MCG PO (06:18)
[2024-10-31 07:31] LABS: Glucose - Point of Care 76 mg/dl (70-99)
--- NOTE | 2024-10-31 08:15 | PHA.VAN.FU ---
Addendum entered and electronically signed by Rekha Herbert RPH 10/31/24 09:42:
Evaluated patient in conjunction with pharmacy clinical specialist. Agree with assessment and plan.
Original Note:
Vancomycin Assessment / Plan
- Assessment
Hemodialysis Schedule: MWF
WBC's are: WNL
In the past 24 hrs, patient has been: Afebrile
Concomitant Antimicrobials: piperacillin/tazobactam
- Assessment - Therapeutic Drug Monitoring
Random Level: 11.7 - drawn pre-HD ~24H after 1000mg load
- Dosing Plan
Dosing by Level: Re-dose today (give 500mg x1 dose post-HD today)
- Monitoring Plan
Random Level: 11/01 06
- Follow Up
Pharmacy will continue to follow.
Vancomycin Follow UP
- -
Patient Age: 63
Patient Sex: Female
Vancomycin Day #: 2
Indication: Bacteremia
Requesting Provider: Dr. Rawls
Pertinent Antimicrobial Allergies:
no pertinent antimicrobial allergies
Height / Weight:
Height 5 ft
Actual Weight 37.5 kg
Pertinent Past Medical History: ESRD-HD, BMI ~15
- Vital Signs / Lab Results
Temp Pulse Resp BP Pulse Ox
98.8 F 92 23 130/77 92
10/31/24 07:00 10/31/24 06:00 10/31/24 06:00 10/31/24 06:00 10/31/24 06:00
Lab Results - Hematology
10/30/24 10/31/24
03:34 03:28
WBC 14.6 H 5.6
Lab Results - Chemistry
10/30/24 10/31/24
03:34 03:28
BUN 16 22 H
Creatinine 2.0 H 2.3 H
Estimated Creat Clear 14
Albumin 3.8 2.9 L
10/30/24 10/30/24
03:34 07:07
Lactic Acid 2.8 H 1.3
Microbiology Results
10/30/24 03:34 Blood Culture - Preliminary
Blood/Venous Positive culture in progress
Gram Stain - Preliminary
10/30/24 03:57 Blood Culture - Preliminary
Blood/Venous Staphylococcus species
Gram Stain - Preliminary
10/30/24 03:34 Influenza Types A & B (ELIZABETH) - Final
Nasal Swab Negative for Influenza A & B, NAAT
Negative results must be combined with clinical observations
and patient history.
Nucleic Acid Amplification test (NAAT)performed on the
[employer] platform.
Therapeutic Drug Monitoring
Random Vancomycin 11.7 ug/ml 10/31/24 03:28
[2024-10-31] MEDS: TOPROL XL PO (08:36)
--- NOTE | 2024-10-31 09:04 | PN.CDI ---
CDI
- -
CDI:
Physician Documentation Request
Admit Date: 10/30/24 06:05
Dear Doctor Ignaico,
Please review the following and provide your response in the progress notes.
Clinical Indicators:
- 10/30 PN 'ESRD on HD... Receiving HD --'
- 10/30 Nephrology 'Acute kidney injury on hemodialysis on CKD 4'
- 'Dialysis schedule MWF'
In an attempt to clarify potentially conflicting documentation, please clarify the renal stage
ESRD on HD
JOCELYN on CKD 4 on HD
Other (please specify)
Use of terms such as suspected, likely, concern for, or probable (associated with a specific diagnosis that is being evaluated, monitored, or treated as if it exists) are acceptable and can be coded in the inpatient setting, when documented at the
time of discharge.
Thank you,
Derick Balderrama RN
CDI Specialist
Please use your independent medical judgment in providing your response.
[2024-10-31] MEDS: HEPARIN 5000 UNITS SC ×2 (09:12→19:50)
[2024-10-31] MEDS: ZOLOFT 25 MG PO (09:12)
[2024-10-31 09:32] LABS: Glucose - Point of Care 72 mg/dl (70-99)
--- NOTE | 2024-10-31 09:33 | W.PN.ID1 ---
Date of Service
Date of Service: October 31, 2024
Today's Communication
Continue VAncomycin.
Assessment / Plan
# CoNS bacteremia x 2 . Skin potential source with diffuse dry rash
# Fever trending down
# Leukocytosis - resolved
# JOCELYN on HD via tunneled catheter since 07/2024
# Severe Protein-calorie malnutrition
# chronic puritic diffuse rash, NOS.
# Chronic thrombocytopenia
# HIV screen negative 04/2024.
-CXR negative
- Await speciation of CoNS
- Follow repeat blood cx's
- Continue Vancomycin IV.
- Trend temps
# Conditions APPLICATIONS CHEMIST
JOCELYN on HD via tunneled HD catheter since 07/2024
Hypothyroidism
Hypertension
Chronic diffuse pruritic rash since 04/2024
Alopecia
Chronic thrombocytopenia
Depression
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
Chief Complaint
-: Fever and Bacteremia
Subjective / Review of Systems
Feels same, weak.
Vital Signs / Physical Exam
Vital Signs
Vital Signs
Temp Pulse Resp BP Pulse Ox
98.8 F 92 23 130/77 92
10/31/24 07:00 10/31/24 06:00 10/31/24 06:00 10/31/24 06:00 10/31/24 06:00
Selected Entries
10/30/24
18:27
Temp 100.5 F H
Physical Exam
Constitutional: Chronically Ill and Cachetic
Head: Other (Alopecia)
Eyes: Sclera Anicteric
Cardiovascular: Regular Rate and S1/S2
Pulmonary: Clear
Gastrointestinal: Soft, Non Tender and Non Distended
Extremities: Negative Edema
Skin: Rash (Diffuse dry patches with erythroderma on chest, coalescent maculopapular rash the rest of body)
Neurological: AO x 3
Psychological: Other (Flat affect)
Lines: HD Cath (RCW no erythema)
Objective Data
Lab Data
Lab Results
10/31/24 03:28
10/31/24 03:28
Estimated Creat Clear 14 ml/min 10/31/24 03:28
Lactic Acid 1.3 mmol/L (0.7-2.0) 10/30/24 07:07
Total Bilirubin 0.6 mg/dl (0.2-1.3) 10/31/24 03:28
AST 67 U/L (14-36) H 10/31/24 03:28
ALT 73 U/L (0-35) H 10/31/24 03:28
Alkaline Phosphatase 222 U/L (38-126) H 10/31/24 03:28
Most recent labs reviewed.
Micro Results:
10/30/24 03:34 Blood Culture - Preliminary
Blood/Venous Coagulase neg. staphylococcus
Gram Stain - Preliminary
10/30/24 03:57 Blood Culture - Preliminary
Blood/Venous Coagulase neg. staphylococcus
Gram Stain - Preliminary
10/30/24 05:41 Urine Culture - Final
Urine
10/31/24 03:28 Blood Culture - Pending
Blood/Venous
10/31/24 03:32 Blood Culture - Pending
Blood/Venous
10/30/24 15:20 MRSA Screen - Pending
Nose
10/30/24 03:34 Influenza Types A & B (ELIZABETH) - Final
Nasal Swab Negative for Influenza A & B, NAAT
Negative results must be combined with clinical observations
and patient history.
Nucleic Acid Amplification test (NAAT)performed on the
[employer] platform.
10/30/24 CXR: No radiographic evidence of acute cardiopulmonary abnormality.
[2024-10-31] MEDS: SODIUM BICARBONATE 650 MG PO ×3 (11:09→21:20)
[2024-10-31] MEDS: TOPROL XL 12.5 MG PO (11:09)
[2024-10-31] MEDS: VANCOCIN HCL 500 MG 100 IV (11:09)
--- NOTE | 2024-10-31 11:12 | W.PN.NEPH.PH ---
Today's Communication / Plan
-
Dialysis
Assessment/Plan
-
Assessment
Acute kidney injury on hemodialysis on CKD 4
Dialysis schedule MWF
Sepsis
Failure to thrive
Weight loss
Hypothyroidism
Anemia
Nephrotic range proteinuria
Plan
[facility] [place] [place] kaden-MWF
Panculture
Antibiotics
Pressor support
Dialysis today.
Coag negative staph-with dialysis catheter?
Epogen for anemia as indicated

32 minutes critical care time
-
-
Date of Service: October 31, 2024
CC / HPI / ROS
-
Chief Complaint:
Presents with lethargy fever
History of Present Illness:
ESRD with fever lethargy with sepsis
Review of Systems:
No chest pain or shortness of breath.
Weakness somewhat improved
Labs
-
Labs:
WBC 5.6 10^3/uL (4.8-10.8) 10/31/24 03:28
RBC 3.71 10^6/uL (4.20-5.40) L 10/31/24 03:28
Hgb 12.4 g/dL (12.0-16.0) 10/31/24 03:28
Hct 38.0 % (37.0-47.0) 10/31/24 03:28
Plt Count 85 10^3/uL (130-400) L D 10/31/24 03:28
Sodium 136 mmol/L (135-145) 10/31/24 03:28
Potassium 4.1 mmol/L (3.5-5.1) 10/31/24 03:28
Chloride 111 mmol/L (98-107) H 10/31/24 03:28
Carbon Dioxide 15 mmol/L (22-30) L 10/31/24 03:28
BUN 22 mg/dl (7-17) H 10/31/24 03:28
Creatinine 2.3 mg/dL (0.6-1.0) H 10/31/24 03:28
eGFR 23.16 10/31/24 03:28
Glucose 49 mg/dl (70-99) L* 10/31/24 03:28
Calcium 7.6 mg/dl (8.4-10.2) L 10/31/24 03:28
Phosphorus 3.5 mg/dl (2.5-4.5) 10/31/24 03:28
Albumin 2.9 g/dl (3.5-5.0) L 10/31/24 03:28
Physical Exam
-
Vital Signs:
Vital Signs
Temp Pulse Resp BP Pulse Ox
98.8 F 109 35 138/88 97
10/31/24 07:00 10/31/24 11:09 10/31/24 10:45 10/31/24 11:09 10/31/24 10:55
--- NOTE | 2024-10-31 11:16 | W.PN.NEPH.HD ---
Progress Note - Hemodialysis
-
Date of Service: October 31, 2024
Duration: 3 hours
Potassium Bath: 4
Calcium Bath: 3
Opti-Dialyzer: 160
Ultrafiltration: Other (0)
Blood Flow: 350
Dialysate Flow: 600
Heparin: no
EPO: [id number]
--- NOTE | 2024-10-31 12:13 | PTCARENOTE ---
Pt rec'd from night RN at 07:15, on HD. Pt remains AOx3 flat affect, as prior. Refusing breakfast, encouraged PO intake due to previous low BG. See flowsheet. VSS, IVF infusing as ordered. Pt voided on bedpan once during HD, had an episode of
diarrhea /loose stool afterward, sl incontinence. Pericare and CHG wipes bath done. Linen changed. Pt's arrived to visit. Downgraded to telemetry, portable monitor applied. Care ongoing.
--- NOTE | 2024-10-31 12:29 | W.PN.HOSP.TC ---
Addendum entered and electronically signed by Giancarlo Ignacio MD 10/31/24 12:53:
JOCELYN on CKD 4
Original Note:
Today's Communication/Plan
-
IV antibiotics
Assessment / Plan
Assessment / Plan
Physical exam:
General: Acutely ill
HEENT: Normocephalic, Atraumatic and Moist Mucous Membranes
Respiratory: Clear to Auscultation; Negative Wheezes, Rales or Rhonchi
Cardiac: Regular Rhythm and S1/S2
GI: Soft, Nontender and Nondistended
Musculoskeletal: No Clubbing, No Cyanosis and No Edema
Neuro: Awake, Alert and Oriented, no neurological deficit
Psych: Calm
A/P:
Sepsis of unclear source with bacteremia, coagulase-negative staph:
- Continue IV vancomycin
-Source could be HD catheter versus skin versus other
- ID consult appreciated
- Follow-up final blood cultures identification
- Repeat blood cultures
Hypotension:
- Improving
- Can discontinue fluids
JOCELYN on CKD stage IV on hemodialysis:
-Plan for hemodialysis today
-Nephrology consult appreciated
- Stable. Renal function better than prior baseline and acidosis improved on HD.
- Receiving HD M-W-.
- Biopsy results from prior admission reviewed.
Elevated LFTs:
- Continue to trend
Rash:
- Unclear etiology
- Follow-up with dermatology as outpatient
Severe Protein Calorie Malnutrition:
- Weight fairly stable from prior admission.
- Dietary evaluation / input.
Hypothyroidism:
- Previously under-treated. Suspected non-compliance during prior visit.
- Update TFTs. Adjust dose if needed.
History of Hemorrhagic CVA / Craniectomy / Ventriculostomy
- Stable. No new focal deficits.
Thrombocytopenia
- Continue to monitor
- No signs of bleeding
DVT Prophylaxis: Subcut Heparin but monitor platelets closely
Code Status: No intubation. CPR OK.
Total time spent on today's encounter was 52 minutes which included time spent in counseling the patient/family regarding diagnosis and treatment plan as listed above, goals of care, and symptom management. Case was discussed with nursing staff,
specialists, and care coordinators/case management. All labs and imaging personally reviewed by me. Remainder the time spent in detailed review of previous records, lab data, imaging, and other medical provider documentation.
Anticipated Discharge: > 48 hours
Subjective/Interval History
-
Date of Service: October 31, 2024
Patient feels slightly better today. Blood pressure improved. Afebrile so far today
Objective Data
-
Labs:
Laboratory Results
10/31/24
03:28
WBC 5.6
Hgb 12.4
Hct 38.0
Plt Count 85 L D
Sodium 136
Potassium 4.1
Chloride 111 H
Carbon Dioxide 15 L
BUN 22 H
Creatinine 2.3 H
Glucose 49 L*
Calcium 7.6 L
Total Bilirubin 0.6
AST 67 H
ALT 73 H
Alkaline Phosphatase 222 H
Vital Signs:
Vital Signs
Temp Pulse Resp BP Pulse Ox
98.8 F 120 22 138/88 96
10/31/24 07:00 10/31/24 12:00 10/31/24 11:00 10/31/24 11:09 10/31/24 11:00
I&O
10/30/24 10/31/24 11/01/24
06:59 06:59 06:59
Intake Total 1819
Balance 1819
--- NOTE | 2024-10-31 12:36 | CM ---
Initial assessment completed with patient who lives with her , daughter and grandson in a 3 story split level home with B/B on upper level, 1 step to enter the home. 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 She no longer drives.
DME in the home is [employer] which she does not use and a SC and BR rails. No in-home services. Patient is on HD at [place] with chair time on - @ 12:15PM. No HC-POA. PCP is Dr Dewey Manzo and Pharmacy is [facility] in [place]. Discharge POC:
Anticipate home with no needs.
[2024-10-31] MEDS: NSS IV (12:56)
--- NOTE | 2024-10-31 13:29 | WOUNDNOTE ---
[facility] RN NOTE: Reviewed chart and met with patient and . Patient with flat, dry pruritic rash that has been intermittent the past few years. 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 Patient said she 'wants nothing' for rash and has tried Aquaphor in the past but does not like. This lyric writer offered to apply barrier ointment, vaseline or lotion to rash but patient declined. Items left at bedside. RN Disa given
update. Will sign off.
[2024-10-31] MEDS: TYLENOL 650 MG PO (18:16)
[2024-10-31] MEDS: MUCINEX 600 MG PO (19:49)
[2024-10-31] MEDS: ROBITUSSIN DM 5 ML PO (19:49)
--- NOTE | 2024-10-31 21:53 | PTCARENOTE ---
Received pt from previous RN. Pt is AAOx3, withdrawn/flat. NSR on the monitor. On RA, lungs diminished. Pt with poor appetite, brought pt in food. BRP. Pt on tele pack. Call cruz in reach. Safe environment maintained.
[2024-11-01] VITALS (7 sets, daily range): BP systolic 121–148; BP diastolic 80–104; BMI 15.2; BMI 15.7
[2024-11-01 04:08] LABS: Blood Urea Nitrogen 15 mg/dl (7-17); Calcium 7.5 mg/dl (8.4-10.2); Carbon Dioxide 20 mmol/L (22-30); Chloride 108 mmol/L (98-107); Estimated Creatinine Clearance 18 ml/min; Glucose 76 mg/dl (70-99); Hematocrit 34.7 % (37.0-47.0); Hemoglobin 11.5 g/dL (12.0-16.0); Mean Corp Hgb Conc. 33.1 g/dL (33.0-37.0); Mean Corpuscular Volume 98.9 fL (81.0-99.0); Platelet Count 86 10^3/uL (130-400); Potassium 3.3 mmol/L (3.5-5.1); Red Cell Dist. Width 14.3 % (11.5-14.5); Sodium 134 mmol/L (135-145); eGFR 31.07
[2024-11-01] MEDS: SYNTHROID 50 MCG PO (05:37)
[2024-11-01] MEDS: KCL 40 MEQ PO (05:37)
[2024-11-01] MEDS: ZOLOFT 25 MG PO (08:01)
[2024-11-01] MEDS: TOPROL XL 12.5 MG PO (08:01)
[2024-11-01] MEDS: HEPARIN SC ×2 (08:01→08:08)
[2024-11-01] MEDS: SODIUM BICARBONATE 650 MG PO ×3 (08:01→22:02)
[2024-11-01] MEDS: MUCINEX 600 MG PO (08:01)
[2024-11-01] MEDS: TYLENOL 650 MG PO (08:03)
[2024-11-01 08:47] LABS: Nucleated Red Blood Cells % 0 %
[2024-11-01 08:50] LABS: Absolute Neutrophils -Man Diff 1.9 10^3/uL (1.4-6.5)
[2024-11-01 08:51] LABS: Normal RBC Morphology Yes; Platelets Checked Yes; Total Cells Counted 100
--- NOTE | 2024-11-01 09:38 | PHA.VAN.FU ---
Vancomycin Assessment / Plan
- Assessment
Hemodialysis Schedule: MWF
WBC's are: Trending Down
In the past 24 hrs, patient has been: Afebrile
- Assessment - Therapeutic Drug Monitoring
Random Level: 14.3
- Dosing Plan
Dosing by Level: Re-dose today (Will give a 250mg dose since HD is not until Sunday)
- Monitoring Plan
Random Level: 11/02 with am labs
- Follow Up
Pharmacy will continue to follow.
Vancomycin Follow UP
- -
Patient Age: 63
Patient Sex: Female
Vancomycin Day #: 3
Indication: Bacteremia
Requesting Provider: Dr. Rawls
Pertinent Antimicrobial Allergies:
no pertinent antimicrobial allergies
Height / Weight:
Height 5 ft
Actual Weight 35.3 kg
Pertinent Past Medical History: ESRD-HD, BMI ~15
- Vital Signs / Lab Results
Temp Pulse Resp BP Pulse Ox
99.0 F 87 18 122/81 94
11/01/24 08:06 11/01/24 08:02 10/31/24 23:27 11/01/24 08:02 11/01/24 00:18
Lab Results - Hematology
10/30/24 10/31/24 11/01/24
03:34 03:28 03:19
WBC 14.6 H 5.6 3.3 L
Band Neutrophils 6 H
Lab Results - Chemistry
10/30/24 10/31/24 11/01/24
03:34 03:28 03:19
BUN 16 22 H 15
Creatinine 2.0 H 2.3 H 1.8 H
Estimated Creat Clear 14 18
Albumin 3.8 2.9 L
10/30/24 10/30/24
03:34 07:07
Lactic Acid 2.8 H 1.3
Microbiology Results
10/30/24 15:20 MRSA Screen - Final
Nose No Methicillin Resistant Staphylococcus aureus isolated.
10/31/24 03:32 Blood Culture - Preliminary
Blood/Venous Positive culture in progress
Gram Stain - Preliminary
10/31/24 03:28 Blood Culture - Preliminary
Blood/Venous Positive culture in progress
Gram Stain - Preliminary
10/30/24 03:34 Blood Culture - Preliminary
Blood/Venous Coagulase neg. staphylococcus
Gram Stain - Preliminary
10/30/24 03:57 Blood Culture - Preliminary
Blood/Venous Coagulase neg. staphylococcus
Gram Stain - Preliminary
10/30/24 05:41 Urine Culture - Final
Urine
Therapeutic Drug Monitoring
Random Vancomycin 14.3 ug/ml 11/01/24 03:19
--- NOTE | 2024-11-01 10:32 | W.PN.ID1 ---
Date of Service
Date of Service: November 01, 2024
Today's Communication
-If bacteremia sustained, dc HD catheter, cx tip
- Replace Vancomycin with cefazolin 1g IV q24.
Assessment / Plan
# Staphylococcus schleiferi bacteremia . Skin potential source with diffuse dry rash
# Fever resolved
# Leukocytosis - resolved
# JOCELYN on HD via tunneled catheter since 07/2024
# Severe Protein-calorie malnutrition
# chronic puritic diffuse rash, NOS.
# Chronic thrombocytopenia
# HIV screen negative 04/2024.
-CXR negative
- 10/31 blood cx's x 2 remain positive
-Repeat blood cx's x 2 in am.
If bacteremia sustained, dc HD catheter, cx tip
- Replace Vancomycin with cefazolin 1g IV q24.
# Conditions TYPING SECTION CHIEF
JOCELYN on HD via tunneled HD catheter since 07/2024
Hypothyroidism
Hypertension
Chronic diffuse pruritic rash since 04/2024
Alopecia
Chronic thrombocytopenia
Depression
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
Chief Complaint
-: Fever and Bacteremia
Subjective / Review of Systems
Appetite a little better.
Vital Signs / Physical Exam
Vital Signs
Vital Signs
Temp Pulse Resp BP Pulse Ox
99.0 F 87 18 122/81 94
11/01/24 08:06 11/01/24 08:02 10/31/24 23:27 11/01/24 08:02 11/01/24 00:18
Physical Exam
Constitutional: Chronically Ill and Cachetic
Head: Other (Alopecia)
Eyes: Sclera Anicteric
Cardiovascular: Regular Rate and S1/S2
Pulmonary: Clear
Gastrointestinal: Soft, Non Tender and Non Distended
Extremities: Negative Edema
Skin: Rash (Diffuse dry patches with erythroderma on chest, coalescent maculopapular rash the rest of body)
Neurological: AO x 3
Psychological: Other (Flat affect)
Lines: HD Cath (RCW no erythema)
Objective Data
Lab Data
Lab Results
11/01/24 03:19
11/01/24 03:19
Estimated Creat Clear 18 ml/min 11/01/24 03:19
Lactic Acid 1.3 mmol/L (0.7-2.0) 10/30/24 07:07
Total Bilirubin 0.6 mg/dl (0.2-1.3) 10/31/24 03:28
AST 67 U/L (14-36) H 10/31/24 03:28
ALT 73 U/L (0-35) H 10/31/24 03:28
Alkaline Phosphatase 222 U/L (38-126) H 10/31/24 03:28
Most recent labs reviewed.
Micro Results:
10/30/24 03:34 Blood Culture - Final
Blood/Venous Staphylococcus schleiferi
Gram Stain - Final
10/30/24 03:57 Blood Culture - Final
Blood/Venous Staphylococcus schleiferi
Gram Stain - Final
10/30/24 15:20 MRSA Screen - Final
Nose No Methicillin Resistant Staphylococcus aureus isolated.
10/31/24 03:32 Blood Culture - Preliminary
Blood/Venous Positive culture in progress
Gram Stain - Preliminary
10/31/24 03:28 Blood Culture - Preliminary
Blood/Venous Positive culture in progress
Gram Stain - Preliminary
10/30/24 05:41 Urine Culture - Final
Urine
10/30/24 03:34 Influenza Types A & B (ELIZABETH) - Final
Nasal Swab Negative for Influenza A & B, NAAT
Negative results must be combined with clinical observations
and patient history.
Nucleic Acid Amplification test (NAAT)performed on the
[employer] platform.
7/31/25 CXR: No radiographic evidence of acute cardiopulmonary abnormality.
--- NOTE | 2024-11-01 11:00 | W.PN.NEPH.PH ---
Today's Communication / Plan
-
see plan
Assessment/Plan
-
Assessment
Acute kidney injury on hemodialysis on CKD 4
Dialysis schedule MWF
Sepsis
Failure to thrive
Weight loss
Hypothyroidism
Anemia
Nephrotic range proteinuria
Plan:
coag neg bacteremia-follow blood cultures , still positive as of 10/31
abx per ID
CVC could be source of inf-await ID input regarding catheter
Bp stable off pressors
met acidosis-stable cont po bicarb
next HD on Sunday , repalce k
she was taking prednisone 30mg daily , not present on admit list
likely resume prednisone
-
-
Date of Service: November 01, 2024
CC / HPI / ROS
-
Chief Complaint:
Presents with lethargy fever, ESRD
History of Present Illness:
no fever, Bps table off pressors
k low 3.3
cr 1.8 post HD
LFTs high
Review of Systems:
feels depressed since in hospital
wants to go home
no fever
Labs
-
Labs:
WBC 3.3 10^3/uL (4.8-10.8) L 11/01/24 03:19
RBC 3.51 10^6/uL (4.20-5.40) L 11/01/24 03:19
Hgb 11.5 g/dL (12.0-16.0) L 11/01/24 03:19
Hct 34.7 % (37.0-47.0) L 11/01/24 03:19
Plt Count 86 10^3/uL (130-400) L 11/01/24 03:19
Sodium 134 mmol/L (135-145) L 11/01/24 03:19
Potassium 3.3 mmol/L (3.5-5.1) L 11/01/24 03:19
Chloride 108 mmol/L (98-107) H 11/01/24 03:19
Carbon Dioxide 20 mmol/L (22-30) L 11/01/24 03:19
BUN 15 mg/dl (7-17) 11/01/24 03:19
Creatinine 1.8 mg/dL (0.6-1.0) H 11/01/24 03:19
eGFR 31.07 11/01/24 03:19
Glucose 76 mg/dl (70-99) 11/01/24 03:19
Calcium 7.5 mg/dl (8.4-10.2) L 11/01/24 03:19
Phosphorus 3.5 mg/dl (2.5-4.5) 10/31/24 03:28
Albumin 2.9 g/dl (3.5-5.0) L 10/31/24 03:28
Physical Exam
-
Vital Signs:
Vital Signs
Temp Pulse Resp BP Pulse Ox
99.0 F 97 18 122/81 94
11/01/24 08:06 11/01/24 10:00 10/31/24 23:27 11/01/24 08:02 11/01/24 00:18
Cardiovascular:: Regular rate and rhythm
Respiratory:: Bilateral: CTA
Lung Excursion:: Normal
Abdomen:: Nontender and Soft
Extremity Edema:: None: Bilateral:
Liz[place]aga Catheter: No
Other Findings::
cvc catheter site clean
--- NOTE | 2024-11-01 11:52 | W.PN.HOSP.TC ---
Today's Communication/Plan
-
IV antibiotics
Assessment / Plan
Assessment / Plan
Physical exam:
General: Acutely ill
HEENT: Normocephalic, Atraumatic and Moist Mucous Membranes
Respiratory: Clear to Auscultation; Negative Wheezes, Rales or Rhonchi
Cardiac: Regular Rhythm and S1/S2
GI: Soft, Nontender and Nondistended
Musculoskeletal: No Clubbing, No Cyanosis and No Edema
Neuro: Awake, Alert and Oriented, no neurological deficit
Psych: Anxious and upset today
A/P:
Sepsis with Staph Bacteremia:
Source could be HD catheter versus skin--> likely to be HD catheter but yet to be determined.
Continue IV antibiotics, switched vancomycin to IV cefazolin
ID on board
Blood cultures positive staphylococcal schleiferi and remains positive on 10/30 and 10/31
WBC 14.6-->3.3
Likely will need HD catheter removal but will defer to ID
Hypotension:
Improving
Off fluids and pressors (received IV fluids initially)
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
Continue hemodialysis per nephrology
She is to be on steroids (discussed with nephrology today and she had been on it prior to admission)-resume prednisone 30 mg p.o. daily
History of hemorrhagic CVA:
Status post craniectomy and ventriculostomy in the past
Elevated LFTs:
Continue to trend
Rash, chronic:
Unclear etiology
Doubt related to acute presentation but not entirely ruled out and will need follow-up with dermatology as outpatient
Severe Protein Calorie Malnutrition:
Weight fairly stable from prior admission.
Dietary evaluation / input.
Hypothyroidism:
Continue current thyroid replacement, levothyroxine 50 mcg p.o. daily
Updated TSH 2.27 on 10/31
Hypertension:
Continue Toprol-XL 12.5 mg p.o. daily with holding parameters
Chronic thrombocytopenia:
Continue to monitor
No signs of bleeding
Anemia of chronic disease:
Hemoglobin 11.5
Continue to monitor
Metabolic acidosis:
From CKD
Continue sodium bicarb oral replacement
Depression:
Continue Zoloft 25 mg p.o. daily
DVT Prophylaxis:
Heparin subcu. Careful attention to platelets but currently stable at 86.
Code Status:
No intubation. CPR OK.
Total time spent on today's encounter was 52 minutes which included time spent in counseling the patient/family regarding diagnosis and treatment plan as listed above, goals of care, and symptom management. Case was discussed with nursing staff,
specialists, and care coordinators/case management. All labs and imaging personally reviewed by me. Remainder the time spent in detailed review of previous records, lab data, imaging, and other medical provider documentation.
Anticipated Discharge: > 48 hours
Subjective/Interval History
-
Date of Service: November 01, 2024
Patient upset that 'she needs to stay in the hospital'. Afebrile today. No chest pain or shortness of breath
Objective Data
-
Labs:
Laboratory Results
11/01/24
03:19
WBC 3.3 L
Hgb 11.5 L
Hct 34.7 L
Plt Count 86 L
Sodium 134 L
Potassium 3.3 L
Chloride 108 H
Carbon Dioxide 20 L
BUN 15
Creatinine 1.8 H
Glucose 76
Calcium 7.5 L
Vital Signs:
Vital Signs
Temp Pulse Resp BP Pulse Ox
98.1 F 97 18 122/81 94
11/01/24 11:51 11/01/24 10:00 10/31/24 23:27 11/01/24 08:02 11/01/24 00:18
I&O
10/31/24 11/01/2411/02/25
06:59 06:59 06:59
Intake Total 1819 1130 / 1130
Balance 1819 1130 / 1130
[2024-11-01] MEDS: ANCEF 5 IV (13:55)
[2024-11-01] MEDS: DELTASONE 30 MG PO (15:27)
--- NOTE | 2024-11-01 16:01 | PTCARENOTE ---
Pt tele LOC. Ambulating in room. Monitor SR. Lungs CTA. +BS, abd soft/nt. BRP. in to visit.
[2024-11-01] MEDS: ROBITUSSIN DM 5 ML PO ×2 (16:09→22:02)
[2024-11-01] MEDS: HEPARIN 5000 UNITS SC (19:55)
--- NOTE | 2024-11-01 20:30 | PTCARENOTE ---
Pt arrived from ICU via wheelchair at 8:30 PM and walked to the bed. Pt on tele, oriented to unit, side rails up, call cruz within reach, bed in lowest position. Will continue plan of care.
--- NOTE | 2024-11-01 20:30 | PTCARENOTE ---
Report given to 3W RN. Pt transport via wheelchair with all her belongings.
[2024-11-02] VITALS (7 sets, daily range): BP systolic 113–134; BP diastolic 75–87; BMI 15.0
[2024-11-02] MEDS: TYLENOL 650 MG PO ×2 (00:26→21:48)
[2024-11-02] MEDS: SYNTHROID 50 MCG PO (05:50)
[2024-11-02 06:54] LABS: Hematocrit 39.7 % (37.0-47.0); Hemoglobin 12.7 g/dL (12.0-16.0); Mean Corp Hgb Conc. 32.0 g/dL (33.0-37.0); Mean Corpuscular Volume 101.5 fL (81.0-99.0); Platelet Count 100 10^3/uL (130-400); Red Cell Dist. Width 14.5 % (11.5-14.5)
[2024-11-02 07:10] LABS: ALT (SGPT) 53 U/L (0-35); AST (SGOT) 58 U/L (14-36); Albumin 3.2 g/dl (3.5-5.0); Alkaline Phosphatase 197 U/L (38-126); Blood Urea Nitrogen 19 mg/dl (7-17); Calcium 8.0 mg/dl (8.4-10.2); Carbon Dioxide 19 mmol/L (22-30); Chloride 111 mmol/L (98-107); Estimated Creatinine Clearance 14 ml/min; Glucose 112 mg/dl (70-99); Potassium 5.2 mmol/L (3.5-5.1); Sodium 136 mmol/L (135-145); Total Protein 6.8 g/dl (6.3-8.2); eGFR 23.16
[2024-11-02 07:56] LABS: Absolute Neutrophils -Man Diff 1.3 10^3/uL (1.4-6.5)
[2024-11-02 07:58] LABS: Normal RBC Morphology Yes; Platelets Checked Yes; Total Cells Counted 100
[2024-11-02] MEDS: DELTASONE 30 MG PO (08:17)
[2024-11-02] MEDS: TOPROL XL 12.5 MG PO (08:18)
[2024-11-02] MEDS: ZOLOFT 25 MG PO (08:18)
[2024-11-02] MEDS: SODIUM BICARBONATE 650 MG PO ×3 (08:18→21:48)
[2024-11-02] MEDS: HEPARIN SC (08:19)
--- NOTE | 2024-11-02 08:33 | W.PN.HOSP.TC ---
Today's Communication/Plan
-
IV antibiotics. Repeat blood cultures
Assessment / Plan
Assessment / Plan
Physical exam:
General: Acutely ill but nontoxic in no acute distress.
HEENT: Normocephalic, Atraumatic and Moist Mucous Membranes
Respiratory: Clear to Auscultation; Negative Wheezes, Rales or Rhonchi
Cardiac: Regular Rhythm and S1/S2
GI: Soft, Nontender and Nondistended
Musculoskeletal: No Clubbing, No Cyanosis and No Edema
Neuro: Awake, Alert and Oriented, no neurological deficit
Psych: Calm today
A/P:
Sepsis with Staph Bacteremia:
Sepsis syndrome improving but bacteremia yet to be determined if persistent.
Repeat blood cultures today 11/02
Source could be HD catheter versus skin--> likely to be HD catheter but yet to be determined.
Continue IV antibiotics, IV cefazolin
ID on board
Blood cultures positive staphylococcal schleiferi and remains positive on 10/30 and 10/31.
WBC 14.6-->2.6
Consider transthoracic echocardiogram on Sunday
Likely will need HD catheter removal if bacteremia persists but will defer to ID and nephrology.
Hypotension:
Improved
Off fluids and pressors (received IV fluids initially, off now)
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
Continue hemodialysis per nephrology
Back on steroids, prednisone 30 mg p.o. daily (nephrology confirmed she should be on these steroids)
History of hemorrhagic CVA:
Status post craniectomy and ventriculostomy in the past
Elevated LFTs:
Continue to trend
Rash, chronic:
Unclear etiology
Doubt related to acute presentation but not entirely ruled out and will need follow-up with dermatology as outpatient
Mild hyperkalemia:
Defer to nephrology-likely will take care with hemodialysis
Severe Protein Calorie Malnutrition:
Weight fairly stable from prior admission.
Dietary evaluation / input.
Hypothyroidism:
Continue current thyroid replacement, levothyroxine 50 mcg p.o. daily
Updated TSH 2.27 on 10/31
Hypertension:
Continue Toprol-XL 12.5 mg p.o. daily with holding parameters
Chronic thrombocytopenia:
Continue to monitor
No signs of bleeding
Anemia of chronic disease:
Hemoglobin 12.7
Given MICHA
Continue to monitor
Metabolic acidosis:
From CKD
Bicarb 19 today
Continue sodium bicarb oral replacement
Depression:
Continue Zoloft 25 mg p.o. daily
DVT Prophylaxis:
Heparin subcu. Careful attention to platelets but currently stable at 100.
Code Status:
No intubation. CPR OK.
Time spent 38 minutes
Anticipated Discharge: > 48 hours
Subjective/Interval History
-
Date of Service: November 02, 2024
Patient feels better today. Denies nausea vomiting or shortness of breath. Afebrile
Objective Data
-
Labs:
Laboratory Results
11/02/24
06:43
WBC 2.6 L
Hgb 12.7
Hct 39.7
Plt Count 100 L
Sodium 136
Potassium 5.2 H D
Chloride 111 H
Carbon Dioxide 19 L
BUN 19 H
Creatinine 2.3 H
Glucose 112 H
Calcium 8.0 L
Total Bilirubin 0.6
AST 58 H
ALT 53 H
Alkaline Phosphatase 197 H
Vital Signs:
Vital Signs
Temp Pulse Resp BP Pulse Ox
97.5 F 74 18 113/75 100
11/02/24 07:34 11/02/24 08:18 11/02/24 07:34 11/02/24 08:18 11/02/24 07:34
I&O
11/01/24 11/02/24 11/03/24
06:59 06:59 06:59
Intake Total 1130 / 1130 240 / 240
Balance 1130 / 1130 240 / 240
--- NOTE | 2024-11-02 11:25 | W.PN.ID1 ---
Date of Service
Date of Service: November 02, 2024
Today's Communication
If bacteremia sustained, dc HD catheter, cx tip
Continue cefazolin 1g IV q24.
Assessment / Plan
# Staphylococcus schleiferi bacteremia (4 sets) . Skin potential source with diffuse dry rash
# Fever resolved
# Leukocytosis - resolved
# JOCELYN on HD via tunneled catheter since 07/2024
# Severe Protein-calorie malnutrition
# chronic puritic diffuse rash, NOS.
# Chronic thrombocytopenia
# HIV screen negative 04/2024.
-CXR negative
-Follow repeat blood cx's x 2
If bacteremia sustained, dc HD catheter, cx tip
- Continue cefazolin 1g IV q24.
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
JOCELYN on HD via tunneled HD catheter since 07/2024
Hypothyroidism
Hypertension
Chronic diffuse pruritic rash since 04/2024
Alopecia
Chronic thrombocytopenia
Depression
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
Chief Complaint
-: Fever and Bacteremia
Subjective / Review of Systems
Feels OK.
Vital Signs / Physical Exam
Vital Signs
Vital Signs
Temp Pulse Resp BP Pulse Ox
97.9 F 73 16 115/81 99
11/02/24 10:58 11/02/24 10:58 11/02/24 10:58 11/02/24 10:58 11/02/24 10:58
Physical Exam
Constitutional: Chronically Ill
Head: Other (Alopecia)
Eyes: Sclera Anicteric
Cardiovascular: Regular Rate and S1/S2
Pulmonary: Clear
Gastrointestinal: Soft, Non Tender and Non Distended
Extremities: Negative Edema
Skin: Rash (Diffuse dry patches with erythroderma on chest, coalescent maculopapular rash the rest of body)
Neurological: AO x 3
Psychological: Other (Flat affect)
Lines: HD Cath (RCW no erythema)
Objective Data
Lab Data
Lab Results
11/02/24 06:43
11/02/24 06:43
Estimated Creat Clear 14 ml/min 11/02/24 06:43
Lactic Acid 1.3 mmol/L (0.7-2.0) 10/30/24 07:07
Total Bilirubin 0.6 mg/dl (0.2-1.3) 11/02/24 06:43
AST 58 U/L (14-36) H 11/02/24 06:43
ALT 53 U/L (0-35) H 11/02/24 06:43
Alkaline Phosphatase 197 U/L (38-126) H 11/02/24 06:43
Most recent labs reviewed.
Micro Results:
10/31/24 03:32 Blood Culture - Preliminary
Blood/Venous Staphylococcus schleiferi
Gram Stain - Preliminary
11/02/24 07:33 Blood Culture - Pending
Blood/Venous
11/02/24 06:43 Blood Culture - Pending
Blood/Venous
10/31/24 03:28 Blood Culture - Preliminary
Blood/Venous Staphylococcus schleiferi
Gram Stain - Preliminary
10/30/24 03:34 Blood Culture - Final
Blood/Venous Staphylococcus schleiferi
Gram Stain - Final
10/30/24 03:57 Blood Culture - Final
Blood/Venous Staphylococcus schleiferi
Gram Stain - Final
10/30/24 15:20 MRSA Screen - Final
Nose No Methicillin Resistant Staphylococcus aureus isolated.
10/30/24 05:41 Urine Culture - Final
Urine
10/30/24 03:34 Influenza Types A & B (ELIZABETH) - Final
Nasal Swab Negative for Influenza A & B, NAAT
Negative results must be combined with clinical observations
and patient history.
Nucleic Acid Amplification test (NAAT)performed on the
[employer] platform.
10/30/24 CXR: No radiographic evidence of acute cardiopulmonary abnormality.
--- NOTE | 2024-11-02 12:14 | W.PN.NEPH.PH ---
Today's Communication / Plan
-
HD tomorrow
Assessment/Plan
-
Assessment
Acute kidney injury on hemodialysis on CKD 4
Dialysis schedule MWF
Sepsis
Failure to thrive
Weight loss
Hypothyroidism
Anemia
Nephrotic range proteinuria
Plan:
coag neg bacteremia-follow blood cultures , pending bld cx 11/01
abx per ID
CVC could be source of inf-if persistent +bld cx-likely d/c
Bp stable off pressors
met acidosis-stable cont po bicarb
next HD on Sunday
back on prednisone
-
-
Date of Service: November 02, 2024
CC / HPI / ROS
-
Chief Complaint:
Presents with lethargy fever, ESRD
History of Present Illness:
no fever, Bps table off pressors
k up at 5.2
cr trending up 2.3, no renal recovery noted
LFTs high -improving
Review of Systems:
no fever
no cp or sob
Labs
-
Labs:
WBC 2.6 10^3/uL (4.8-10.8) L 11/02/24 06:43
RBC 3.91 10^6/uL (4.20-5.40) L 11/02/24 06:43
Hgb 12.7 g/dL (12.0-16.0) 11/02/24 06:43
Hct 39.7 % (37.0-47.0) 11/02/24 06:43
Plt Count 100 10^3/uL (130-400) L 11/02/24 06:43
Sodium 136 mmol/L (135-145) 11/02/24 06:43
Potassium 5.2 mmol/L (3.5-5.1) H D 11/02/24 06:43
Chloride 111 mmol/L (98-107) H 11/02/24 06:43
Carbon Dioxide 19 mmol/L (22-30) L 11/02/24 06:43
BUN 19 mg/dl (7-17) H 11/02/24 06:43
Creatinine 2.3 mg/dL (0.6-1.0) H 11/02/24 06:43
eGFR 23.16 11/02/24 06:43
Glucose 112 mg/dl (70-99) H 11/02/24 06:43
Calcium 8.0 mg/dl (8.4-10.2) L 11/02/24 06:43
Phosphorus 3.5 mg/dl (2.5-4.5) 10/31/24 03:28
Albumin 3.2 g/dl (3.5-5.0) L 11/02/24 06:43
Physical Exam
-
Vital Signs:
Vital Signs
Temp Pulse Resp BP Pulse Ox
97.9 F 73 16 115/81 99
11/02/24 10:58 11/02/24 10:58 11/02/24 10:58 11/02/24 10:58 11/02/24 10:58
Cardiovascular:: Regular rate and rhythm
Respiratory:: Bilateral: CTA
Lung Excursion:: Normal
Abdomen:: Nontender and Soft
Extremity Edema:: None: Bilateral:
[place] Catheter: No
Other Findings::
cvc catheter site clean
[2024-11-02] MEDS: ANCEF 5 IV (13:29)
[2024-11-02] MEDS: NICODERM TRANSDERMAL 7 MG TRANSDERM (20:44)
[2024-11-02] MEDS: HEPARIN 5000 UNITS SC (20:45)
[2024-11-02] MEDS: ROBITUSSIN DM 5 ML PO (21:49)
[2024-11-03] MEDS: SYNTHROID 50 MCG PO (05:38)
[2024-11-03 06:00] VITALS: BMI 15.5
[2024-11-03 07:30] VITALS: BP 134/80
--- NOTE | 2024-11-03 07:32 | PTCARENOTE ---
Report given verbally to oncoming shift, Anne ANGELES. Bedside rounds complete. Questions answered.
--- NOTE | 2024-11-03 07:33 | W.PN.HOSP.TC ---
Today's Communication/Plan
-
discharge
Assessment / Plan
Assessment / Plan
Physical exam:
General: No acute distress, appears comfortable, cachectic appearance
HEENT: Normocephalic, Atraumatic and Moist Mucous Membranes
Respiratory: Clear to Auscultation; Negative Wheezes, Rales or Rhonchi
Cardiac: Regular Rhythm and S1/S2
GI: Soft, Nontender and Nondistended
Musculoskeletal: No Clubbing, No Cyanosis and No Edema
Neuro: AOx3 conversant coherent
Derm: diffuse chronic rash, patient notes some improvement
Psych: Calm
A/P: 63F ESRD Chronic Rash here with staph bacteremia
Sepsis with Staph Bacteremia:
Sepsis syndrome improved/resolved
possible source HD catheter versus skin
Blood cultures positive staphylococcal schleiferi 10/30 and 10/31.
Repeat blood cultures 11/02 NGTD
Leukocytosis resolved
ID eval appreciated cefazolin 2g/2g/3g qMWF with HD, last dose 11/17/24, ok to dc home.
Discussed with patient, aware she may need to return for further evaluation treatment if blood cultures from 11/02 return positive, pt nonetheless eager to go home.
Hypotension:
Improved
Off fluids and pressors (received IV fluids initially, off now)
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
Continue hemodialysis prednisone 30 mg p.o. daily per nephrology
History of hemorrhagic CVA:
Status post craniectomy and ventriculostomy in the past
Mild Chronic Transaminitis
Rash, chronic:
Unclear etiology
cont follow-up with dermatology as outpatient
Mild Hyperkalemia
resolved with HD
Severe Protein Calorie Malnutrition:
Weight fairly stable from prior admission.
Dietary evaluation / input appreciated
Hypothyroidism:
Continue current thyroid replacement, levothyroxine 50 mcg p.o. daily
Updated TSH 2.27 on 10/31
Hypertension:
Continue Toprol-XL 12.5 mg p.o. daily with holding parameters
Chronic thrombocytopenia:
stable improving
Anemia of chronic disease:
Given MICHA
H&H stable
Metabolic acidosis:
From CKD
Continue sodium bicarb oral replacement
Depression:
Continue Zoloft 25 mg p.o. daily
DVT Prophylaxis:
Heparin subcu
Code Status:
No intubation. CPR OK.
Medically stable for discharge home with outpatient follow up recommendations.
Total Time Preparing Discharge __40 minutes including examination of the patient, summary of the hospital stay, instructions for continuing care to all relevant caregivers; and preparation of discharge records, prescriptions, and referral
forms if necessary.
Anticipated Discharge: Today
Subjective/Interval History
-
Date of Service: November 03, 2024
No acute distress, overall reports feeling well. Ambulating without need for assist device. Eager to go home.
Objective Data
-
Labs:
Laboratory Results
11/03/24
06:00
WBC Pending
Hgb Pending
Hct Pending
Plt Count Pending
Sodium Pending
Potassium Pending
Chloride Pending
Carbon Dioxide Pending
BUN Pending
Creatinine Pending
Glucose Pending
Calcium Pending
Total Bilirubin Pending
AST Pending
ALT Pending
Alkaline Phosphatase Pending
Vital Signs:
Vital Signs
Temp Pulse Resp BP Pulse Ox
97.9 F 74 16 134/80 100
11/03/24 07:30 11/03/24 07:30 11/03/24 07:30 11/03/24 07:30 11/03/24 07:30
I&O
11/02/24 11/03/24 11/04/24
06:59 06:59 06:59
Intake Total 240 / 240 1200 / 1200
Balance 240 / 240 1200 / 1200
[2024-11-03] MEDS: HEPARIN 500 UNITS IV ×2 (08:00→09:00)
[2024-11-03 08:44] LABS: Hematocrit 35.3 % (37.0-47.0); Hemoglobin 11.4 g/dL (12.0-16.0); Mean Corp Hgb Conc. 32.3 g/dL (33.0-37.0); Mean Corpuscular Volume 101.1 fL (81.0-99.0); Nucleated Red Blood Cells % 0 %; Platelet Count 114 10^3/uL (130-400); Red Cell Dist. Width 14.0 % (11.5-14.5)
[2024-11-03] MEDS: SODIUM BICARBONATE 650 MG PO ×2 (09:04→15:13)
[2024-11-03] MEDS: HEPARIN SC (09:04)
[2024-11-03] MEDS: ZOLOFT 25 MG PO (09:05)
[2024-11-03] MEDS: NICODERM TRANSDERMAL 7 MG TRANSDERM (09:05)
[2024-11-03 09:09] LABS: ALT (SGPT) 39 U/L (0-35); AST (SGOT) 67 U/L (14-36); Albumin 3.1 g/dl (3.5-5.0); Alkaline Phosphatase 195 U/L (38-126); Blood Urea Nitrogen 25 mg/dl (7-17); Calcium 7.8 mg/dl (8.4-10.2); Carbon Dioxide 15 mmol/L (22-30); Chloride 113 mmol/L (98-107); Estimated Creatinine Clearance 15 ml/min; Glucose 119 mg/dl (70-99); Potassium 3.8 mmol/L (3.5-5.1); Sodium 136 mmol/L (135-145); Total Protein 6.3 g/dl (6.3-8.2); eGFR 24.42
--- NOTE | 2024-11-03 10:24 | W.PN.NEPH.HD ---
Assessment
-
pt seen during HD
vitals stable
does not require much of UF
bld cx neg 24hrs
await cx to finalize to see if need to remove HD catheter-ID note reviewed
abx renally dose
on prednisone for interstitial nephritis with IgG4 features -follows Rheum
Progress Note - Hemodialysis
-
Date of Service: November 03, 2024
Duration: 3 hours
Potassium Bath: 3
Calcium Bath: 2.5
Opti-Dialyzer: 160
Ultrafiltration: Other (0.5-1kg)
Blood Flow: 400
Dialysate Flow: 600
Heparin: yesx2
EPO: no
[2024-11-03] MEDS: DELTASONE 30 MG PO (11:59)
[2024-11-03] MEDS: TOPROL XL 12.5 MG PO (11:59)
--- NOTE | 2024-11-03 12:25 | CM ---
Addendum entered by Doris Daly 11/04/24 09:39:
Referral sent via [facility] with abx RX.
Pt accepted for return to dialysis at HD at [place] with chair time on W- @ 12:15PM
Original Note:
CM following for discharge plans. HD at [place] with chair time on - @ 12:15PM. Pt is currently receiving IV abx after dialysis while hospitalized.
CM will continue to follow to coordinate all discharge planning needs.
[2024-11-03] MEDS: ANCEF 10 IV (13:17)
--- NOTE | 2024-11-03 13:19 | W.PN.ID1 ---
Date of Service
Date of Service: November 03, 2024
Today's Communication
- Recommend cefazolin 2g/2g/3g qMWF with HD, last dose 11/17/24.
Can dc home after cefazolin dose today.
Assessment / Plan
# Staphylococcus schleiferi bacteremia (4 sets) . Skin potential source with diffuse dry rash
# Fever resolved
# Leukocytosis - resolved
# JOCELYN on HD via tunneled catheter since 07/2024
# Severe Protein-calorie malnutrition
# chronic puritic diffuse rash, NOS.
# Chronic thrombocytopenia
# HIV screen negative 04/2024.
-CXR negative
-repeat blood cx's x 2 neg to date.
- Recommend cefazolin 2g/2g/3g qMWF with HD, last dose 11/17/24.
- Infusion sheet submitted to piano case and bench assembler.
- OK to dc home.
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
JOCELYN on HD via tunneled HD catheter since 07/2024
Hypothyroidism
Hypertension
Chronic diffuse pruritic rash since 04/2024
Alopecia
Chronic thrombocytopenia
Depression
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
Chief Complaint
-: Bacteremia
Subjective / Review of Systems
Wants to go home. Feels better.
Vital Signs / Physical Exam
Vital Signs
Vital Signs
Temp Pulse Resp BP Pulse Ox
97.9 F 74 16 134/80 100
11/03/24 07:30 11/03/24 11:59 11/03/24 07:30 11/03/24 11:59 11/03/24 07:30
Physical Exam
Constitutional: No Acute Distress and Chronically Ill
Head: Other (Alopecia)
Eyes: Sclera Anicteric
Cardiovascular: Regular Rate and S1/S2
Pulmonary: Clear
Gastrointestinal: Soft, Non Tender and Non Distended
Extremities: Negative Edema
Skin: Rash (Diffuse dry patches with erythroderma on chest, coalescent maculopapular rash the rest of body)
Neurological: AO x 3
Lines: HD Cath (RCW no erythema)
Objective Data
Lab Data
Lab Results
11/03/24 08:11
11/03/24 08:11
Estimated Creat Clear 15 ml/min 11/03/24 08:11
Lactic Acid 1.3 mmol/L (0.7-2.0) 10/30/24 07:07
Total Bilirubin 0.4 mg/dl (0.2-1.3) 11/03/24 08:11
AST 67 U/L (14-36) H 11/03/24 08:11
ALT 39 U/L (0-35) H 11/03/24 08:11
Alkaline Phosphatase 195 U/L (38-126) H 11/03/24 08:11
Most recent labs reviewed.
Micro Results:
11/02/24 07:33 Blood Culture - Preliminary
Blood/Venous No Growth in 24 hours- Final report to follow
11/02/24 06:43 Blood Culture - Preliminary
Blood/Venous No Growth in 24 hours- Final report to follow
10/31/24 03:32 Blood Culture - Preliminary
Blood/Venous Staphylococcus schleiferi
Gram Stain - Preliminary
10/31/24 03:28 Blood Culture - Preliminary
Blood/Venous Staphylococcus schleiferi
Gram Stain - Preliminary
10/30/24 03:34 Blood Culture - Final
Blood/Venous Staphylococcus schleiferi
Gram Stain - Final
10/30/24 03:57 Blood Culture - Final
Blood/Venous Staphylococcus schleiferi
Gram Stain - Final
10/30/24 15:20 MRSA Screen - Final
Nose No Methicillin Resistant Staphylococcus aureus isolated.
10/30/24 05:41 Urine Culture - Final
Urine
10/30/24 03:34 Influenza Types A & B (ELIZABETH) - Final
Nasal Swab Negative for Influenza A & B, NAAT
Negative results must be combined with clinical observations
and patient history.
Nucleic Acid Amplification test (NAAT)performed on the
[employer] platform.
10/30/24 CXR: No radiographic evidence of acute cardiopulmonary abnormality.
Care Review
Plan reviewed with: Physician (Dr. Crum)
[2024-11-03] MEDS: TYLENOL 650 MG PO (15:27)
[2024-11-03 15:50] VITALS: BP 106/72
--- NOTE | 2024-11-03 17:02 | W.DCSUMMARY ---
Discharge Summary
Discharge Data
Date of Admission: 10/30/24
Date of Discharge: 11/03/24
-
Pending Results: Yes
Additional Pending Results:
Official Blood Culture Results
Hospital Course
63F ESRD Chronic Rash here with staph bacteremia, Sepsis syndrome improved/resolved, possible source HD catheter versus skin. Blood cultures positive staphylococcal schleiferi 10/30 and 10/31. Repeat blood cultures 11/02 NGTD. Leukocytosis resolved.
ID marielle appreciated cefazolin 2g/2g/3g qMWF with HD, last dose 11/17/24, ok to dc home.
Discussed with patient, aware she may need to return for further evaluation treatment if blood cultures from 11/02 return positive, pt nonetheless eager to go home. Hypotension improved, off fluids and pressors. JOCELYN on CKD stage IV on
hemodialysis/ Interstitial nephritis with IgG4 features by renal biopsy, continue hemodialysis and prednisone 30 mg p.o. daily per nephrology. Medically stable, patient was discharged home with outpatient follow up recommendations.
Discharge Plan
-
Patient Disposition: Home (Routine Discharge)
Discharge Diagnosis/Procedures: Sepsis with Staph Bacteremia
End Stage Renal Disease on Dialysis
Interstitial nephritis
Mild Chronic Transaminitis
Chronic Rash
Severe Protein Calorie Malnutrition:
Hypothyroidism
Hypertension
Chronic thrombocytopenia
Metabolic acidosis
Depression
Condition: Fair
Diet: Regular and Supplements
Additional Diets: Nepro dietary supplement daily
Activity: As tolerated
Driving Restrictions: As prior to admission
Bathing Restrictions: None
Blood Work: Repeat CBC and CMP with primary care provider in 1 week of discharge
Activity Restrictions/Additional Instructions:
Follow up with primary care provider in 1 week of discharge and Infectious Disease in 2-4 weeks of discharge.
As per Infectious Disease, follow up with your dialysis sessions for IV antibiotics cefazolin 2g Sunday/ 2g Sunday /3g Sunday, last dose 11/17/24.
Continue Prednisone 30 mg daily for interstitial nephritis. Follow up with Rheumatology and/or Nephrology for refills/taper instructions.
Protonix prescribed for GI prophylaxis while on steroids.
Please take medications as prescribed/recommended and follow up with primary care provider and/or other healthcare provider involved in your care for refills and/or further adjustment to your medication regimen as necessary.
Referrals:
Dewey Manzo MD [Family Provider, Family Practice] - in one week
Anne Rawls MD [Active, Infectious Diseases] - in two to four weeks
Prescriptions:
Continued
pyridoxine (vitamin B6) 25 mg Tablet
25 mg PO DAILY
cyanocobalamin (vitamin B-12) 1,000 mcg Tablet
1,000 mcg PO DAILY
folic acid 1 mg Tablet
1 mg PO DAILY
magnesium oxide 400 mg magnesium Tablet
400 mg PO DAILY
sertraline 25 mg Tablet
25 mg PO DAILY Qty: 30 0RF
cholecalciferol (vitamin D3) 25 mcg (1,000 unit) Tablet
25 mcg PO DAILY Qty: 30 0RF
levothyroxine 50 mcg Tablet
50 mcg PO DAILY @ 0600 Qty: 14 0RF
calcium carbonate-vitamin D3 [Oyster Shell Calcium-Vit D3] 500 mg-5 mcg (200 unit) Tablet
1 tab PO TID 30 Days Qty: 30 0RF
sodium bicarbonate 650 mg Tablet
650 mg PO TID Qty: 90 0RF
mirtazapine 15 mg Tablet
15 mg PO HS Qty: 30 0RF
calcitriol 0.25 mcg Capsule
0.5 mcg PO DAILY Qty: 30 0RF
prednisone 10 mg Tablet
30 mg PO DAILY Qty: 30 0RF
Rx Instructions:
Follow up with Rheumatology and/or Nephrology for taper instructions/refills
pantoprazole 40 mg Tablet,Delayed Release (Dr/Ec)
40 mg PO DAILY Qty: 30 0RF
acetaminophen 325 MG tablet
650 mg PO Q4HPRN PRN (Reason: fever pain) Qty: 0 0RF
metoprolol succinate 12.5 MG tablet extended release 24 hr
12.5 mg PO DAILY Qty: 30 3RF
Rx Instructions:
does not take on dialysis days
Discontinued
potassium 99 mg Tablet
99 mg PO DAILY
Discharge Orders:
Discharge Patient (As Directed); Ordered 11/03/24
Ordered By: Pedro Crum
Discharge Date and Time
Discharge Date/Time: 11/03/24 17:35
Print Language: SLOVAK
== END 2024-11-03 17:35 | disposition home or self-care (01) | DRG 871 ==
LOC: 3 WEST ACU 06:05
PROVIDERS: Hospitalist; Internal Medicine; Internal Medicine Infectious Disease; ADMITTING PHYSICIAN Hospitalist; ATTENDING PHYSICIAN Internal Medicine; CONSULT PHYSICIAN Internal Medicine Nephrology; EMERGENCY PHYSICIAN Emergency Medicine; FAMILY PHYSICIAN Family Medicine; OTHER PHYSICIAN Internal Medicine Infectious Disease
PROC: 5A1D70Z Performance of Urinary Filtration, Intermittent, Less than 6 Hours Per Day (ICD-10-PCS; 2024-10-31)
DX: A41.2 Sepsis due to unspecified staphylococcus (principal); E43 Unspecified severe protein-calorie malnutrition; N12 Tubulo-interstitial nephritis, not specified as acute or chronic; Z68.1 Body mass index [BMI] 19.9 or less, adult; E87.20 Acidosis, unspecified; N18.4 Chronic kidney disease, stage 4 (severe); Z99.2 Dependence on renal dialysis; D63.1 Anemia in chronic kidney disease; E03.9 Hypothyroidism, unspecified; D69.6 Thrombocytopenia, unspecified; F32.A Depression, unspecified; Z79.890 Hormone replacement therapy; Z86.73 Personal history of transient ischemic attack (TIA), and cerebral infarction without residual deficits; E87.5 Hyperkalemia; E86.9 Volume depletion, unspecified; E87.6 Hypokalemia; K21.9 Gastro-esophageal reflux disease without esophagitis; L29.9 Pruritus, unspecified; R62.7 Adult failure to thrive; Z79.899 Other long term (current) drug therapy; Z11.52 Encounter for screening for COVID-19; I12.9 Hypertensive chronic kidney disease with stage 1 through stage 4 chronic kidney disease, or unspecified chronic kidney disease
CPT/HCPCS: 71045; 76700; 80048; 80053; 80202; 81003; 81015; 82248; 82962; 83605; 83735; 84100; 84443; 85025; 85027; 87040; 87070; 87086; 87147; 87154; 87186; 87205; 87502; 87811; 93005; 96361; 96365; 96367; 99291; 99406; G0257; P9047

== ENCOUNTER 2025-01-09 06:04 | Day surgery (SDC) | payer OTHER, SELFPAY ==
[2024-12-30 14:11] VITALS: BMI 17.1
[2025-01-09] VITALS (7 sets, daily range): BP systolic 133–151; BP diastolic 8–99; BMI 17.1
--- NOTE | 2025-01-09 07:05 | W.SUR.PREOP ---
Pre-Operative Surgical Note
-
I have examined this patient prior to the performance of the scheduled procedure.
The patient's condition is unchanged from the time of the current History and
Physical and the patient is able to undergo the scheduled procedure.
[2025-01-09] MEDS: TYLENOL 1000 MG PO (07:08)
[2025-01-09] MEDS: NSS IV (07:08)
[2025-01-09] MEDS: NSS 1000 IV (07:12)
--- NOTE | 2025-01-09 08:46 | W.IMMPOSTOP ---
Addendum entered and electronically signed by Brent Link MD 01/09/25 09:28:
#[id number]
Original Note:
Surgical Immed Post Op Note
-
Primary Surgeon: Brent Link MD
Assisting Surgeon: Jenny DAWN
Pre-op Diagnosis: ESRD on Dialysis
Post-op Diagnosis: ESRD on Dialysis
Procedure Performed: Laparoscopic assisted peritoneal dialysis catheter placement
Anesthesia Type: GETA + 0.25% Marcaine
Specimen / Cultures: None
Estimated Blood Loss: 4mL
Complications: none immediate
Operative Findings: 1 cuff curl catheter with 2 cuff swan neck extension placed. left upper quadrant skin exit site
== END 2025-01-09 10:40 | disposition home or self-care (01) ==
LOC: SDS 06:04
PROVIDERS: ATTENDING PHYSICIAN Surgery; FAMILY PHYSICIAN Family Medicine
DX: N18.6 End stage renal disease (principal); Z99.2 Dependence on renal dialysis
CPT/HCPCS: 49324; 36415; 74018; 93005; C1894

== ENCOUNTER 2025-03-05 14:30 | Inpatient (IN) | payer OTHER, SELFPAY ==
[2025-03-05] VITALS (7 sets, daily range): BP systolic 127–148; BP diastolic 85–91
--- NOTE | 2025-03-05 12:24 | ED.GENMED ---
History of Present Illness
<POONAM Liu - Last Filed: 03/05/25 14:07>
General
Chief Complaint: Abdominal Symptoms
Source: patient
Exam Limitations: none
Time Seen by Provider: 03/05/25 12:13
Nursing documentation reviewed up to this point in time: agreed with
History of Present Illness
History of Present Illness:
64-year-old female with past with a history of end-stage renal disease on peritoneal dialysis presents for evaluation. For the past 1-1-1/2 weeks she has had intermittent cloudy fluid
Past History
<POONAM Liu - Last Filed: 03/05/25 14:07>
Past History
ED Past Medical History: CVA (Remote history of hemorrhagic CVA), HTN, Renal failure (Dialysis dependent), Hypothyroidism, Psychiatric and Other (Severe protein calorie malnutrition)
ED Past Surgical History: Brain (Craniotomy/ventriculostomy 2014), and Other (Dialysis catheter right chest)
Social History
Tobacco: Smoker
Alcohol: Occasional
Drug: None
Personal:
Living: with family
Employment: Not employed
Family History
Family History: Unable to obtain
Phy Exam
<POONAM Liu - Last Filed: 03/05/25 14:07>
General Physical Exam
General Presentation: no apparent distress
General age: appears stated age
General Skin: warm and dry
General Habitus: elderly
General Mental: alert
General Hydration: appears well hydrated
Cardiovascular Exam
Cardiovascular Exam: regular rate/rhythm, no murmur and normal peripheral pulses
Pulmonary Exam
Pulmonary Exam: lungs clear and no respiratory distress
Gastrointestinal Exam
Gastrointestinal Exam: other (Peritoneal catheter in place no surrounding erythema at insertion site abd soft non tender )
Neurological Exam
Neurological Exam: alert and oriented x3
Musculoskeletal Exam
Musculoskeletal Exam: full ROM
Skin Exam
Skin Exam: normal color and warm/dry
Psychiatric Exam
Psychiatric Exam: normal mood/affect
Course
<POONAM Liu - Last Filed: 03/05/25 14:07>
Orders/Labs/Results
Orders:
Orders
03/05/25 12:52
Complete Blood Count/With Diff Urgent
Comprehensive Metabolic Panel Urgent
Lactic Acid Urgent
Lipase Urgent
Urinalysis Reflex To Culture Urgent
Date Specimen was Collected: 03/05/25
Time Specimen was Collected: 12:36
Urine Microscopic Reflex Cult Urgent
Blood Culture Q30M
NEETU Source: Blood/Venous
Specimen Description:
Blood Culture Q30M
NEETU Source: Blood/Venous
Specimen Description:
Urine Culture Urgent
NEETU Source: U
Specimen Description:
Date Specimen was Collected: 03/05/25
Time Specimen was Collected: 12:36
03/05/25 13:30
Potassium Chloride [KCl] 40 meq 0.9% Sodium Chloride 250 ml [Nss] 250 ml IV NOW
03/05/25 13:31
Electrocardiogram (*1) Stat
Reason for Study: Other
Other Reason for Exam: chest pain
Cardiac Monitoring- Treatment ONCE
EKG- Treatment ONCE
IV Insert/Care/Rem.- Treatment PRN
Potassium Chloride [KCl] 40 meq PO NOW STA
03/05/25 13:38
Piperacillin/Tazo 3.375 Gram [Zosyn] 3.375 gram in 50 ml IV NOW
Abnormal Lab Results
03/05/25
12:52
WBC 14.4 H 10^3/uL
(4.8-10.8)
RBC 3.34 L 10^6/uL
(4.20-5.40)
Hgb 10.3 L g/dL
(12.0-16.0)
Hct 30.7 L %
(37.0-47.0)
RDW 14.7 H %
(11.5-14.5)
Abs Immat Gran (auto) 0.1 H 10^3/uL
(0-0.05)
Absolute Neuts (auto) 12.4 H 10^3/uL
(1.4-6.5)
Absolute Lymphs (auto) 0.9 L 10^3/uL
(1.2-3.4)
Absolute Monos (auto) 1.0 H 10^3/uL
(0.1-0.6)
Immature Gran % 0.6 H %
(0-0.5)
Neutrophils % 86.1 H %
(42.2-75.2)
Lymphocytes % 6.2 L %
(20.5-51.1)
Sodium 134 L mmol/L
(135-145)
Potassium 2.5 L* mmol/L
(3.5-5.1)
Carbon Dioxide 31 H mmol/L
(22-30)
Creatinine 1.8 H mg/dL
(0.6-1.0)
Alkaline Phosphatase 149 H U/L
(38-126)
Total Protein 5.8 L g/dl
(6.3-8.2)
Albumin 3.0 L g/dl
(3.5-5.0)
Ur Occult Blood Reflex 1+ A
(Negative)
Urine RBC 3-6 A /HPF
(0-2)
Urine Bacteria (Reflex) Moderate A
(Negative)
Urine Glucose 3+ A
(Negative)
Urine Albumin (Reflex) 2+ A
(Neg - Trace)
03/05/25 12:52
03/05/25 12:52
Vital Signs
Initial and Last Documented VS:
Initial Vital Signs
Temp Pulse Resp BP Pulse Ox
97.7 F 86 16 148/91 99
03/05/25 11:32 03/05/25 11:32 03/05/25 11:32 03/05/25 11:32 03/05/25 11:32
Last Documented Vital Signs
Temp Pulse Resp BP Pulse Ox
97.7 F 93 22 129/86 98
03/05/25 11:32 03/05/25 13:45 03/05/25 13:45 03/05/25 13:36 03/05/25 13:37
Processing Analyst consulted with Physician
Processing Analyst consulted with physician?: Yes
Name of Physician Consulted: km
<Andrea Gill, DO - Last Filed: 03/05/25 13:31>
Orders/Labs/Results
Orders:
Orders
03/05/25 12:52
Complete Blood Count/With Diff Urgent
Comprehensive Metabolic Panel Urgent
Lactic Acid Urgent
Lipase Urgent
Urinalysis Reflex To Culture Urgent
Date Specimen was Collected: 03/05/25
Time Specimen was Collected: 12:36
Urine Microscopic Reflex Cult Urgent
Blood Culture Q30M
NEETU Source: Blood/Venous
Specimen Description:
Blood Culture Q30M
NEETU Source: Blood/Venous
Specimen Description:
Urine Culture Urgent
NEETU Source: U
Specimen Description:
Date Specimen was Collected: 03/05/25
Time Specimen was Collected: 12:36
03/05/25 13:30
Potassium Chloride [KCl] 40 meq 0.9% Sodium Chloride 250 ml [Nss] 250 ml IV NOW
03/05/25 13:31
Electrocardiogram (*1) Stat
Reason for Study: Other
Other Reason for Exam: chest pain
Cardiac Monitoring- Treatment ONCE
EKG- Treatment ONCE
IV Insert/Care/Rem.- Treatment PRN
Potassium Chloride [KCl] 40 meq PO NOW STA
03/05/25 13:38
Piperacillin/Tazo 3.375 Gram [Zosyn] 3.375 gram in 50 ml IV NOW
Abnormal Lab Results
03/05/25
12:52
WBC 14.4 H 10^3/uL
(4.8-10.8)
RBC 3.34 L 10^6/uL
(4.20-5.40)
Hgb 10.3 L g/dL
(12.0-16.0)
Hct 30.7 L %
(37.0-47.0)
RDW 14.7 H %
(11.5-14.5)
Abs Immat Gran (auto) 0.1 H 10^3/uL
(0-0.05)
Absolute Neuts (auto) 12.4 H 10^3/uL
(1.4-6.5)
Absolute Lymphs (auto) 0.9 L 10^3/uL
(1.2-3.4)
Absolute Monos (auto) 1.0 H 10^3/uL
(0.1-0.6)
Immature Gran % 0.6 H %
(0-0.5)
Neutrophils % 86.1 H %
(42.2-75.2)
Lymphocytes % 6.2 L %
(20.5-51.1)
Sodium 134 L mmol/L
(135-145)
Potassium 2.5 L* mmol/L
(3.5-5.1)
Carbon Dioxide 31 H mmol/L
(22-30)
Creatinine 1.8 H mg/dL
(0.6-1.0)
Alkaline Phosphatase 149 H U/L
(38-126)
Total Protein 5.8 L g/dl
(6.3-8.2)
Albumin 3.0 L g/dl
(3.5-5.0)
Ur Occult Blood Reflex 1+ A
(Negative)
Urine RBC 3-6 A /HPF
(0-2)
Urine Bacteria (Reflex) Moderate A
(Negative)
Urine Glucose 3+ A
(Negative)
Urine Albumin (Reflex) 2+ A
(Neg - Trace)
03/05/25 12:52
03/05/25 12:52
Vital Signs
Initial and Last Documented VS:
Initial Vital Signs
Temp Pulse Resp BP Pulse Ox
97.7 F 86 16 148/91 99
03/05/25 11:32 03/05/25 11:32 03/05/25 11:32 03/05/25 11:32 03/05/25 11:32
Last Documented Vital Signs
Temp Pulse Resp BP Pulse Ox
97.7 F 93 22 129/86 98
03/05/25 11:32 03/05/25 13:45 03/05/25 13:45 03/05/25 13:36 03/05/25 13:37
<POONAM Liu - Last Filed: 03/05/25 14:07>
MDM/Problems Addressed
Differential Diagnosis Includes:
Not limited to peritonitis electrolyte abnormality
MDM/Problems Addressed:
Patient is a 64-year-old female end-stage renal disease on hemodialysis sent for evaluation of intermittent cloudy peritoneal fluid. She denies any abdominal pain denies any fevers white count minimally elevated. She was sent in by nephrology for
admission and ID consult. Her potassium incidentally is 2.5 will check an EKG and order IV and oral potassium. Nephrology Dr. Mike made aware.
<POONAM Liu - Last Filed: 03/05/25 14:07>
*Pulse Oximetry
SaO2: 99
Oxygen Mode of Delivery: Room air
Patient hypoxic: no
*Critical Care Note
Total Time (30-74mins, 75-104mins- exclusive of procedures): Not Applicable
<POONAM Liu - Last Filed: 03/05/25 14:07>
Patient Management
Discussion with other providers: Polishing Machine Operator Helper (DR Mike: Nephrology)
ED Attending Note
<POONAM Liu - Last Filed: 03/05/25 14:07>
-
Portions of this chart may have been created with voice recognition software.� Occasional wrong word or��sound alike� substitutions may have occurred due to the inherent limitations of voice recognition software.
<Andrea Gill DO - Last Filed: 03/05/25 13:31>
ED Attending Note
Patient seen and examined by attending physician: Yes
I performed the substantive portion of visit, reviewed & personally made and approve the management plan that is documented in note by myself or KATHARINA.: Yes
ED Attending Note:
I have seen and evaluated the patient with a [id number] encounter. I have spoken to the advance practicer provider and involved in the medical history, the physical exam, medical decision making.
Evaluation and management service: agree unless noted differently below.
Results interpretation: agree unless noted differently below.
Focused HPI: 64-year-old female presenting for evaluation of cloudy peritoneal dialysis fluid that has been ongoing for the past week or so. Apparently, her dialysis nurse sent her in for IV antibiotics
Physical exam: Weak and frail. Cachectic appearing. Abdomen soft and nontender
Medical Decision Making: Given the concern for infected peritoneal dialysis fluid, nephrology made aware who suggested admission with ID consultation. Patient found to have leukocytosis and hypokalemia. Will replete the potassium with IV potassium.
Discharge Plan
Departure
Patient Disposition: Admit
Date of Disposition: 03/05/25
Time of Disposition: 13:44
Admit to: Med/Surg
Admit to doctor: hospitalist
Presentation/result/management discussed w/ accepting MD/DO: Hospitalist
Patient with high blood pressure during this ER visit?: Yes
Condition: Fair
Covid-19: Not Applicable
Discharge Problem:
Peritonitis, Acute hypokalemia
Prescriptions:
No Action
cyanocobalamin (vitamin B-12) 1,000 mcg Tablet
1,000 mcg PO DAILY
magnesium oxide 400 mg magnesium Tablet
400 mg PO DAILY
cholecalciferol (vitamin D3) 25 mcg (1,000 unit) Tablet
25 mcg PO DAILY Qty: 30 0RF
levothyroxine 50 mcg Tablet
50 mcg PO DAILY @ 0600 Qty: 14 0RF
pantoprazole 40 mg Tablet,Delayed Release (Dr/Ec)
40 mg PO DAILY Qty: 30 0RF
prednisone 10 mg tablet
20 mg PO DAILY
sulfamethoxazole-trimethoprim [Bactrim DS] 800-160 mg Tablet
1 tab PO DAILY
Rx Instructions:
FOR 21 DAYS STARTING 02/21/25
mycophenolate mofetil 500 mg tablet
500 mg PO BID
folic acid 1 mg Tablet
1 mg PO DAILY
hydroxychloroquine [Plaquenil] 200 mg Tablet
200 mg PO DAILY
metoprolol succinate 12.5 MG tablet extended release 24 hr
12.5 mg PO DAILY Qty: 30 3RF
Rx Instructions:
does not take on dialysis days
Referrals:
Dewey Manzo MD [Family Provider, Family Practice]
Interventions
Interventions:
*Risk Screen - Suicide Last Done: 03/05/25 11:34
*Neglect/Abuse Screening Last Done: 03/05/25 11:34
WN-Dnprvz-Qibczcfygt Assessment Last Done: 03/05/25 13:17
Discharge Date and Time
Print Language: MALAY
[2025-03-05 13:00] LABS: Hematocrit 30.7 % (37.0-47.0); Hemoglobin 10.3 g/dL (12.0-16.0); Mean Corp Hgb Conc. 33.6 g/dL (33.0-37.0); Mean Corpuscular Volume 91.9 fL (81.0-99.0); Nucleated Red Blood Cells % 0 %; Platelet Count 323 10^3/uL (130-400); Red Cell Dist. Width 14.7 % (11.5-14.5)
[2025-03-05 13:05] LABS: Urine Character Clear (Clear)
[2025-03-05 13:24] LABS: ALT (SGPT) 18 U/L (0-35); AST (SGOT) 18 U/L (14-36); Albumin 3.0 g/dl (3.5-5.0); Alkaline Phosphatase 149 U/L (38-126); Blood Urea Nitrogen 17 mg/dl (7-17); Calcium 8.6 mg/dl (8.4-10.2); Carbon Dioxide 31 mmol/L (22-30); Chloride 102 mmol/L (98-107); Glucose 76 mg/dl (70-99); Lipase 40 U/L (23-300); Potassium 2.5 mmol/L (3.5-5.1); Sodium 134 mmol/L (135-145); Total Protein 5.8 g/dl (6.3-8.2); eGFR 30.88
[2025-03-05] MEDS: KCL 40 MEQ PO (13:42)
--- NOTE | 2025-03-05 13:45 | HPS.HSE ---
Family Physician
-
Family Physician: Dewey Manzo
Chief Complaint
-
cloudy fluid
History of Present Illness
64 year old with PMH for CVA, HTN, renal failure on PD, hypothyroidism, presented to us with 1-1-1/2 weeks she has had intermittent cloudy fluid. denied fever, chills, chest pain, sob. denied SHINE, dizzy or syncope. Patient denied any abdominal pain,
nausea, vomiting or diarrhea. Patient denies dysuria materia
Patient received a dose of IV Zosyn, IV KCl in ER. Blood culture sent from ER. Admitting for further management
Medical History
Past Medical History
Past Medical History: Reports Other
Additional Past Medical History:
CVA,HTN, renal failure on PD, hypothyroidism
Past Surgical History: Reports Other
Additional Past Surgical History:
craniotomy
ventriculostomy
c section
Social History
Tobacco: Smoker (10 cigarettes daily)
Alcohol: None
Drug: None
Family History
Family History: Not pertinent
Allergies / Home Medications
Allergies reflects when Allergies were last updated in [facility].
Home Medications with original date entered in [facility]
Allergy/Medication List:
Allergies
Allergy/AdvReac Type Severity Reaction Status Date / Time
No Known Allergies Allergy Verified 01/09/25 06:48
Home Medications
metoprolol succinate 25 mg tablet,extended release 24 hr 12.5 mg (1/2 x 25 mg) PO DAILY ##30 10/16/14
cyanocobalamin (vitamin B-12) 1,000 mcg tablet 1,000 mcg PO DAILY Supplement 04/30/24
magnesium oxide 400 mg PO DAILY Supplement 04/30/24
cholecalciferol (vitamin D3) 25 mcg (1,000 unit) tablet 25 mcg PO DAILY Vitamin D Deficiency #30 tabs 05/06/24
levothyroxine 50 mcg tablet 50 mcg PO DAILY @ 0600 Hypothyroidism #14 tabs 05/06/24
pantoprazole 40 mg tablet,delayed release 40 mg PO DAILY #30 tabs 11/03/24
prednisone 10 mg tablet 20 mg PO DAILY 01/01/25
folic acid 1 mg tablet 1 mg PO DAILY 03/05/25
hydroxychloroquine 200 mg tablet (Plaquenil) 200 mg PO DAILY 03/05/25
mycophenolate mofetil 500 mg tablet 500 mg PO BID 03/05/25
sulfamethoxazole 800 mg-trimethoprim 160 mg tablet (Bactrim DS) 1 tab PO DAILY 03/05/25
Review of Systems
-
Constitutional: Reports No Symptoms
EENT: Reports No Symptoms
Respiratory: Reports No Symptoms
Cardiac: Reports No Symptoms
Abdomen/GI: Reports No Symptoms
: Reports No Symptoms and Other (Cloudy fluid from peritoneal dialysis)
Musculoskeletal: Reports No Symptoms
Skin: Reports No Symptoms
Neurological: Reports No Symptoms
Endocrine: Reports No Symptoms
Hematologic/Lymphatic: Reports No Symptoms
Psych: Reports No Symptoms
Physical Exam
Vital Signs
Vital Signs
Temp Pulse Resp BP Pulse Ox
97.7 F 82 28 129/86 98
03/05/25 11:32 03/05/25 13:37 03/05/25 13:37 03/05/25 13:36 03/05/25 13:37
Physical Exam
General: Well Developed, Well Nourished and No Apparent Distress
HEENT: NormoCephalic, Moist mucous membranes and Atraumatic
Respiratory: Clear
Cardiac: S1/S2 and Regular Rhythm; No Murmur or Rub
GI: Soft, Non Tender, Non Distended and Normal Bowel Sounds; No Organomegaly
Rectal: Deferred by Provider
Musculoskeletal: No Clubbing, No Cyanosis and Other (Bilateral lower extremities edema)
Skin: No Rash
Neuro: AO x 3 and Nonfocal/grossly intact
Psych: Calm
Laboratory Results
-
03/05/25 12:52
03/05/25 12:52
Laboratory Results
Lactic Acid 1.6 mmol/L (0.7-2.0) 03/05/25 12:52
Total Bilirubin 0.5 mg/dl (0.2-1.3) 03/05/25 12:52
AST 18 U/L (14-36) 03/05/25 12:52
ALT 18 U/L (0-35) 03/05/25 12:52
Alkaline Phosphatase 149 U/L (38-126) H 03/05/25 12:52
Lipase 40 U/L (23-300) 03/05/25 12:52
Data Reviewed
-
Lab Data: Labs Reviewed by me
Impression/Plan
-
#concern for peritonitis
-iv Zosyn and Vanco continued
-blood culture sent from ER
-Tylenol prn for fever and pain
-wbc 14.4
#anemia of chronic kidney disease
-hgb stable at 10.3, no active bleeding
-ctm
#hypokalemia
#CKD on PD
-iv kcl
-BMP in am
-Nephrology consulted
- CellCept continue
- Prednisone continued
# GERD
- PPI continued
#History of hemorrhagic CVA:
Status post craniectomy and ventriculostomy in the past
#Severe Protein Calorie Malnutrition:
#Hypothyroidism:
-Continue current thyroid replacement, levothyroxine 50 mcg p.o. daily
#Hypertension:
-Continue Toprol-XL 12.5 mg p.o. daily with holding parameters
#generalized rash, dry skin
DVT Prophylaxis:
SCD
Code Status:
Full code
[2025-03-05] MEDS: ZOSYN 50 IV ×2 (13:47→20:52)
--- NOTE | 2025-03-05 13:51 | W.PN.UPDATE ---
Update Note
Progress Note Update
This note serves as an addendum to the H&P by supervisor sample preparation Margaret ARMENDARIZ�
HPI�
63F current smoker , HX ESRD, on PD, Chronic Rash, HX admission ( 10/30/24 - 11/03/24) with Staph bacteremia, Sepsis syndrome, possible source HD catheter versus skin. BCX positive staphylococcal schleiferi 10/30 and 10/31. Repeat blood cultures 11/02
NGTD.
Pt on peritoneal dialysis,states she was sent by her dialysis nurse for IV antibiotics for a possible infection,states the fluid was cloudy this morning.
PHX
CVA (Remote history of hemorrhagic CVA), HTN, Renal failure (Dialysis dependent), Hypothyroidism, Psychiatric and Other (Severe protein calorie malnutrition)
Craniotomy/ventriculostomy 2015, and Other (Dialysis catheter right chest)
Relevant VS
Temp Pulse Resp BP Pulse Ox
97.7 F 93 22 129/86 98
03/05/25 11:32 03/05/25 13:45 03/05/25 13:45 03/05/25 13:36 03/05/25 13:37
PE
Gen: thin, frail but not toxic
HEENT: diffuse uniform rash on the face
Neck:supple
Chest: HD cath at R upper chest - non tender
Cor: RRR S1 S2
Abdomen:�soft. NT, NG, NRT. Non tender at PD site
SOCCER PLAYER: AAO3, grossly nl
MS: trace edema in both Edel with shinny thin skin
Psych:N mood and nl affect
Relevant Data�
11/03/24 03/05/25
08:11 12:52
WBC 14.4 H
Hgb 11.4 L 10.3 L
Plt Count 114 L 323
Absolute Neuts (auto) 12.4 H
Sodium 134 L
Potassium 3.8 D 2.5 L*
Chloride 102
Carbon Dioxide 31 H
BUN 17
Creatinine 1.8 H
eGFR 24.42 30.88
Alkaline Phosphatase 149 H
Total Protein 5.8 L
Albumin 3.0 L
Lipase 40
Last hospitalist admission: 10/30/24 - 11/03/24
Sepsis with Staph Bacteremia
ASSESSMENT & PLAN
Cloudy PD fluid return concerning for infection: Afebrile but eleavted WCC
HX Staphylococcus schleiferi bacteremia
Potential source: skin vs PD cath
Of note; Just started PD a couple of weeks ago
- SHEET ROLLER OPERATOR IV cefazolin switch to BS ABx ( IV vanco and Zosyn)
- Trend T curve and WCC
- FU BCx x2 sent ( noted SHEET ROLLER OPERATOR IV Cefazolin till last night )
- SHEET ROLLER OPERATOR Meds: c/w SHEET ROLLER OPERATOR PO Prednisone and Mycophenolate, Hold of SHEET ROLLER OPERATOR Bactrim DS
- ID consult
- Renal consult
Sever Hypokalemia
- s/p IV KCL 40 x1
Conditions SHEET ROLLER OPERATOR:
ESRD , on PD qid
Metabolic acidosis
HX Interstitial nephritis
Hypothyroidism ; on LT4
Hypertension; on Metoprolol XL
Alopecia
Chronic thrombocytopenia: resolved, current Plt 323
Depression:
HX ICH post craniectomy and ventriculostomy (2014)
Severe Protein Calorie Malnutrition:
Chronic diffuse pruritic rash since 04/2024
HIV screen negative 04/2024.
- c/w SHEET ROLLER OPERATOR all OP Meds
DVT Px: SCD
Code: Full code
IP MS
[2025-03-05] MEDS: KCL 270 MEQ IV (14:32)
--- NOTE | 2025-03-05 15:49 | W.CON.NEPH ---
Consultation
-
Date/Time Consultation Requested: 03/05/2025 3 PM
Date/Time Consultation Performed: 03/05/2025 3 PM
Requesting Provider: Dr. Orlando
Performing Provider: Dr. Mike
Reason for Consultation: ESRD
Medical History
-
Chief Complaint: Acute kidney injury/metabolic acidosis
History of Present Illness:
This is a 64-year-old female who has clinically diagnosed lupus on hydroxychloroquine as well as mycophenolate and prednisone therapy. She also has hypertension on a monotherapy regimen which has been stable. She has ESRD and has recently switched
to peritoneal dialysis. This has been otherwise going smoothly with the exception of development of cloudy dialysate a few weeks ago. Organism was Achromobacter and she was started on Bactrim double strength. Unfortunately her PD fluid only
intermittently cleared and subsequent cultures are still positive. Fortunately her peritoneal dialysis still runs without issue. She does have a right IJ tunneled dialysis catheter from previously being on hemodialysis. She is being admitted for
persistent peritonitis.
Of note about 3 weeks ago her had reduced her prednisone fairly rapidly and she had developed malaise. This may have also been due to new peritonitis as well. Prednisone was increased back to 20 mg daily
Past Medical History
Hypertension, intracranial bleed, craniotomy, ventriculostomy, GERD, ESRD, PD catheter, lupus
Social History
Tobacco: Smoker
Alcohol: Occasional (Drinking 4 beers per day quit about 2 weeks ago)
Family History
Family History: Not Pertinent
Allergies / Home Medications
Allergy/AdvReac Type Severity Reaction Status Date / Time
No Known Allergies Allergy Verified 01/09/25 06:48
�Medication �Instructions �Recorded �Confirmed �Type
metoprolol succinate 25 mg 12.5 mg (1/2 x 25 mg) PO DAILY ##30 10/16/14 03/05/25 Rx
tablet,extended release 24 hr
cyanocobalamin (vitamin B-12) 1,000 mcg PO DAILY Supplement 04/30/24 03/05/25 History
1,000 mcg tablet
magnesium oxide 400 mg PO DAILY Supplement 04/30/24 03/05/25 History
cholecalciferol (vitamin D3) 25 25 mcg PO DAILY Vitamin D 05/06/24 03/05/25 Rx
mcg (1,000 unit) tablet Deficiency #30 tabs
levothyroxine 50 mcg tablet 50 mcg PO DAILY @ 0600 05/06/24 03/05/25 Rx
Hypothyroidism #14 tabs
pantoprazole 40 mg tablet,delayed 40 mg PO DAILY #30 tabs 11/03/24 03/05/25 Rx
release
prednisone 10 mg tablet 20 mg PO DAILY 01/01/25 03/05/25 History
folic acid 1 mg tablet 1 mg PO DAILY 03/05/25 03/05/25 History
hydroxychloroquine 200 mg tablet 200 mg PO DAILY 03/05/25 03/05/25 History
(Plaquenil)
mycophenolate mofetil 500 mg tablet 500 mg PO BID 03/05/25 03/05/25 History
sulfamethoxazole 800 1 tab PO DAILY 03/05/25 03/05/25 History
mg-trimethoprim 160 mg tablet
(Bactrim DS)
Review of Systems
-
All other systems: Negative unless noted
Physical Exam
Vital Signs
Vital Signs
Temp Pulse Resp BP Pulse Ox
97.7 F 81 21 127/85 93
03/05/25 11:32 03/05/25 15:30 03/05/25 15:30 03/05/25 15:00 03/05/25 15:00
Lab Results
WBC 14.4 10^3/uL (4.8-10.8) H 03/05/25 12:52
RBC 3.34 10^6/uL (4.20-5.40) L 03/05/25 12:52
Hgb 10.3 g/dL (12.0-16.0) L 03/05/25 12:52
Hct 30.7 % (37.0-47.0) L 03/05/25 12:52
Plt Count 323 10^3/uL (130-400) 03/05/25 12:52
Sodium 134 mmol/L (135-145) L 03/05/25 12:52
Potassium 2.5 mmol/L (3.5-5.1) L* 03/05/25 12:52
Chloride 102 mmol/L (98-107) 03/05/25 12:52
Carbon Dioxide 31 mmol/L (22-30) H 03/05/25 12:52
BUN 17 mg/dl (7-17) 03/05/25 12:52
Creatinine 1.8 mg/dL (0.6-1.0) H 03/05/25 12:52
eGFR 30.88 03/05/25 12:52
Glucose 76 mg/dl (70-99) 03/05/25 12:52
Calcium 8.6 mg/dl (8.4-10.2) 03/05/25 12:52
Albumin 3.0 g/dl (3.5-5.0) L 03/05/25 12:52
Physical Exam
Patient is awake alert oriented and in no distress. Mood and affect were pleasant, insight and judgment were good. Pupils are equal round and reactive to light, extraocular movements are intact, sclera were anicteric. Hearing was normal, ears and
nose are intact. Oropharynx was clear. Neck was supple with trachea midline and no thyromegaly. Heart was regular rate and rhythm without rubs. Lower extremities without edema. Lungs were clear to auscultation bilaterally and with normal
excursion. Abdomen was soft, nontender, with normal active bowel sounds, and no hepatosplenomegaly. Skin was without rash and with normal turgor. Skin was cracked and dry in the hands bilaterally. PD catheter clean dry and intact
Data Reviewed
-
Medical Tests (Nuc Med, Echo etc): Image Personally Visualized and interpreted (EKG 03/05/2025 by my reading normal sinus rhythm)
Labs: Labs Reviewed by me
Old Records: Reviewed
Assessment/Plan
-
Assessment
ESRD/PD
Peritonitis with Achromobacter
SLE
Hypothyroidism
Anemia
Nephrotic range proteinuria
Plan:
abx per ID
Failed Bactrim
Reduce prednisone to 15 mg daily, slow taper over 2 months
Continue PD in the hospital CAPD
--- NOTE | 2025-03-05 16:38 | CON.ID ---
Consultation
-
Date/Time Consultation Requested: 03/05/2025 15:30
Date/Time Consultation Performed: 03/05/2025 1600
Requesting Provider: Millie St
Performing Provider: Dr. Craig
Reason for Consultation: PD associated peritonitis
Chief Complaint / Past History
History of Present Illness
Kenna Whiting is a 64-year-old female being evaluated at the request of Millie St regarding PD associated peritonitis. History is obtained from chart review along with patient interview.
The patient reports that she went on hemodialysis in August 2024, but approximately 3 weeks ago she started peritoneal dialysis. She reports that it has been going well, but her PD fluid has been cloudy over the past week. She reports she spoke with
the hemodialysis nurse, and cultures were sent which have revealed growth of Achromobacter xylosoxidans. She has been sent in to the hospital for antibiotic therapy.
She denies any fevers or chills. She denies any abdominal pain. She denies any nausea, vomiting or diarrhea. She denies any dysuria. She notes that she still makes urine.
Past History
Additional Past Medical History:
ESRD�PD (formerly on HD)
Hypothyroidism
HTN
Alopecia
Lupus (new diagnosis)
Chronic thrombocytopenia
Depression
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
Additional Past Surgical History:
HD cath
PD cath
Allergy History:
No Known Allergies Allergy (Verified 01/09/25 06:48)
Medications Reviewed: Yes
Current Antibiotics:
Vanco
Zosyn
Social History
Tobacco: Smoker (1/2 PPD)
Alcohol: None
Drug: None
Personal:
Living: With Family
Employment: Not Employed
Family History
Family History: Not Pertinent
Review of Systems
Vital Signs
Temp Pulse Resp BP Pulse Ox
97.7 F 81 21 127/85 93
03/05/25 11:32 03/05/25 15:30 03/05/25 15:30 03/05/25 15:00 03/05/25 15:00
Physical Exam
Physical Exam
Constitutional: Comfortable, Chronically Ill and Cachetic
Head: Other (No frontal or max or sinus tenderness. )
Eyes: No Conjunctival Hemorrhage and Sclera Anicteric
Oral: No Thrush and No Ulcers
Cardiovascular: Regular Rate and S1/S2; Negative S3/S4
Pulmonary: Clear and Non Labored
Gastrointestinal: Soft, Non Tender, Non Distended, Normal Bowel Sounds and Other (PD cath in place)
Genito-Urinary: Negative CVA Tenderness
Extremities: Negative Edema or Cyanosis
Skin: Rash (Diffuse rash from chest to feet with erythroderma, macularpapular erythema, dry plaques.)
Neurological: AO x 3
Lines: HD Cath (Right chest wall; no erythema)
Lab / Diagnostic Study Results
03/05/25 12:52
03/05/25 12:52
Abs Immat Gran (auto) 0.1 10^3/uL (0-0.05) H 03/05/25 12:52
Absolute Neuts (auto) 12.4 10^3/uL (1.4-6.5) H 03/05/25 12:52
Absolute Lymphs (auto) 0.9 10^3/uL (1.2-3.4) L 03/05/25 12:52
Absolute Monos (auto) 1.0 10^3/uL (0.1-0.6) H 03/05/25 12:52
Absolute Basos (auto) 0.0 10^3/uL (0-0.2) 03/05/25 12:52
Immature Gran % 0.6 % (0-0.5) H 03/05/25 12:52
Neutrophils % 86.1 % (42.2-75.2) H 03/05/25 12:52
Lymphocytes % 6.2 % (20.5-51.1) L 03/05/25 12:52
Monocytes % 6.8 % (1.7-9.3) 03/05/25 12:52
Eosinophils % 0.1 % (0-6) 03/05/25 12:52
Basophils % 0.2 % (0-2) 03/05/25 12:52
Lactic Acid 1.6 mmol/L (0.7-2.0) 03/05/25 12:52
Ur Squamous Epith Cells 3-5 /LPF (Few) 03/05/25 12:52
Microbiology Results
Micro:
03/05/25 12:52 Urine Culture - Pending
Urine
03/05/25 12:52 Blood Culture - Pending
Blood/Venous
03/05/25 12:52 Blood Culture - Pending
Blood/Venous
02/17/25 PD Effluent Culture
Assessment / Plan
PD associated peritonitis
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
Leukocytosis
ESRD�PD (formerly on HD)
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
Hypothyroidism
HTN
Alopecia
Lupus (new diagnosis)
Chronic thrombocytopenia
Depression
Recommendations:
Based upon outpatient cultures, would continue with Zosyn dosed for PD for the present.
Further vancomycin can be discontinued, as no MRSA recovered.
Would follow PD effluent for improvement in turbidity. If not improved, would repeat PD fluid culture.
Monitor white count and temperature curve.
Follow for clinical improvement.
Further recommendations as additional data is returned.
[2025-03-05] MEDS: CELLCEPT 500 MG PO (20:52)
[2025-03-06] VITALS (7 sets, daily range): BP systolic 108–137; BP diastolic 75–95
--- NOTE | 2025-03-06 04:38 | PTCARENOTE ---
Received pt from ED via stretcher. Pt able to ambulate to bed with no assistance. Assessment as documented. VSS at this time. PD completed x2 with 1500 ml of 2.5% dialysate. Tolerated well. Resting in bed with call cruz in reach.
[2025-03-06 04:47] LABS: Hematocrit 28.5 % (37.0-47.0); Hemoglobin 9.6 g/dL (12.0-16.0); Mean Corp Hgb Conc. 33.7 g/dL (33.0-37.0); Mean Corpuscular Volume 94.7 fL (81.0-99.0); Platelet Count 272 10^3/uL (130-400); Red Cell Dist. Width 14.6 % (11.5-14.5)
[2025-03-06 05:23] LABS: Blood Urea Nitrogen 14 mg/dl (7-17); Calcium 8.6 mg/dl (8.4-10.2); Carbon Dioxide 25 mmol/L (22-30); Chloride 110 mmol/L (98-107); Glucose 103 mg/dl (70-99); Potassium 4.2 mmol/L (3.5-5.1); Sodium 134 mmol/L (135-145); eGFR 30.88
[2025-03-06] MEDS: SYNTHROID 50 MCG PO (05:28)
[2025-03-06] MEDS: ZOSYN 50 IV ×3 (05:28→22:52)
[2025-03-06] MEDS: NICODERM TRANSDERMAL 14 MG TRANSDERM (06:49)
[2025-03-06] MEDS: PLAQUENIL 200 MG PO (08:13)
[2025-03-06] MEDS: DELTASONE 15 MG PO (08:13)
[2025-03-06] MEDS: CELLCEPT 500 MG PO ×2 (08:13→20:01)
[2025-03-06] MEDS: MAGNESIUM OXIDE 400 MG PO (08:13)
[2025-03-06] MEDS: TOPROL XL 12.5 MG PO (08:13)
[2025-03-06] MEDS: PROTONIX 40 MG PO (08:13)
--- NOTE | 2025-03-06 08:55 | PTCARENOTE ---
Patient due for PD; when opening the bag, this RN noted bag to be leaking. New bag in warmer. Dr Turcios made aware via TT.
--- NOTE | 2025-03-06 09:12 | W.PN.ID1 ---
Addendum entered and electronically signed by Izabela Montana MD 03/07/25 10:07:
Discussed PD dosing with clinical pharmacy and nephrology; patient only tolerating 1.5L and dosing is based off of 2L and difficult to adjust amount, will continue with systemic dosing
Original Note:
Date of Service
Date of Service: March 06, 2025
Today's Communication
continue zosyn - will switch to via PD - clinical pharmacy will assist
cell count and culture from the fluid today - discussed with patient and RN
Assessment / Plan
PD associated peritonitis
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
Previously treated with bactrim 1 DS BID
Leukocytosis
ESRD�PD (formerly on HD)
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
Hypothyroidism
HTN
Alopecia
Lupus (new diagnosis)
Chronic thrombocytopenia
Depression
Recommendations:
Obtain baseline cell count of dialysate and repeat culture here; would repeat the cell count sunday
- discussed with lab and RN - culture to be placed into blood culture bottles to maximize yield
Outpatient culture from 02/17: Achromobacter - sensitive to zosyn and bactrim
On continuous PD here, and on overnight PD at home - clinical pharmacy assisting with seeing if intraperitoneal dosing of zosyn can be arranged
Based upon outpatient cultures, would continue with Zosyn
Would follow PD effluent for improvement in turbidity.
Monitor white count and temperature curve.
Follow for clinical improvement.
Further recommendations as additional data is returned.
Chief Complaint
-: Other (PD peritonitis)
Subjective / Review of Systems
afebrile
bp stable
no events overnight
has a dog, dog in another room when she does PD
Vital Signs / Physical Exam
Vital Signs
Vital Signs
Temp Pulse Resp BP Pulse Ox
98.6 F 84 18 108/75 98
03/06/25 08:00 03/06/25 08:13 03/06/25 08:06 03/06/25 08:13 03/06/25 08:06
Physical Exam
Constitutional: No Acute Distress
Cardiovascular: Regular Rate and S1/S2; Negative Murmur or Rub
Pulmonary: Clear and Symmetric; Negative Wheezes or Rales
Gastrointestinal: Soft, Non Tender, Non Distended and Normal Bowel Sounds
Skin: Warm and Dry; Negative Rash or Jaundice
Lines: HD Cath and Other (PD catheter - no surrounding erythema or drainage from the site)
Objective Data
Lab Data
Lab Results
03/06/25 04:27
03/06/25 04:27
Lactic Acid 1.6 mmol/L (0.7-2.0) 03/05/25 12:52
Total Bilirubin 0.5 mg/dl (0.2-1.3) 03/05/25 12:52
AST 18 U/L (14-36) 03/05/25 12:52
ALT 18 U/L (0-35) 03/05/25 12:52
Alkaline Phosphatase 149 U/L (38-126) H 03/05/25 12:52
Most recent labs reviewed.
Micro Results:
03/05/25 12:52 Urine Culture - Pending
Urine
03/05/25 12:52 Blood Culture - Pending
Blood/Venous
03/05/25 12:52 Blood Culture - Pending
Blood/Venous
02/17/25 PD Effluent Culture
--- NOTE | 2025-03-06 09:24 | CM ---
I.A: Completed By ADELIA Romano. Patient is on peritoneal dialysis.
Patient lives in a 3 STH with 1 STI, then 6 plus 6 STI to get to the 2nd/ 3rd level. DME: None, No VN/PT, No Inpatient Rehab.
PCP: / Dewey Quezada
Pharm: [facility] in [place]
Patient has transportation home when ready. Anticipate Home No Needs.
--- NOTE | 2025-03-06 12:43 | W.PN.NEPH.PH ---
Today's Communication / Plan
-
abx per ID
cont CAPD
Assessment/Plan
-
Assessment
ESRD/PD
Peritonitis with Achromobacter
SLE
Hypothyroidism
Anemia
Nephrotic range proteinuria
Plan:
abx per ID on IV zosyn, repeat cell count and cx
could try IP abx if feasible
Reduced prednisone to 15 mg daily, slow taper over 2 months
next dose taper in 2-3weeks to 10mg
Continue PD in the hospital CAPD, reviewed flow sheets
over all net +ve balance, euvolemic
BP stable
-
-
Date of Service: March 06, 2025
CC / HPI / ROS
-
Chief Complaint:
peritonitis
History of Present Illness:
no fever, Bps stable
sodium low 134
Review of Systems:
no fever
no cp or sob
no abd pain
Labs
-
Labs:
WBC 8.8 10^3/uL (4.8-10.8) 03/06/25 04:27
RBC 3.01 10^6/uL (4.20-5.40) L 03/06/25 04:27
Hgb 9.6 g/dL (12.0-16.0) L 03/06/25 04:27
Hct 28.5 % (37.0-47.0) L 03/06/25 04:27
Plt Count 272 10^3/uL (130-400) 03/06/25 04:27
Sodium 134 mmol/L (135-145) L 03/06/25 04:27
Potassium 4.2 mmol/L (3.5-5.1) D 03/06/25 04:27
Chloride 110 mmol/L (98-107) H 03/06/25 04:27
Carbon Dioxide 25 mmol/L (22-30) 03/06/25 04:27
BUN 14 mg/dl (7-17) 03/06/25 04:27
Creatinine 1.8 mg/dL (0.6-1.0) H 03/06/25 04:27
eGFR 30.88 03/06/25 04:27
Glucose 103 mg/dl (70-99) H 03/06/25 04:27
Calcium 8.6 mg/dl (8.4-10.2) 03/06/25 04:27
Albumin 3.0 g/dl (3.5-5.0) L 03/05/25 12:52
Physical Exam
-
Vital Signs:
Vital Signs
Temp Pulse Resp BP Pulse Ox
98.6 F 84 18 108/75 98
03/06/25 08:00 03/06/25 08:13 03/06/25 08:06 03/06/25 08:13 03/06/25 08:06
Cardiovascular:: Regular rate and rhythm
Respiratory:: Bilateral: CTA
Lung Excursion:: Normal
Abdomen:: Nontender and Soft
Extremity Edema:: None: Bilateral:
Lizarraga Catheter: No
--- NOTE | 2025-03-06 13:39 | W.PN.HOSP.TC ---
Today's Communication/Plan
-
Assessment / Plan
Assessment / Plan
General: No Apparent Distress, Comfortable and Conversant
HEENT: Alopecia, Moist mucous membranes, Atraumatic
Respiratory: Clear and Non Labored Respirations
Cardiac: S1/S2 and Regular Rhythm; No Rub or Gallop
GI: Soft, PD catheter without surrounding erythema or purulence
Musculoskeletal: No Edema, no deformity, significantly decreased muscle bulk throughout
Skin: Warm and dry
: NO Lizarraga
Neuro: Awake, Alert, Nonfocal/grossly intact
Psych: Calm and cooperative
Ms. Carrizales is a 64-year-old female with medical history of intracranial hemorrhage (s/p craniotomy and ventriculostomy 2014), ESRD (on PD, previously on HD), hypertension, chronic thrombocytopenia, hypothyroidism, alopecia, and lupus (new diagnosis)
who presented with suspected peritonitis. PD fluid has been cloudy for the past week prior to arrival. She spoke with the dialysis nurse and cultures of her PD fluid were obtained which were growing Achromobacter xylosoxidans. She was started on
antibiotic treatment with Bactrim. However repeat cultures remained positive and so she was sent to the hospital for further evaluation and management.
Peritonitis:
- Outpatient PD fluid cultures growing Achromobacter xylosoxidans
- Inpatient cultures pending
- Patient is immunosuppressed on hydroxychloroquine, mycophenolate, and prednisone
- Treating with IV Zosyn for now based on outpatient culture and sensitivities
- ID following and trying to arrange for treatment with intraperitoneal Zosyn with PD fluid
- Leukocytosis resolved
Hypokalemia:
- Resolved with IV potassium chloride
- Will monitor
ESRD:
- Continue peritoneal dialysis per nephrology
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
- Continue mycophenolate, Plaquenil, and prednisone
- Was previously on hemodialysis but preferred switch to PD
Anemia of chronic disease:
- No evidence of bleeding
- Hemoglobin appears close to baseline
- Will monitor
Lupus:
- Fairly recent diagnosis
- With associated alopecia
- Continue prednisone, mycophenolate, and Plaquenil
Chronic thrombocytopenia:
- Platelet levels currently within normal limits
- Continue immunosuppressive therapy for lupus
Hypothyroidism:
- Continue home Synthroid 50 mcg daily
Hypertension:
- Controlled
- Continue home metoprolol succinate 12.5 mg daily
Hyponatremia:
- Mild with serum sodium 134, stable
- Will monitor
Tobacco abuse:
- Encourage cessation, nicotine patch provided
Severe protein calorie malnutrition:
- BMI 16.4
- Encourage adequate p.o. intake
- Dietary supplements as tolerated
DVT prophylaxis: Subcu heparin
CODE STATUS: Full code
Anticipated Discharge: > 48 hours
Subjective/Interval History
-
Date of Service: March 06, 2025
Patient was seen and examined at bedside. Comfortable, improvement in abdominal pain.
Objective Data
-
Labs:
Laboratory Results
03/06/25
04:27
WBC 8.8
Hgb 9.6 L
Hct 28.5 L
Plt Count 272
Sodium 134 L
Potassium 4.2 D
Chloride 110 H
Carbon Dioxide 25
BUN 14
Creatinine 1.8 H
Glucose 103 H
Calcium 8.6
Vital Signs:
Vital Signs
Temp Pulse Resp BP Pulse Ox
98.6 F 84 18 108/75 98
03/06/25 08:00 03/06/25 08:13 03/06/25 08:06 03/06/25 08:13 03/06/25 08:06
I&O
03/05/25 03/06/25 03/07/25
06:59 06:59 06:59
Intake Total 100 / 100
Balance 100 / 100
Review of Systems
-
History Source: Patient
All other systems: Reviewed and negative
Physical Exam
-
General: No Apparent Distress
--- NOTE | 2025-03-06 16:07 | PTCARENOTE ---
Assumed care of patient at beginning of this shift from previous RN. PD completed this morning as ordered; drainage cloudy. Dr Turcios up to see patient; initially stated that amount to be instilled was possibly to be increased to 2000ml. Confirmed
with Dr Turcios prior to next PD that instilled amount to remain the same: 1500ml. Order entered for cell count and culture of peritoneal fluid; per Dr Montana, order entered yesterday but not obtained. New order entered for today. This nurse
spoke with Dr Montana via phone call who stated she talked with lab and specimen should be put in aerobic bc bottle and anaerobic blood culture bottle. This nurse spoke with lab and was told in addition to these blood culture bottles, the cell
count specimen would need to be put in a lavender top tube. Specimens obtained after second PD treatment. When printing from [employer], multiple stickers printed out. This nurse also collected specimens in 3 sterile cups, in addition to blood culture
bottles and lavender tube; all specimens walked to lab by this RN and discussed with micro.
[2025-03-06 17:03] LABS: Body Fluid Second Tech EYM
[2025-03-06] MEDS: HEPARIN 2500 UNITS SC (20:01)
[2025-03-07 05:12] VITALS: BMI 16.8
[2025-03-07 05:39] LABS: Hematocrit 32.2 % (37.0-47.0); Hemoglobin 10.8 g/dL (12.0-16.0); Mean Corp Hgb Conc. 33.5 g/dL (33.0-37.0); Mean Corpuscular Volume 93.3 fL (81.0-99.0); Platelet Count 295 10^3/uL (130-400); Red Cell Dist. Width 14.6 % (11.5-14.5)
[2025-03-07 06:28] LABS: Blood Urea Nitrogen 18 mg/dl (7-17); Calcium 8.6 mg/dl (8.4-10.2); Carbon Dioxide 27 mmol/L (22-30); Chloride 104 mmol/L (98-107); Estimated Creatinine Clearance 20 ml/min; Glucose 126 mg/dl (70-99); Potassium 3.3 mmol/L (3.5-5.1); Sodium 135 mmol/L (135-145); eGFR 33.07
[2025-03-07 06:45] LABS: Glucose - Point of Care 109 mg/dl (70-99)
[2025-03-07] MEDS: SYNTHROID 50 MCG PO (06:50)
[2025-03-07] MEDS: TYLENOL 650 MG PO (06:50)
[2025-03-07] MEDS: ZOSYN 50 IV ×3 (06:50→22:45)
[2025-03-07] MEDS: TOPROL XL 12.5 MG PO (08:57)
[2025-03-07] MEDS: KCL 40 MEQ PO (08:57)
[2025-03-07] MEDS: PLAQUENIL 200 MG PO (08:58)
[2025-03-07] MEDS: NICODERM TRANSDERMAL 14 MG TRANSDERM (08:58)
[2025-03-07] MEDS: PROTONIX 40 MG PO (08:58)
[2025-03-07] MEDS: CELLCEPT 500 MG PO ×2 (08:58→21:03)
[2025-03-07] MEDS: MAGNESIUM OXIDE 400 MG PO (08:58)
[2025-03-07] MEDS: DELTASONE 15 MG PO (08:59)
[2025-03-07] MEDS: HEPARIN 2500 UNITS SC ×2 (08:59→21:02)
--- NOTE | 2025-03-07 10:06 | W.PN.ID1 ---
Date of Service
Date of Service: March 07, 2025
Today's Communication
continue zosyn
explained that discharge would need to be AMA and is not bowles as she has already failed oral treatment once, she asks for something for anxiety and I passed this request to her hospitalist
Assessment / Plan
PD associated peritonitis
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
Previously treated with bactrim 1 DS BID
Leukocytosis
ESRD�PD (formerly on HD)
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
Hypothyroidism
HTN
Alopecia
Lupus (new diagnosis)
Chronic thrombocytopenia
Depression
Recommendations:
PD fluid 640 wbcs consistent with peritonitis; would repeat the cell count sunday
- 03/06 body fluid culture here no growth to date
- Outpatient culture from 02/17: Achromobacter - sensitive to zosyn and bactrim
On continuous PD
Discus
Based upon outpatient cultures, would continue with Zosyn
Would follow PD effluent for improvement in turbidity.
Monitor white count and temperature curve.
Follow for clinical improvement.
explained that discharge would need to be AMA and is not bowles as she has already failed oral treatment once, she asks for something for anxiety and I passed this request to her hospitalist
Further recommendations as additional data is returned.
Chief Complaint
-: Other (PD peritonitis)
Subjective / Review of Systems
afebrile
bp stable
says no abdominal pain
demands to leave today, starts crying when I explain that we've tried outpatient management and it failed, she needs IV antibiotics and sunday will be the earliest that we would consider dc
Vital Signs / Physical Exam
Vital Signs
Vital Signs
Temp Pulse Resp BP Pulse Ox
97.3 F 94 18 107/72 98
03/07/25 08:44 03/07/25 08:57 03/07/25 08:44 03/07/25 08:57 03/07/25 08:44
Physical Exam
Constitutional: No Acute Distress
Cardiovascular: Regular Rate and S1/S2; Negative Murmur or Rub
Pulmonary: Clear and Symmetric; Negative Wheezes or Rales
Gastrointestinal: Soft, Non Tender, Non Distended and Normal Bowel Sounds
Skin: Warm and Dry; Negative Rash or Jaundice
Objective Data
Lab Data
Lab Results
03/07/25 05:17
03/07/25 05:17
Estimated Creat Clear 20 ml/min 03/07/25 05:17
Lactic Acid 1.6 mmol/L (0.7-2.0) 03/05/25 12:52
Total Bilirubin 0.5 mg/dl (0.2-1.3) 03/05/25 12:52
AST 18 U/L (14-36) 03/05/25 12:52
ALT 18 U/L (0-35) 03/05/25 12:52
Alkaline Phosphatase 149 U/L (38-126) H 03/05/25 12:52
Most recent labs reviewed.
Micro Results:
03/06/25 14:51 Body Fluid Culture - Preliminary
Peritoneal Fluid No Growth After 18-24 Hours
Gram Stain - Final
03/05/25 12:52 Blood Culture - Preliminary
Blood/Venous No Growth in 24 hours- Final report to follow
03/05/25 12:52 Blood Culture - Preliminary
Blood/Venous No Growth in 24 hours- Final report to follow
03/05/25 12:52 Urine Culture - Final
Urine No Significant Growth
02/17/25 PD Effluent Culture
Laboratory Tests
03/06/25
14:50
Fluid WBC 640
Fluid Mononuclear Cell 47.5
Fl Polymorphonucl Cell 52.5
--- NOTE | 2025-03-07 10:55 | PTCARENOTE ---
Captured VS for nightshift at 22:27, cannot confirm accuracy.
[2025-03-07] MEDS: XANAX 0.25 MG PO ×2 (11:34→23:20)
--- NOTE | 2025-03-07 12:08 | W.PN.NEPH.PH ---
Today's Communication / Plan
-
cotn CAPD
Assessment/Plan
-
Assessment
ESRD/PD
Peritonitis with Achromobacter
SLE
Hypothyroidism
Anemia
Nephrotic range proteinuria
Plan:
abx per ID on IV zosyn, repeat cell count 03/06 still high WBC
Reduced prednisone to 15 mg daily on 03/04, slow taper over 2 months
next dose taper in 2-3weeks to 10mg
Continue PD in the hospital CAPD, reviewed flow sheets,
over all mild net +ve balance, euvolemic
replace k
BP stable
anxiety-likely benefit from anxiolytics, she feels stress staying in hospital
-
-
Date of Service: March 07, 2025
CC / HPI / ROS
-
Chief Complaint:
peritonitis
History of Present Illness:
no fever, Bps stable
sodium better at 135, k low 3.3
Review of Systems:
no fever
no cp or sob
only mild drain pain -chronic
Labs
-
Labs:
WBC 9.5 10^3/uL (4.8-10.8) 03/07/25 05:17
RBC 3.45 10^6/uL (4.20-5.40) L 03/07/25 05:17
Hgb 10.8 g/dL (12.0-16.0) L 03/07/25 05:17
Hct 32.2 % (37.0-47.0) L 03/07/25 05:17
Plt Count 295 10^3/uL (130-400) 03/07/25 05:17
Sodium 135 mmol/L (135-145) 03/07/25 05:17
Potassium 3.3 mmol/L (3.5-5.1) L 03/07/25 05:17
Chloride 104 mmol/L (98-107) 03/07/25 05:17
Carbon Dioxide 27 mmol/L (22-30) 03/07/25 05:17
BUN 18 mg/dl (7-17) H 03/07/25 05:17
Creatinine 1.7 mg/dL (0.6-1.0) H 03/07/25 05:17
eGFR 33.07 03/07/25 05:17
Glucose 126 mg/dl (70-99) H 03/07/25 05:17
Calcium 8.6 mg/dl (8.4-10.2) 03/07/25 05:17
Albumin 3.0 g/dl (3.5-5.0) L 03/05/25 12:52
Physical Exam
-
Vital Signs:
Vital Signs
Temp Pulse Resp BP Pulse Ox
97.3 F 94 18 107/72 98
03/07/25 08:44 03/07/25 08:57 03/07/25 08:44 03/07/25 08:57 03/07/25 08:44
Cardiovascular:: Regular rate and rhythm
Respiratory:: Bilateral: CTA
Lung Excursion:: Normal
Abdomen:: Nontender and Soft
Extremity Edema:: None: Bilateral:
Lizarraga Catheter: No
--- NOTE | 2025-03-07 13:11 | W.PN.HOSP.TC ---
Today's Communication/Plan
-
Assessment / Plan
Assessment / Plan
General: No Apparent Distress, Comfortable and Conversant
HEENT: Alopecia, Moist mucous membranes, Atraumatic
Respiratory: Clear and Non Labored Respirations
Cardiac: S1/S2 and Regular Rhythm; No Rub or Gallop
GI: Soft, PD catheter without surrounding erythema or purulence
Musculoskeletal: No Edema, no deformity, significantly decreased muscle bulk throughout
Skin: Warm and dry
: NO Lizarraga
Neuro: Awake, Alert, Nonfocal/grossly intact
Psych: Calm and cooperative
Ms. Carrizales is a 64-year-old female with medical history of intracranial hemorrhage (s/p craniotomy and ventriculostomy 2014), ESRD (on PD, previously on HD), hypertension, chronic thrombocytopenia, hypothyroidism, alopecia, and lupus (new diagnosis)
who presented with suspected peritonitis. PD fluid has been cloudy for the past week prior to arrival. She spoke with the dialysis nurse and cultures of her PD fluid were obtained which were growing Achromobacter xylosoxidans. She was started on
antibiotic treatment with Bactrim. However repeat cultures remained positive and so she was sent to the hospital for further evaluation and management.
Peritonitis:
- Outpatient PD fluid cultures growing Achromobacter xylosoxidans
- Inpatient cultures pending
- Patient is immunosuppressed on hydroxychloroquine, mycophenolate, and prednisone
- Treating with IV Zosyn for now based on outpatient culture and sensitivities
- ID following, planning to recheck peritoneal fluid cell counts on Sunday
- Leukocytosis resolved, remains afebrile
Hypokalemia:
- Potassium 3.3 on labs this morning, 40 mEq given p.o.
- Will monitor
ESRD:
- Continue peritoneal dialysis per nephrology
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
- Continue mycophenolate, Plaquenil, and prednisone
- Was previously on hemodialysis but preferred switch to PD
Anemia of chronic disease:
- No evidence of bleeding
- Hemoglobin appears close to baseline
- Will monitor
Lupus:
- Fairly recent diagnosis
- With associated alopecia
- Continue prednisone, mycophenolate, and Plaquenil
Chronic thrombocytopenia:
- Platelet levels currently within normal limits
- Continue immunosuppressive therapy for lupus
Hypothyroidism:
- Continue home Synthroid 50 mcg daily
Hypertension:
- Controlled
- Continue home metoprolol succinate 12.5 mg daily
Hyponatremia:
- Mild with serum sodium 134, stable
- Will monitor
Tobacco abuse:
- Encourage cessation, nicotine patch provided
Severe protein calorie malnutrition:
- BMI 16.8
- Encourage adequate p.o. intake
- Dietary supplements as tolerated
DVT prophylaxis: Subcu heparin
CODE STATUS: Full code
Anticipated Discharge: > 48 hours
Subjective/Interval History
-
Date of Service: March 07, 2025
Patient was seen and examined at bedside. Had been upset earlier today about the prospect of staying in the hospital through the weekend. Currently comfortable.
Objective Data
-
Labs:
Laboratory Results
03/07/25
05:17
WBC 9.5
Hgb 10.8 L
Hct 32.2 L
Plt Count 295
Sodium 135
Potassium 3.3 L
Chloride 104
Carbon Dioxide 27
BUN 18 H
Creatinine 1.7 H
Glucose 126 H
Calcium 8.6
Vital Signs:
Vital Signs
Temp Pulse Resp BP Pulse Ox
97.3 F 94 18 107/72 98
03/07/25 08:44 03/07/25 08:57 03/07/25 08:44 03/07/25 08:57 03/07/25 08:44
I&O
12/08/2403/07/25 03/08/25
06:59 06:59 06:59
Intake Total 100 / 100 250 / 250 150 / 150
Balance 100 / 100 250 / 250 150 / 150
Review of Systems
-
History Source: Patient
All other systems: Reviewed and negative
Physical Exam
-
General: No Apparent Distress
[2025-03-07 14:59] VITALS: BP 120/77
--- NOTE | 2025-03-08 01:59 | PTCARENOTE ---
Pt received from previous shift in bed, spouse at bedside. AAOx3, anxious at times. Full physical assessment completed (refer to worklist). Pt reports nightmares, nicotine patch removed, [employer] notified --> electronic orders received to remove at
HS. Pt tolerating PD exchanges (refer to worklist), one episode of nausea during instillation, resolved w/o intervention. CHG cloth bath completed w/assist. #20 LAC INT patent. PRN xanax administered per MD order (refer to MAR). Call nancy w/in
reach. Safe environment maintained.
[2025-03-08 02:16] VITALS: BP 122/75
[2025-03-08] MEDS: SYNTHROID 50 MCG PO (05:16)
[2025-03-08] MEDS: ZOSYN 50 IV ×3 (05:16→21:58)
[2025-03-08 06:06] LABS: Hematocrit 29.9 % (37.0-47.0); Hemoglobin 9.9 g/dL (12.0-16.0); Mean Corp Hgb Conc. 33.1 g/dL (33.0-37.0); Mean Corpuscular Volume 92.9 fL (81.0-99.0); Platelet Count 260 10^3/uL (130-400); Red Cell Dist. Width 14.3 % (11.5-14.5)
[2025-03-08 06:30] LABS: Blood Urea Nitrogen 12 mg/dl (7-17); Calcium 8.6 mg/dl (8.4-10.2); Carbon Dioxide 23 mmol/L (22-30); Chloride 107 mmol/L (98-107); Estimated Creatinine Clearance 23 ml/min; Glucose 139 mg/dl (70-99); Potassium 3.2 mmol/L (3.5-5.1); Sodium 134 mmol/L (135-145); eGFR 38.43
[2025-03-08 07:45] VITALS: BP 117/63
[2025-03-08] MEDS: CELLCEPT 500 MG PO ×2 (09:26→19:57)
[2025-03-08] MEDS: XANAX 0.25 MG PO ×2 (09:27→23:01)
[2025-03-08] MEDS: PROTONIX 40 MG PO (09:27)
[2025-03-08] MEDS: PLAQUENIL 200 MG PO (09:27)
[2025-03-08] MEDS: DELTASONE 15 MG PO (09:28)
[2025-03-08] MEDS: MAGNESIUM OXIDE 400 MG PO (09:28)
[2025-03-08] MEDS: KCL 40 MEQ PO (09:28)
[2025-03-08] MEDS: NICODERM TRANSDERMAL 14 MG TRANSDERM (09:30)
[2025-03-08] MEDS: HEPARIN 2500 UNITS SC ×2 (09:31→19:56)
[2025-03-08] MEDS: TOPROL XL 12.5 MG PO (09:32)
--- NOTE | 2025-03-08 09:44 | W.PN.ID1 ---
Date of Service
Date of Service: March 08, 2025
Today's Communication
continue zosyn
Assessment / Plan
PD associated peritonitis
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
Previously treated with bactrim 1 DS BID
Leukocytosis
ESRD�PD (formerly on HD)
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
Hypothyroidism
HTN
Alopecia
Lupus (new diagnosis)
Chronic thrombocytopenia
Depression
Recommendations:
03/06 PD fluid 640 wbcs consistent with peritonitis; would repeat the cell count sunday
- 03/06 body fluid culture here no growth to date
- Outpatient culture from 02/17 & 03/02: Achromobacter
On continuous PD
Based upon outpatient cultures, would continue with Zosyn
Would follow PD effluent for improvement in turbidity.
Monitor white count and temperature curve.
Follow for clinical improvement.
Further recommendations as additional data is returned.
Chief Complaint
-: Other (PD peritonitis)
Subjective / Review of Systems
afebrile
bp stable
anxiety
bag of PD fluid already discarded prior to my evaluation
Vital Signs / Physical Exam
Vital Signs
Vital Signs
Temp Pulse Resp BP Pulse Ox
98.2 F 91 16 122/75 95
03/07/25 22:19 03/08/25 02:16 03/08/25 02:16 03/08/25 02:16 03/08/25 02:16
Physical Exam
Constitutional: No Acute Distress
Cardiovascular: Regular Rate and S1/S2; Negative Murmur or Rub
Pulmonary: Clear and Symmetric; Negative Wheezes or Rales
Gastrointestinal: Soft, Non Tender, Non Distended and Normal Bowel Sounds
Skin: Warm and Dry; Negative Rash or Jaundice
Lines: Other (PD cath)
Objective Data
Lab Data
Lab Results
03/08/25 05:22
03/08/25 05:22
Estimated Creat Clear 23 ml/min 03/08/25 05:22
Lactic Acid 1.6 mmol/L (0.7-2.0) 03/05/25 12:52
Total Bilirubin 0.5 mg/dl (0.2-1.3) 03/05/25 12:52
AST 18 U/L (14-36) 03/05/25 12:52
ALT 18 U/L (0-35) 03/05/25 12:52
Alkaline Phosphatase 149 U/L (38-126) H 03/05/25 12:52
Most recent labs reviewed.
Micro Results:
03/05/25 12:52 Blood Culture - Preliminary
Blood/Venous No Growth in 48 hours- Final report to follow
03/05/25 12:52 Blood Culture - Preliminary
Blood/Venous No Growth in 48 hours- Final report to follow
03/06/25 14:51 Body Fluid Culture - Preliminary
Peritoneal Fluid No Growth After 18-24 Hours
Gram Stain - Final
03/05/25 12:52 Urine Culture - Final
Urine No Significant Growth
02/17/25 PD Effluent Culture
Laboratory Tests
03/06/25
14:50
Fluid WBC 640
Fluid Mononuclear Cell 47.5
Fl Polymorphonucl Cell 52.5
--- NOTE | 2025-03-08 12:41 | W.PN.NEPH.PH ---
Today's Communication / Plan
-
cont PD same
Assessment/Plan
-
Assessment
ESRD/PD
Peritonitis with Achromobacter
SLE
Hypothyroidism
Anemia
Nephrotic range proteinuria
Plan:
abx per ID on IV zosyn, repeat cell count 03/06 still high WBC
Reduced prednisone to 15 mg daily on 03/04, slow taper over 2 months
next dose taper in 2-3weeks to 10mg
Continue PD in the hospital CAPD, reviewed flow sheets,
over all mild net +ve balance, euvolemic with residual UOP
replace k-start daily 40meq
BP stable
-
-
Date of Service: March 08, 2025
CC / HPI / ROS
-
Chief Complaint:
peritonitis
History of Present Illness:
no fever, Bps stable
sodium stable at 134, k low 3.2
Review of Systems:
no fever
no cp or sob
only mild drain pain -chronic
per staff PD fluid today is clear than yesterday
Labs
-
Labs:
WBC 7.5 10^3/uL (4.8-10.8) 03/08/25 05:22
RBC 3.22 10^6/uL (4.20-5.40) L 03/08/25 05:22
Hgb 9.9 g/dL (12.0-16.0) L 03/08/25 05:22
Hct 29.9 % (37.0-47.0) L 03/08/25 05:22
Plt Count 260 10^3/uL (130-400) 03/08/25 05:22
Sodium 134 mmol/L (135-145) L 03/08/25 05:22
Potassium 3.2 mmol/L (3.5-5.1) L 03/08/25 05:22
Chloride 107 mmol/L (98-107) 03/08/25 05:22
Carbon Dioxide 23 mmol/L (22-30) 03/08/25 05:22
BUN 12 mg/dl (7-17) 03/08/25 05:22
Creatinine 1.5 mg/dL (0.6-1.0) H 03/08/25 05:22
eGFR 38.43 03/08/25 05:22
Glucose 139 mg/dl (70-99) H 03/08/25 05:22
Calcium 8.6 mg/dl (8.4-10.2) 03/08/25 05:22
Albumin 3.0 g/dl (3.5-5.0) L 03/05/25 12:52
Physical Exam
-
Vital Signs:
Vital Signs
Temp Pulse Resp BP Pulse Ox
97.8 F 83 16 117/63 100
03/08/25 07:45 03/08/25 07:45 03/08/25 07:45 03/08/25 09:32 03/08/25 07:45
Cardiovascular:: Regular rate and rhythm
Respiratory:: Bilateral: CTA
Lung Excursion:: Normal
Abdomen:: Nontender and Soft
Extremity Edema:: None: Bilateral:
Lizarraga Catheter: No
--- NOTE | 2025-03-08 13:03 | W.PN.HOSP.TC ---
Today's Communication/Plan
-
Assessment / Plan
Assessment / Plan
General: No Apparent Distress, Comfortable and Conversant
HEENT: Alopecia, Moist mucous membranes, Atraumatic
Respiratory: Clear and Non Labored Respirations
Cardiac: Regular rhythm, heart rate 80
GI: Soft, PD catheter without surrounding erythema or purulence
Musculoskeletal: No Edema, no deformity, significantly decreased muscle bulk throughout
Skin: Warm and dry
: NO Lizarraga
Neuro: Awake, Alert, Nonfocal/grossly intact
Psych: Calm and cooperative
Ms. Carrizales is a 64-year-old female with medical history of intracranial hemorrhage (s/p craniotomy and ventriculostomy 2014), ESRD (on PD, previously on HD), hypertension, chronic thrombocytopenia, hypothyroidism, alopecia, and lupus (new diagnosis)
who presented with suspected peritonitis. PD fluid has been cloudy for the past week prior to arrival. She spoke with the dialysis nurse and cultures of her PD fluid were obtained which were growing Achromobacter xylosoxidans. She was started on
antibiotic treatment with Bactrim. However repeat cultures remained positive and so she was sent to the hospital for further evaluation and management.
Peritonitis:
- Outpatient PD fluid cultures growing Achromobacter xylosoxidans
- Inpatient cultures growing gram-negative rods, awaiting speciation and sensitivities
- Patient is immunosuppressed on hydroxychloroquine, mycophenolate, and prednisone
- Treating with IV Zosyn for now based on outpatient culture and sensitivities
- ID following, planning to recheck peritoneal fluid cell counts on Sunday
- Leukocytosis resolved, remains afebrile
Hypokalemia:
- Potassium 3.2 on labs this morning, 40 mEq given p.o.
- Will monitor
ESRD:
- Continue peritoneal dialysis per nephrology
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
- Continue mycophenolate, Plaquenil, and prednisone
- Was previously on hemodialysis but preferred switch to PD
Anemia of chronic disease:
- No evidence of bleeding
- Hemoglobin appears close to baseline
- Will monitor
Lupus:
- Fairly recent diagnosis
- With associated alopecia
- Continue prednisone, mycophenolate, and Plaquenil
Chronic thrombocytopenia:
- Platelet levels currently within normal limits
- Continue immunosuppressive therapy for lupus
Hypothyroidism:
- Continue home Synthroid 50 mcg daily
Hypertension:
- Controlled
- Continue home metoprolol succinate 12.5 mg daily
Hyponatremia:
- Mild with serum sodium 134, stable
- Will monitor
Tobacco abuse:
- Encourage cessation, nicotine patch provided
Severe protein calorie malnutrition:
- BMI 16.8
- Encourage adequate p.o. intake
- Dietary supplements as tolerated
DVT prophylaxis: Subcu heparin
CODE STATUS: Full code
Anticipated Discharge: 24 - 48 hours
Subjective/Interval History
-
Date of Service: March 08, 2025
Patient seen and examined at bedside. Peritoneal cultures growing gram-negative rods. Patient comfortable, eager to go home.
Objective Data
-
Labs:
Laboratory Results
03/08/25
05:22
WBC 7.5
Hgb 9.9 L
Hct 29.9 L
Plt Count 260
Sodium 134 L
Potassium 3.2 L
Chloride 107
Carbon Dioxide 23
BUN 12
Creatinine 1.5 H
Glucose 139 H
Calcium 8.6
Vital Signs:
Vital Signs
Temp Pulse Resp BP Pulse Ox
97.8 F 83 16 117/63 100
03/08/25 07:45 03/08/25 07:45 03/08/25 07:45 03/08/25 09:32 03/08/25 07:45
I&O
03/07/25 03/08/25 03/09/25
06:59 06:59 06:59
Intake Total 250 / 250 840 / 840
Output Total 200 / 200
Balance 250 / 250 640 / 640
Review of Systems
-
History Source: Patient
All other systems: Reviewed and negative
Physical Exam
-
General: No Apparent Distress
[2025-03-08 15:46] VITALS: BP 113/70
[2025-03-08] MEDS: TYLENOL 650 MG PO (19:55)
[2025-03-08] MEDS: REMOVE NICOTINE PATCH 1 PATCH REMOVE (21:59)
[2025-03-08 23:18] VITALS: BP 130/79
--- NOTE | 2025-03-09 01:33 | PTCARENOTE ---
Assumed care of Pt from day RN. Pt continues Q4 PD, fluid clear at this time. Pt tolerating well, abd discomfort while filling at times. Pt requesting her Xanax at bedtime for anxiety. Call cruz within reach. Bed in lowest position.
[2025-03-09 05:00] VITALS: BMI 16.0
[2025-03-09] MEDS: SYNTHROID 50 MCG PO (05:02)
[2025-03-09] MEDS: ZOSYN 50 IV ×3 (05:03→21:53)
[2025-03-09 06:42] LABS: Hematocrit 31.2 % (37.0-47.0); Hemoglobin 10.2 g/dL (12.0-16.0); Mean Corp Hgb Conc. 32.7 g/dL (33.0-37.0); Mean Corpuscular Volume 96.3 fL (81.0-99.0); Platelet Count 261 10^3/uL (130-400); Red Cell Dist. Width 14.5 % (11.5-14.5)
[2025-03-09 07:46] LABS: Blood Urea Nitrogen 11 mg/dl (7-17); Calcium 8.6 mg/dl (8.4-10.2); Carbon Dioxide 25 mmol/L (22-30); Chloride 108 mmol/L (98-107); Estimated Creatinine Clearance 21 ml/min; Glucose 104 mg/dl (70-99); Potassium 3.3 mmol/L (3.5-5.1); Sodium 136 mmol/L (135-145); eGFR 35.57
--- NOTE | 2025-03-09 08:00 | W.PN.NEPH.PH ---
Today's Communication / Plan
-
PD orders provided
PD flowsheets reviewed
UF ~ even
Antibiotics per PD
Provide extra dose of potassium this afternoon
Assessment/Plan
-
Assessment
ESRD/PD
Peritonitis with Achromobacter
SLE
Hypothyroidism
Anemia
Nephrotic range proteinuria
Plan:
abx per ID on IV zosyn, repeat cell count 03/06 still high WBC
Reduced prednisone to 15 mg daily on 03/04, slow taper over 2 months
next dose taper in 2-3weeks to 10mg
Continue PD in the hospital CAPD, reviewed flow sheets,
over all mild net +ve balance, euvolemic with residual UOP
replace k-maintain daily 40meq
BP stable
PD orders provided 2.5% every 4 hour exchange
-
-
Date of Service: March 09, 2025
CC / HPI / ROS
-
Chief Complaint:
peritonitis
History of Present Illness:
no fever, Bps stable
sodium stable at 134, k low 3.3
Review of Systems:
no fever
no cp or sob
only mild drain pain -chronic
per staff PD fluid today is clear than yesterday
Labs
-
Labs:
WBC 8.5 10^3/uL (4.8-10.8) 03/09/25 06:17
RBC 3.24 10^6/uL (4.20-5.40) L 03/09/25 06:17
Hgb 10.2 g/dL (12.0-16.0) L 03/09/25 06:17
Hct 31.2 % (37.0-47.0) L 03/09/25 06:17
Plt Count 261 10^3/uL (130-400) 03/09/25 06:17
Sodium 136 mmol/L (135-145) 03/09/25 06:17
Potassium 3.3 mmol/L (3.5-5.1) L 03/09/25 06:17
Chloride 108 mmol/L (98-107) H 03/09/25 06:17
Carbon Dioxide 25 mmol/L (22-30) 03/09/25 06:17
BUN 11 mg/dl (7-17) 03/09/25 06:17
Creatinine 1.6 mg/dL (0.6-1.0) H 03/09/25 06:17
eGFR 35.57 03/09/25 06:17
Glucose 104 mg/dl (70-99) H 03/09/25 06:17
Calcium 8.6 mg/dl (8.4-10.2) 03/09/25 06:17
Albumin 3.0 g/dl (3.5-5.0) L 03/05/25 12:52
Physical Exam
-
Vital Signs:
Vital Signs
Temp Pulse Resp BP Pulse Ox
97.7 F 96 17 130/79 100
03/09/25 07:32 03/08/25 23:18 03/08/25 23:18 03/08/25 23:18 03/08/25 23:18
Cardiovascular:: Regular rate and rhythm
Respiratory:: Bilateral: CTA
Lung Excursion:: Normal
Abdomen:: Nontender and Soft
Extremity Edema:: None: Bilateral:
Lizarraga Catheter: No
[2025-03-09 08:08] VITALS: BP 129/87
[2025-03-09] MEDS: PLAQUENIL 200 MG PO (08:17)
[2025-03-09] MEDS: MAGNESIUM OXIDE 400 MG PO (08:17)
[2025-03-09] MEDS: PROTONIX 40 MG PO (08:17)
[2025-03-09] MEDS: DELTASONE 15 MG PO (08:17)
[2025-03-09] MEDS: XANAX 0.25 MG PO ×2 (08:17→21:53)
[2025-03-09] MEDS: KCL 40 MEQ PO (08:17)
[2025-03-09] MEDS: TOPROL XL 12.5 MG PO (08:17)
[2025-03-09] MEDS: CELLCEPT 500 MG PO ×2 (08:17→19:21)
[2025-03-09] MEDS: HEPARIN 2500 UNITS SC ×2 (08:18→19:21)
[2025-03-09] MEDS: NICODERM TRANSDERMAL 14 MG TRANSDERM (08:18)
--- NOTE | 2025-03-09 10:24 | W.PN.HOSP.TC ---
Today's Communication/Plan
-
see bold
Assessment / Plan
Assessment / Plan
Ms. Carrizales is a 64-year-old female with medical history of intracranial hemorrhage (s/p craniotomy and ventriculostomy 2014), ESRD (on PD, previously on HD), hypertension, chronic thrombocytopenia, hypothyroidism, alopecia, and lupus (new diagnosis)
who presented with suspected peritonitis. PD fluid has been cloudy for the past week prior to arrival. She spoke with the dialysis nurse and cultures of her PD fluid were obtained which were growing Achromobacter xylosoxidans. She was started on
antibiotic treatment with Bactrim. However repeat cultures remained positive and so she was sent to the hospital for further evaluation and management.
PD Associated Peritonitis:
- Outpatient PD fluid cultures growing Achromobacter xylosoxidans
- Inpatient cultures growing gram-negative rods, awaiting speciation and sensitivities
- Patient is immunosuppressed on hydroxychloroquine, mycophenolate, and prednisone
- Appreciate ID input, continue IV Zosyn for now based on outpatient culture and sensitivities
- Leukocytosis resolved, remains afebrile
Hypokalemia:
- Potassium 3.3, replete today
- Will monitor
ESRD:
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
- Continue mycophenolate, Plaquenil, and prednisone
- Was previously on hemodialysis but preferred switch to PD
- Continue peritoneal dialysis per nephrology
Anemia of chronic disease:
- No evidence of bleeding
- Hemoglobin appears close to baseline
- Will monitor
Lupus:
- Fairly recent diagnosis
- With associated alopecia
- Continue prednisone, mycophenolate, and Plaquenil
Chronic thrombocytopenia:
- Platelet levels currently within normal limits
- Continue immunosuppressive therapy for lupus
Hypothyroidism:
- Continue home Synthroid 50 mcg daily
Hypertension:
- Controlled
- Continue home metoprolol succinate 12.5 mg daily
Hyponatremia:
- Will monitor
Tobacco abuse:
- Encourage cessation, nicotine patch provided
Severe protein calorie malnutrition:
- BMI 16.8
- Encourage adequate p.o. intake
- Dietary supplements as tolerated
DVT prophylaxis: Subcu heparin
CODE STATUS: Full code
Updated at bedside 03/09
Total time spent to see the patient on the floor, examine the patient, review data and lab results, discuss treatment plan with patient, nursing staff around 38 minutes.
Physical exam
General: No Apparent Distress, Comfortable and Conversant
HEENT: Alopecia, Moist mucous membranes, Atraumatic
Respiratory: Clear and Non Labored Respirations
Cardiac: Regular rhythm, reg rate
GI: Soft, PD catheter without surrounding erythema or purulence
Musculoskeletal: No Edema, no deformity, significantly decreased muscle bulk throughout
Skin: Warm and dry
Neuro: Awake, Alert, Nonfocal/grossly intact
Psych: Calm and cooperative
Anticipated Discharge: 24 - 48 hours
Subjective/Interval History
-
Date of Service: March 09, 2025
Patient denies chest pain, denies shortness of breath. She denies pain anywhere. No fever, no vomiting.
Objective Data
-
Labs:
Laboratory Results
03/09/25
06:17
WBC 8.5
Hgb 10.2 L
Hct 31.2 L
Plt Count 261
Sodium 136
Potassium 3.3 L
Chloride 108 H
Carbon Dioxide 25
BUN 11
Creatinine 1.6 H
Glucose 104 H
Calcium 8.6
Vital Signs:
Vital Signs
Temp Pulse Resp BP Pulse Ox
97.7 F 92 16 129/87 100
03/09/25 07:32 03/09/25 08:17 03/09/25 08:08 03/09/25 08:17 03/09/25 08:08
I&O
03/08/25 03/09/25 03/10/25
06:59 06:59 06:59
Intake Total 840 / 840 169 / 1693 100 / 100
Output Total 200 / 200
Balance 640 / 640 169 / 1693 100 / 100
[2025-03-09 10:52] VITALS: BMI 16.0
[2025-03-09 11:31] LABS: Body Fluid Second Tech EF
--- NOTE | 2025-03-09 12:52 | W.PN.ID1 ---
Date of Service
Date of Service: March 09, 2025
Today's Communication
Continue Zosyn for today.
Assessment / Plan
PD associated peritonitis
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
Previously treated with bactrim 1 DS BID
Leukocytosis
ESRD�PD (formerly on HD)
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
Hypothyroidism
HTN
Alopecia
Lupus (new diagnosis)
Chronic thrombocytopenia
Depression
Recommendations:
03/06 PD fluid 640 wbcs consistent with peritonitis
03/09 PD fluid 378 WBC's (MVD=189)
- 03/06 body fluid culture with GNR's
- Outpatient culture from 02/17 & 03/02: Achromobacter
On continuous PD
Continue with Zosyn
Would follow PD effluent for improvement in turbidity.
Monitor white count and temperature curve.
����������������������������������������������������������
Chief Complaint
-: Other (PD peritonitis)
Subjective / Review of Systems
Review of Systems: No Fever, No Chills and No Abdominal Pain
Vital Signs / Physical Exam
Vital Signs
Vital Signs
Temp Pulse Resp BP Pulse Ox
97.7 F 92 16 129/87 100
03/09/25 07:32 03/09/25 08:17 03/09/25 08:08 03/09/25 08:17 03/09/25 08:08
Physical Exam
Constitutional: No Acute Distress, Comfortable and Non-toxic
Cardiovascular: S1/S2; Negative S3/S4
Pulmonary: Clear and Non Labored
Gastrointestinal: Soft, Non Distended, Normal Bowel Sounds and Other (PD catheter in place.)
Skin: Warm and Dry; Negative Rash or Jaundice
Neurological: Awake and Alert
Psychological: Calm
Objective Data
Lab Data
Lab Results
03/09/25 06:17
03/09/25 06:17
Estimated Creat Clear 21 ml/min 03/09/25 06:17
Lactic Acid 1.6 mmol/L (0.7-2.0) 03/05/25 12:52
Total Bilirubin 0.5 mg/dl (0.2-1.3) 03/05/25 12:52
AST 18 U/L (14-36) 03/05/25 12:52
ALT 18 U/L (0-35) 03/05/25 12:52
Alkaline Phosphatase 149 U/L (38-126) H 03/05/25 12:52
Most recent labs reviewed.
Micro Results:
03/06/25 14:51 Body Fluid Culture - Preliminary
Peritoneal Fluid Gram negative bacilli
Gram Stain - Final
03/05/25 12:52 Blood Culture - Preliminary
Blood/Venous No Growth in 72 hours- Final report to follow
03/05/25 12:52 Blood Culture - Preliminary
Blood/Venous No Growth in 72 hours- Final report to follow
03/05/25 12:52 Urine Culture - Final
Urine No Significant Growth
02/17/25 PD Effluent Culture
Laboratory Tests
03/06/25 03/09/25
14:50 09:41
Fluid WBC 640 378
Fluid Mononuclear Cell 47.5 37
Fl Polymorphonucl Cell 52.5 63
[2025-03-09] MEDS: KCL 20 MEQ PO (14:51)
[2025-03-09 16:09] VITALS: BP 118/86
--- NOTE | 2025-03-09 17:53 | CM ---
F/U: Patient still on IV Abx- Zosyn, have to see if she needs this medical terminologist, otherwise, patient Independent with all ADL's. PLAN: Anticipate Home No Needs vs. Infusion.
--- NOTE | 2025-03-09 19:30 | PTCARENOTE ---
Resumed care of pt sitting in chair AAOx3. Pt due for next PD exchange. Pt situated in bed per comfort. Left lower quadrant PD catheter in place, dressing intact. PD performed as ordered. No issues to report. Left forearm int in place. Vital signs
stable. Pt ambulatory to bathroom independently when needed. Call cruz in reach. Will continue to monitor.
[2025-03-09 19:39] VITALS: BP 120/87
[2025-03-09] MEDS: REMOVE NICOTINE PATCH 1 PATCH REMOVE (21:53)
[2025-03-09 23:48] VITALS: BP 127/90
[2025-03-10] MEDS: ZOSYN 50 IV (05:00)
[2025-03-10] MEDS: SYNTHROID 50 MCG PO (05:00)
[2025-03-10] MEDS: TYLENOL 650 MG PO (05:34)
[2025-03-10 05:37] VITALS: BMI 16.8
[2025-03-10 05:39] LABS: Blood Urea Nitrogen 13 mg/dl (7-17); Calcium 8.8 mg/dl (8.4-10.2); Carbon Dioxide 25 mmol/L (22-30); Chloride 106 mmol/L (98-107); Estimated Creatinine Clearance 22 ml/min; Glucose 63 mg/dl (70-99); Potassium 4.2 mmol/L (3.5-5.1); Sodium 134 mmol/L (135-145); eGFR 35.57
[2025-03-10 06:48] LABS: Glucose - Point of Care 92 mg/dl (70-99)
--- NOTE | 2025-03-10 07:59 | W.PN.HOSP.TC ---
Today's Communication/Plan
-
see bold
Assessment / Plan
Assessment / Plan
Ms. Carrizales is a 64-year-old female with medical history of intracranial hemorrhage (s/p craniotomy and ventriculostomy 2014), ESRD (on PD, previously on HD), hypertension, chronic thrombocytopenia, hypothyroidism, alopecia, and lupus (new diagnosis)
who presented with suspected peritonitis. PD fluid has been cloudy for the past week prior to arrival. She spoke with the dialysis nurse and cultures of her PD fluid were obtained which were growing Achromobacter xylosoxidans. She was started on
antibiotic treatment with Bactrim. However repeat cultures remained positive and so she was sent to the hospital for further evaluation and management.
PD Associated Peritonitis:
- Outpatient PD fluid cultures growing MDRO Achromobacter xylosoxidans
- Inpatient cultures growing gram-negative rods, awaiting speciation and sensitivities
- Patient is immunosuppressed on hydroxychloroquine, mycophenolate, and prednisone
- Appreciate ID input, IV Zosyn changed to IV Merrem, plan for total of 21 days of antibiotics, PICC ordered
- Leukocytosis resolved, remains afebrile
- Can be discharged once outpatient infusion set up
Hypokalemia:
- Resolved
- Will monitor
ESRD:
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
- Continue mycophenolate, Plaquenil, and prednisone
- Was previously on hemodialysis but preferred switch to PD
- Continue peritoneal dialysis per nephrology
Anemia of chronic disease:
- No evidence of bleeding
- Hemoglobin appears close to baseline
- Will monitor
Lupus:
- Fairly recent diagnosis
- With associated alopecia
- Continue prednisone, mycophenolate, and Plaquenil
Chronic thrombocytopenia:
- Platelet levels currently within normal limits
- Continue immunosuppressive therapy for lupus
Hypothyroidism:
- Continue home Synthroid 50 mcg daily
Hypertension:
- Controlled
- Continue home metoprolol succinate 12.5 mg daily
Hyponatremia:
- Will monitor
Tobacco abuse:
- Encourage cessation, nicotine patch provided
Severe protein calorie malnutrition:
- BMI 16.8
- Encourage adequate p.o. intake
- Dietary supplements as tolerated
DVT prophylaxis: Subcu heparin
CODE STATUS: Full code
Updated at bedside 03/09
Total time spent to see the patient on the floor, examine the patient, review data and lab results, discuss treatment plan with patient, nursing staff around 39 minutes.
Physical exam
General: No Apparent Distress, Comfortable and Conversant
HEENT: Alopecia, Moist mucous membranes, Atraumatic
Respiratory: Clear and Non Labored Respirations
Cardiac: Regular rhythm, reg rate
GI: Soft, PD catheter without surrounding erythema or purulence
Musculoskeletal: No Edema, no deformity, significantly decreased muscle bulk throughout
Skin: Warm and dry
Neuro: Awake, Alert, Nonfocal/grossly intact
Psych: Calm and cooperative
Anticipated Discharge: Within 24 hours
Subjective/Interval History
-
Date of Service: March 10, 2025
Patient states she is sick of being in the hospital. She is requesting discharge. She denies pain, denies shortness of breath. No fever, no vomiting.
Objective Data
-
Labs:
Laboratory Results
03/10/25
04:51
Sodium 134 L
Potassium 4.2 D
Chloride 106
Carbon Dioxide 25
BUN 13
Creatinine 1.6 H
Glucose 63 L
Calcium 8.8
Vital Signs:
Vital Signs
Temp Pulse Resp BP Pulse Ox
97.7 F 88 17 127/90 98
03/10/25 07:39 03/09/25 23:48 03/09/25 23:48 03/09/25 23:48 03/09/25 23:48
I&O
03/09/25 03/10/25 03/11/25
06:59 06:59 06:59
Intake Total 1693 / 1693 920 / 920
Balance 1693 / 1693 920 / 920
[2025-03-10 08:20] VITALS: BP 112/92
[2025-03-10] MEDS: NICODERM TRANSDERMAL 14 MG TRANSDERM (08:22)
[2025-03-10] MEDS: DELTASONE 15 MG PO (08:23)
[2025-03-10] MEDS: CELLCEPT 500 MG PO ×2 (08:23→19:40)
[2025-03-10] MEDS: XANAX 0.25 MG PO ×2 (08:23→22:00)
[2025-03-10] MEDS: MAGNESIUM OXIDE 400 MG PO (08:24)
[2025-03-10] MEDS: PLAQUENIL 200 MG PO (08:24)
[2025-03-10] MEDS: KCL 40 MEQ PO (08:24)
[2025-03-10] MEDS: TOPROL XL 12.5 MG PO (08:24)
[2025-03-10] MEDS: HEPARIN 2500 UNITS SC ×2 (08:24→19:40)
[2025-03-10] MEDS: PROTONIX 40 MG PO (08:24)
--- NOTE | 2025-03-10 08:30 | W.PN.NEPH.PH ---
Today's Communication / Plan
-
PD order provided
Assessment/Plan
-
Assessment
ESRD/PD
Peritonitis with Achromobacter
SLE
Hypothyroidism
Anemia
Nephrotic range proteinuria
Plan:
abx per ID on IV zosyn, repeat cell count 03/06 still high WBC
Reduced prednisone to 15 mg daily on 03/04, slow taper over 2 months
next dose taper in 2-3weeks to 10mg
PD orders provided, 1500cc q4hr, no exchanges after 9PM 1.5%
Continue PD in the hospital CAPD, reviewed flow sheets,
over all mild net +ve balance, euvolemic with residual UOP ,UF mostly even
replace k-maintain daily 40meq
BP stable
PD orders provided 2.5% every 4 hour exchange
-
-
Maintain PD
Antibiotics per ID currently with IV Zosyn
CC / HPI / ROS
-
Chief Complaint:
peritonitis
History of Present Illness:
no fever, Bps stable
Potassium improved on daily potassium supplement
Remains on peritoneal dialysis
Review of Systems:
no fever
no cp or sob
only mild drain pain -chronic
per staff PD fluid today is clear than cloudy
Labs
-
Labs:
WBC 8.5 10^3/uL (4.8-10.8) 03/09/25 06:17
RBC 3.24 10^6/uL (4.20-5.40) L 03/09/25 06:17
Hgb 10.2 g/dL (12.0-16.0) L 03/09/25 06:17
Hct 31.2 % (37.0-47.0) L 03/09/25 06:17
Plt Count 261 10^3/uL (130-400) 03/09/25 06:17
Sodium 134 mmol/L (135-145) L 03/10/25 04:51
Potassium 4.2 mmol/L (3.5-5.1) D 03/10/25 04:51
Chloride 106 mmol/L (98-107) 03/10/25 04:51
Carbon Dioxide 25 mmol/L (22-30) 03/10/25 04:51
BUN 13 mg/dl (7-17) 03/10/25 04:51
Creatinine 1.6 mg/dL (0.6-1.0) H 03/10/25 04:51
eGFR 35.57 03/10/25 04:51
Glucose 63 mg/dl (70-99) L 03/10/25 04:51
Calcium 8.8 mg/dl (8.4-10.2) 03/10/25 04:51
Albumin 3.0 g/dl (3.5-5.0) L 03/05/25 12:52
Physical Exam
-
Vital Signs:
Vital Signs
Temp Pulse Resp BP Pulse Ox
97.7 F 115 16 112/92 100
03/10/25 07:39 03/10/25 08:19 03/10/25 08:19 03/10/25 08:20 03/10/25 08:19
Cardiovascular:: Regular rate and rhythm
Respiratory:: Bilateral: CTA
Lung Excursion:: Normal
Abdomen:: Nontender and Soft
Extremity Edema:: None: Bilateral:
Lizarraga Catheter: No
--- NOTE | 2025-03-10 12:09 | PTCARENOTE ---
Pt's assessment as documented. Aox3, agitated/angry regarding length of stay. Emotional support provided. PD as documented, dialysate changed to 1.5% per MD order. Ambulating in room. Ringing appropriately, call cruz within reach.
--- NOTE | 2025-03-10 13:17 | W.PN.ID1 ---
Date of Service
Date of Service: March 10, 2025
Today's Communication
Continue antibiotics.
Assessment / Plan
PD associated peritonitis
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
Previously treated with bactrim 1 DS BID
Leukocytosis
ESRD�PD (formerly on HD)
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
Hypothyroidism
HTN
Alopecia
Lupus (new diagnosis)
Chronic thrombocytopenia
Depression
Recommendations:
03/06 PD fluid 640 wbcs consistent with peritonitis
03/09 PD fluid 378 WBC's (LBW=087)
- 03/06 body fluid culture with GNR's
- Outpatient culture from 02/17 & 03/02: Achromobacter
On continuous PD
Repeat PD fluid overall improved.
Continue with 21-day course of antibiotics.
Transition to once daily meropenem (dosed for PD)
Place PICC line.
Home infusion she has been placed on paper chart.
����������������������������������������������������������
Chief Complaint
-: Other (PD peritonitis)
Subjective / Review of Systems
Patient seen and examined. Reports no appetite secondary to the food here.
Review of Systems: No Fever and No Chills
Vital Signs / Physical Exam
Vital Signs
Vital Signs
Temp Pulse Resp BP Pulse Ox
98.0 F 115 16 112/92 100
03/10/25 12:00 03/10/25 08:19 03/10/25 08:19 03/10/25 08:20 03/10/25 08:52
Physical Exam
Constitutional: No Acute Distress, Comfortable and Non-toxic
Pulmonary: Non Labored
Gastrointestinal: Non Distended and Other (PD catheter in place.)
Skin: Warm and Dry; Negative Rash or Jaundice
Neurological: Awake and Alert
Psychological: Calm
Objective Data
Lab Data
Lab Results
03/09/25 06:17
03/10/25 04:51
Estimated Creat Clear 22 ml/min 03/10/25 04:51
Lactic Acid 1.6 mmol/L (0.7-2.0) 03/05/25 12:52
Total Bilirubin 0.5 mg/dl (0.2-1.3) 03/05/25 12:52
AST 18 U/L (14-36) 03/05/25 12:52
ALT 18 U/L (0-35) 03/05/25 12:52
Alkaline Phosphatase 149 U/L (38-126) H 03/05/25 12:52
Most recent labs reviewed.
Micro Results:
03/05/25 12:52 Blood Culture - Final
Blood/Venous No Growth - Final Report
03/05/25 12:52 Blood Culture - Final
Blood/Venous No Growth - Final Report
03/06/25 14:51 Body Fluid Culture - Final
Peritoneal Fluid Achromobacter Xylosoxidans
Gram Stain - Final
03/05/25 12:52 Urine Culture - Final
Urine No Significant Growth
02/17/25 PD Effluent Culture
Laboratory Tests
03/06/25 03/09/25
14:50 09:41
Fluid WBC 640 378
Fluid Mononuclear Cell 47.5 37
Fl Polymorphonucl Cell 52.5 63
Fluid Cult/not urine Final 03/06/25-1236
ACHROMOBACTER XYLOSOXIDANS/denitrificans
CRITICAL VALUE called to and read back verification by
Pennie/[id number] on 03/08/25 at 1117 by LISA. COPY PRINTED to
printer #[id number].
Organism 1 ACHROMOBACTER XYLOSOXIDANS

* This is an amended result. *
Due to physician's request for additional antibiotics.

A prior result that was reported as final has been changed.
1. ACHROMOBACTER XYLOSOXIDANS
M.I.C. RX
--------- ---
Amoxicillin/Potas. Clavulanate >16/8 R
Ampicillin >16 R
Ampicillin/Sulbactam >16/8 R
Aztreonam >16 R
Cefazolin >16 R
Cefepime 16 I
Ceftazidime >16 R
Ceftriaxone >2 R
Ertapenem <=0.5 S
Ciprofloxacin 2 R
Gentamicin >8 R
Meropenem <=1 S
Piperacillin/Tazobactam <=8 S
Tetracycline >8 R
Tobramycin >8 R
Trimethoprim/Sulfamethoxazole <=2/38 S
Care Review
Plan reviewed with: Physician (Hospitalist)
--- NOTE | 2025-03-10 13:43 | VATNOTE ---
PICC order noted for 21 days of antibiotics. Per MD, midline may be placed instead.
[2025-03-10] MEDS: MERREM 500 MG IV (14:13)
[2025-03-10] MEDS: STERILE WATER FOR INJECTION 10 ML IV (14:13)
--- NOTE | 2025-03-10 15:20 | CM ---
Patient seen at bedside. Patient for IV antibiotics. Mid line placed today. CM reviewed options with patient for infusion. Patient chose [facility] and CM faxed clinical information to [facility]. CM spoke with Nubia at [facility] and they
will review referral and call with update when they review insurance coverage. CM will continue to follow for discharge planning needs.
Plan; home with IV antibiotics watch for VN needs as well.
[2025-03-10 19:47] VITALS: BP 114/74
--- NOTE | 2025-03-10 21:00 | PTCARENOTE ---
Resumed care of pt laying in bed AAOx3. PD exchange performed as ordered. No issues to report. Vitals signs stable. Per MD order will not due next PD until 0600. Pt ambulatory in room/ bathroom as needed. Pt denies any complaints. New left midline
in place. Call cruz in reach. Will continue to monitor.
[2025-03-10] MEDS: REMOVE NICOTINE PATCH 1 PATCH REMOVE (22:03)
[2025-03-10 23:01] VITALS: BP 141/86
[2025-03-11 05:49] VITALS: BMI 16.3
[2025-03-11] MEDS: SYNTHROID 50 MCG PO (05:49)
[2025-03-11 06:30] LABS: Blood Urea Nitrogen 18 mg/dl (7-17); Calcium 8.6 mg/dl (8.4-10.2); Carbon Dioxide 26 mmol/L (22-30); Chloride 108 mmol/L (98-107); Estimated Creatinine Clearance 18 ml/min; Glucose 73 mg/dl (70-99); Potassium 5.0 mmol/L (3.5-5.1); Sodium 134 mmol/L (135-145); eGFR 28.94
[2025-03-11] MEDS: HEPARIN 2500 UNITS SC (08:22)
--- NOTE | 2025-03-11 08:22 | PTCARENOTE ---
Patient received from rescue boat operator. Patient is resting comfortably in bed. AAO, VSS. No events noted overnight. No complaints of pain at this time. PD due at 1030 this AM. Continuing ABX. No testing scheduled at this time. Possible discharge
today. Call cruz in reach.
[2025-03-11] MEDS: TOPROL XL 12.5 MG PO (08:23)
[2025-03-11] MEDS: DELTASONE 15 MG PO (08:23)
[2025-03-11] MEDS: PROTONIX 40 MG PO (08:23)
[2025-03-11] MEDS: CELLCEPT 500 MG PO (08:23)
[2025-03-11] MEDS: NICODERM TRANSDERMAL 14 MG TRANSDERM (08:23)
[2025-03-11] MEDS: PLAQUENIL 200 MG PO (08:23)
[2025-03-11] MEDS: MAGNESIUM OXIDE 400 MG PO (08:23)
[2025-03-11] MEDS: XANAX 0.25 MG PO (08:27)
--- NOTE | 2025-03-11 09:22 | W.PN.HOSP.TC ---
Today's Communication/Plan
-
Cleared by ID for discharge today
Assessment / Plan
Assessment / Plan
Ms. Carrizales is a 64-year-old female with medical history of intracranial hemorrhage (s/p craniotomy and ventriculostomy 2014), ESRD (on PD, previously on HD), hypertension, chronic thrombocytopenia, hypothyroidism, alopecia, and lupus (new diagnosis)
who presented with suspected peritonitis. PD fluid has been cloudy for the past week prior to arrival. She spoke with the dialysis nurse and cultures of her PD fluid were obtained which were growing Achromobacter xylosoxidans. She was started on
antibiotic treatment with Bactrim. However repeat cultures remained positive and so she was sent to the hospital for further evaluation and management.
PD Associated Peritonitis:
- Outpatient PD fluid cultures growing MDRO Achromobacter xylosoxidans
- Inpatient cultures growing gram-negative rods, awaiting speciation and sensitivities
- Patient is immunosuppressed on hydroxychloroquine, mycophenolate, and prednisone
- Appreciate ID input, IV Zosyn changed to IV Merrem, plan for total of 21 days of antibiotics through 03/21/25, s/p PICC
- Leukocytosis resolved, remains afebrile
Hypokalemia:
- Resolved
- Will monitor
ESRD:
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
- Continue mycophenolate, Plaquenil, and prednisone
- Was previously on hemodialysis but preferred switch to PD
- Continue peritoneal dialysis per nephrology
Anemia of chronic disease:
- No evidence of bleeding
- Hemoglobin appears close to baseline
Lupus:
- Fairly recent diagnosis
- With associated alopecia
- Continue prednisone, mycophenolate, and Plaquenil
- Prednisone tapered to 15 mg daily on 03/04, continue slow taper as per nephrology
Chronic thrombocytopenia:
- Platelet levels currently within normal limits
- Continue immunosuppressive therapy for lupus
Hypothyroidism:
- Continue home Synthroid 50 mcg daily
Hypertension:
- Continue home metoprolol succinate 12.5 mg daily
Hyponatremia:
- Will monitor
Tobacco abuse:
- Encourage cessation, nicotine patch provided
Severe protein calorie malnutrition:
- BMI 16.8
- Encourage adequate p.o. intake
- Dietary supplements as tolerated
DVT prophylaxis: Subcu heparin
CODE STATUS: Full code
Updated at bedside 03/10
Physical exam
General: No Apparent Distress, Comfortable and Conversant
HEENT: Alopecia, Moist mucous membranes, Atraumatic
Respiratory: Clear and Non Labored Respirations
Cardiac: Regular rhythm, reg rate
GI: Soft, PD catheter without surrounding erythema or purulence
Musculoskeletal: No Edema, no deformity, significantly decreased muscle bulk throughout
Skin: Warm and dry
Neuro: Awake, Alert, Nonfocal/grossly intact
Anticipated Discharge: Today
Subjective/Interval History
-
Date of Service: March 11, 2025
Patient denies pain, denies shortness of breath. No fever, no vomiting. She is eager for discharge today.
Objective Data
-
Labs:
Laboratory Results
03/11/25
05:44
Sodium 134 L
Potassium 5.0
Chloride 108 H
Carbon Dioxide 26
BUN 18 H
Creatinine 1.9 H
Glucose 73
Calcium 8.6
Vital Signs:
Vital Signs
Temp Pulse Resp BP Pulse Ox
97.6 F 104 18 125/94 100
03/11/25 07:47 03/10/25 23:01 03/10/25 23:01 03/11/25 08:23 03/10/25 23:01
I&O
03/10/25 03/11/25 03/12/25
06:59 06:59 06:59
Intake Total 920 / 920 800 / 800
Balance 920 / 920 800 / 800
--- NOTE | 2025-03-11 09:25 | CM ---
Per [facility], Nubia [phone] patient with copay of 406.76 per week copay and a deductible of 1000$ that has not yet been met. CM sent information to CM covering today. CM will continue to follow for discharge planning needs.
Plan; pending [facility] for IV follow up.
--- NOTE | 2025-03-11 09:39 | W.PN.ID1 ---
Date of Service
Date of Service: March 11, 2025
Today's Communication
Continue antibiotics.
Assessment / Plan
PD associated peritonitis
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
Previously treated with bactrim 1 DS BID
Leukocytosis
ESRD�PD (formerly on HD)
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
Hypothyroidism
HTN
Alopecia
Lupus (new diagnosis)
Chronic thrombocytopenia
Depression
Recommendations:
03/06 PD fluid 640 wbcs consistent with peritonitis
03/09 PD fluid 378 WBC's (YIH=021)
- 03/06 body fluid culture with GNR's
- Outpatient culture from 02/17 & 03/02: Achromobacter
On continuous PD
Repeat PD fluid overall improved.
Continue with 21-day course of antibiotics.
Continue meropenem (dosed for PD) via midline through 03/21/2025.
Home infusion she has been placed on paper chart. Currently awaiting insurance approval and antibiotics set up.
����������������������������������������������������������
Chief Complaint
-: Other (PD peritonitis)
Subjective / Review of Systems
Review of Systems: No Fever and No Abdominal Pain
Vital Signs / Physical Exam
Vital Signs
Vital Signs
Temp Pulse Resp BP Pulse Ox
97.6 F 104 18 125/94 95
03/11/25 07:47 03/10/25 23:01 03/10/25 23:01 03/11/25 08:23 03/11/25 09:33
Physical Exam
Constitutional: No Acute Distress, Comfortable and Non-toxic
Pulmonary: Non Labored
Gastrointestinal: Non Distended and Other (PD catheter in place.)
Skin: Warm and Dry; Negative Rash or Jaundice
Neurological: Awake and Alert
Psychological: Calm
Lines: PICC (Midline)
Objective Data
Lab Data
Lab Results
03/09/25 06:17
03/11/25 05:44
Estimated Creat Clear 18 ml/min 03/11/25 05:44
Lactic Acid 1.6 mmol/L (0.7-2.0) 03/05/25 12:52
Total Bilirubin 0.5 mg/dl (0.2-1.3) 03/05/25 12:52
AST 18 U/L (14-36) 03/05/25 12:52
ALT 18 U/L (0-35) 03/05/25 12:52
Alkaline Phosphatase 149 U/L (38-126) H 03/05/25 12:52
Most recent labs reviewed.
Micro Results:
03/05/25 12:52 Blood Culture - Final
Blood/Venous No Growth - Final Report
03/05/25 12:52 Blood Culture - Final
Blood/Venous No Growth - Final Report
03/06/25 14:51 Body Fluid Culture - Final
Peritoneal Fluid Achromobacter Xylosoxidans
Gram Stain - Final
03/05/25 12:52 Urine Culture - Final
Urine No Significant Growth
02/17/25 PD Effluent Culture
Laboratory Tests
03/06/25 03/09/25
14:50 09:41
Fluid WBC 640 378
Fluid Mononuclear Cell 47.5 37
Fl Polymorphonucl Cell 52.5 63
Fluid Cult/not urine Final 03/06/25-1236
ACHROMOBACTER XYLOSOXIDANS/denitrificans
CRITICAL VALUE called to and read back verification by
Pennie/[id number] on 03/08/25 at 1117 by LISA. COPY PRINTED to
printer #[id number].
Organism 1 ACHROMOBACTER XYLOSOXIDANS

* This is an amended result. *
Due to physician's request for additional antibiotics.

A prior result that was reported as final has been changed.
1. ACHROMOBACTER XYLOSOXIDANS
M.I.C. RX
--------- ---
Amoxicillin/Potas. Clavulanate >16/8 R
Ampicillin >16 R
Ampicillin/Sulbactam >16/8 R
Aztreonam >16 R
Cefazolin >16 R
Cefepime 16 I
Ceftazidime >16 R
Ceftriaxone >2 R
Ertapenem <=0.5 S
Ciprofloxacin 2 R
Gentamicin >8 R
Meropenem <=1 S
Piperacillin/Tazobactam <=8 S
Tetracycline >8 R
Tobramycin >8 R
Trimethoprim/Sulfamethoxazole <=2/38 S
Care Review
Plan reviewed with: Nurse
[2025-03-11] MEDS: MERREM 500 MG IV (11:22)
[2025-03-11] MEDS: STERILE WATER FOR INJECTION 10 ML IV (11:23)
--- NOTE | 2025-03-11 12:19 | W.PN.NEPH.PH ---
Today's Communication / Plan
-
see plan, add PO nystatin
Assessment/Plan
-
Assessment
ESRD/PD
Peritonitis with Achromobacter
SLE
Hypothyroidism
Anemia
Nephrotic range proteinuria
Plan:
abx per ID on IV Meropenem till 03/21, repeat cell count 03/09 improving wbc 378
given correction abx and high risk of fungal infection -start po nystatin prophylaxis
Reduced prednisone to 15 mg daily on 03/04, slow taper over 2 months
next dose taper in 2-3weeks to 10mg
PD orders reviewed, 1500cc q4hr, no exchanges after 9PM 1.5%
Continue PD in the hospital CAPD, reviewed flow sheets,
over all mild net +ve balance, euvolemic with residual UOP ,UF mostly even
k high normal, holding kcl
BP stable
d/c plan
-
-
Date of Service: March 11, 2025
CC / HPI / ROS
-
Chief Complaint:
peritonitis
History of Present Illness:
no fever, Bps stable
Potassium high on daily potassium supplement
Remains on peritoneal dialysis
sodium slightly low 134
Review of Systems:
no fever
no cp or sob
no abd pain
Labs
-
Labs:
WBC 8.5 10^3/uL (4.8-10.8) 03/09/25 06:17
RBC 3.24 10^6/uL (4.20-5.40) L 03/09/25 06:17
Hgb 10.2 g/dL (12.0-16.0) L 03/09/25 06:17
Hct 31.2 % (37.0-47.0) L 03/09/25 06:17
Plt Count 261 10^3/uL (130-400) 03/09/25 06:17
Sodium 134 mmol/L (135-145) L 03/11/25 05:44
Potassium 5.0 mmol/L (3.5-5.1) 03/11/25 05:44
Chloride 108 mmol/L (98-107) H 03/11/25 05:44
Carbon Dioxide 26 mmol/L (22-30) 03/11/25 05:44
BUN 18 mg/dl (7-17) H 03/11/25 05:44
Creatinine 1.9 mg/dL (0.6-1.0) H 03/11/25 05:44
eGFR 28.94 03/11/25 05:44
Glucose 73 mg/dl (70-99) 03/11/25 05:44
Calcium 8.6 mg/dl (8.4-10.2) 03/11/25 05:44
Albumin 3.0 g/dl (3.5-5.0) L 03/05/25 12:52
Physical Exam
-
Vital Signs:
Vital Signs
Temp Pulse Resp BP Pulse Ox
97.6 F 104 18 125/94 95
03/11/25 11:54 03/10/25 23:01 03/10/25 23:01 03/11/25 08:23 03/11/25 09:33
Cardiovascular:: Regular rate and rhythm
Respiratory:: Bilateral: CTA
Lung Excursion:: Normal
Abdomen:: Nontender and Soft
Extremity Edema:: None: Bilateral:
[place] Catheter: No
--- NOTE | 2025-03-11 12:40 | W.DCSUMMARY ---
Discharge Summary
Discharge Data
Date of Admission: 03/05/25
Date of Discharge: 03/11/25
-
Pending Results: No
Hospital Course
Discharge diagnosis:
Peritoneal dialysis associated peritonitis
Hypokalemia
End-stage renal failure on peritoneal dialysis
Hyponatremia
Severe protein calorie malnutrition
Anemia of chronic disease
Recently diagnosed lupus
Chronic thrombocytopenia
Cigarette nicotine dependency
Essential hypertension
Hypothyroidism
Consults: ID, nephrology
Hospital course:
64-year-old female with medical history of intracranial hemorrhage (s/p craniotomy and ventriculostomy 2014), ESRD (on PD, previously on HD), hypertension, chronic thrombocytopenia, hypothyroidism, alopecia, and lupus (new diagnosis) who was
admitted for peritoneal dialysis associated peritonitis. Patient was seen in conjunction with ID and nephrology. Outpatient peritoneal fluid cultures grew out MDRO Achromobacter xylosoxidans. Inpatient cultures confirmed MDRO Achromobacter
xylosoxidans, sensitive to Zosyn and Merrem. Patient was treated with IV Zosyn while in the hospital. She improved. She was continued on peritoneal dialysis as per nephrology.
Patient was recently diagnosed with lupus, and currently treated with prednisone, mycophenolate, and Plaquenil. Patient's prednisone was tapered to 15 mg daily on 03/04/2025. She will need to be tapered down to 10 mg daily in 2-3 weeks. Nephrology
recommends slow taper.
Patient improved during her hospitalization, and she requested discharge. She is medically stable and cleared by ID for discharge on Merrem to complete a 3-week course, through 03/21/2025. Nephrology recommends a 2-week course of nystatin for
candidal prophylaxis due to her immunosuppression. She needs to follow-up with her PCP in 1 week, as well as nephrology in 1-2 weeks.
Disposition: Home with home care
Discharge planning: Required 37 minutes
Discharge Plan
-
Patient Disposition: Home (Routine Discharge)
Discharge Diagnosis/Procedures: Peritoneal dialysis associated peritonitis, hypokalemia, end-stage renal failure, anemia of chronic disease, lupus
Condition: Good
Diet: Regular
Activity: As tolerated
Driving Restrictions: As prior to admission
Activity Restrictions/Additional Instructions:
The infection doctor recommends IV meropenem through 03/21/2025.
Nephrology has reduced to your prednisone to 15 mg daily, you will need a slow taper over 2 months.
Please follow-up with your PCP in 1 week, and nephrology in the office in 1-2 weeks.
Referrals:
Dewey Manzo MD [Family Provider, Family Practice] - in one week
Abhi Mike MD [Active, Nephrology] - in one to two weeks
Prescriptions:
New
meropenem 500 mg Recon Soln
500 mg IV Q24H 10 Days Qty: 0 0RF
nystatin 100,000 unit/mL Suspension
5 ml PO QID 14 Days Qty: 280 0RF
nicotine 14 mg/24 hr Patch 24 Hour
14 mg transdermal DAILY 30 Days Qty: 30 0RF
lorazepam [Ativan] 0.5 mg tablet
0.5 mg PO BID PRN (Reason: anxiety) Qty: 30 0RF
Continued
cyanocobalamin (vitamin B-12) 1,000 mcg Tablet
1,000 mcg PO DAILY
magnesium oxide 400 mg magnesium Tablet
400 mg PO DAILY
cholecalciferol (vitamin D3) 25 mcg (1,000 unit) Tablet
25 mcg PO DAILY Qty: 30 0RF
levothyroxine 50 mcg Tablet
50 mcg PO DAILY @ 0600 Qty: 14 0RF
pantoprazole 40 mg Tablet,Delayed Release (Dr/Ec)
40 mg PO DAILY Qty: 30 0RF
mycophenolate mofetil 500 mg tablet
500 mg PO BID
folic acid 1 mg Tablet
1 mg PO DAILY
hydroxychloroquine [Plaquenil] 200 mg Tablet
200 mg PO DAILY
metoprolol succinate 12.5 MG tablet extended release 24 hr
12.5 mg PO DAILY Qty: 30 3RF
Rx Instructions:
does not take on dialysis days
Changed
prednisone 10 mg tablet
15 mg PO DAILY Qty: 0 0RF
Discontinued
sulfamethoxazole-trimethoprim [Bactrim DS] 800-160 mg Tablet
1 tab PO DAILY
Rx Instructions:
FOR 21 DAYS STARTING 02/21/25
Discharge Orders:
Discharge Patient (As Directed); Ordered 03/11/25
Ordered By: Prabhu Fermin
Discharge Date and Time
Discharge Date/Time: 03/11/25 14:14
Print Language: PRYDEINIG
[2025-03-11] MEDS: MYCOSTATIN ORAL SUSPENSION 5 ML PO (13:28)
--- NOTE | 2025-03-11 14:22 | PTCARENOTE ---
Patient discharged to home. Discharge instructions reviewed with patient and patients , all questions answered. Patient left via wheel chair through main lobby with all known belongings.
--- NOTE | 2025-03-11 14:29 | CM ---
F/U: Home Infusion was started yesterday. Nichole for this was high, but [facility] ([facility]ridget) spoke to the patient who accepted the cost. Patient is ready today, teaching happened prior to patient leaving, PICC report sent to [facility], and IMM
complete. PLAN: Home Infusion with [facility].
== END 2025-03-11 14:14 | disposition home or self-care (01) | DRG 371 ==
LOC: IMU 14:30
PROVIDERS: Nurse Practitioner; Registered Nurse; Specialist; Student in an Organized Health Care Education/Training Program; ADMITTING PHYSICIAN Internal Medicine; ATTENDING PHYSICIAN Family Medicine; CONSULT PHYSICIAN Internal Medicine Infectious Disease; CONSULT PHYSICIAN Specialist; EMERGENCY PHYSICIAN Student in an Organized Health Care Education/Training Program; FAMILY PHYSICIAN Family Medicine
DX: K65.9 Peritonitis, unspecified (principal); E43 Unspecified severe protein-calorie malnutrition; N18.6 End stage renal disease; E87.1 Hypo-osmolality and hyponatremia; Z68.1 Body mass index [BMI] 19.9 or less, adult; E87.20 Acidosis, unspecified; I12.0 Hypertensive chronic kidney disease with stage 5 chronic kidney disease or end stage renal disease; R64 Cachexia; E87.6 Hypokalemia; Z99.2 Dependence on renal dialysis; D69.6 Thrombocytopenia, unspecified; E03.9 Hypothyroidism, unspecified; Z79.890 Hormone replacement therapy; F17.210 Nicotine dependence, cigarettes, uncomplicated; Z79.899 Other long term (current) drug therapy; Z79.2 Long term (current) use of antibiotics; D63.1 Anemia in chronic kidney disease; F32.A Depression, unspecified; K21.9 Gastro-esophageal reflux disease without esophagitis; Z79.624 Long term (current) use of inhibitors of nucleotide synthesis; Z86.73 Personal history of transient ischemic attack (TIA), and cerebral infarction without residual deficits
CPT/HCPCS: 80048; 80053; 81003; 81015; 82962; 83605; 83690; 85025; 85027; 87015; 87040; 87070; 87077; 87086; 87186; 87205; 89051; 93005; 96361; 96365; 96375; 99285; 99406

== ENCOUNTER 2025-03-27 06:22 | Day surgery (SDC) | payer OTHER, SELFPAY ==
[2025-03-27 11:10] VITALS: BMI 16.2
[2025-03-27 11:15] VITALS: BP 99/66
[2025-03-27] MEDS: TYLENOL 1000 MG PO (11:19)
[2025-03-27 12:41] LABS: ALT (SGPT) 25 U/L (0-35); AST (SGOT) 20 U/L (14-36); Albumin 2.9 g/dl (3.5-5.0); Alkaline Phosphatase 154 U/L (38-126); Blood Urea Nitrogen 22 mg/dl (7-17); Calcium 8.6 mg/dl (8.4-10.2); Carbon Dioxide 19 mmol/L (22-30); Chloride 109 mmol/L (98-107); Estimated Creatinine Clearance 14 ml/min; Glucose 70 mg/dl (70-99); Potassium 3.9 mmol/L (3.5-5.1); Sodium 133 mmol/L (135-145); Total Protein 5.4 g/dl (6.3-8.2); eGFR 23.01
[2025-03-27] MEDS: ATIVAN 0.5 MG PO (13:01)
--- NOTE | 2025-03-27 15:14 | HP.FOC2 ---
Focused History & Physical
Chief Complaint
HPI:
Chief Complaint: Peritoneal dialysis catheter infection
HPI / Indication for Planned Procedure: 64-year-old female who has recently been on peritoneal dialysis. Secondary to recurrent catheter associated infection it has been requested that the catheter be removed as she is now on hemodialysis for the
foreseeable future.
Relevant Past Medical History: Other (ESRD on dialysis, history of peritonitis with Achromobacter, lupus, hypothyroidism, )
Relevant Social History: Negative
Relevant Family History: Negative
Relevant Past Surgical History: Positive for (Peritoneal dialysis catheter placement, craniotomy, x 3)
Review of Systems
Review of Pertinent Systems: All Systems Negative
Medication
See Medication form for detailed medications: Yes
Medication List (including Herbals & OTC):
metoprolol succinate 25 mg tablet,extended release 24 hr 12.5 mg (1/2 x 25 mg) PO DAILY ##30 10/16/14
cyanocobalamin (vitamin B-12) 1,000 mcg tablet 1,000 mcg PO DAILY Supplement 04/30/24
magnesium oxide 400 mg PO DAILY Supplement 04/30/24
cholecalciferol (vitamin D3) 25 mcg (1,000 unit) tablet 25 mcg PO DAILY Vitamin D Deficiency #30 tabs 05/06/24
levothyroxine 50 mcg tablet 50 mcg PO DAILY @ 0600 Hypothyroidism #14 tabs 05/06/24
pantoprazole 40 mg tablet,delayed release 40 mg PO DAILY #30 tabs 11/03/24
folic acid 1 mg tablet 1 mg PO DAILY Supplement 03/05/25
hydroxychloroquine 200 mg tablet (Plaquenil) 200 mg PO DAILY Lupus 03/05/25
mycophenolate mofetil 500 mg tablet 500 mg PO BID Lupus 03/05/25
lorazepam 0.5 mg tablet (Ativan) 0.5 mg PO BID PRN anxiety #30 tabs 03/11/25
nystatin 100,000 unit/mL oral suspension 5 ml PO QID 14 days #280 mL 03/11/25
prednisone 10 mg tablet 15 mg (1.5 x 10 mg) PO DAILY Lupus #0 tabs 03/11/25
Medications Reviewed: Yes
Allergies and Reactions
Patient has Allergies: No
Noted Allergies and Reactions:
Allergy/AdvReac Type Severity Reaction Status Date / Time
No Known Allergies Allergy Verified 03/27/25 11:11
Pertinent Physical Exam
All Other Systems: Negative
Head/Neck: Normal
Lungs: Normal
Heart: Normal
Abdomen: Other (Peritoneal dialysis catheter)
Extremities: Normal
Neurological: Normal
Diagnosis / Assessment
64-year-old female presenting for removal of peritoneal dialysis catheter secondary to recent PD associated peritonitis with achromobacter
Plan / Procedure
Removal peritoneal dialysis catheter
Anesthesia/Sedation to be done by Anesthesia Provider: Yes
--- NOTE | 2025-03-27 16:26 | W.IMMPOSTOP ---
Surgical Immed Post Op Note
-
Primary Surgeon: Brent Link MD
Assisting Surgeon: none
Pre-op Diagnosis: History of peritoneal dialysis catheter associated peritonitis
Post-op Diagnosis: History of peritoneal dialysis catheter associated peritonitis
Procedure Performed: Removal of peritoneal dialysis catheter
Anesthesia Type: General LMA +0.25% Marcaine with epi
Specimen / Cultures: None/catheter tip for culture
Estimated Blood Loss: 6 mL
Complications: None immediate
Operative Findings: PD catheter removed uneventfully. Tip sent for culture
[2025-03-27 16:27] VITALS: BP 126/77; BP 99/66
[2025-03-27 16:45] VITALS: BP 112/27
[2025-03-27 17:06] VITALS: BP 123/77
== END 2025-03-27 17:31 | disposition home or self-care (01) ==
LOC: SDS 06:22
PROVIDERS: ATTENDING PHYSICIAN Surgery
DX: N18.6 End stage renal disease (principal); T85.71XA Infection and inflammatory reaction due to peritoneal dialysis catheter, initial encounter; Y83.8 Other surgical procedures as the cause of abnormal reaction of the patient, or of later complication, without mention of misadventure at the time of the procedure; Z86.19 Personal history of other infectious and parasitic diseases; Z96.0 Presence of urogenital implants
CPT/HCPCS: 49422; 80053; 87077; 87084